=== PATIENT | male | born 1980 | race Hispanic/Latino ===

== ENCOUNTER 2019-05-18 01:40 | Emergency (ER) | payer SELFPAY ==
[~2019-05-18] VITALS: Ht 177.8 cm; Wt 99.8 kg
--- OUTSIDE RECORDS SUMMARY | 2019-05-18 01:44 | XMS REPORT ---
Author Author [facility] Organization [facility] Address Unknown Phone Unavailable Care Team Providers Care Associate Merchant Name Role Phone Unavailable Unavailable Payers Payer Name Policy Type Policy Number Effective Date Expiration Date Problems This patient has no known problems. Allergies, Adverse Reactions, Alerts Allergy Name Allergy Type Status Severity Reaction(s) Onset Date Inactive Date Treating Clinician Comments No Known Allergies DA Active U 2019-02-05 00:00:00 No Known Allergies DA Active U 2018-05-07 00:00:00 No Known Allergies DA Active U 2018-04-12 00:00:00 Medications This patient has no known medications. Results Test Description Test Time Test Comments Text Results Atomic Results Result Comments GLUBED 2019-02-07 17:30:00 GLUBED (test code=GLUBED) 134 mg/dL 74-106 Performed by certified incising machine operator at [facility] [id number] 11:16:00* Test Item Value Reference Range Comments GLUBED (test code=GLUBED) 76 mg/dL 74-106 Performed by certified incising machine operator at [facility] [id number] 07:48:00* Test Item Value Reference Range Comments GLUBED (test code=GLUBED) 79 mg/dL 74-106 Performed by certified incising machine operator at [facility] CBC W/MANUAL [id number] 04:31:00* Test Item Value Reference Range Comments WHITE BLOOD CELL (test code=WBC) 7.5 K/mm3 4.5-12.5 RED BLOOD CELL (test code=RBC) 4.08 mill/mm3 4.0-5.8 HEMOGLOBIN (test code=HGB) 13.5 gram/dL 13.0-17.5 HEMATOCRIT (test code=HCT) 41.6 % 42.0-52.0 MEAN CELL VOLUME (test code=MCV) 102.0 fL 80-98 MEAN CELL HGB (test code=MCH) 33.1 picogram 27.0-33.0 MEAN CELL HGB CONCETRATION (test code=MCHC) 32.5 gram/dL 33.0-36.0 RED CELL DISTRIBUTION WIDTH (test code=RDW) 12.9 % 11.6-16.2 RED CELL DISTRIBUTION WIDTH SD (test code=RDW-SD) 48.4 fL 37.0-51.0 PLATELET COUNT (test code=PLT) 132 K/mm3 150-450 RESULT VERIFIED BY REPEAT ANALYSIS MEAN PLATELET VOLUME (test code=MPV) 9.9 fL 6.7-11.0 IMMATURE GRANULOCYTE % (test code=IG%) 1.1 % 0.0-5.0 NUCLEATED RBC % (test code=NRBC%) 0.0 % 0-0 NEUTROPHIL # (test code=NT#) 4.92 K/mm3 1.8-7.7 IMMATURE GRANULOCYTE # (test code=IG#) 0.08 x10 3/uL 0-0.03 LYMPHOCYTE # (test code=LY#) 1.75 K/mm3 1.0-5.0 MONOCYTE # (test code=MO#) 0.47 K/mm3 0-0.8 EOSINOPHIL # (test code=EO#) 0.20 K/mm3 0.0-0.5 BASOPHIL # (test code=BA#) 0.09 K/mm3 0.0-0.2 NUCLEATED RBC # (test code=NRBC#) 0.00 K/mm3 0.0-0.1 MANUAL DIFF REQUIRED (test code=MDIFF) YES STAIN ACCEPTABILITY (test code=STN ACCEPTABLE) STAIN ACCEPTABLE TOTAL CELLS COUNTED (test code=TCC) 113 #CELLS SEGMENTED NEUTROPHILS (test code=SEG) 69.9 % 39-69 BAND NEUTROPHIL (test code=BAND) 0 % 0-10 LYMPHOCYTE (test code=LYMPH) 22.1 % 25-55 REACTIVE LYMPH (test code=RELYMPH) 3.5 % MONOCYTE (test code=MON) 1.8 % 0-10 EOSINOPHIL (test code=EOS) 1.8 % 0.0-5.0 BASOPHIL (test code=BASO) 0.9 % 0-1.0 METAMYELOCYTE (test code=META) 0 % 0-0 MYELOCYTE (test code=MYELO) 0 % 0.0-0.0 PROMYELOCYTE (test code=PROM) 0 % 0-0 ANISOCYTOSIS (test code=ANISO) 2+ MACROCYTOSIS (test code=MACR) 2+ PLATELET ESTIMATE (test code=PLTEST) ADEQUATE PLATELET MORPHOLOGY (test code=PLTMORPH) NORMAL IMMATURE FORMS (test code=IMMAT) 0 % 0-0 BASIC METABOLIC [id number] 04:02:00* Test Item Value Reference Range Comments SODIUM (test code=NA) 139 mmol/L 136-145 POTASSIUM (test code=K) 4.0 mmol/L 3.5-5.1 CHLORIDE (test code=CL) 103.0 mmol/L 98-107 CARBON DIOXIDE (test code=CO2) 24.0 mmol/L 21-32 ANION GAP (test code=GAP) 16.0 10-20 GLUCOSE (test code=GLU) 83 mg/dL 74-106 BLOOD UREA NITROGEN (test code=BUN) 6 mg/dL 7-18 GLOMERULAR FILTRATION RATE (test code=GFR) > 60 mL/min >=60 Estimated GFR by using Modified MDRD formula.Chronic kidney disease is defined as either kidney damageor GFR <60 mL/min/1.73 m2 for >3 months. CREATININE (test code=CREAT) 0.60 mg/dL 0.7-1.3 BUN/CREATININE RATIO (test code=BUN/CREA) 9.7 10-20 CALCIUM (test code=CA) 9.2 mg/dL 8.5-10.1 HEPATIC FUNCTION [id number] 04:02:00* Test Item Value Reference Range Comments TOTAL PROTEIN (test code=PROT) 7.9 gram/dL 6.4-8.2 ALBUMIN (test code=ALB) 2.8 g/dL 3.4-5.0 GLOBULIN (test code=GLOB) 5.1 gram/dL 2.7-4.2 ALBUMIN/GLOBULIN RATIO (test code=A/G) 0.5 0.75-1.50 BILIRUBIN TOTAL (test code=BILT) 4.00 mg/dL 0.0-1.0 BILIRUBIN DIRECT (test code=BILD) 2.82 mg/dL 0.0-0.20 SGOT/AST (test code=AST) 65 IUnit/L 15-37 SGPT/ALT (test code=ALT) 62 IUnit/L 12-78 ALKALINE PHOSPHATASE TOTAL (test code=ALKP) 200 IUnit/L 45-117 Note change in reference range due to change in reagent. [id number] 04:02:00* Test Item Value Reference Range Comments LIPASE (test code=LIP) 300 U/L 73.0-393.0 BASIC METABOLIC [id number] 03:54:00* Test Item Value Reference Range Comments SODIUM (test code=NA) 139 mmol/L 136-145 POTASSIUM (test code=K) 4.0 mmol/L 3.5-5.1 CHLORIDE (test code=CL) 103.0 mmol/L 98-107 CARBON DIOXIDE (test code=CO2) mmol/L 21-32 ANION GAP (test code=GAP) 10-20 GLUCOSE (test code=GLU) mg/dL 74-106 BLOOD UREA NITROGEN (test code=BUN) mg/dL 7-18 GLOMERULAR FILTRATION RATE (test code=GFR) mL/min >=60 CREATININE (test code=CREAT) mg/dL 0.7-1.3 BUN/CREATININE RATIO (test code=BUN/CREA) 10-20 CALCIUM (test code=CA) mg/dL 8.5-10.1 HEPATIC FUNCTION [id number] 03:54:00* Test Item Value Reference Range Comments TOTAL PROTEIN (test code=PROT) gram/dL 6.4-8.2 ALBUMIN (test code=ALB) g/dL 3.4-5.0 GLOBULIN (test code=GLOB) gram/dL 2.7-4.2 ALBUMIN/GLOBULIN RATIO (test code=A/G) 0.75-1.50 BILIRUBIN TOTAL (test code=BILT) mg/dL 0.0-1.0 BILIRUBIN DIRECT (test code=BILD) mg/dL 0.0-0.20 SGOT/AST (test code=AST) IUnit/L 15-37 SGPT/ALT (test code=ALT) IUnit/L 12-78 ALKALINE PHOSPHATASE TOTAL (test code=ALKP) IUnit/L 45-117 [id number] 03:54:00* Test Item Value Reference Range Comments LIPASE (test code=LIP) U/L 73.0-393.0 CBC W/MANUAL [id number] 03:43:00* Test Item Value Reference Range Comments WHITE BLOOD CELL (test code=WBC) 7.5 K/mm3 4.5-12.5 RED BLOOD CELL (test code=RBC) 4.08 mill/mm3 4.0-5.8 HEMOGLOBIN (test code=HGB) 13.5 gram/dL 13.0-17.5 HEMATOCRIT (test code=HCT) 41.6 % 42.0-52.0 MEAN CELL VOLUME (test code=MCV) 102.0 fL 80-98 MEAN CELL HGB (test code=MCH) 33.1 picogram 27.0-33.0 MEAN CELL HGB CONCETRATION (test code=MCHC) 32.5 gram/dL 33.0-36.0 RED CELL DISTRIBUTION WIDTH (test code=RDW) 12.9 % 11.6-16.2 RED CELL DISTRIBUTION WIDTH SD (test code=RDW-SD) 48.4 fL 37.0-51.0 PLATELET COUNT (test code=PLT) 132 K/mm3 150-450 RESULT VERIFIED BY REPEAT ANALYSIS MEAN PLATELET VOLUME (test code=MPV) 9.9 fL 6.7-11.0 IMMATURE GRANULOCYTE % (test code=IG%) 1.1 % 0.0-5.0 NUCLEATED RBC % (test code=NRBC%) 0.0 % 0-0 NEUTROPHIL # (test code=NT#) 4.92 K/mm3 1.8-7.7 IMMATURE GRANULOCYTE # (test code=IG#) 0.08 x10 3/uL 0-0.03 LYMPHOCYTE # (test code=LY#) 1.75 K/mm3 1.0-5.0 MONOCYTE # (test code=MO#) 0.47 K/mm3 0-0.8 EOSINOPHIL # (test code=EO#) 0.20 K/mm3 0.0-0.5 BASOPHIL # (test code=BA#) 0.09 K/mm3 0.0-0.2 NUCLEATED RBC # (test code=NRBC#) 0.00 K/mm3 0.0-0.1 MANUAL DIFF REQUIRED (test code=MDIFF) YES STAIN ACCEPTABILITY (test code=STN ACCEPTABLE) TOTAL CELLS COUNTED (test code=TCC) #CELLS SEGMENTED NEUTROPHILS (test code=SEG) % 39-69 LYMPHOCYTE (test code=LYMPH) % 25-55 MONOCYTE (test code=MON) % 0-10 EOSINOPHIL (test code=EOS) % 0.0-5.0 CABOT RINGS (test code=CAB) MORPHOLOGY COMMENT (test code=MOC) PLATELET ESTIMATE (test code=PLTEST) PLATELET MORPHOLOGY (test code=PLTMORPH) CBC W/MANUAL [id number] 03:43:00* Test Item Value Reference Range Comments WHITE BLOOD CELL (test code=WBC) 7.5 K/mm3 4.5-12.5 RED BLOOD CELL (test code=RBC) 4.08 mill/mm3 4.0-5.8 HEMOGLOBIN (test code=HGB) 13.5 gram/dL 13.0-17.5 HEMATOCRIT (test code=HCT) 41.6 % 42.0-52.0 MEAN CELL VOLUME (test code=MCV) 102.0 fL 80-98 MEAN CELL HGB (test code=MCH) 33.1 picogram 27.0-33.0 MEAN CELL HGB CONCETRATION (test code=MCHC) 32.5 gram/dL 33.0-36.0 RED CELL DISTRIBUTION WIDTH (test code=RDW) 12.9 % 11.6-16.2 RED CELL DISTRIBUTION WIDTH SD (test code=RDW-SD) 48.4 fL 37.0-51.0 PLATELET COUNT (test code=PLT) 132 K/mm3 150-450 RESULT VERIFIED BY REPEAT ANALYSIS MEAN PLATELET VOLUME (test code=MPV) 9.9 fL 6.7-11.0 IMMATURE GRANULOCYTE % (test code=IG%) 1.1 % 0.0-5.0 NUCLEATED RBC % (test code=NRBC%) 0.0 % 0-0 NEUTROPHIL # (test code=NT#) 4.92 K/mm3 1.8-7.7 IMMATURE GRANULOCYTE # (test code=IG#) 0.08 x10 3/uL 0-0.03 LYMPHOCYTE # (test code=LY#) 1.75 K/mm3 1.0-5.0 MONOCYTE # (test code=MO#) 0.47 K/mm3 0-0.8 EOSINOPHIL # (test code=EO#) 0.20 K/mm3 0.0-0.5 BASOPHIL # (test code=BA#) 0.09 K/mm3 0.0-0.2 NUCLEATED RBC # (test code=NRBC#) 0.00 K/mm3 0.0-0.1 MANUAL DIFF REQUIRED (test code=MDIFF) YES STAIN ACCEPTABILITY (test code=STN ACCEPTABLE) TOTAL CELLS COUNTED (test code=TCC) #CELLS SEGMENTED NEUTROPHILS (test code=SEG) % 39-69 LYMPHOCYTE (test code=LYMPH) % 25-55 MONOCYTE (test code=MON) % 0-10 EOSINOPHIL (test code=EOS) % 0.0-5.0 MORPHOLOGY COMMENT (test code=MOC) PLATELET ESTIMATE (test code=PLTEST) PLATELET MORPHOLOGY (test code=PLTMORPH) CBC W/MANUAL [id number] 03:43:00* Test Item Value Reference Range Comments WHITE BLOOD CELL (test code=WBC) 7.5 K/mm3 4.5-12.5 RED BLOOD CELL (test code=RBC) 4.08 mill/mm3 4.0-5.8 HEMOGLOBIN (test code=HGB) 13.5 gram/dL 13.0-17.5 HEMATOCRIT (test code=HCT) 41.6 % 42.0-52.0 MEAN CELL VOLUME (test code=MCV) 102.0 fL 80-98 MEAN CELL HGB (test code=MCH) 33.1 picogram 27.0-33.0 MEAN CELL HGB CONCETRATION (test code=MCHC) 32.5 gram/dL 33.0-36.0 RED CELL DISTRIBUTION WIDTH (test code=RDW) 12.9 % 11.6-16.2 RED CELL DISTRIBUTION WIDTH SD (test code=RDW-SD) 48.4 fL 37.0-51.0 PLATELET COUNT (test code=PLT) 132 K/mm3 150-450 RESULT VERIFIED BY REPEAT ANALYSIS MEAN PLATELET VOLUME (test code=MPV) 9.9 fL 6.7-11.0 IMMATURE GRANULOCYTE % (test code=IG%) 1.1 % 0.0-5.0 NUCLEATED RBC % (test code=NRBC%) 0.0 % 0-0 NEUTROPHIL # (test code=NT#) 4.92 K/mm3 1.8-7.7 IMMATURE GRANULOCYTE # (test code=IG#) 0.08 x10 3/uL 0-0.03 LYMPHOCYTE # (test code=LY#) 1.75 K/mm3 1.0-5.0 MONOCYTE # (test code=MO#) 0.47 K/mm3 0-0.8 EOSINOPHIL # (test code=EO#) 0.20 K/mm3 0.0-0.5 BASOPHIL # (test code=BA#) 0.09 K/mm3 0.0-0.2 NUCLEATED RBC # (test code=NRBC#) 0.00 K/mm3 0.0-0.1 MANUAL DIFF REQUIRED (test code=MDIFF) YES STAIN ACCEPTABILITY (test code=STN ACCEPTABLE) TOTAL CELLS COUNTED (test code=TCC) #CELLS SEGMENTED NEUTROPHILS (test code=SEG) % 39-69 LYMPHOCYTE (test code=LYMPH) % 25-55 MONOCYTE (test code=MON) % 0-10 MORPHOLOGY COMMENT (test code=MOC) PLATELET ESTIMATE (test code=PLTEST) PLATELET MORPHOLOGY (test code=PLTMORPH) CBC W/MANUAL [id number] 03:42:00* Test Item Value Reference Range Comments WHITE BLOOD CELL (test code=WBC) 7.5 K/mm3 4.5-12.5 RED BLOOD CELL (test code=RBC) 4.08 mill/mm3 4.0-5.8 HEMOGLOBIN (test code=HGB) 13.5 gram/dL 13.0-17.5 HEMATOCRIT (test code=HCT) 41.6 % 42.0-52.0 MEAN CELL VOLUME (test code=MCV) 102.0 fL 80-98 MEAN CELL HGB (test code=MCH) 33.1 picogram 27.0-33.0 MEAN CELL HGB CONCETRATION (test code=MCHC) 32.5 gram/dL 33.0-36.0 RED CELL DISTRIBUTION WIDTH (test code=RDW) 12.9 % 11.6-16.2 RED CELL DISTRIBUTION WIDTH SD (test code=RDW-SD) 48.4 fL 37.0-51.0 PLATELET COUNT (test code=PLT) 132 K/mm3 150-450 RESULT VERIFIED BY REPEAT ANALYSIS MEAN PLATELET VOLUME (test code=MPV) 9.9 fL 6.7-11.0 IMMATURE GRANULOCYTE % (test code=IG%) 1.1 % 0.0-5.0 NUCLEATED RBC % (test code=NRBC%) 0.0 % 0-0 NEUTROPHIL # (test code=NT#) 4.92 K/mm3 1.8-7.7 IMMATURE GRANULOCYTE # (test code=IG#) 0.08 x10 3/uL 0-0.03 LYMPHOCYTE # (test code=LY#) 1.75 K/mm3 1.0-5.0 MONOCYTE # (test code=MO#) 0.47 K/mm3 0-0.8 EOSINOPHIL # (test code=EO#) 0.20 K/mm3 0.0-0.5 BASOPHIL # (test code=BA#) 0.09 K/mm3 0.0-0.2 NUCLEATED RBC # (test code=NRBC#) 0.00 K/mm3 0.0-0.1 MANUAL DIFF REQUIRED (test code=MDIFF) YES STAIN ACCEPTABILITY (test code=STN ACCEPTABLE) TOTAL CELLS COUNTED (test code=TCC) #CELLS SEGMENTED NEUTROPHILS (test code=SEG) % 39-69 LYMPHOCYTE (test code=LYMPH) % 25-55 MONOCYTE (test code=MON) % 0-10 EOSINOPHIL (test code=EOS) % 0.0-5.0 CABOT RINGS (test code=CAB) MORPHOLOGY COMMENT (test code=MOC) PLATELET ESTIMATE (test code=PLTEST) PLATELET MORPHOLOGY (test code=PLTMORPH) CBC W/MANUAL [id number] 03:42:00* Test Item Value Reference Range Comments WHITE BLOOD CELL (test code=WBC) 7.5 K/mm3 4.5-12.5 RED BLOOD CELL (test code=RBC) 4.08 mill/mm3 4.0-5.8 HEMOGLOBIN (test code=HGB) 13.5 gram/dL 13.0-17.5 HEMATOCRIT (test code=HCT) 41.6 % 42.0-52.0 MEAN CELL VOLUME (test code=MCV) 102.0 fL 80-98 MEAN CELL HGB (test code=MCH) 33.1 picogram 27.0-33.0 MEAN CELL HGB CONCETRATION (test code=MCHC) 32.5 gram/dL 33.0-36.0 RED CELL DISTRIBUTION WIDTH (test code=RDW) 12.9 % 11.6-16.2 RED CELL DISTRIBUTION WIDTH SD (test code=RDW-SD) 48.4 fL 37.0-51.0 PLATELET COUNT (test code=PLT) 132 K/mm3 150-450 RESULT VERIFIED BY REPEAT ANALYSIS MEAN PLATELET VOLUME (test code=MPV) 9.9 fL 6.7-11.0 IMMATURE GRANULOCYTE % (test code=IG%) 1.1 % 0.0-5.0 NUCLEATED RBC % (test code=NRBC%) 0.0 % 0-0 NEUTROPHIL # (test code=NT#) 4.92 K/mm3 1.8-7.7 IMMATURE GRANULOCYTE # (test code=IG#) 0.08 x10 3/uL 0-0.03 LYMPHOCYTE # (test code=LY#) 1.75 K/mm3 1.0-5.0 MONOCYTE # (test code=MO#) 0.47 K/mm3 0-0.8 EOSINOPHIL # (test code=EO#) 0.20 K/mm3 0.0-0.5 BASOPHIL # (test code=BA#) 0.09 K/mm3 0.0-0.2 NUCLEATED RBC # (test code=NRBC#) 0.00 K/mm3 0.0-0.1 MANUAL DIFF REQUIRED (test code=MDIFF) YES STAIN ACCEPTABILITY (test code=STN ACCEPTABLE) TOTAL CELLS COUNTED (test code=TCC) #CELLS SEGMENTED NEUTROPHILS (test code=SEG) % 39-69 LYMPHOCYTE (test code=LYMPH) % 25-55 MONOCYTE (test code=MON) % 0-10 EOSINOPHIL (test code=EOS) % 0.0-5.0 CABOT RINGS (test code=CAB) MORPHOLOGY COMMENT (test code=MOC) PLATELET ESTIMATE (test code=PLTEST) PLATELET MORPHOLOGY (test code=PLTMORPH) [id number] 20:28:00* Test Item Value Reference Range Comments GLUBED (test code=GLUBED) 80 mg/dL 74-106 Performed by certified incising machine operator at [facility] [id number] 16:31:00* Test Item Value Reference Range Comments GLUBED (test code=GLUBED) 74 mg/dL 74-106 Performed by certified incising machine operator at [facility] [id number] 11:31:00* Test Item Value Reference Range Comments GLUBED (test code=GLUBED) 97 mg/dL 74-106 Performed by certified incising machine operator at [facility] [id number] 07:54:00* Test Item Value Reference Range Comments GLUBED (test code=GLUBED) 88 mg/dL 74-106 Performed by certified incising machine operator at [facility] CBC W/MANUAL [id number] 06:32:00* Test Item Value Reference Range Comments WHITE BLOOD CELL (test code=WBC) 12.2 K/mm3 4.5-12.5 RED BLOOD CELL (test code=RBC) 4.00 mill/mm3 4.0-5.8 HEMOGLOBIN (test code=HGB) 13.3 gram/dL 13.0-17.5 HEMATOCRIT (test code=HCT) 40.3 % 42.0-52.0 MEAN CELL VOLUME (test code=MCV) 100.8 fL 80-98 MEAN CELL HGB (test code=MCH) 33.3 picogram 27.0-33.0 MEAN CELL HGB CONCETRATION (test code=MCHC) 33.0 gram/dL 33.0-36.0 RED CELL DISTRIBUTION WIDTH (test code=RDW) 13.1 % 11.6-16.2 RED CELL DISTRIBUTION WIDTH SD (test code=RDW-SD) 48.7 fL 37.0-51.0 PLATELET COUNT (test code=PLT) 91 K/mm3 150-450 MEAN PLATELET VOLUME (test code=MPV) 11.3 fL 6.7-11.0 IMMATURE GRANULOCYTE % (test code=IG%) 0.9 % 0.0-5.0 NUCLEATED RBC % (test code=NRBC%) 0.0 % 0-0 NEUTROPHIL # (test code=NT#) 9.15 K/mm3 1.8-7.7 IMMATURE GRANULOCYTE # (test code=IG#) 0.11 x10 3/uL 0-0.03 LYMPHOCYTE # (test code=LY#) 1.95 K/mm3 1.0-5.0 MONOCYTE # (test code=MO#) 0.66 K/mm3 0-0.8 EOSINOPHIL # (test code=EO#) 0.25 K/mm3 0.0-0.5 BASOPHIL # (test code=BA#) 0.12 K/mm3 0.0-0.2 NUCLEATED RBC # (test code=NRBC#) 0.00 K/mm3 0.0-0.1 MANUAL DIFF REQUIRED (test code=MDIFF) YES STAIN ACCEPTABILITY (test code=STN ACCEPTABLE) STAIN ACCEPTABLE TOTAL CELLS COUNTED (test code=TCC) 115 #CELLS SEGMENTED NEUTROPHILS (test code=SEG) 87.0 % 39-69 BAND NEUTROPHIL (test code=BAND) 0 % 0-10 LYMPHOCYTE (test code=LYMPH) 6.9 % 25-55 REACTIVE LYMPH (test code=RELYMPH) 0 % MONOCYTE (test code=MON) 3.5 % 0-10 EOSINOPHIL (test code=EOS) 1.7 % 0.0-5.0 BASOPHIL (test code=BASO) 0.9 % 0-1.0 METAMYELOCYTE (test code=META) 0 % 0-0 MYELOCYTE (test code=MYELO) 0 % 0.0-0.0 PROMYELOCYTE (test code=PROM) 0 % 0-0 ANISOCYTOSIS (test code=ANISO) 2+ MACROCYTOSIS (test code=MACR) 2+ PLATELET ESTIMATE (test code=PLTEST) ADEQUATE PLATELET MORPHOLOGY (test code=PLTMORPH) NORMAL IMMATURE FORMS (test code=IMMAT) 0 % 0-0 BASIC METABOLIC [id number] 05:53:00* Test Item Value Reference Range Comments SODIUM (test code=NA) 137 mmol/L 136-145 RESULT VERIFIED BY REPEAT ANALYSIS POTASSIUM (test code=K) 3.5 mmol/L 3.5-5.1 CHLORIDE (test code=CL) 101.0 mmol/L 98-107 CARBON DIOXIDE (test code=CO2) 25.0 mmol/L 21-32 ANION GAP (test code=GAP) 14.5 10-20 GLUCOSE (test code=GLU) 116 mg/dL 74-106 BLOOD UREA NITROGEN (test code=BUN) 4 mg/dL 7-18 GLOMERULAR FILTRATION RATE (test code=GFR) > 60 mL/min >=60 Estimated GFR by using Modified MDRD formula.Chronic kidney disease is defined as either kidney damageor GFR <60 mL/min/1.73 m2 for >3 months. CREATININE (test code=CREAT) 0.60 mg/dL 0.7-1.3 BUN/CREATININE RATIO (test code=BUN/CREA) 6.7 10-20 CALCIUM (test code=CA) 8.3 mg/dL 8.5-10.1 [id number] 05:53:00* Test Item Value Reference Range Comments LIPASE (test code=LIP) 684 U/L 73.0-393.0 CBC W/MANUAL [id number] 05:22:00* Test Item Value Reference Range Comments WHITE BLOOD CELL (test code=WBC) 12.2 K/mm3 4.5-12.5 RED BLOOD CELL (test code=RBC) 4.00 mill/mm3 4.0-5.8 HEMOGLOBIN (test code=HGB) 13.3 gram/dL 13.0-17.5 HEMATOCRIT (test code=HCT) 40.3 % 42.0-52.0 MEAN CELL VOLUME (test code=MCV) 100.8 fL 80-98 MEAN CELL HGB (test code=MCH) 33.3 picogram 27.0-33.0 MEAN CELL HGB CONCETRATION (test code=MCHC) 33.0 gram/dL 33.0-36.0 RED CELL DISTRIBUTION WIDTH (test code=RDW) 13.1 % 11.6-16.2 RED CELL DISTRIBUTION WIDTH SD (test code=RDW-SD) 48.7 fL 37.0-51.0 PLATELET COUNT (test code=PLT) 91 K/mm3 150-450 MEAN PLATELET VOLUME (test code=MPV) 11.3 fL 6.7-11.0 IMMATURE GRANULOCYTE % (test code=IG%) 0.9 % 0.0-5.0 NUCLEATED RBC % (test code=NRBC%) 0.0 % 0-0 NEUTROPHIL # (test code=NT#) 9.15 K/mm3 1.8-7.7 IMMATURE GRANULOCYTE # (test code=IG#) 0.11 x10 3/uL 0-0.03 LYMPHOCYTE # (test code=LY#) 1.95 K/mm3 1.0-5.0 MONOCYTE # (test code=MO#) 0.66 K/mm3 0-0.8 EOSINOPHIL # (test code=EO#) 0.25 K/mm3 0.0-0.5 BASOPHIL # (test code=BA#) 0.12 K/mm3 0.0-0.2 NUCLEATED RBC # (test code=NRBC#) 0.00 K/mm3 0.0-0.1 MANUAL DIFF REQUIRED (test code=MDIFF) YES STAIN ACCEPTABILITY (test code=STN ACCEPTABLE) TOTAL CELLS COUNTED (test code=TCC) #CELLS SEGMENTED NEUTROPHILS (test code=SEG) % 39-69 LYMPHOCYTE (test code=LYMPH) % 25-55 MONOCYTE (test code=MON) % 0-10 EOSINOPHIL (test code=EOS) % 0.0-5.0 CABOT RINGS (test code=CAB) MORPHOLOGY COMMENT (test code=MOC) PLATELET ESTIMATE (test code=PLTEST) PLATELET MORPHOLOGY (test code=PLTMORPH) CBC W/MANUAL [id number] 05:22:00* Test Item Value Reference Range Comments WHITE BLOOD CELL (test code=WBC) 12.2 K/mm3 4.5-12.5 RED BLOOD CELL (test code=RBC) 4.00 mill/mm3 4.0-5.8 HEMOGLOBIN (test code=HGB) 13.3 gram/dL 13.0-17.5 HEMATOCRIT (test code=HCT) 40.3 % 42.0-52.0 MEAN CELL VOLUME (test code=MCV) 100.8 fL 80-98 MEAN CELL HGB (test code=MCH) 33.3 picogram 27.0-33.0 MEAN CELL HGB CONCETRATION (test code=MCHC) 33.0 gram/dL 33.0-36.0 RED CELL DISTRIBUTION WIDTH (test code=RDW) 13.1 % 11.6-16.2 RED CELL DISTRIBUTION WIDTH SD (test code=RDW-SD) 48.7 fL 37.0-51.0 PLATELET COUNT (test code=PLT) 91 K/mm3 150-450 MEAN PLATELET VOLUME (test code=MPV) 11.3 fL 6.7-11.0 IMMATURE GRANULOCYTE % (test code=IG%) 0.9 % 0.0-5.0 NUCLEATED RBC % (test code=NRBC%) 0.0 % 0-0 NEUTROPHIL # (test code=NT#) 9.15 K/mm3 1.8-7.7 IMMATURE GRANULOCYTE # (test code=IG#) 0.11 x10 3/uL 0-0.03 LYMPHOCYTE # (test code=LY#) 1.95 K/mm3 1.0-5.0 MONOCYTE # (test code=MO#) 0.66 K/mm3 0-0.8 EOSINOPHIL # (test code=EO#) 0.25 K/mm3 0.0-0.5 BASOPHIL # (test code=BA#) 0.12 K/mm3 0.0-0.2 NUCLEATED RBC # (test code=NRBC#) 0.00 K/mm3 0.0-0.1 MANUAL DIFF REQUIRED (test code=MDIFF) YES STAIN ACCEPTABILITY (test code=STN ACCEPTABLE) TOTAL CELLS COUNTED (test code=TCC) #CELLS SEGMENTED NEUTROPHILS (test code=SEG) % 39-69 LYMPHOCYTE (test code=LYMPH) % 25-55 MONOCYTE (test code=MON) % 0-10 EOSINOPHIL (test code=EOS) % 0.0-5.0 CABOT RINGS (test code=CAB) MORPHOLOGY COMMENT (test code=MOC) PLATELET ESTIMATE (test code=PLTEST) PLATELET MORPHOLOGY (test code=PLTMORPH) CBC W/MANUAL [id number] 05:22:00* Test Item Value Reference Range Comments WHITE BLOOD CELL (test code=WBC) 12.2 K/mm3 4.5-12.5 RED BLOOD CELL (test code=RBC) 4.00 mill/mm3 4.0-5.8 HEMOGLOBIN (test code=HGB) 13.3 gram/dL 13.0-17.5 HEMATOCRIT (test code=HCT) 40.3 % 42.0-52.0 MEAN CELL VOLUME (test code=MCV) 100.8 fL 80-98 MEAN CELL HGB (test code=MCH) 33.3 picogram 27.0-33.0 MEAN CELL HGB CONCETRATION (test code=MCHC) 33.0 gram/dL 33.0-36.0 RED CELL DISTRIBUTION WIDTH (test code=RDW) 13.1 % 11.6-16.2 RED CELL DISTRIBUTION WIDTH SD (test code=RDW-SD) 48.7 fL 37.0-51.0 PLATELET COUNT (test code=PLT) 91 K/mm3 150-450 MEAN PLATELET VOLUME (test code=MPV) 11.3 fL 6.7-11.0 IMMATURE GRANULOCYTE % (test code=IG%) 0.9 % 0.0-5.0 NUCLEATED RBC % (test code=NRBC%) 0.0 % 0-0 NEUTROPHIL # (test code=NT#) 9.15 K/mm3 1.8-7.7 IMMATURE GRANULOCYTE # (test code=IG#) 0.11 x10 3/uL 0-0.03 LYMPHOCYTE # (test code=LY#) 1.95 K/mm3 1.0-5.0 MONOCYTE # (test code=MO#) 0.66 K/mm3 0-0.8 EOSINOPHIL # (test code=EO#) 0.25 K/mm3 0.0-0.5 BASOPHIL # (test code=BA#) 0.12 K/mm3 0.0-0.2 NUCLEATED RBC # (test code=NRBC#) 0.00 K/mm3 0.0-0.1 MANUAL DIFF REQUIRED (test code=MDIFF) YES STAIN ACCEPTABILITY (test code=STN ACCEPTABLE) TOTAL CELLS COUNTED (test code=TCC) #CELLS SEGMENTED NEUTROPHILS (test code=SEG) % 39-69 LYMPHOCYTE (test code=LYMPH) % 25-55 MONOCYTE (test code=MON) % 0-10 EOSINOPHIL (test code=EOS) % 0.0-5.0 MORPHOLOGY COMMENT (test code=MOC) PLATELET ESTIMATE (test code=PLTEST) PLATELET MORPHOLOGY (test code=PLTMORPH) CBC W/MANUAL [id number] 05:22:00* Test Item Value Reference Range Comments WHITE BLOOD CELL (test code=WBC) 12.2 K/mm3 4.5-12.5 RED BLOOD CELL (test code=RBC) 4.00 mill/mm3 4.0-5.8 HEMOGLOBIN (test code=HGB) 13.3 gram/dL 13.0-17.5 HEMATOCRIT (test code=HCT) 40.3 % 42.0-52.0 MEAN CELL VOLUME (test code=MCV) 100.8 fL 80-98 MEAN CELL HGB (test code=MCH) 33.3 picogram 27.0-33.0 MEAN CELL HGB CONCETRATION (test code=MCHC) 33.0 gram/dL 33.0-36.0 RED CELL DISTRIBUTION WIDTH (test code=RDW) 13.1 % 11.6-16.2 RED CELL DISTRIBUTION WIDTH SD (test code=RDW-SD) 48.7 fL 37.0-51.0 PLATELET COUNT (test code=PLT) 91 K/mm3 150-450 MEAN PLATELET VOLUME (test code=MPV) 11.3 fL 6.7-11.0 IMMATURE GRANULOCYTE % (test code=IG%) 0.9 % 0.0-5.0 NUCLEATED RBC % (test code=NRBC%) 0.0 % 0-0 NEUTROPHIL # (test code=NT#) 9.15 K/mm3 1.8-7.7 IMMATURE GRANULOCYTE # (test code=IG#) 0.11 x10 3/uL 0-0.03 LYMPHOCYTE # (test code=LY#) 1.95 K/mm3 1.0-5.0 MONOCYTE # (test code=MO#) 0.66 K/mm3 0-0.8 EOSINOPHIL # (test code=EO#) 0.25 K/mm3 0.0-0.5 BASOPHIL # (test code=BA#) 0.12 K/mm3 0.0-0.2 NUCLEATED RBC # (test code=NRBC#) 0.00 K/mm3 0.0-0.1 MANUAL DIFF REQUIRED (test code=MDIFF) YES STAIN ACCEPTABILITY (test code=STN ACCEPTABLE) TOTAL CELLS COUNTED (test code=TCC) #CELLS SEGMENTED NEUTROPHILS (test code=SEG) % 39-69 LYMPHOCYTE (test code=LYMPH) % 25-55 MONOCYTE (test code=MON) % 0-10 MORPHOLOGY COMMENT (test code=MOC) PLATELET ESTIMATE (test code=PLTEST) PLATELET MORPHOLOGY (test code=PLTMORPH) CBC W/MANUAL [id number] 05:22:00* Test Item Value Reference Range Comments WHITE BLOOD CELL (test code=WBC) 12.2 K/mm3 4.5-12.5 RED BLOOD CELL (test code=RBC) 4.00 mill/mm3 4.0-5.8 HEMOGLOBIN (test code=HGB) 13.3 gram/dL 13.0-17.5 HEMATOCRIT (test code=HCT) 40.3 % 42.0-52.0 MEAN CELL VOLUME (test code=MCV) 100.8 fL 80-98 MEAN CELL HGB (test code=MCH) 33.3 picogram 27.0-33.0 MEAN CELL HGB CONCETRATION (test code=MCHC) 33.0 gram/dL 33.0-36.0 RED CELL DISTRIBUTION WIDTH (test code=RDW) 13.1 % 11.6-16.2 RED CELL DISTRIBUTION WIDTH SD (test code=RDW-SD) 48.7 fL 37.0-51.0 PLATELET COUNT (test code=PLT) 91 K/mm3 150-450 MEAN PLATELET VOLUME (test code=MPV) 11.3 fL 6.7-11.0 IMMATURE GRANULOCYTE % (test code=IG%) 0.9 % 0.0-5.0 NUCLEATED RBC % (test code=NRBC%) 0.0 % 0-0 NEUTROPHIL # (test code=NT#) 9.15 K/mm3 1.8-7.7 IMMATURE GRANULOCYTE # (test code=IG#) 0.11 x10 3/uL 0-0.03 LYMPHOCYTE # (test code=LY#) 1.95 K/mm3 1.0-5.0 MONOCYTE # (test code=MO#) 0.66 K/mm3 0-0.8 EOSINOPHIL # (test code=EO#) 0.25 K/mm3 0.0-0.5 BASOPHIL # (test code=BA#) 0.12 K/mm3 0.0-0.2 NUCLEATED RBC # (test code=NRBC#) 0.00 K/mm3 0.0-0.1 MANUAL DIFF REQUIRED (test code=MDIFF) YES STAIN ACCEPTABILITY (test code=STN ACCEPTABLE) TOTAL CELLS COUNTED (test code=TCC) #CELLS SEGMENTED NEUTROPHILS (test code=SEG) % 39-69 LYMPHOCYTE (test code=LYMPH) % 25-55 MONOCYTE (test code=MON) % 0-10 EOSINOPHIL (test code=EOS) % 0.0-5.0 CABOT RINGS (test code=CAB) MORPHOLOGY COMMENT (test code=MOC) PLATELET ESTIMATE (test code=PLTEST) PLATELET MORPHOLOGY (test code=PLTMORPH) [id number] 20:21:00* Test Item Value Reference Range Comments GLYCOSYLATED HEMOGLOBIN (HA1C) (test code=GLYHGB) 5.6 % HbA1 4.8-6.0 ESTIMATED AVERAGE GLUCOSE (test code=EAG) 114 MG/DL [id number] 20:14:00* Test Item Value Reference Range Comments GLUBED (test code=GLUBED) 124 mg/dL 74-106 Performed by certified incising machine operator at [facility] - US ABDOMEN [id number] 10:44:00 Name: LUIS SNYDER [facility] : 1980 Age/S: 38 / M [address] [facility] Unit #: [id number] Loc: [place] [address] Phys: Benjamin Aguilar MD Acct: [id number] Dis Date: Status: ADM IN PHONE #: [phone] Exam Date: 02/05/2019 1034 FAX #: [phone] Reason: RUQ pain, pancreatitis EXAMS: CPT CODE: [id number] US ABDOMEN LTD [id number] REASON FOR EXAM: RUQ pain, pancreatitis EXAM ORDER DATE: 02/05/2019 10:06 AM Attending M.D.: Benjamin Aguilar MD PROCEDURE: - US ABDOMEN LTD Technique: Grayscale and color Doppler images of the right-upper quadrant of the abdomen. Comparison: Abdominal ultrasound December 16, 2018 FINDINGS: Aorta and IVC: Patent and grossly normal in caliber. Liver: Size: 21.8 cm craniocaudally Parenchyma and contour: Diffusely increased echogenicity. Contour is smooth Cysts and/or masses: None. Intrahepatic bile ducts: No intrahepatic biliary ductal dilation Common bile duct: 4.8 mm in diameter. No echogenic filling defects in visualized duct. Gallbladder: Stones/sludge: No intraluminal stones or sludge. Wall: 2.3 mm in thickness. No discontinuity. No polyps. No pericholecystic fluid. No hyperemia. Sonographic Munoz's sign: Negative Portal vein: Portal vein caliber is within normal limits. Portal vein is patent with hepatopetal flow. Pancreas: Incompletely visualized. However the visualized portions are grossly within normal limits. Right kidney: parenchyma echogenicity: Normal echogenicity size: 12.3 x 4.6 x 6.4 cm stones: none PAGE 1 Signed Report (CONTINUED) [facility] 1980 Age[facility]S: 38 / M [address] [facility] Unit #: [id number] Loc: Ch[place]i [place] [address] Phys: Benjamin Aguilar MD Acct: [id number] Dis Date: Status: ADM IN PHONE #: [phone] Exam Date: 02/05/2019 1034 FAX #: [phone] Reason: RUQ pain, pancreatitis EXAMS: CPT CODE: [id number] US ABDOMEN LTD [id number] < Continued> cysts/masses: none hydronephrosis: none Ascites/pleural effusions: None IMPRESSION: Hepatomegaly with hepatic steatosis. Location: [facility] at 1044 Reported and signed by: James Zimmerman MD CC: Benjamin Aguilar MD Technologist: Coco Andrade RDMS Trnscb Date/Time: 02/05/2019 (6734) [email or web address] Orig Print D/T: S: 02/05/2019 (6055) Probe: PAGE 2 Signed Report BASIC METABOLIC [id number] 10:26:00* Test Item Value Reference Range Comments SODIUM (test code=NA) 128 mmol/L 136-145 SPECIMEN 3+ LIPEMIC POTASSIUM (test code=K) 3.8 mmol/L 3.5-5.1 CHLORIDE (test code=CL) 90 mmol/L 101-109 CARBON DIOXIDE (test code=CO2) 23.5 mmol/L 21-32 ANION GAP (test code=GAP) 18 mmol/L 10-20 GLUCOSE (test code=GLU) 228 mg/dL 74-106 BLOOD UREA NITROGEN (test code=BUN) 4 mg/dL 3-21 GLOMERULAR FILTRATION RATE (test code=GFR) > 60 mL/min >=60 Estimated GFR by using Modified MDRD formula.Chronic kidney disease is defined as either kidney damageor GFR <60 mL/min/1.73 m2 for >3 months. CREATININE (test code=CREAT) 0.73 mg/dL 0.55-1.3 BUN/CREATININE RATIO (test code=BUN/CREA) 5.5 10-20 CALCIUM (test code=CA) 7.9 mg/dL 8.4-10.2 HEPATIC FUNCTION [id number] 10:26:00* Test Item Value Reference Range Comments TOTAL PROTEIN (test code=PROT) 6.8 g/dL 6.5-8.4 ALBUMIN (test code=ALB) 2.9 g/dL 3.4-4.8 GLOBULIN (test code=GLOB) 3.9 G/DL 1-10 ALBUMIN/GLOBULIN RATIO (test code=A/G) 0.74 RATIO 0.75-1.50 BILIRUBIN TOTAL (test code=BILT) 3.70 mg/dL 0.0-1.0 BILIRUBIN DIRECT (test code=BILD) 1.70 mg/dL 0.0-0.30 SGOT/AST (test code=AST) 113 U/L 6-32 SGPT/ALT (test code=ALT) 71 U/L 12-78 Note: Change in REFERENCE RANGE due to new reagent method. ALKALINE PHOSPHATASE TOTAL (test code=ALKP) 237 U/L 38-126 [id number] 10:26:00* Test Item Value Reference Range Comments LIPASE (test code=LIP) 1344 U/L 128-270 URINALYSIS [id number] 10:06:00* Test Item Value Reference Range Comments UA COLOR (test code=COLU) MOISÉS YELLOW UA APPEARANCE (test code=APPU) HAZY CLEAR UA GLUCOSE DIPSTICK (test code=DGLUU) norm mg/dL NEGATIVE UA BILIRUBIN DIPSTICK (test code=BILU) 6 mg/dL NEGATIVE UA KETONE DIPSTICK (test code=KETU) 15 (1+) mg/dL NEGATIVE UA SPECIFIC GRAVITY (test code=SGU) 1.015 1.001-1.035 UA BLOOD DIPSTICK (test code=RODOLFO) 10 (Trace) Dylan/uL NEGATIVE UA PH DIPSTICK (test code=LISS) 7.0 5.0-8.0 UA PROTEIN DIPSTICK (test code=PROU) 30 (1+) mg/dL Neg-15 UA UROBILINIOGEN DIPSTICK (test code=URO) 12 mg/dL (3+) mg/dL 0.0-0.2 UA NITRITE DIPSTICK (test code=KIA) NEGATIVE NEGATIVE UA LEUKOCYTE ESTERASE DIPSTICK (test code=LEUU) 100 Marii/uL (1+) uL NEGATIVE UA WBC (test code=WBCU) 0-5 per HPF 0-5 UA RBC (test code=RBCU) 2-4 per HPF 0-5 UA EPITHELIAL CELLS (test code=EPIU) FEW per HPF Few UA BACTERIA (test code=BACU) FEW per HPF NONE UA MUCUS (test code=MUCU) MANY per LPF NONE-FEW Urine Source? Clean CatchBASIC METABOLIC [id number] 10:03:00* Test Item Value Reference Range Comments SODIUM (test code=NA) 128 mmol/L 136-145 SPECIMEN 3+ LIPEMIC POTASSIUM (test code=K) 3.8 mmol/L 3.5-5.1 CHLORIDE (test code=CL) 90 mmol/L 101-109 CARBON DIOXIDE (test code=CO2) 23.5 mmol/L 21-32 ANION GAP (test code=GAP) 18 mmol/L 10-20 GLUCOSE (test code=GLU) 228 mg/dL 74-106 BLOOD UREA NITROGEN (test code=BUN) 4 mg/dL 3-21 GLOMERULAR FILTRATION RATE (test code=GFR) > 60 mL/min >=60 Estimated GFR by using Modified MDRD formula.Chronic kidney disease is defined as either kidney damageor GFR <60 mL/min/1.73 m2 for >3 months. CREATININE (test code=CREAT) 0.73 mg/dL 0.55-1.3 BUN/CREATININE RATIO (test code=BUN/CREA) 5.5 10-20 CALCIUM (test code=CA) 7.9 mg/dL 8.4-10.2 HEPATIC FUNCTION [id number] 10:03:00* Test Item Value Reference Range Comments TOTAL PROTEIN (test code=PROT) g/dL 6.5-8.4 ALBUMIN (test code=ALB) 2.9 g/dL 3.4-4.8 GLOBULIN (test code=GLOB) G/DL 1-10 ALBUMIN/GLOBULIN RATIO (test code=A/G) RATIO 0.75-1.50 BILIRUBIN TOTAL (test code=BILT) 3.70 mg/dL 0.0-1.0 BILIRUBIN DIRECT (test code=BILD) 1.70 mg/dL 0.0-0.30 SGOT/AST (test code=AST) U/L 6-32 SGPT/ALT (test code=ALT) U/L 12-78 ALKALINE PHOSPHATASE TOTAL (test code=ALKP) 237 U/L 38-126 [id number] 10:03:00* Test Item Value Reference Range Comments LIPASE (test code=LIP) 1344 U/L 128-270 BASIC METABOLIC [id number] 09:56:00* Test Item Value Reference Range Comments SODIUM (test code=NA) 128 mmol/L 136-145 SPECIMEN 3+ LIPEMIC POTASSIUM (test code=K) 3.8 mmol/L 3.5-5.1 CHLORIDE (test code=CL) 90 mmol/L 101-109 CARBON DIOXIDE (test code=CO2) 23.5 mmol/L 21-32 ANION GAP (test code=GAP) 18 mmol/L 10-20 GLUCOSE (test code=GLU) 228 mg/dL 74-106 BLOOD UREA NITROGEN (test code=BUN) 4 mg/dL 3-21 GLOMERULAR FILTRATION RATE (test code=GFR) > 60 mL/min >=60 Estimated GFR by using Modified MDRD formula.Chronic kidney disease is defined as either kidney damageor GFR <60 mL/min/1.73 m2 for >3 months. CREATININE (test code=CREAT) 0.73 mg/dL 0.55-1.3 BUN/CREATININE RATIO (test code=BUN/CREA) 5.5 10-20 CALCIUM (test code=CA) 7.9 mg/dL 8.4-10.2 HEPATIC FUNCTION [id number] 09:56:00* Test Item Value Reference Range Comments TOTAL PROTEIN (test code=PROT) gram/dL 6.4-8.2 ALBUMIN (test code=ALB) g/dL 3.4-5.0 GLOBULIN (test code=GLOB) g/dL 2.7-4.2 ALBUMIN/GLOBULIN RATIO (test code=A/G) 0.75-1.50 BILIRUBIN TOTAL (test code=BILT) mg/dL 0.2-1.2 BILIRUBIN DIRECT (test code=BILD) mg/dL 0.0-0.20 SGOT/AST (test code=AST) IUnit/L 15-37 SGPT/ALT (test code=ALT) U/L 10-69 ALKALINE PHOSPHATASE TOTAL (test code=ALKP) IUnit/L 45-117 [id number] 09:56:00* Test Item Value Reference Range Comments LIPASE (test code=LIP) Unit/L 144-286 CBC W/O [id number] 09:45:00* Test Item Value Reference Range Comments WHITE BLOOD CELL (test code=WBC) 13.7 K/mm3 4.5-12.5 RED BLOOD CELL (test code=RBC) 4.27 mill/mm3 4.0-5.8 HEMOGLOBIN (test code=HGB) 14.8 gram/dL 13.0-17.5 HEMATOCRIT (test code=HCT) 41.6 % 42.0-52.0 MEAN CELL VOLUME (test code=MCV) 97.4 fL 80-98 MEAN CELL HGB (test code=MCH) 34.7 picogram 27.0-33.0 MEAN CELL HGB CONCETRATION (test code=MCHC) 35.6 gram/dL 33.0-36.0 RED CELL DISTRIBUTION WIDTH (test code=RDW) 12.7 % 11.6-16.2 RED CELL DISTRIBUTION WIDTH SD (test code=RDW-SD) 45.8 fL 37.0-51.0 PLATELET COUNT (test code=PLT) 95 K/mm3 150-450 MEAN PLATELET VOLUME (test code=MPV) 10.7 fL 6.7-11.0 URINALYSIS [id number] 09:45:00* Test Item Value Reference Range Comments UA COLOR (test code=COLU) MOISÉS YELLOW UA APPEARANCE (test code=APPU) CLEAR UA GLUCOSE DIPSTICK (test code=DGLUU) norm mg/dL NEGATIVE UA BILIRUBIN DIPSTICK (test code=BILU) 6 mg/dL NEGATIVE UA KETONE DIPSTICK (test code=KETU) 15 (1+) mg/dL NEGATIVE UA SPECIFIC GRAVITY (test code=SGU) 1.015 1.001-1.035 UA BLOOD DIPSTICK (test code=RODOLFO) 10 (Trace) Dylan/uL NEGATIVE UA PH DIPSTICK (test code=LISS) 7.0 5.0-8.0 UA PROTEIN DIPSTICK (test code=PROU) 30 (1+) mg/dL Neg-15 UA UROBILINIOGEN DIPSTICK (test code=URO) 12 mg/dL (3+) mg/dL 0.0-0.2 UA NITRITE DIPSTICK (test code=KIA) NEGATIVE NEGATIVE UA LEUKOCYTE ESTERASE DIPSTICK (test code=LEUU) 100 Marii/uL (1+) uL NEGATIVE UA WBC (test code=WBCU) per HPF 0-5 UA RBC (test code=RBCU) per HPF 0-5 UA EPITHELIAL CELLS (test code=EPIU) per HPF Few UA BACTERIA (test code=BACU) per HPF NONE Urine Source? Clean CatchBASIC METABOLIC [id number] 11:18:00* Test Item Value Reference Range Comments SODIUM (test code=NA) 126 mmol/L 135-148 SPECIMEN 4+ LIPEMICSPECIMEN 4+ HEMOLYSIS POTASSIUM (test code=K) 4.6 mmol/L 3.5-5.1 CHLORIDE (test code=CL) 91 mmol/L 101-109 CARBON DIOXIDE (test code=CO2) 23.0 mmol/L 21-32 ANION GAP (test code=GAP) 17 mmol/L 10-20 GLUCOSE (test code=GLU) 264 mg/dL 74-106 BLOOD UREA NITROGEN (test code=BUN) 9 mg/dL 3-21 GLOMERULAR FILTRATION RATE (test code=GFR) > 60 mL/min >=60 Estimated GFR by using Modified MDRD formula.Chronic kidney disease is defined as either kidney damageor GFR <60 mL/min/1.73 m2 for >3 months. CREATININE (test code=CREAT) 0.52 mg/dL 0.55-1.3 BUN/CREATININE RATIO (test code=BUN/CREA) 17.3 10-20 CALCIUM (test code=CA) 8.6 mg/dL 8.4-10.2 HEPATIC FUNCTION [id number] 11:18:00* Test Item Value Reference Range Comments TOTAL PROTEIN (test code=PROT) 7.2 gram/dL 6.4-8.2 ALBUMIN (test code=ALB) 3.6 g/dL 3.4-5.0 GLOBULIN (test code=GLOB) 3.6 g/dL 2.7-4.2 ALBUMIN/GLOBULIN RATIO (test code=A/G) 1.0 0.75-1.50 BILIRUBIN TOTAL (test code=BILT) 3.60 mg/dL 0.2-1.2 BILIRUBIN DIRECT (test code=BILD) 0.70 mg/dL 0.0-0.20 SGOT/AST (test code=AST) 169 IUnit/L 15-37 SGPT/ALT (test code=ALT) 98 U/L 10-69 ALKALINE PHOSPHATASE TOTAL (test code=ALKP) 221 IUnit/L 45-117 Note change in reference range due to change in reagent. [id number] 11:18:00* Test Item Value Reference Range Comments LIPASE (test code=LIP) 998 Unit/L 144-286 [id number] 11:18:00* Test Item Value Reference Range Comments TROPONIN-I (test code=TROPI) <0.015 ng/mL 0-0.045 BASIC METABOLIC [id number] 11:13:00* Test Item Value Reference Range Comments SODIUM (test code=NA) 126 mmol/L 135-148 SPECIMEN 4+ LIPEMICSPECIMEN 4+ HEMOLYSIS POTASSIUM (test code=K) 4.6 mmol/L 3.5-5.1 CHLORIDE (test code=CL) 91 mmol/L 101-109 CARBON DIOXIDE (test code=CO2) 23.0 mmol/L 21-32 ANION GAP (test code=GAP) 17 mmol/L 10-20 GLUCOSE (test code=GLU) 264 mg/dL 74-106 BLOOD UREA NITROGEN (test code=BUN) 9 mg/dL 3-21 GLOMERULAR FILTRATION RATE (test code=GFR) > 60 mL/min >=60 Estimated GFR by using Modified MDRD formula.Chronic kidney disease is defined as either kidney damageor GFR <60 mL/min/1.73 m2 for >3 months. CREATININE (test code=CREAT) 0.52 mg/dL 0.55-1.3 BUN/CREATININE RATIO (test code=BUN/CREA) 17.3 10-20 CALCIUM (test code=CA) 8.6 mg/dL 8.4-10.2 HEPATIC FUNCTION [id number] 11:13:00* Test Item Value Reference Range Comments TOTAL PROTEIN (test code=PROT) gram/dL 6.4-8.2 ALBUMIN (test code=ALB) g/dL 3.4-5.0 GLOBULIN (test code=GLOB) g/dL 2.7-4.2 ALBUMIN/GLOBULIN RATIO (test code=A/G) 0.75-1.50 BILIRUBIN TOTAL (test code=BILT) mg/dL 0.2-1.2 BILIRUBIN DIRECT (test code=BILD) mg/dL 0.0-0.20 SGOT/AST (test code=AST) IUnit/L 15-37 SGPT/ALT (test code=ALT) U/L 10-69 ALKALINE PHOSPHATASE TOTAL (test code=ALKP) IUnit/L 45-117 [id number] 11:13:00* Test Item Value Reference Range Comments LIPASE (test code=LIP) 998 Unit/L 144-286 [id number] 11:13:00* Test Item Value Reference Range Comments TROPONIN-I (test code=TROPI) <0.015 ng/mL 0-0.045 BASIC METABOLIC [id number] 11:11:00* Test Item Value Reference Range Comments SODIUM (test code=NA) 126 mmol/L 135-148 SPECIMEN 4+ LIPEMICSPECIMEN 4+ HEMOLYSIS POTASSIUM (test code=K) 4.6 mmol/L 3.5-5.1 CHLORIDE (test code=CL) 91 mmol/L 101-109 CARBON DIOXIDE (test code=CO2) 23.0 mmol/L 21-32 ANION GAP (test code=GAP) 17 mmol/L 10-20 GLUCOSE (test code=GLU) 264 mg/dL 74-106 BLOOD UREA NITROGEN (test code=BUN) 9 mg/dL 3-21 GLOMERULAR FILTRATION RATE (test code=GFR) > 60 mL/min >=60 Estimated GFR by using Modified MDRD formula.Chronic kidney disease is defined as either kidney damageor GFR <60 mL/min/1.73 m2 for >3 months. CREATININE (test code=CREAT) 0.52 mg/dL 0.55-1.3 BUN/CREATININE RATIO (test code=BUN/CREA) 17.3 10-20 CALCIUM (test code=CA) mg/dL 8.4-10.2 HEPATIC FUNCTION [id number] 11:11:00* Test Item Value Reference Range Comments TOTAL PROTEIN (test code=PROT) gram/dL 6.4-8.2 ALBUMIN (test code=ALB) g/dL 3.4-5.0 GLOBULIN (test code=GLOB) g/dL 2.7-4.2 ALBUMIN/GLOBULIN RATIO (test code=A/G) 0.75-1.50 BILIRUBIN TOTAL (test code=BILT) mg/dL 0.2-1.2 BILIRUBIN DIRECT (test code=BILD) mg/dL 0.0-0.20 SGOT/AST (test code=AST) IUnit/L 15-37 SGPT/ALT (test code=ALT) U/L 10-69 ALKALINE PHOSPHATASE TOTAL (test code=ALKP) IUnit/L 45-117 [id number] 11:11:00* Test Item Value Reference Range Comments LIPASE (test code=LIP) Unit/L 144-286 [id number] 11:11:00* Test Item Value Reference Range Comments TROPONIN-I (test code=TROPI) ng/mL 0-0.045 BASIC METABOLIC [id number] 11:11:00* Test Item Value Reference Range Comments SODIUM (test code=NA) 126 mmol/L 135-148 SPECIMEN 4+ LIPEMICSPECIMEN 4+ HEMOLYSIS POTASSIUM (test code=K) 4.6 mmol/L 3.5-5.1 CHLORIDE (test code=CL) 91 mmol/L 101-109 CARBON DIOXIDE (test code=CO2) 23.0 mmol/L 21-32 ANION GAP (test code=GAP) 17 mmol/L 10-20 GLUCOSE (test code=GLU) 264 mg/dL 74-106 BLOOD UREA NITROGEN (test code=BUN) 9 mg/dL 3-21 GLOMERULAR FILTRATION RATE (test code=GFR) > 60 mL/min >=60 Estimated GFR by using Modified MDRD formula.Chronic kidney disease is defined as either kidney damageor GFR <60 mL/min/1.73 m2 for >3 months. CREATININE (test code=CREAT) 0.52 mg/dL 0.55-1.3 BUN/CREATININE RATIO (test code=BUN/CREA) 17.3 10-20 CALCIUM (test code=CA) mg/dL 8.4-10.2 HEPATIC FUNCTION [id number] 11:11:00* Test Item Value Reference Range Comments TOTAL PROTEIN (test code=PROT) gram/dL 6.4-8.2 ALBUMIN (test code=ALB) g/dL 3.4-5.0 GLOBULIN (test code=GLOB) g/dL 2.7-4.2 ALBUMIN/GLOBULIN RATIO (test code=A/G) 0.75-1.50 BILIRUBIN TOTAL (test code=BILT) mg/dL 0.2-1.2 BILIRUBIN DIRECT (test code=BILD) mg/dL 0.0-0.20 SGOT/AST (test code=AST) IUnit/L 15-37 SGPT/ALT (test code=ALT) U/L 10-69 ALKALINE PHOSPHATASE TOTAL (test code=ALKP) IUnit/L 45-117 [id number] 11:11:00* Test Item Value Reference Range Comments LIPASE (test code=LIP) Unit/L 144-286 [id number] 11:11:00* Test Item Value Reference Range Comments TROPONIN-I (test code=TROPI) <0.015 ng/mL 0-0.045 CBC W/O [id number] 11:05:00* Test Item Value Reference Range Comments WHITE BLOOD CELL (test code=WBC) 11.9 K/mm3 4.5-12.5 RED BLOOD CELL (test code=RBC) 4.47 mill/mm3 4.0-5.8 Previously reported result: 4.55 mill/dg1Wpeond by: DAYSI on 02/04/19:917470 1104: RBC previously reported as: 4.55 mill/mm3 HEMOGLOBIN (test code=HGB) 14.7 gram/dL 13.0-17.5 Previously reported result: 16.2 gram/dLEdited by: DAYSI on 02/04/19:1103 HEMATOCRIT (test code=HCT) 43.8 % 42.0-52.0 MEAN CELL VOLUME (test code=MCV) 98.0 fL 80-98 Previously reported result: 96.3 fLEdited by: DAYSI on 02/04/19:1103 MEAN CELL HGB (test code=MCH) 32.9 picogram 27.0-33.0 Previously reported result: 35.6 picogramEdited by: DAYSI on 02/04/19:1103 MEAN CELL HGB CONCETRATION (test code=MCHC) 33.6 gram/dL 33.0-36.0 Previously reported result: 37.0 gram/dLEdited by: DAYSI on 02/04/19:1104 RED CELL DISTRIBUTION WIDTH (test code=RDW) 13.3 % 11.6-16.2 Previously reported result: 13.2 %Edited by: DAYSI on 02/04/19:1104 RED CELL DISTRIBUTION WIDTH SD (test code=RDW-SD) 48.6 fL 37.0-51.0 Previously reported result: 47.5 fLEdited by: DAYSI on 02/04/19:1104 PLATELET COUNT (test code=PLT) 128 K/mm3 150-450 MEAN PLATELET VOLUME (test code=MPV) 11.5 fL 6.7-11.0 URINALYSIS [id number] 10:56:00* Test Item Value Reference Range Comments UA COLOR (test code=COLU) MOISÉS YELLOW UA APPEARANCE (test code=APPU) CLEAR CLEAR UA GLUCOSE DIPSTICK (test code=DGLUU) norm mg/dL NEGATIVE UA BILIRUBIN DIPSTICK (test code=BILU) 1 mg/dL NEGATIVE UA KETONE DIPSTICK (test code=KETU) 5 (Trace) mg/dL NEGATIVE UA SPECIFIC GRAVITY (test code=SGU) 1.025 1.001-1.035 UA BLOOD DIPSTICK (test code=RODOLFO) 10 (Trace) Dylan/uL NEGATIVE UA PH DIPSTICK (test code=LISS) 5.0 5.0-8.0 UA PROTEIN DIPSTICK (test code=PROU) 30 (1+) mg/dL Neg-15 UA UROBILINIOGEN DIPSTICK (test code=URO) 4 mg/dL (2+) mg/dL 0.0-0.2 UA NITRITE DIPSTICK (test code=KIA) NEGATIVE NEGATIVE UA LEUKOCYTE ESTERASE DIPSTICK (test code=LEUU) 25 Marii/uL (Trace) uL NEGATIVE UA WBC (test code=WBCU) NONE SEEN per HPF 0-5 UA RBC (test code=RBCU) 0-1 per HPF 0-5 UA EPITHELIAL CELLS (test code=EPIU) RARE per HPF Few UA BACTERIA (test code=BACU) FEW per HPF NONE UA MUCUS (test code=MUCU) MANY per LPF NONE-FEW Urine Source? Clean CatchURINALYSIS [id number] 10:44:00* Test Item Value Reference Range Comments UA COLOR (test code=COLU) MOISÉS YELLOW UA APPEARANCE (test code=APPU) CLEAR UA GLUCOSE DIPSTICK (test code=DGLUU) norm mg/dL NEGATIVE UA BILIRUBIN DIPSTICK (test code=BILU) 1 mg/dL NEGATIVE UA KETONE DIPSTICK (test code=KETU) 5 (Trace) mg/dL NEGATIVE UA SPECIFIC GRAVITY (test code=SGU) 1.025 1.001-1.035 UA BLOOD DIPSTICK (test code=RODOLFO) 10 (Trace) Dylan/uL NEGATIVE UA PH DIPSTICK (test code=LISS) 5.0 5.0-8.0 UA PROTEIN DIPSTICK (test code=PROU) 30 (1+) mg/dL Neg-15 UA UROBILINIOGEN DIPSTICK (test code=URO) 4 mg/dL (2+) mg/dL 0.0-0.2 UA NITRITE DIPSTICK (test code=KIA) NEGATIVE NEGATIVE UA LEUKOCYTE ESTERASE DIPSTICK (test code=LEUU) 25 Marii/uL (Trace) uL NEGATIVE UA WBC (test code=WBCU) per HPF 0-5 UA RBC (test code=RBCU) per HPF 0-5 UA EPITHELIAL CELLS (test code=EPIU) per HPF Few UA BACTERIA (test code=BACU) per HPF NONE Urine Source? Clean CatchCBC W/O [id number] 10:42:00* Test Item Value Reference Range Comments WHITE BLOOD CELL (test code=WBC) 11.9 K/mm3 4.5-12.5 RED BLOOD CELL (test code=RBC) 4.55 mill/mm3 4.0-5.8 HEMOGLOBIN (test code=HGB) 16.2 gram/dL 13.0-17.5 HEMATOCRIT (test code=HCT) 43.8 % 42.0-52.0 MEAN CELL VOLUME (test code=MCV) 96.3 fL 80-98 MEAN CELL HGB (test code=MCH) 35.6 picogram 27.0-33.0 MEAN CELL HGB CONCETRATION (test code=MCHC) 37.0 gram/dL 33.0-36.0 RED CELL DISTRIBUTION WIDTH (test code=RDW) 13.2 % 11.6-16.2 RED CELL DISTRIBUTION WIDTH SD (test code=RDW-SD) 47.5 fL 37.0-51.0 PLATELET COUNT (test code=PLT) 128 K/mm3 150-450 MEAN PLATELET VOLUME (test code=MPV) 11.5 fL 6.7-11.0 [id number] 11:53:00* Test Item Value Reference Range Comments GLUBED (test code=GLUBED) 93 mg/dL 74-106 Performed by certified incising machine operator at [facility] CBC W/AUTO [id number] 10:58:00* Test Item Value Reference Range Comments WHITE BLOOD CELL (test code=WBC) 12.4 K/mm3 4.5-12.5 RED BLOOD CELL (test code=RBC) 3.98 mill/mm3 4.0-5.8 HEMOGLOBIN (test code=HGB) 13.1 gram/dL 13.0-17.5 HEMATOCRIT (test code=HCT) 38.0 % 42.0-52.0 MEAN CELL VOLUME (test code=MCV) 95.5 fL 80-98 MEAN CELL HGB (test code=MCH) 32.9 picogram 27.0-33.0 MEAN CELL HGB CONCETRATION (test code=MCHC) 34.5 gram/dL 33.0-36.0 RED CELL DISTRIBUTION WIDTH (test code=RDW) 13.7 % 11.6-16.2 RED CELL DISTRIBUTION WIDTH SD (test code=RDW-SD) 48.5 fL 37.0-51.0 PLATELET COUNT (test code=PLT) 77 K/mm3 150-450 MEAN PLATELET VOLUME (test code=MPV) 10.5 fL 6.7-11.0 NEUTROPHIL % (test code=NT%) 75.5 % 39.0-69.0 IMMATURE GRANULOCYTE % (test code=IG%) 0.7 % 0.0-5.0 LYMPHOCYTE % (test code=LY%) 15.5 % 25.0-55.0 MONOCYTE % (test code=MO%) 4.6 % 0.0-10.0 EOSINOPHIL % (test code=EO%) 2.9 % 0.0-5.0 BASOPHIL % (test code=BA%) 0.8 % 0.0-1.0 NUCLEATED RBC % (test code=NRBC%) 0.0 % 0-0 NEUTROPHIL # (test code=NT#) 9.34 K/mm3 1.8-7.7 IMMATURE GRANULOCYTE # (test code=IG#) 0.09 x10 3/uL 0-0.03 LYMPHOCYTE # (test code=LY#) 1.92 K/mm3 1.0-5.0 MONOCYTE # (test code=MO#) 0.57 K/mm3 0-0.8 EOSINOPHIL # (test code=EO#) 0.36 K/mm3 0.0-0.5 BASOPHIL # (test code=BA#) 0.10 K/mm3 0.0-0.2 NUCLEATED RBC # (test code=NRBC#) 0.00 K/mm3 0.0-0.1 MANUAL DIFF REQUIRED (test code=MDIFF) NO, ONLY SCAN NEEDED DIFFERENTIAL [id number] 10:58:00* Test Item Value Reference Range Comments STAIN ACCEPTABILITY (test code=STN ACCEPTABLE) STAIN ACCEPTABLE ANISOCYTOSIS (test code=ANISO) 1+ PLATELET ESTIMATE (test code=PLTEST) DECREASED PLATELET MORPHOLOGY (test code=PLTMORPH) NORMAL BASIC METABOLIC [id number] 10:16:00* Test Item Value Reference Range Comments SODIUM (test code=NA) 141 mmol/L 136-145 RESULT VERIFIED BY REPEAT ANALYSIS POTASSIUM (test code=K) 3.4 mmol/L 3.5-5.1 CHLORIDE (test code=CL) 109.0 mmol/L 98-107 CARBON DIOXIDE (test code=CO2) 23.0 mmol/L 21-32 ANION GAP (test code=GAP) 12.4 10-20 GLUCOSE (test code=GLU) 119 mg/dL 74-106 BLOOD UREA NITROGEN (test code=BUN) 4 mg/dL 7-18 GLOMERULAR FILTRATION RATE (test code=GFR) > 60 mL/min >=60 Estimated GFR by using Modified MDRD formula.Chronic kidney disease is defined as either kidney damageor GFR <60 mL/min/1.73 m2 for >3 months. CREATININE (test code=CREAT) 0.60 mg/dL 0.7-1.3 BUN/CREATININE RATIO (test code=BUN/CREA) 6.6 10-20 CALCIUM (test code=CA) 8.2 mg/dL 8.5-10.1 [id number] 10:16:00* Test Item Value Reference Range Comments LIPASE (test code=LIP) 307 U/L 73.0-393.0 [id number] 10:16:00* Test Item Value Reference Range Comments MAGNESIUM (test code=MAG) 2.3 mg/dL 1.8-2.4 THYROID STIMULATING [id number] 10:16:00* Test Item Value Reference Range Comments THYROID STIMULATING HORMONE (test code=TSH) 2.200 uIU/mL 0.36-3.74 TSH REFERENCE RANGES: EUTHYROID: 0.35 - 4.3 mIU/mL HYPO : > 5.5 mIU/mL HYPER : < 0.35 mIU/mL [id number] 10:16:00* Test Item Value Reference Range Comments GLYCOSYLATED HEMOGLOBIN (HA1C) (test code=GLYHGB) 6.3 % HbA1 4.8-6.0 ESTIMATED AVERAGE GLUCOSE (test code=EAG) 134 MG/DL B-TYPE NATRIURETIC [id number] 10:07:00* Test Item Value Reference Range Comments B-TYPE NATRIURETIC PEPTIDE (test code=BNP) 72.50 pgram/mL 0-100 BASIC METABOLIC [id number] 10:01:00* Test Item Value Reference Range Comments SODIUM (test code=NA) 141 mmol/L 136-145 RESULT VERIFIED BY REPEAT ANALYSIS POTASSIUM (test code=K) 3.4 mmol/L 3.5-5.1 CHLORIDE (test code=CL) 109.0 mmol/L 98-107 CARBON DIOXIDE (test code=CO2) 23.0 mmol/L 21-32 ANION GAP (test code=GAP) 12.4 10-20 GLUCOSE (test code=GLU) 119 mg/dL 74-106 BLOOD UREA NITROGEN (test code=BUN) 4 mg/dL 7-18 GLOMERULAR FILTRATION RATE (test code=GFR) > 60 mL/min >=60 Estimated GFR by using Modified MDRD formula.Chronic kidney disease is defined as either kidney damageor GFR <60 mL/min/1.73 m2 for >3 months. CREATININE (test code=CREAT) 0.60 mg/dL 0.7-1.3 BUN/CREATININE RATIO (test code=BUN/CREA) 6.6 10-20 CALCIUM (test code=CA) 8.2 mg/dL 8.5-10.1 [id number] 10:01:00* Test Item Value Reference Range Comments LIPASE (test code=LIP) 307 U/L 73.0-393.0 [id number] 10:01:00* Test Item Value Reference Range Comments MAGNESIUM (test code=MAG) 2.3 mg/dL 1.8-2.4 THYROID STIMULATING [id number] 10:01:00* Test Item Value Reference Range Comments THYROID STIMULATING HORMONE (test code=TSH) uIU/mL 0.36-3.74 CBC W/AUTO [id number] 09:50:00* Test Item Value Reference Range Comments WHITE BLOOD CELL (test code=WBC) 12.4 K/mm3 4.5-12.5 RED BLOOD CELL (test code=RBC) 3.98 mill/mm3 4.0-5.8 HEMOGLOBIN (test code=HGB) 13.1 gram/dL 13.0-17.5 HEMATOCRIT (test code=HCT) 38.0 % 42.0-52.0 MEAN CELL VOLUME (test code=MCV) 95.5 fL 80-98 MEAN CELL HGB (test code=MCH) 32.9 picogram 27.0-33.0 MEAN CELL HGB CONCETRATION (test code=MCHC) 34.5 gram/dL 33.0-36.0 RED CELL DISTRIBUTION WIDTH (test code=RDW) 13.7 % 11.6-16.2 RED CELL DISTRIBUTION WIDTH SD (test code=RDW-SD) 48.5 fL 37.0-51.0 PLATELET COUNT (test code=PLT) 77 K/mm3 150-450 MEAN PLATELET VOLUME (test code=MPV) 10.5 fL 6.7-11.0 NEUTROPHIL % (test code=NT%) 75.5 % 39.0-69.0 IMMATURE GRANULOCYTE % (test code=IG%) 0.7 % 0.0-5.0 LYMPHOCYTE % (test code=LY%) 15.5 % 25.0-55.0 MONOCYTE % (test code=MO%) 4.6 % 0.0-10.0 EOSINOPHIL % (test code=EO%) 2.9 % 0.0-5.0 BASOPHIL % (test code=BA%) 0.8 % 0.0-1.0 NUCLEATED RBC % (test code=NRBC%) 0.0 % 0-0 NEUTROPHIL # (test code=NT#) 9.34 K/mm3 1.8-7.7 IMMATURE GRANULOCYTE # (test code=IG#) 0.09 x10 3/uL 0-0.03 LYMPHOCYTE # (test code=LY#) 1.92 K/mm3 1.0-5.0 MONOCYTE # (test code=MO#) 0.57 K/mm3 0-0.8 EOSINOPHIL # (test code=EO#) 0.36 K/mm3 0.0-0.5 BASOPHIL # (test code=BA#) 0.10 K/mm3 0.0-0.2 NUCLEATED RBC # (test code=NRBC#) 0.00 K/mm3 0.0-0.1 MANUAL DIFF REQUIRED (test code=MDIFF) NO, ONLY SCAN NEEDED DIFFERENTIAL [id number] 09:50:00* Test Item Value Reference Range Comments STAIN ACCEPTABILITY (test code=STN ACCEPTABLE) CABOT RINGS (test code=CAB) MORPHOLOGY COMMENT (test code=MOC) PLATELET ESTIMATE (test code=PLTEST) PLATELET MORPHOLOGY (test code=PLTMORPH) CBC W/AUTO [id number] 09:50:00* Test Item Value Reference Range Comments WHITE BLOOD CELL (test code=WBC) 12.4 K/mm3 4.5-12.5 RED BLOOD CELL (test code=RBC) 3.98 mill/mm3 4.0-5.8 HEMOGLOBIN (test code=HGB) 13.1 gram/dL 13.0-17.5 HEMATOCRIT (test code=HCT) 38.0 % 42.0-52.0 MEAN CELL VOLUME (test code=MCV) 95.5 fL 80-98 MEAN CELL HGB (test code=MCH) 32.9 picogram 27.0-33.0 MEAN CELL HGB CONCETRATION (test code=MCHC) 34.5 gram/dL 33.0-36.0 RED CELL DISTRIBUTION WIDTH (test code=RDW) 13.7 % 11.6-16.2 RED CELL DISTRIBUTION WIDTH SD (test code=RDW-SD) 48.5 fL 37.0-51.0 PLATELET COUNT (test code=PLT) 77 K/mm3 150-450 MEAN PLATELET VOLUME (test code=MPV) 10.5 fL 6.7-11.0 NEUTROPHIL % (test code=NT%) 75.5 % 39.0-69.0 IMMATURE GRANULOCYTE % (test code=IG%) 0.7 % 0.0-5.0 LYMPHOCYTE % (test code=LY%) 15.5 % 25.0-55.0 MONOCYTE % (test code=MO%) 4.6 % 0.0-10.0 EOSINOPHIL % (test code=EO%) 2.9 % 0.0-5.0 BASOPHIL % (test code=BA%) 0.8 % 0.0-1.0 NUCLEATED RBC % (test code=NRBC%) 0.0 % 0-0 NEUTROPHIL # (test code=NT#) 9.34 K/mm3 1.8-7.7 IMMATURE GRANULOCYTE # (test code=IG#) 0.09 x10 3/uL 0-0.03 LYMPHOCYTE # (test code=LY#) 1.92 K/mm3 1.0-5.0 MONOCYTE # (test code=MO#) 0.57 K/mm3 0-0.8 EOSINOPHIL # (test code=EO#) 0.36 K/mm3 0.0-0.5 BASOPHIL # (test code=BA#) 0.10 K/mm3 0.0-0.2 NUCLEATED RBC # (test code=NRBC#) 0.00 K/mm3 0.0-0.1 MANUAL DIFF REQUIRED (test code=MDIFF) NO, ONLY SCAN NEEDED DIFFERENTIAL [id number] 09:50:00* Test Item Value Reference Range Comments STAIN ACCEPTABILITY (test code=STN ACCEPTABLE) MORPHOLOGY COMMENT (test code=MOC) PLATELET ESTIMATE (test code=PLTEST) PLATELET MORPHOLOGY (test code=PLTMORPH) CBC W/AUTO [id number] 09:50:00* Test Item Value Reference Range Comments WHITE BLOOD CELL (test code=WBC) 12.4 K/mm3 4.5-12.5 RED BLOOD CELL (test code=RBC) 3.98 mill/mm3 4.0-5.8 HEMOGLOBIN (test code=HGB) 13.1 gram/dL 13.0-17.5 HEMATOCRIT (test code=HCT) 38.0 % 42.0-52.0 MEAN CELL VOLUME (test code=MCV) 95.5 fL 80-98 MEAN CELL HGB (test code=MCH) 32.9 picogram 27.0-33.0 MEAN CELL HGB CONCETRATION (test code=MCHC) 34.5 gram/dL 33.0-36.0 RED CELL DISTRIBUTION WIDTH (test code=RDW) 13.7 % 11.6-16.2 RED CELL DISTRIBUTION WIDTH SD (test code=RDW-SD) 48.5 fL 37.0-51.0 PLATELET COUNT (test code=PLT) 77 K/mm3 150-450 MEAN PLATELET VOLUME (test code=MPV) 10.5 fL 6.7-11.0 NEUTROPHIL % (test code=NT%) 75.5 % 39.0-69.0 IMMATURE GRANULOCYTE % (test code=IG%) 0.7 % 0.0-5.0 LYMPHOCYTE % (test code=LY%) 15.5 % 25.0-55.0 MONOCYTE % (test code=MO%) 4.6 % 0.0-10.0 EOSINOPHIL % (test code=EO%) 2.9 % 0.0-5.0 BASOPHIL % (test code=BA%) 0.8 % 0.0-1.0 NUCLEATED RBC % (test code=NRBC%) 0.0 % 0-0 NEUTROPHIL # (test code=NT#) 9.34 K/mm3 1.8-7.7 IMMATURE GRANULOCYTE # (test code=IG#) 0.09 x10 3/uL 0-0.03 LYMPHOCYTE # (test code=LY#) 1.92 K/mm3 1.0-5.0 MONOCYTE # (test code=MO#) 0.57 K/mm3 0-0.8 EOSINOPHIL # (test code=EO#) 0.36 K/mm3 0.0-0.5 BASOPHIL # (test code=BA#) 0.10 K/mm3 0.0-0.2 NUCLEATED RBC # (test code=NRBC#) 0.00 K/mm3 0.0-0.1 MANUAL DIFF REQUIRED (test code=MDIFF) NO, ONLY SCAN NEEDED DIFFERENTIAL [id number] 09:50:00* Test Item Value Reference Range Comments STAIN ACCEPTABILITY (test code=STN ACCEPTABLE) MORPHOLOGY COMMENT (test code=MOC) PLATELET ESTIMATE (test code=PLTEST) PLATELET MORPHOLOGY (test code=PLTMORPH) CBC W/AUTO [id number] 09:50:00* Test Item Value Reference Range Comments WHITE BLOOD CELL (test code=WBC) 12.4 K/mm3 4.5-12.5 RED BLOOD CELL (test code=RBC) 3.98 mill/mm3 4.0-5.8 HEMOGLOBIN (test code=HGB) 13.1 gram/dL 13.0-17.5 HEMATOCRIT (test code=HCT) 38.0 % 42.0-52.0 MEAN CELL VOLUME (test code=MCV) 95.5 fL 80-98 MEAN CELL HGB (test code=MCH) 32.9 picogram 27.0-33.0 MEAN CELL HGB CONCETRATION (test code=MCHC) 34.5 gram/dL 33.0-36.0 RED CELL DISTRIBUTION WIDTH (test code=RDW) 13.7 % 11.6-16.2 RED CELL DISTRIBUTION WIDTH SD (test code=RDW-SD) 48.5 fL 37.0-51.0 PLATELET COUNT (test code=PLT) 77 K/mm3 150-450 MEAN PLATELET VOLUME (test code=MPV) 10.5 fL 6.7-11.0 NEUTROPHIL % (test code=NT%) 75.5 % 39.0-69.0 IMMATURE GRANULOCYTE % (test code=IG%) 0.7 % 0.0-5.0 LYMPHOCYTE % (test code=LY%) 15.5 % 25.0-55.0 MONOCYTE % (test code=MO%) 4.6 % 0.0-10.0 EOSINOPHIL % (test code=EO%) 2.9 % 0.0-5.0 BASOPHIL % (test code=BA%) 0.8 % 0.0-1.0 NUCLEATED RBC % (test code=NRBC%) 0.0 % 0-0 NEUTROPHIL # (test code=NT#) 9.34 K/mm3 1.8-7.7 IMMATURE GRANULOCYTE # (test code=IG#) 0.09 x10 3/uL 0-0.03 LYMPHOCYTE # (test code=LY#) 1.92 K/mm3 1.0-5.0 MONOCYTE # (test code=MO#) 0.57 K/mm3 0-0.8 EOSINOPHIL # (test code=EO#) 0.36 K/mm3 0.0-0.5 BASOPHIL # (test code=BA#) 0.10 K/mm3 0.0-0.2 NUCLEATED RBC # (test code=NRBC#) 0.00 K/mm3 0.0-0.1 MANUAL DIFF REQUIRED (test code=MDIFF) NO, ONLY SCAN NEEDED DIFFERENTIAL [id number] 09:50:00* Test Item Value Reference Range Comments STAIN ACCEPTABILITY (test code=STN ACCEPTABLE) CABOT RINGS (test code=CAB) MORPHOLOGY COMMENT (test code=MOC) PLATELET ESTIMATE (test code=PLTEST) PLATELET MORPHOLOGY (test code=PLTMORPH) - US ABDOMEN [id number] 15:20:00 Name: LUIS SNYDER [facility] : 1980 Age/S: 38 / M [address] [facility] Unit #: [id number] Loc: Chiqui [place] [address] Phys: Morgan Mo MD Acct: [id number] Dis Date: Status: REG ER PHONE #: [phone] Exam Date: 12/16/2018 1405 FAX #: [phone] Reason: RIGHT SIDED ABDOMINAL PAIN, PANCREATITIS EXAMS: CPT CODE: [id number] US ABDOMEN LTD [id number] HISTORY: Abdominal pain and pancreatitis. COMPARISON: CT scan from same day. The liver is mildly hyperechogenic suggesting mild fibrofatty infiltration which limited evaluation for intrahepatic mass however no discrete lesions. Marked hepatomegaly at 21.3 cm in length. No intra or extrahepatic biliary ductal dilatation. CBD is normal at 3 mm. Main portal vein is patent with hepatopedal flow and normal spectral waveform. Gallstones within the gallbladder with extensive shadowing. No perichol ecystic fluid or wall thickening. No ascites. Right kidney is johana e from hydronephrosis and calyceal stones. Normal echogenicity and textur e. Right kidney measured 12.3 cm in length. Visualized portions of the I VC, aorta and pancreas are normal however imaged incompletely. IMPRESSION: Multiple mobile gallstones. No pericholecyst ic fluid or wall thickening. Hepatomegaly with diffuse fibrofatty infil tration of the liver. Pancreas is poorly visible on this study. at 1520 Reported and signed by: Jose Alberto Kent M.D. CC: Morgan Ortiz MD Technologist: Coco Andrade [facility] Trnmib Date/Time: 12/16/2018 (1520) [email or web address] Orig Print D/T: S: 12/16/2018 (1524) Probe: PAGE 1 Signed Report - CT ABD PELVIS W/O [id number] 14:40:00 [facility] 1980 Age[facility] 38 / M [facility] Unit #: [id number] Loc: Chiqui [place] [address] Phys: Morgan Mo MD Acct: [id number] Dis Date: Status: REG ER PHONE #: [phone] Exam Date: 12/16/2018 1220 FAX #: [phone] Reason: RIGHT FLANK PAIN EXAMS: CPT CODE: [id number] CT ABD PELVIS W/O CONT [id number] EXAM: CT of the abdomen and pelvis without contrast; INFORMATION: Right flank pain and right upper quadrant pain; history of pancreatitis; TECHNIQUE AND FINDINGS: CT dose reduction protocol; 5 mm cuts through the abdomen and pelvis without contrast. The pancreatic head and uncinate process are slightly enlarged and there is mild stranding of adjacent mesenteric and retroperitoneal fat tissues with partial obliteration of the fat plane be tween the SMV and the pancreas. No localized intra or peripancreatic fluid collections. No pancreatic ductal dilatation and no pancreatic calcificat ions. The liver is enlarged and shows diffusely decreased attenuation. No abnormalities of the biliary system. Spleen, adrenal glands and kidn eys unremarkable; no hydronephrosis or stones. No acute bowel abnorm alities. No pelvic mass lesions. Lung bases are clear. IMPRESSION: 1. Mild acute edematous pancreatitis without evidence of abnormal fluid collections. FINDINGS are similar but slightly less prono unced compared with a study from July 02, 2018. 2. Advanced fat ty infiltration of the liver. 3. No evidence of renal or ureteral stones or of obstructive uropathy. at 1440 Reported and signed by: Jovany Bonilla M.D. CC: Morgan Mo MD Technologist:SRINATH PERALES RT(R),CT CTDI: DLP: Trnscb Date/Time: 12/16/2018 (14 40) t.[email or web address] Orig Print D/T: S: 12/16/2018 (6063) P AGE 3 Signed Report BASIC METABOLIC [id number] 14:05:00* Test Item Value Reference Range Comments SODIUM (test code=NA) 131 mmol/L 136-145 SPECIMEN 4+ LIPEMIC POTASSIUM (test code=K) 3.2 mmol/L 3.5-5.1 CHLORIDE (test code=CL) 98 mmol/L 101-109 CARBON DIOXIDE (test code=CO2) 19.1 mmol/L 21-32 ANION GAP (test code=GAP) 17 mmol/L 10-20 GLUCOSE (test code=GLU) 252 mg/dL 74-106 BLOOD UREA NITROGEN (test code=BUN) 3 mg/dL 3-21 GLOMERULAR FILTRATION RATE (test code=GFR) > 60 mL/min >=60 Estimated GFR by using Modified MDRD formula.Chronic kidney disease is defined as either kidney damageor GFR <60 mL/min/1.73 m2 for >3 months. CREATININE (test code=CREAT) 0.93 mg/dL 0.55-1.3 BUN/CREATININE RATIO (test code=BUN/CREA) 3.2 10-20 CALCIUM (test code=CA) 8.0 mg/dL 8.4-10.2 HEPATIC FUNCTION [id number] 14:05:00* Test Item Value Reference Range Comments TOTAL PROTEIN (test code=PROT) 7.2 g/dL 6.5-8.4 ALBUMIN (test code=ALB) 2.9 g/dL 3.4-4.8 GLOBULIN (test code=GLOB) 4.3 G/DL 1-10 ALBUMIN/GLOBULIN RATIO (test code=A/G) 0.67 RATIO 0.75-1.50 BILIRUBIN TOTAL (test code=BILT) 2.10 mg/dL 0.0-1.0 BILIRUBIN DIRECT (test code=BILD) 0.80 mg/dL 0.0-0.30 SGOT/AST (test code=AST) 78 U/L 6-32 Previously reported result: 43 U/LEdited by: DAYSI on 12/16/18:1402 SGPT/ALT (test code=ALT) 85 U/L 12-78 Note: Change in REFERENCE RANGE due to new reagent method. ALKALINE PHOSPHATASE TOTAL (test code=ALKP) 121 U/L 38-126 [id number] 14:05:00* Test Item Value Reference Range Comments LIPASE (test code=LIP) 646 U/L 128-270 BASIC METABOLIC [id number] 13:05:00* Test Item Value Reference Range Comments SODIUM (test code=NA) 131 mmol/L 136-145 SPECIMEN 4+ LIPEMIC POTASSIUM (test code=K) 3.2 mmol/L 3.5-5.1 CHLORIDE (test code=CL) 98 mmol/L 101-109 CARBON DIOXIDE (test code=CO2) 19.1 mmol/L 21-32 ANION GAP (test code=GAP) 17 mmol/L 10-20 GLUCOSE (test code=GLU) 252 mg/dL 74-106 BLOOD UREA NITROGEN (test code=BUN) 3 mg/dL 3-21 GLOMERULAR FILTRATION RATE (test code=GFR) > 60 mL/min >=60 Estimated GFR by using Modified MDRD formula.Chronic kidney disease is defined as either kidney damageor GFR <60 mL/min/1.73 m2 for >3 months. CREATININE (test code=CREAT) 0.93 mg/dL 0.55-1.3 BUN/CREATININE RATIO (test code=BUN/CREA) 3.2 10-20 CALCIUM (test code=CA) 8.0 mg/dL 8.4-10.2 HEPATIC FUNCTION [id number] 13:05:00* Test Item Value Reference Range Comments TOTAL PROTEIN (test code=PROT) 7.2 g/dL 6.5-8.4 ALBUMIN (test code=ALB) 2.9 g/dL 3.4-4.8 GLOBULIN (test code=GLOB) 4.3 G/DL 1-10 ALBUMIN/GLOBULIN RATIO (test code=A/G) 0.67 RATIO 0.75-1.50 BILIRUBIN TOTAL (test code=BILT) 2.10 mg/dL 0.0-1.0 BILIRUBIN DIRECT (test code=BILD) 0.80 mg/dL 0.0-0.30 SGOT/AST (test code=AST) 43 U/L 6-32 SGPT/ALT (test code=ALT) U/L 12-78 ALKALINE PHOSPHATASE TOTAL (test code=ALKP) 121 U/L 38-126 [id number] 13:05:00* Test Item Value Reference Range Comments LIPASE (test code=LIP) 646 U/L 128-270 URINALYSIS [id number] 12:51:00* Test Item Value Reference Range Comments UA COLOR (test code=COLU) MOISÉS YELLOW UA APPEARANCE (test code=APPU) CLEAR CLEAR UA GLUCOSE DIPSTICK (test code=DGLUU) 1000 (3+) mg/dL NEGATIVE UA BILIRUBIN DIPSTICK (test code=BILU) 3 mg/dL NEGATIVE UA KETONE DIPSTICK (test code=KETU) 5 (Trace) mg/dL NEGATIVE UA SPECIFIC GRAVITY (test code=SGU) 1.010 1.001-1.035 UA BLOOD DIPSTICK (test code=RODOLFO) neg Dylan/uL NEGATIVE UA PH DIPSTICK (test code=LISS) 7.0 5.0-8.0 UA PROTEIN DIPSTICK (test code=PROU) 30 (1+) mg/dL Neg-15 UA UROBILINIOGEN DIPSTICK (test code=URO) 8 mg/dL 0.0-0.2 UA NITRITE DIPSTICK (test code=KIA) INTERFERING SUBST. NEGATIVE UA LEUKOCYTE ESTERASE DIPSTICK (test code=LEUU) 25 Marii/uL (Trace) uL NEGATIVE UA WBC (test code=WBCU) 0-2 per HPF 0-5 UA RBC (test code=RBCU) 0-1 per HPF 0-5 UA EPITHELIAL CELLS (test code=EPIU) FEW per HPF Few UA BACTERIA (test code=BACU) FEW per HPF NONE UA MUCUS (test code=MUCU) MODERATE per LPF NONE-FEW Urine Source? Clean CatchURINALYSIS [id number] 12:50:00* Test Item Value Reference Range Comments UA COLOR (test code=COLU) MOISÉS YELLOW UA APPEARANCE (test code=APPU) CLEAR CLEAR UA GLUCOSE DIPSTICK (test code=DGLUU) 1000 (3+) mg/dL NEGATIVE UA BILIRUBIN DIPSTICK (test code=BILU) 3 mg/dL NEGATIVE UA KETONE DIPSTICK (test code=KETU) 5 (Trace) mg/dL NEGATIVE UA SPECIFIC GRAVITY (test code=SGU) 1.010 1.001-1.035 UA BLOOD DIPSTICK (test code=RODOLFO) neg Dylan/uL NEGATIVE UA PH DIPSTICK (test code=LISS) 7.0 5.0-8.0 UA PROTEIN DIPSTICK (test code=PROU) 30 (1+) mg/dL Neg-15 UA UROBILINIOGEN DIPSTICK (test code=URO) 8 mg/dL 0.0-0.2 UA NITRITE DIPSTICK (test code=KIA) INTERFERING SUBST. NEGATIVE UA LEUKOCYTE ESTERASE DIPSTICK (test code=LEUU) 25 Marii/uL (Trace) uL NEGATIVE UA WBC (test code=WBCU) per HPF 0-5 UA RBC (test code=RBCU) per HPF 0-5 UA EPITHELIAL CELLS (test code=EPIU) per HPF Few UA BACTERIA (test code=BACU) per HPF NONE Urine Source? Clean CatchBASIC METABOLIC [id number] 12:43:00* Test Item Value Reference Range Comments SODIUM (test code=NA) 131 mmol/L 136-145 SPECIMEN 4+ LIPEMIC POTASSIUM (test code=K) 3.2 mmol/L 3.5-5.1 CHLORIDE (test code=CL) 98 mmol/L 101-109 CARBON DIOXIDE (test code=CO2) 19.1 mmol/L 21-32 ANION GAP (test code=GAP) 17 mmol/L 10-20 GLUCOSE (test code=GLU) 252 mg/dL 74-106 BLOOD UREA NITROGEN (test code=BUN) 3 mg/dL 3-21 GLOMERULAR FILTRATION RATE (test code=GFR) > 60 mL/min >=60 Estimated GFR by using Modified MDRD formula.Chronic kidney disease is defined as either kidney damageor GFR <60 mL/min/1.73 m2 for >3 months. CREATININE (test code=CREAT) 0.93 mg/dL 0.55-1.3 BUN/CREATININE RATIO (test code=BUN/CREA) 3.2 10-20 CALCIUM (test code=CA) 8.0 mg/dL 8.4-10.2 HEPATIC FUNCTION [id number] 12:43:00* Test Item Value Reference Range Comments TOTAL PROTEIN (test code=PROT) 7.2 g/dL 6.5-8.4 ALBUMIN (test code=ALB) 2.9 g/dL 3.4-4.8 GLOBULIN (test code=GLOB) 4.3 G/DL 1-10 ALBUMIN/GLOBULIN RATIO (test code=A/G) 0.67 RATIO 0.75-1.50 BILIRUBIN TOTAL (test code=BILT) 2.10 mg/dL 0.0-1.0 BILIRUBIN DIRECT (test code=BILD) 0.80 mg/dL 0.0-0.30 SGOT/AST (test code=AST) U/L 6-32 SGPT/ALT (test code=ALT) U/L 12-78 ALKALINE PHOSPHATASE TOTAL (test code=ALKP) 121 U/L 38-126 [id number] 12:43:00* Test Item Value Reference Range Comments LIPASE (test code=LIP) 646 U/L 128-270 BASIC METABOLIC [id number] 12:39:00* Test Item Value Reference Range Comments SODIUM (test code=NA) 131 mmol/L 136-145 SPECIMEN 4+ LIPEMIC POTASSIUM (test code=K) 3.2 mmol/L 3.5-5.1 CHLORIDE (test code=CL) 98 mmol/L 101-109 CARBON DIOXIDE (test code=CO2) 19.1 mmol/L 21-32 ANION GAP (test code=GAP) 17 mmol/L 10-20 GLUCOSE (test code=GLU) 252 mg/dL 74-106 BLOOD UREA NITROGEN (test code=BUN) 3 mg/dL 3-21 GLOMERULAR FILTRATION RATE (test code=GFR) > 60 mL/min >=60 Estimated GFR by using Modified MDRD formula.Chronic kidney disease is defined as either kidney damageor GFR <60 mL/min/1.73 m2 for >3 months. CREATININE (test code=CREAT) 0.93 mg/dL 0.55-1.3 BUN/CREATININE RATIO (test code=BUN/CREA) 3.2 10-20 CALCIUM (test code=CA) 8.0 mg/dL 8.4-10.2 HEPATIC FUNCTION [id number] 12:39:00* Test Item Value Reference Range Comments TOTAL PROTEIN (test code=PROT) gram/dL 6.4-8.2 ALBUMIN (test code=ALB) g/dL 3.4-5.0 GLOBULIN (test code=GLOB) g/dL 2.7-4.2 ALBUMIN/GLOBULIN RATIO (test code=A/G) 0.75-1.50 BILIRUBIN TOTAL (test code=BILT) mg/dL 0.2-1.2 BILIRUBIN DIRECT (test code=BILD) mg/dL 0.0-0.20 SGOT/AST (test code=AST) IUnit/L 15-37 SGPT/ALT (test code=ALT) U/L 10-69 ALKALINE PHOSPHATASE TOTAL (test code=ALKP) IUnit/L 45-117 [id number] 12:39:00* Test Item Value Reference Range Comments LIPASE (test code=LIP) Unit/L 144-286 CBC W/O [id number] 12:28:00* Test Item Value Reference Range Comments WHITE BLOOD CELL (test code=WBC) 17.3 K/mm3 4.5-12.5 RED BLOOD CELL (test code=RBC) 4.22 mill/mm3 4.0-5.8 HEMOGLOBIN (test code=HGB) 14.2 gram/dL 13.0-17.5 HEMATOCRIT (test code=HCT) 39.6 % 42.0-52.0 MEAN CELL VOLUME (test code=MCV) 93.8 fL 80-98 MEAN CELL HGB (test code=MCH) 33.6 picogram 27.0-33.0 MEAN CELL HGB CONCETRATION (test code=MCHC) 35.9 gram/dL 33.0-36.0 RED CELL DISTRIBUTION WIDTH (test code=RDW) 13.0 % 11.6-16.2 RED CELL DISTRIBUTION WIDTH SD (test code=RDW-SD) 45.6 fL 37.0-51.0 PLATELET COUNT (test code=PLT) 94 K/mm3 150-450 RESULT VERIFIED BY REPEAT ANALYSIS MEAN PLATELET VOLUME (test code=MPV) 11.0 fL 6.7-11.0 CBC W/O [id number] 12:24:00* Test Item Value Reference Range Comments WHITE BLOOD CELL (test code=WBC) 17.3 K/mm3 4.5-12.5 RED BLOOD CELL (test code=RBC) 4.22 mill/mm3 4.0-5.8 HEMOGLOBIN (test code=HGB) 14.2 gram/dL 13.0-17.5 HEMATOCRIT (test code=HCT) 39.6 % 42.0-52.0 MEAN CELL VOLUME (test code=MCV) 93.8 fL 80-98 MEAN CELL HGB (test code=MCH) 33.6 picogram 27.0-33.0 MEAN CELL HGB CONCETRATION (test code=MCHC) 35.9 gram/dL 33.0-36.0 RED CELL DISTRIBUTION WIDTH (test code=RDW) 13.0 % 11.6-16.2 RED CELL DISTRIBUTION WIDTH SD (test code=RDW-SD) 45.6 fL 37.0-51.0 PLATELET COUNT (test code=PLT) 94 K/mm3 150-450 MEAN PLATELET VOLUME (test code=MPV) 11.0 fL 6.7-11.0 COMPREHENSIVE METABOLIC [id number] 20:30:00* Test Item Value Reference Range Comments SODIUM (test code=NA) 138 mmol/L 135-148 POTASSIUM (test code=K) 3.6 mmol/L 3.5-5.1 CHLORIDE (test code=CL) 100 mmol/L 101-109 CARBON DIOXIDE (test code=CO2) 24.4 mmol/L 21-32 ANION GAP (test code=GAP) 17 mmol/L 10-20 GLUCOSE (test code=GLU) 150 mg/dL 74-106 BLOOD UREA NITROGEN (test code=BUN) 13 mg/dL 3-21 CREATININE (test code=CREAT) 0.72 mg/dL 0.55-1.3 BUN/CREATININE RATIO (test code=BUN/CREA) 18.1 10-20 TOTAL PROTEIN (test code=PROT) 8.0 g/dL 6.5-8.4 ALBUMIN (test code=ALB) 3.8 g/dL 3.4-4.8 GLOBULIN (test code=GLOB) 4.2 G/DL 1-10 ALBUMIN/GLOBULIN RATIO (test code=A/G) 0.9 RATIO 0.75-1.50 CALCIUM (test code=CA) 8.8 mg/dL 8.4-10.2 BILIRUBIN TOTAL (test code=BILT) 0.40 mg/dL 0.0-1.0 SGOT/AST (test code=AST) 47 U/L 6-32 SGPT/ALT (test code=ALT) 58 U/L 12-78 Note: Change in REFERENCE RANGE due to new reagent method. ALKALINE PHOSPHATASE TOTAL (test code=ALKP) 89 U/L 38-126 [id number] 20:30:00* Test Item Value Reference Range Comments LIPASE (test code=LIP) 188 U/L 128-270 COMPREHENSIVE METABOLIC [id number] 19:42:00* Test Item Value Reference Range Comments SODIUM (test code=NA) 138 mmol/L 135-148 POTASSIUM (test code=K) 3.6 mmol/L 3.5-5.1 CHLORIDE (test code=CL) 100 mmol/L 101-109 CARBON DIOXIDE (test code=CO2) 24.4 mmol/L 21-32 ANION GAP (test code=GAP) 17 mmol/L 10-20 GLUCOSE (test code=GLU) 150 mg/dL 74-106 BLOOD UREA NITROGEN (test code=BUN) 13 mg/dL 3-21 CREATININE (test code=CREAT) 0.72 mg/dL 0.55-1.3 BUN/CREATININE RATIO (test code=BUN/CREA) 18.1 10-20 TOTAL PROTEIN (test code=PROT) gram/dL 6.4-8.2 ALBUMIN (test code=ALB) g/dL 3.4-5.0 GLOBULIN (test code=GLOB) g/dL 2.7-4.2 ALBUMIN/GLOBULIN RATIO (test code=A/G) 0.75-1.50 CALCIUM (test code=CA) 8.8 mg/dL 8.4-10.2 BILIRUBIN TOTAL (test code=BILT) mg/dL 0.2-1.2 SGOT/AST (test code=AST) IUnit/L 15-37 SGPT/ALT (test code=ALT) U/L 10-69 ALKALINE PHOSPHATASE TOTAL (test code=ALKP) IUnit/L 45-117 [id number] 19:42:00* Test Item Value Reference Range Comments LIPASE (test code=LIP) Unit/L 144-286 CBC W/AUTO [id number] 19:32:00* Test Item Value Reference Range Comments WHITE BLOOD CELL (test code=WBC) 7.7 K/mm3 4.5-12.5 RED BLOOD CELL (test code=RBC) 4.80 mill/mm3 4.0-5.8 HEMOGLOBIN (test code=HGB) 16.3 gram/dL 13.0-17.5 HEMATOCRIT (test code=HCT) 45.0 % 42.0-52.0 MEAN CELL VOLUME (test code=MCV) 93.8 fL 80-98 MEAN CELL HGB (test code=MCH) 34.0 picogram 27.0-33.0 MEAN CELL HGB CONCETRATION (test code=MCHC) 36.2 gram/dL 33.0-36.0 RED CELL DISTRIBUTION WIDTH (test code=RDW) 11.9 % 11.6-16.2 RED CELL DISTRIBUTION WIDTH SD (test code=RDW-SD) 40.3 fL 39.2-49.5 PLATELET COUNT (test code=PLT) 255 K/mm3 150-450 MEAN PLATELET VOLUME (test code=MPV) 8.9 fL 6.7-11.0 NEUTROPHIL % (test code=NT%) 36.8 % 39.0-69.0 LYMPHOCYTE % (test code=LY%) 54.6 % 25.0-55.0 MONOCYTE % (test code=MO%) 3.5 % 0.0-10.0 EOSINOPHIL % (test code=EO%) 3.9 % 0.0-5.0 BASOPHIL % (test code=BA%) 1.2 % 0.0-1.0 NEUTROPHIL # (test code=NT#) 2.82 K/mm3 1.8-7.7 LYMPHOCYTE # (test code=LY#) 4.18 K/mm3 1.0-5.0 MONOCYTE # (test code=MO#) 0.27 K/mm3 0-0.8 EOSINOPHIL # (test code=EO#) 0.30 K/mm3 0.0-0.5 BASOPHIL # (test code=BA#) 0.09 K/mm3 0.0-0.2 MANUAL DIFF REQUIRED (test code=MDIFF) NO URINALYSIS [id number] 18:54:00* Test Item Value Reference Range Comments UA COLOR (test code=COLU) LIGHT YELLOW YELLOW UA APPEARANCE (test code=APPU) CLEAR CLEAR UA GLUCOSE DIPSTICK (test code=DGLUU) norm mg/dL NEGATIVE UA BILIRUBIN DIPSTICK (test code=BILU) NEGATIVE mg/dL NEGATIVE UA KETONE DIPSTICK (test code=KETU) neg mg/dL NEGATIVE UA SPECIFIC GRAVITY (test code=SGU) 1.010 1.001-1.035 UA BLOOD DIPSTICK (test code=RODOLFO) neg Dylan/uL NEGATIVE UA PH DIPSTICK (test code=LISS) 6.5 5.0-8.0 UA PROTEIN DIPSTICK (test code=PROU) neg mg/dL Neg-15 UA UROBILINIOGEN DIPSTICK (test code=URO) norm mg/dL 0.0-0.2 UA NITRITE DIPSTICK (test code=KIA) NEGATIVE NEGATIVE UA LEUKOCYTE ESTERASE DIPSTICK (test code=LEUU) neg uL NEGATIVE UA WBC (test code=WBCU) NONE SEEN per HPF 0-5 IN SOME URINARY TRACT INFECTIONS THERE MAY NOT BE ENOUGHWBCs IN THE URINE TO TRIGGER AN AUTOMATIC (REFLEX) URINECULTURE. A SEPERATE ORDER FOR URINE CULTURE IS RECOMMENDEDIF THERE IS STRONG SUPPORT FOR A URINARY TRACT INFECTIONCLINICALLY. UA RBC (test code=RBCU) NONE SEEN per HPF 0-5 UA EPITHELIAL CELLS (test code=EPIU) Rare (0-1/hpf) per HPF Few UA BACTERIA (test code=BACU) NONE SEEN per HPF NONE Urine Source? Clean CatchBASIC METABOLIC [id number] 18:52:00* Test Item Value Reference Range Comments SODIUM (test code=NA) 137 mmol/L 135-148 POTASSIUM (test code=K) 3.7 mmol/L 3.5-5.1 CHLORIDE (test code=CL) 102 mmol/L 101-109 CARBON DIOXIDE (test code=CO2) 25.2 mmol/L 21-32 ANION GAP (test code=GAP) 14 mmol/L 10-20 GLUCOSE (test code=GLU) 276 mg/dL 74-106 BLOOD UREA NITROGEN (test code=BUN) 12 mg/dL 3-21 GLOMERULAR FILTRATION RATE (test code=GFR) > 60 mL/min >=60 Estimated GFR by using Modified MDRD formula.Chronic kidney disease is defined as either kidney damageor GFR <60 mL/min/1.73 m2 for >3 months. CREATININE (test code=CREAT) 0.82 mg/dL 0.55-1.3 BUN/CREATININE RATIO (test code=BUN/CREA) 14.6 10-20 CALCIUM (test code=CA) 9.0 mg/dL 8.4-10.2 URINALYSIS [id number] 18:48:00* Test Item Value Reference Range Comments UA COLOR (test code=COLU) LIGHT YELLOW YELLOW UA APPEARANCE (test code=APPU) CLEAR CLEAR UA GLUCOSE DIPSTICK (test code=DGLUU) norm mg/dL NEGATIVE UA BILIRUBIN DIPSTICK (test code=BILU) NEGATIVE mg/dL NEGATIVE UA KETONE DIPSTICK (test code=KETU) neg mg/dL NEGATIVE UA SPECIFIC GRAVITY (test code=SGU) 1.010 1.001-1.035 UA BLOOD DIPSTICK (test code=RODOLFO) neg Dylan/uL NEGATIVE UA PH DIPSTICK (test code=LISS) 6.5 5.0-8.0 UA PROTEIN DIPSTICK (test code=PROU) neg mg/dL Neg-15 UA UROBILINIOGEN DIPSTICK (test code=URO) norm mg/dL 0.0-0.2 UA NITRITE DIPSTICK (test code=KIA) NEGATIVE NEGATIVE UA LEUKOCYTE ESTERASE DIPSTICK (test code=LEUU) neg uL NEGATIVE UA WBC (test code=WBCU) per HPF 0-5 Urine Source? Clean CatchCBC W/AUTO [id number] 18:42:00* Test Item Value Reference Range Comments WHITE BLOOD CELL (test code=WBC) 9.5 K/mm3 4.5-12.5 RED BLOOD CELL (test code=RBC) 4.08 mill/mm3 4.0-5.8 HEMOGLOBIN (test code=HGB) 13.9 gram/dL 13.0-17.5 HEMATOCRIT (test code=HCT) 40.0 % 42.0-52.0 MEAN CELL VOLUME (test code=MCV) 98.0 fL 80-98 MEAN CELL HGB (test code=MCH) 34.1 picogram 27.0-33.0 MEAN CELL HGB CONCETRATION (test code=MCHC) 34.8 gram/dL 33.0-36.0 RED CELL DISTRIBUTION WIDTH (test code=RDW) 12.3 % 11.6-16.2 RED CELL DISTRIBUTION WIDTH SD (test code=RDW-SD) 42.0 fL 39.2-49.5 PLATELET COUNT (test code=PLT) 511 K/mm3 150-450 MEAN PLATELET VOLUME (test code=MPV) 9.4 fL 6.7-11.0 NEUTROPHIL % (test code=NT%) 59.2 % 39.0-69.0 LYMPHOCYTE % (test code=LY%) 31.6 % 25.0-55.0 MONOCYTE % (test code=MO%) 5.1 % 0.0-10.0 EOSINOPHIL % (test code=EO%) 2.4 % 0.0-5.0 BASOPHIL % (test code=BA%) 1.7 % 0.0-1.0 NEUTROPHIL # (test code=NT#) 5.61 K/mm3 1.8-7.7 LYMPHOCYTE # (test code=LY#) 2.99 K/mm3 1.0-5.0 MONOCYTE # (test code=MO#) 0.48 K/mm3 0-0.8 EOSINOPHIL # (test code=EO#) 0.23 K/mm3 0.0-0.5 BASOPHIL # (test code=BA#) 0.16 K/mm3 0.0-0.2 MANUAL DIFF REQUIRED (test code=MDIFF) NO [id number] 11:15:00* Test Item Value Reference Range Comments GLUBED (test code=GLUBED) 134 mg/dL 74-106 Performed by certified incising machine operator at [facility] [id number] 05:50:00* Test Item Value Reference Range Comments GLUBED (test code=GLUBED) 112 mg/dL 74-106 Performed by certified incising machine operator at [facility] BASIC METABOLIC [id number] 05:34:00* Test Item Value Reference Range Comments SODIUM (test code=NA) 139 mmol/L 136-145 POTASSIUM (test code=K) 3.3 mmol/L 3.5-5.1 CHLORIDE (test code=CL) 107.0 mmol/L 98-107 CARBON DIOXIDE (test code=CO2) 25.0 mmol/L 21-32 ANION GAP (test code=GAP) 10.3 10-20 GLUCOSE (test code=GLU) 113 mg/dL 74-106 BLOOD UREA NITROGEN (test code=BUN) 7 mg/dL 7-18 GLOMERULAR FILTRATION RATE (test code=GFR) > 60 mL/min >=60 Estimated GFR by using Modified MDRD formula.Chronic kidney disease is defined as either kidney damageor GFR <60 mL/min/1.73 m2 for >3 months. CREATININE (test code=CREAT) 0.60 mg/dL 0.7-1.3 BUN/CREATININE RATIO (test code=BUN/CREA) 11.7 10-20 CALCIUM (test code=CA) 8.2 mg/dL 8.5-10.1 LIPID PROFILE (CORONARY RISK)2018-07-05 05:34:00* Test Item Value Reference Range Comments TRIGLYCERIDES (test code=TRIG) 310 mg/dL 20-150 CHOLESTEROL (test code=CHOL) 165 mg/dL 0-200 CHOLESTEROL/HDL RATIO (test code=CHOLHDL) 9.0 RATIO 0-4.9 RISK ASSOCIATED WITH CHOL/HDL RATIOS: Risk Male Female1/2 AVERAGE 3.43 3.27AVERAGE 4.97 4.442X AVERAGE 9.55 7.053X AVERAGE 23.39 11.04 REFERENCE VALUE IS RELATED TO RISK LEVELS ASRECOMMENDED BY THE [facility]. HEART, LUNG, AND BLOOD INST. HDL CHOLESTEROL (test code=HDL) 18 mg/dL 40-60 LIPOPROTEIN LDL (test code=LDL) 107 mg/dL 100-129 RN PERSONNEL, CONTACT PHYSICIAN IMMEDIATELY IF THIS IS A STROKE, AMI OR CAROTID STENOSIS PATIENT WHEN THE LDL >100 (1ST OCCURENCE, THIS ADMISSION) Reference Interval: mg/dL mmol/L Optimal <100 <2.6Near/above optimal 100-129 2.6- 3.3Borderline High 130-159 3.4-4.1High 160-189 4.1-4.9Very High >=190 >=4.9=========This LDL result is a direct measurement.========= HEPATIC FUNCTION [id number] 05:34:00* Test Item Value Reference Range Comments TOTAL PROTEIN (test code=PROT) 6.8 gram/dL 6.4-8.2 ALBUMIN (test code=ALB) 2.7 g/dL 3.4-5.0 GLOBULIN (test code=GLOB) 4.1 gram/dL 2.7-4.2 ALBUMIN/GLOBULIN RATIO (test code=A/G) 0.7 0.75-1.50 BILIRUBIN TOTAL (test code=BILT) 2.60 mg/dL 0.0-1.0 BILIRUBIN DIRECT (test code=BILD) 1.73 mg/dL 0.0-0.20 SGOT/AST (test code=AST) 66 IUnit/L 15-37 SGPT/ALT (test code=ALT) 158 IUnit/L 12-78 ALKALINE PHOSPHATASE TOTAL (test code=ALKP) 125 IUnit/L 45-117 Note change in reference range due to change in reagent. [id number] 05:34:00* Test Item Value Reference Range Comments LIPASE (test code=LIP) 186 U/L 73.0-393.0 BASIC METABOLIC [id number] 05:25:00* Test Item Value Reference Range Comments SODIUM (test code=NA) 139 mmol/L 136-145 POTASSIUM (test code=K) 3.3 mmol/L 3.5-5.1 CHLORIDE (test code=CL) 107.0 mmol/L 98-107 CARBON DIOXIDE (test code=CO2) mmol/L 21-32 ANION GAP (test code=GAP) 10-20 GLUCOSE (test code=GLU) mg/dL 74-106 BLOOD UREA NITROGEN (test code=BUN) mg/dL 7-18 GLOMERULAR FILTRATION RATE (test code=GFR) mL/min >=60 CREATININE (test code=CREAT) mg/dL 0.7-1.3 BUN/CREATININE RATIO (test code=BUN/CREA) 10-20 CALCIUM (test code=CA) mg/dL 8.5-10.1 LIPID PROFILE (CORONARY RISK)2018-07-05 05:25:00* Test Item Value Reference Range Comments TRIGLYCERIDES (test code=TRIG) mg/dL 20-150 CHOLESTEROL (test code=CHOL) mg/dL 0-200 CHOLESTEROL/HDL RATIO (test code=CHOLHDL) RATIO 0-4.9 HDL CHOLESTEROL (test code=HDL) mg/dL 40-60 LIPOPROTEIN LDL (test code=LDL) mg/dL 100-129 HEPATIC FUNCTION [id number] 05:25:00* Test Item Value Reference Range Comments TOTAL PROTEIN (test code=PROT) gram/dL 6.4-8.2 ALBUMIN (test code=ALB) g/dL 3.4-5.0 GLOBULIN (test code=GLOB) gram/dL 2.7-4.2 ALBUMIN/GLOBULIN RATIO (test code=A/G) 0.75-1.50 BILIRUBIN TOTAL (test code=BILT) mg/dL 0.0-1.0 BILIRUBIN DIRECT (test code=BILD) mg/dL 0.0-0.20 SGOT/AST (test code=AST) IUnit/L 15-37 SGPT/ALT (test code=ALT) IUnit/L 12-78 ALKALINE PHOSPHATASE TOTAL (test code=ALKP) IUnit/L 45-117 [id number] 05:25:00* Test Item Value Reference Range Comments LIPASE (test code=LIP) U/L 73.0-393.0 CBC W/AUTO [id number] 04:53:00* Test Item Value Reference Range Comments WHITE BLOOD CELL (test code=WBC) 10.1 K/mm3 4.5-12.5 RED BLOOD CELL (test code=RBC) 4.06 mill/mm3 4.0-5.8 HEMOGLOBIN (test code=HGB) 13.5 gram/dL 13.0-17.5 HEMATOCRIT (test code=HCT) 39.8 % 42.0-52.0 MEAN CELL VOLUME (test code=MCV) 98.0 fL 80-98 MEAN CELL HGB (test code=MCH) 33.3 picogram 27.0-33.0 MEAN CELL HGB CONCETRATION (test code=MCHC) 33.9 gram/dL 33.0-36.0 RED CELL DISTRIBUTION WIDTH (test code=RDW) 12.5 % 11.6-16.2 RED CELL DISTRIBUTION WIDTH SD (test code=RDW-SD) 45.4 fL 37.0-51.0 PLATELET COUNT (test code=PLT) 101 K/mm3 150-450 MEAN PLATELET VOLUME (test code=MPV) 10.7 fL 6.7-11.0 NEUTROPHIL % (test code=NT%) 70.8 % 39.0-69.0 IMMATURE GRANULOCYTE % (test code=IG%) 0.5 % 0.0-5.0 LYMPHOCYTE % (test code=LY%) 19.1 % 25.0-55.0 MONOCYTE % (test code=MO%) 5.7 % 0.0-10.0 EOSINOPHIL % (test code=EO%) 3.3 % 0.0-5.0 BASOPHIL % (test code=BA%) 0.6 % 0.0-1.0 NUCLEATED RBC % (test code=NRBC%) 0.0 % 0-0 NEUTROPHIL # (test code=NT#) 7.14 K/mm3 1.8-7.7 IMMATURE GRANULOCYTE # (test code=IG#) 0.05 x10 3/uL 0-0.03 LYMPHOCYTE # (test code=LY#) 1.92 K/mm3 1.0-5.0 MONOCYTE # (test code=MO#) 0.57 K/mm3 0-0.8 EOSINOPHIL # (test code=EO#) 0.33 K/mm3 0.0-0.5 BASOPHIL # (test code=BA#) 0.06 K/mm3 0.0-0.2 NUCLEATED RBC # (test code=NRBC#) 0.00 K/mm3 0.0-0.1 MANUAL DIFF REQUIRED (test code=MDIFF) NO CBC W/AUTO [id number] 04:50:00* Test Item Value Reference Range Comments WHITE BLOOD CELL (test code=WBC) K/mm3 4.5-12.5 RED BLOOD CELL (test code=RBC) mill/mm3 4.0-5.8 HEMOGLOBIN (test code=HGB) 13.5 gram/dL 13.0-17.5 HEMATOCRIT (test code=HCT) % 42.0-52.0 MEAN CELL VOLUME (test code=MCV) fL 80-98 MEAN CELL HGB (test code=MCH) picogram 27.0-33.0 MEAN CELL HGB CONCETRATION (test code=MCHC) gram/dL 33.0-36.0 RED CELL DISTRIBUTION WIDTH (test code=RDW) % 11.6-16.2 RED CELL DISTRIBUTION WIDTH SD (test code=RDW-SD) fL 37.0-51.0 PLATELET COUNT (test code=PLT) K/mm3 150-450 MEAN PLATELET VOLUME (test code=MPV) fL 6.7-11.0 NEUTROPHIL % (test code=NT%) % 39.0-69.0 IMMATURE GRANULOCYTE % (test code=IG%) % 0.0-5.0 LYMPHOCYTE % (test code=LY%) % 25.0-55.0 MONOCYTE % (test code=MO%) % 0.0-10.0 EOSINOPHIL % (test code=EO%) % 0.0-5.0 BASOPHIL % (test code=BA%) % 0.0-1.0 NEUTROPHIL # (test code=NT#) K/mm3 1.8-7.7 LYMPHOCYTE # (test code=LY#) K/mm3 1.0-5.0 MONOCYTE # (test code=MO#) K/mm3 0-0.8 EOSINOPHIL # (test code=EO#) K/mm3 0.0-0.5 BASOPHIL # (test code=BA#) K/mm3 0.0-0.2 [id number] 00:50:00* Test Item Value Reference Range Comments GLUBED (test code=GLUBED) 130 mg/dL 74-106 Performed by certified incising machine operator at [facility] [id number] 20:39:00* Test Item Value Reference Range Comments GLUBED (test code=GLUBED) 147 mg/dL 74-106 Performed by certified incising machine operator at [facility] [id number] 16:56:00* Test Item Value Reference Range Comments GLUBED (test code=GLUBED) 114 mg/dL 74-106 Performed by certified incising machine operator at [facility] [id number] 14:31:00* Test Item Value Reference Range Comments GLUBED (test code=GLUBED) 111 mg/dL 74-106 Performed by certified incising machine operator at [facility] [id number] 06:24:00* Test Item Value Reference Range Comments GLUBED (test code=GLUBED) 100 mg/dL 74-106 Performed by certified incising machine operator at [facility] CBC W/MANUAL [id number] 04:57:00* Test Item Value Reference Range Comments WHITE BLOOD CELL (test code=WBC) 15.0 K/mm3 4.5-12.5 RED BLOOD CELL (test code=RBC) 4.32 mill/mm3 4.0-5.8 HEMOGLOBIN (test code=HGB) 13.9 gram/dL 13.0-17.5 HEMATOCRIT (test code=HCT) 42.9 % 42.0-52.0 MEAN CELL VOLUME (test code=MCV) 99.3 fL 80-98 MEAN CELL HGB (test code=MCH) 32.2 picogram 27.0-33.0 MEAN CELL HGB CONCETRATION (test code=MCHC) 32.4 gram/dL 33.0-36.0 RED CELL DISTRIBUTION WIDTH (test code=RDW) 12.6 % 11.6-16.2 RED CELL DISTRIBUTION WIDTH SD (test code=RDW-SD) 46.3 fL 37.0-51.0 PLATELET COUNT (test code=PLT) 84 K/mm3 150-450 MEAN PLATELET VOLUME (test code=MPV) 10.9 fL 6.7-11.0 IMMATURE GRANULOCYTE % (test code=IG%) 0.9 % 0.0-5.0 NUCLEATED RBC % (test code=NRBC%) 0.0 % 0-0 NEUTROPHIL # (test code=NT#) 12.60 K/mm3 1.8-7.7 IMMATURE GRANULOCYTE # (test code=IG#) 0.14 x10 3/uL 0-0.03 LYMPHOCYTE # (test code=LY#) 1.33 K/mm3 1.0-5.0 MONOCYTE # (test code=MO#) 0.78 K/mm3 0-0.8 EOSINOPHIL # (test code=EO#) 0.13 K/mm3 0.0-0.5 BASOPHIL # (test code=BA#) 0.05 K/mm3 0.0-0.2 NUCLEATED RBC # (test code=NRBC#) 0.00 K/mm3 0.0-0.1 MANUAL DIFF REQUIRED (test code=MDIFF) YES STAIN ACCEPTABILITY (test code=STN ACCEPTABLE) STAIN ACCEPTABLE TOTAL CELLS COUNTED (test code=TCC) 114 #CELLS SEGMENTED NEUTROPHILS (test code=SEG) 84.4 % 39-69 BAND NEUTROPHIL (test code=BAND) 7.8 % 0-10 LYMPHOCYTE (test code=LYMPH) 4.3 % 25-55 REACTIVE LYMPH (test code=RELYMPH) 0 % MONOCYTE (test code=MON) 0 % 0-10 EOSINOPHIL (test code=EOS) 1.7 % 0.0-5.0 BASOPHIL (test code=BASO) 0.9 % 0-1.0 METAMYELOCYTE (test code=META) 0 % 0-0 MYELOCYTE (test code=MYELO) 0 % 0.0-0.0 PROMYELOCYTE (test code=PROM) 0.9 % 0-0 ANISOCYTOSIS (test code=ANISO) 1+ MACROCYTOSIS (test code=MACR) 1+ PLATELET ESTIMATE (test code=PLTEST) DECREASED PLATELET MORPHOLOGY (test code=PLTMORPH) NORMAL IMMATURE FORMS (test code=IMMAT) 0 % BASIC METABOLIC [id number] 04:49:00* Test Item Value Reference Range Comments SODIUM (test code=NA) 135 mmol/L 136-145 POTASSIUM (test code=K) 3.6 mmol/L 3.5-5.1 CHLORIDE (test code=CL) 102.0 mmol/L 98-107 CARBON DIOXIDE (test code=CO2) mmol/L 21-32 ANION GAP (test code=GAP) 10-20 GLUCOSE (test code=GLU) mg/dL 74-106 BLOOD UREA NITROGEN (test code=BUN) mg/dL 7-18 GLOMERULAR FILTRATION RATE (test code=GFR) mL/min >=60 CREATININE (test code=CREAT) mg/dL 0.7-1.3 BUN/CREATININE RATIO (test code=BUN/CREA) 10-20 CALCIUM (test code=CA) mg/dL 8.5-10.1 [id number] 04:49:00* Test Item Value Reference Range Comments LIPASE (test code=LIP) U/L 73.0-393.0 [id number] 04:49:00* Test Item Value Reference Range Comments MAGNESIUM (test code=MAG) mg/dL 1.8-2.4 BASIC METABOLIC [id number] 04:49:00* Test Item Value Reference Range Comments SODIUM (test code=NA) 135 mmol/L 136-145 POTASSIUM (test code=K) 3.6 mmol/L 3.5-5.1 CHLORIDE (test code=CL) 102.0 mmol/L 98-107 CARBON DIOXIDE (test code=CO2) 26.0 mmol/L 21-32 ANION GAP (test code=GAP) 10.6 10-20 GLUCOSE (test code=GLU) 110 mg/dL 74-106 BLOOD UREA NITROGEN (test code=BUN) 6 mg/dL 7-18 GLOMERULAR FILTRATION RATE (test code=GFR) > 60 mL/min >=60 Estimated GFR by using Modified MDRD formula.Chronic kidney disease is defined as either kidney damageor GFR <60 mL/min/1.73 m2 for >3 months. CREATININE (test code=CREAT) 0.60 mg/dL 0.7-1.3 BUN/CREATININE RATIO (test code=BUN/CREA) 10.0 10-20 CALCIUM (test code=CA) 8.3 mg/dL 8.5-10.1 [id number] 04:49:00* Test Item Value Reference Range Comments LIPASE (test code=LIP) 227 U/L 73.0-393.0 [id number] 04:49:00* Test Item Value Reference Range Comments MAGNESIUM (test code=MAG) 1.9 mg/dL 1.8-2.4 CBC W/MANUAL [id number] 04:30:00* Test Item Value Reference Range Comments WHITE BLOOD CELL (test code=WBC) 15.0 K/mm3 4.5-12.5 RED BLOOD CELL (test code=RBC) 4.32 mill/mm3 4.0-5.8 HEMOGLOBIN (test code=HGB) 13.9 gram/dL 13.0-17.5 HEMATOCRIT (test code=HCT) 42.9 % 42.0-52.0 MEAN CELL VOLUME (test code=MCV) 99.3 fL 80-98 MEAN CELL HGB (test code=MCH) 32.2 picogram 27.0-33.0 MEAN CELL HGB CONCETRATION (test code=MCHC) 32.4 gram/dL 33.0-36.0 RED CELL DISTRIBUTION WIDTH (test code=RDW) 12.6 % 11.6-16.2 RED CELL DISTRIBUTION WIDTH SD (test code=RDW-SD) 46.3 fL 37.0-51.0 PLATELET COUNT (test code=PLT) 84 K/mm3 150-450 MEAN PLATELET VOLUME (test code=MPV) 10.9 fL 6.7-11.0 IMMATURE GRANULOCYTE % (test code=IG%) 0.9 % 0.0-5.0 NUCLEATED RBC % (test code=NRBC%) 0.0 % 0-0 NEUTROPHIL # (test code=NT#) 12.60 K/mm3 1.8-7.7 IMMATURE GRANULOCYTE # (test code=IG#) 0.14 x10 3/uL 0-0.03 LYMPHOCYTE # (test code=LY#) 1.33 K/mm3 1.0-5.0 MONOCYTE # (test code=MO#) 0.78 K/mm3 0-0.8 EOSINOPHIL # (test code=EO#) 0.13 K/mm3 0.0-0.5 BASOPHIL # (test code=BA#) 0.05 K/mm3 0.0-0.2 NUCLEATED RBC # (test code=NRBC#) 0.00 K/mm3 0.0-0.1 MANUAL DIFF REQUIRED (test code=MDIFF) YES STAIN ACCEPTABILITY (test code=STN ACCEPTABLE) TOTAL CELLS COUNTED (test code=TCC) #CELLS SEGMENTED NEUTROPHILS (test code=SEG) % 39-69 LYMPHOCYTE (test code=LYMPH) % 25-55 MONOCYTE (test code=MON) % 0-10 EOSINOPHIL (test code=EOS) % 0.0-5.0 CABOT RINGS (test code=CAB) MORPHOLOGY COMMENT (test code=MOC) PLATELET ESTIMATE (test code=PLTEST) PLATELET MORPHOLOGY (test code=PLTMORPH) CBC W/MANUAL [id number] 04:30:00* Test Item Value Reference Range Comments WHITE BLOOD CELL (test code=WBC) 15.0 K/mm3 4.5-12.5 RED BLOOD CELL (test code=RBC) 4.32 mill/mm3 4.0-5.8 HEMOGLOBIN (test code=HGB) 13.9 gram/dL 13.0-17.5 HEMATOCRIT (test code=HCT) 42.9 % 42.0-52.0 MEAN CELL VOLUME (test code=MCV) 99.3 fL 80-98 MEAN CELL HGB (test code=MCH) 32.2 picogram 27.0-33.0 MEAN CELL HGB CONCETRATION (test code=MCHC) 32.4 gram/dL 33.0-36.0 RED CELL DISTRIBUTION WIDTH (test code=RDW) 12.6 % 11.6-16.2 RED CELL DISTRIBUTION WIDTH SD (test code=RDW-SD) 46.3 fL 37.0-51.0 PLATELET COUNT (test code=PLT) 84 K/mm3 150-450 MEAN PLATELET VOLUME (test code=MPV) 10.9 fL 6.7-11.0 IMMATURE GRANULOCYTE % (test code=IG%) 0.9 % 0.0-5.0 NUCLEATED RBC % (test code=NRBC%) 0.0 % 0-0 NEUTROPHIL # (test code=NT#) 12.60 K/mm3 1.8-7.7 IMMATURE GRANULOCYTE # (test code=IG#) 0.14 x10 3/uL 0-0.03 LYMPHOCYTE # (test code=LY#) 1.33 K/mm3 1.0-5.0 MONOCYTE # (test code=MO#) 0.78 K/mm3 0-0.8 EOSINOPHIL # (test code=EO#) 0.13 K/mm3 0.0-0.5 BASOPHIL # (test code=BA#) 0.05 K/mm3 0.0-0.2 NUCLEATED RBC # (test code=NRBC#) 0.00 K/mm3 0.0-0.1 MANUAL DIFF REQUIRED (test code=MDIFF) YES STAIN ACCEPTABILITY (test code=STN ACCEPTABLE) TOTAL CELLS COUNTED (test code=TCC) #CELLS SEGMENTED NEUTROPHILS (test code=SEG) % 39-69 LYMPHOCYTE (test code=LYMPH) % 25-55 MONOCYTE (test code=MON) % 0-10 EOSINOPHIL (test code=EOS) % 0.0-5.0 CABOT RINGS (test code=CAB) MORPHOLOGY COMMENT (test code=MOC) PLATELET ESTIMATE (test code=PLTEST) PLATELET MORPHOLOGY (test code=PLTMORPH) CBC W/MANUAL [id number] 04:30:00* Test Item Value Reference Range Comments WHITE BLOOD CELL (test code=WBC) 15.0 K/mm3 4.5-12.5 RED BLOOD CELL (test code=RBC) 4.32 mill/mm3 4.0-5.8 HEMOGLOBIN (test code=HGB) 13.9 gram/dL 13.0-17.5 HEMATOCRIT (test code=HCT) 42.9 % 42.0-52.0 MEAN CELL VOLUME (test code=MCV) 99.3 fL 80-98 MEAN CELL HGB (test code=MCH) 32.2 picogram 27.0-33.0 MEAN CELL HGB CONCETRATION (test code=MCHC) 32.4 gram/dL 33.0-36.0 RED CELL DISTRIBUTION WIDTH (test code=RDW) 12.6 % 11.6-16.2 RED CELL DISTRIBUTION WIDTH SD (test code=RDW-SD) 46.3 fL 37.0-51.0 PLATELET COUNT (test code=PLT) 84 K/mm3 150-450 MEAN PLATELET VOLUME (test code=MPV) 10.9 fL 6.7-11.0 IMMATURE GRANULOCYTE % (test code=IG%) 0.9 % 0.0-5.0 NUCLEATED RBC % (test code=NRBC%) 0.0 % 0-0 NEUTROPHIL # (test code=NT#) 12.60 K/mm3 1.8-7.7 IMMATURE GRANULOCYTE # (test code=IG#) 0.14 x10 3/uL 0-0.03 LYMPHOCYTE # (test code=LY#) 1.33 K/mm3 1.0-5.0 MONOCYTE # (test code=MO#) 0.78 K/mm3 0-0.8 EOSINOPHIL # (test code=EO#) 0.13 K/mm3 0.0-0.5 BASOPHIL # (test code=BA#) 0.05 K/mm3 0.0-0.2 NUCLEATED RBC # (test code=NRBC#) 0.00 K/mm3 0.0-0.1 MANUAL DIFF REQUIRED (test code=MDIFF) YES STAIN ACCEPTABILITY (test code=STN ACCEPTABLE) TOTAL CELLS COUNTED (test code=TCC) #CELLS SEGMENTED NEUTROPHILS (test code=SEG) % 39-69 LYMPHOCYTE (test code=LYMPH) % 25-55 MONOCYTE (test code=MON) % 0-10 EOSINOPHIL (test code=EOS) % 0.0-5.0 MORPHOLOGY COMMENT (test code=MOC) PLATELET ESTIMATE (test code=PLTEST) PLATELET MORPHOLOGY (test code=PLTMORPH) CBC W/MANUAL [id number] 04:30:00* Test Item Value Reference Range Comments WHITE BLOOD CELL (test code=WBC) 15.0 K/mm3 4.5-12.5 RED BLOOD CELL (test code=RBC) 4.32 mill/mm3 4.0-5.8 HEMOGLOBIN (test code=HGB) 13.9 gram/dL 13.0-17.5 HEMATOCRIT (test code=HCT) 42.9 % 42.0-52.0 MEAN CELL VOLUME (test code=MCV) 99.3 fL 80-98 MEAN CELL HGB (test code=MCH) 32.2 picogram 27.0-33.0 MEAN CELL HGB CONCETRATION (test code=MCHC) 32.4 gram/dL 33.0-36.0 RED CELL DISTRIBUTION WIDTH (test code=RDW) 12.6 % 11.6-16.2 RED CELL DISTRIBUTION WIDTH SD (test code=RDW-SD) 46.3 fL 37.0-51.0 PLATELET COUNT (test code=PLT) 84 K/mm3 150-450 MEAN PLATELET VOLUME (test code=MPV) 10.9 fL 6.7-11.0 IMMATURE GRANULOCYTE % (test code=IG%) 0.9 % 0.0-5.0 NUCLEATED RBC % (test code=NRBC%) 0.0 % 0-0 NEUTROPHIL # (test code=NT#) 12.60 K/mm3 1.8-7.7 IMMATURE GRANULOCYTE # (test code=IG#) 0.14 x10 3/uL 0-0.03 LYMPHOCYTE # (test code=LY#) 1.33 K/mm3 1.0-5.0 MONOCYTE # (test code=MO#) 0.78 K/mm3 0-0.8 EOSINOPHIL # (test code=EO#) 0.13 K/mm3 0.0-0.5 BASOPHIL # (test code=BA#) 0.05 K/mm3 0.0-0.2 NUCLEATED RBC # (test code=NRBC#) 0.00 K/mm3 0.0-0.1 MANUAL DIFF REQUIRED (test code=MDIFF) YES STAIN ACCEPTABILITY (test code=STN ACCEPTABLE) TOTAL CELLS COUNTED (test code=TCC) #CELLS SEGMENTED NEUTROPHILS (test code=SEG) % 39-69 LYMPHOCYTE (test code=LYMPH) % 25-55 MONOCYTE (test code=MON) % 0-10 MORPHOLOGY COMMENT (test code=MOC) PLATELET ESTIMATE (test code=PLTEST) PLATELET MORPHOLOGY (test code=PLTMORPH) CBC W/MANUAL [id number] 04:30:00* Test Item Value Reference Range Comments WHITE BLOOD CELL (test code=WBC) 15.0 K/mm3 4.5-12.5 RED BLOOD CELL (test code=RBC) 4.32 mill/mm3 4.0-5.8 HEMOGLOBIN (test code=HGB) 13.9 gram/dL 13.0-17.5 HEMATOCRIT (test code=HCT) 42.9 % 42.0-52.0 MEAN CELL VOLUME (test code=MCV) 99.3 fL 80-98 MEAN CELL HGB (test code=MCH) 32.2 picogram 27.0-33.0 MEAN CELL HGB CONCETRATION (test code=MCHC) 32.4 gram/dL 33.0-36.0 RED CELL DISTRIBUTION WIDTH (test code=RDW) 12.6 % 11.6-16.2 RED CELL DISTRIBUTION WIDTH SD (test code=RDW-SD) 46.3 fL 37.0-51.0 PLATELET COUNT (test code=PLT) 84 K/mm3 150-450 MEAN PLATELET VOLUME (test code=MPV) 10.9 fL 6.7-11.0 IMMATURE GRANULOCYTE % (test code=IG%) 0.9 % 0.0-5.0 NUCLEATED RBC % (test code=NRBC%) 0.0 % 0-0 NEUTROPHIL # (test code=NT#) 12.60 K/mm3 1.8-7.7 IMMATURE GRANULOCYTE # (test code=IG#) 0.14 x10 3/uL 0-0.03 LYMPHOCYTE # (test code=LY#) 1.33 K/mm3 1.0-5.0 MONOCYTE # (test code=MO#) 0.78 K/mm3 0-0.8 EOSINOPHIL # (test code=EO#) 0.13 K/mm3 0.0-0.5 BASOPHIL # (test code=BA#) 0.05 K/mm3 0.0-0.2 NUCLEATED RBC # (test code=NRBC#) 0.00 K/mm3 0.0-0.1 MANUAL DIFF REQUIRED (test code=MDIFF) YES STAIN ACCEPTABILITY (test code=STN ACCEPTABLE) TOTAL CELLS COUNTED (test code=TCC) #CELLS SEGMENTED NEUTROPHILS (test code=SEG) % 39-69 LYMPHOCYTE (test code=LYMPH) % 25-55 MONOCYTE (test code=MON) % 0-10 EOSINOPHIL (test code=EOS) % 0.0-5.0 CABOT RINGS (test code=CAB) MORPHOLOGY COMMENT (test code=MOC) PLATELET ESTIMATE (test code=PLTEST) PLATELET MORPHOLOGY (test code=PLTMORPH) [id number] 21:22:00* Test Item Value Reference Range Comments GLUBED (test code=GLUBED) 132 mg/dL 74-106 Performed by certified incising machine operator at [facility] [id number] 12:17:00* Test Item Value Reference Range Comments GLUBED (test code=GLUBED) 127 mg/dL 74-106 Performed by certified incising machine operator at [facility] [id number] 06:30:00* Test Item Value Reference Range Comments GLUBED (test code=GLUBED) 145 mg/dL 74-106 [facility] certified incising machine [facility]~ COMPREHENSIVE METABOLIC [id number] 04:45:00* Test Item Value Reference Range Comments SODIUM (test code=NA) 137 mmol/L 136-145 POTASSIUM (test code=K) 3.6 mmol/L 3.5-5.1 CHLORIDE (test code=CL) 102.0 mmol/L 98-107 CARBON DIOXIDE (test code=CO2) 24.0 mmol/L 21-32 ANION GAP (test code=GAP) 14.6 10-20 GLUCOSE (test code=GLU) 155 mg/dL 74-106 BLOOD UREA NITROGEN (test code=BUN) 4 mg/dL 7-18 GLOMERULAR FILTRATION RATE (test code=GFR) > 60 mL/min >=60 Estimated GFR by using Modified MDRD formula.Chronic kidney disease is defined as either kidney damageor GFR <60 mL/min/1.73 m2 for >3 months. CREATININE (test code=CREAT) 0.60 mg/dL 0.7-1.3 BUN/CREATININE RATIO (test code=BUN/CREA) 6.7 10-20 TOTAL PROTEIN (test code=PROT) 7.1 gram/dL 6.4-8.2 ALBUMIN (test code=ALB) 3.1 g/dL 3.4-5.0 GLOBULIN (test code=GLOB) 4.0 gram/dL 2.7-4.2 ALBUMIN/GLOBULIN RATIO (test code=A/G) 0.8 0.75-1.50 CALCIUM (test code=CA) 8.3 mg/dL 8.5-10.1 BILIRUBIN TOTAL (test code=BILT) 3.70 mg/dL 0.0-1.0 SGOT/AST (test code=AST) 358 IUnit/L 15-37 SGPT/ALT (test code=ALT) 413 IUnit/L 12-78 ALKALINE PHOSPHATASE TOTAL (test code=ALKP) 146 IUnit/L 45-117 Note change in reference range due to change in reagent. [id number] 04:45:00* Test Item Value Reference Range Comments LIPASE (test code=LIP) 978 U/L 73.0-393.0 COMPREHENSIVE METABOLIC [id number] 04:41:00* Test Item Value Reference Range Comments SODIUM (test code=NA) 137 mmol/L 136-145 POTASSIUM (test code=K) 3.6 mmol/L 3.5-5.1 CHLORIDE (test code=CL) 102.0 mmol/L 98-107 CARBON DIOXIDE (test code=CO2) mmol/L 21-32 ANION GAP (test code=GAP) 10-20 GLUCOSE (test code=GLU) mg/dL 74-106 BLOOD UREA NITROGEN (test code=BUN) mg/dL 7-18 GLOMERULAR FILTRATION RATE (test code=GFR) mL/min >=60 CREATININE (test code=CREAT) mg/dL 0.7-1.3 BUN/CREATININE RATIO (test code=BUN/CREA) 10-20 TOTAL PROTEIN (test code=PROT) gram/dL 6.4-8.2 ALBUMIN (test code=ALB) g/dL 3.4-5.0 GLOBULIN (test code=GLOB) gram/dL 2.7-4.2 ALBUMIN/GLOBULIN RATIO (test code=A/G) 0.75-1.50 CALCIUM (test code=CA) mg/dL 8.5-10.1 BILIRUBIN TOTAL (test code=BILT) mg/dL 0.0-1.0 SGOT/AST (test code=AST) IUnit/L 15-37 SGPT/ALT (test code=ALT) IUnit/L 12-78 ALKALINE PHOSPHATASE TOTAL (test code=ALKP) IUnit/L 45-117 [id number] 04:41:00* Test Item Value Reference Range Comments LIPASE (test code=LIP) U/L 73.0-393.0 CBC W/AUTO [id number] 04:20:00* Test Item Value Reference Range Comments WHITE BLOOD CELL (test code=WBC) 13.6 K/mm3 4.5-12.5 RED BLOOD CELL (test code=RBC) 4.53 mill/mm3 4.0-5.8 HEMOGLOBIN (test code=HGB) 15.0 gram/dL 13.0-17.5 HEMATOCRIT (test code=HCT) 43.0 % 42.0-52.0 MEAN CELL VOLUME (test code=MCV) 95.1 fL 80-98 MEAN CELL HGB (test code=MCH) 32.9 picogram 27.0-33.0 MEAN CELL HGB CONCETRATION (test code=MCHC) 34.6 gram/dL 33.0-36.0 RED CELL DISTRIBUTION WIDTH (test code=RDW) 13.0 % 11.6-16.2 RED CELL DISTRIBUTION WIDTH SD (test code=RDW-SD) 45.6 fL 37.0-51.0 PLATELET COUNT (test code=PLT) 107 K/mm3 150-450 MEAN PLATELET VOLUME (test code=MPV) 10.2 fL 6.7-11.0 NEUTROPHIL % (test code=NT%) 87.2 % 39.0-69.0 IMMATURE GRANULOCYTE % (test code=IG%) 0.7 % 0.0-5.0 LYMPHOCYTE % (test code=LY%) 7.4 % 25.0-55.0 MONOCYTE % (test code=MO%) 4.2 % 0.0-10.0 EOSINOPHIL % (test code=EO%) 0.1 % 0.0-5.0 BASOPHIL % (test code=BA%) 0.4 % 0.0-1.0 NUCLEATED RBC % (test code=NRBC%) 0.0 % 0-0 NEUTROPHIL # (test code=NT#) 11.89 K/mm3 1.8-7.7 IMMATURE GRANULOCYTE # (test code=IG#) 0.09 x10 3/uL 0-0.03 LYMPHOCYTE # (test code=LY#) 1.01 K/mm3 1.0-5.0 MONOCYTE # (test code=MO#) 0.57 K/mm3 0-0.8 EOSINOPHIL # (test code=EO#) 0.02 K/mm3 0.0-0.5 BASOPHIL # (test code=BA#) 0.06 K/mm3 0.0-0.2 NUCLEATED RBC # (test code=NRBC#) 0.00 K/mm3 0.0-0.1 CBC W/AUTO [id number] 04:18:00* Test Item Value Reference Range Comments WHITE BLOOD CELL (test code=WBC) K/mm3 4.5-12.5 RED BLOOD CELL (test code=RBC) mill/mm3 4.0-5.8 HEMOGLOBIN (test code=HGB) 15.0 gram/dL 13.0-17.5 HEMATOCRIT (test code=HCT) 43.0 % 42.0-52.0 MEAN CELL VOLUME (test code=MCV) fL 80-98 MEAN CELL HGB (test code=MCH) picogram 27.0-33.0 MEAN CELL HGB CONCETRATION (test code=MCHC) gram/dL 33.0-36.0 RED CELL DISTRIBUTION WIDTH (test code=RDW) % 11.6-16.2 RED CELL DISTRIBUTION WIDTH SD (test code=RDW-SD) fL 37.0-51.0 PLATELET COUNT (test code=PLT) K/mm3 150-450 MEAN PLATELET VOLUME (test code=MPV) fL 6.7-11.0 NEUTROPHIL % (test code=NT%) % 39.0-69.0 IMMATURE GRANULOCYTE % (test code=IG%) % 0.0-5.0 LYMPHOCYTE % (test code=LY%) % 25.0-55.0 MONOCYTE % (test code=MO%) % 0.0-10.0 EOSINOPHIL % (test code=EO%) % 0.0-5.0 BASOPHIL % (test code=BA%) % 0.0-1.0 NEUTROPHIL # (test code=NT#) K/mm3 1.8-7.7 LYMPHOCYTE # (test code=LY#) K/mm3 1.0-5.0 MONOCYTE # (test code=MO#) K/mm3 0-0.8 EOSINOPHIL # (test code=EO#) K/mm3 0.0-0.5 BASOPHIL # (test code=BA#) K/mm3 0.0-0.2 [id number] 01:58:00* Test Item Value Reference Range Comments GLUBED (test code=GLUBED) 120 mg/dL 74-106 Performed by certified incising machine operator at [facility] [id number] 23:01:00* Test Item Value Reference Range Comments AMMONIA (test code=AMM) 56 umol/L 11-32 PROTHROMBIN [id number] 22:32:00* Test Item Value Reference Range Comments PROTHROMBIN TIME PATIENT (test code=PTP) 13.8 seconds 9.0-14.0 INTERNATIONAL NORMAL RATIO (test code=INR) 1.2 0.8-1.2 The therapeutic range for oral anticoagulant therapy formost indications is an international normalized ratio (INR)of between 2.0 and 3.0. The recommended therapeutic INRrange for various clinical situations is listed below: Clinical Situation INR range Pulmonary e mbolism treatment (2.0-3.0)Venous thrombosis treatmentVenous thrombosis prophylaxis (high risk surgery)Prevention of systemic embolism from: Acute myocardial infarction Valvular heart disease Atrial fibrillation Mechanical prosthetic heart valves (2.5-3.5) IS PATIENT ON ANTICOAGULANTS? NTHROMBOPLASTIN TIME [id number] 22:32:00* Test Item Value Reference Range Comments THROMBOPLASTIN TIME PARTIAL (test code=PTT) 35.3 seconds 25.0-36.5 IS PATIENT ON ANTICOAGULANTS? NDRUGS OF ABUSE SCREEN [id number] 21:58:00* Test Item Value Reference Range Comments UA PH DIPSTICK (test code=LISS) 7.0 5.0-8.0 URN COCAINE (test code=COCAURN) NEGATIVE <300 ng/mL URN CANNABINOIDS (test code=CANNABURN) NEGATIVE <50 ng/mL URN AMPHETAMINE (test code=AMPHETURN) NEGATIVE <1000 ng/mL URN BARBITURATE (test code=BARBITURN) NEGATIVE <200 ng/mL URN BENZODIAZEPINE (test code=BENZOURN) NEGATIVE <200 ng/mL URN OPIATES (test code=OPIATURN) NEGATIVE <300 ng/mL URN PHENCYCLIDINE (PCP) (test code=PHENCURN) NEGATIVE <25 ng/mL URN METHADONE (test code=METHAURN) NEGATIVE <300 ng/mL DRUGS OF ABUSE SCREEN [id number] 21:28:00* Test Item Value Reference Range Comments UA PH DIPSTICK (test code=LISS) 7.0 5.0-8.0 URN COCAINE (test code=COCAURN) <300 ng/mL URN CANNABINOIDS (test code=CANNABURN) <50 ng/mL URN AMPHETAMINE (test code=AMPHETURN) <1000 ng/mL URN BARBITURATE (test code=BARBITURN) <200 ng/mL URN BENZODIAZEPINE (test code=BENZOURN) <200 ng/mL URN OPIATES (test code=OPIATURN) <300 ng/mL URN PHENCYCLIDINE (PCP) (test code=PHENCURN) <25 ng/mL URN METHADONE (test code=METHAURN) <300 ng/mL [id number] 21:09:00* Test Item Value Reference Range Comments GLUBED (test code=GLUBED) 152 mg/dL 74-106 Performed by certified incising machine operator at [facility] LACTIC [id number] 17:36:00* Test Item Value Reference Range Comments LACTIC ACID (test code=LACT) 1.7 MMOL/L 0.4-1.9 BASIC METABOLIC [id number] 16:34:00* Test Item Value Reference Range Comments SODIUM (test code=NA) 137 mmol/L 135-148 POTASSIUM (test code=K) 3.3 mmol/L 3.5-5.1 CHLORIDE (test code=CL) 102 mmol/L 101-109 CARBON DIOXIDE (test code=CO2) 19.6 mmol/L 21-32 ANION GAP (test code=GAP) 19 mmol/L 10-20 GLUCOSE (test code=GLU) 198 mg/dL 74-106 BLOOD UREA NITROGEN (test code=BUN) 5 mg/dL 3-21 GLOMERULAR FILTRATION RATE (test code=GFR) > 60 mL/min >=60 Estimated GFR by using Modified MDRD formula.Chronic kidney disease is defined as either kidney damageor GFR <60 mL/min/1.73 m2 for >3 months. CREATININE (test code=CREAT) 0.59 mg/dL 0.55-1.3 BUN/CREATININE RATIO (test code=BUN/CREA) 8.5 10-20 CALCIUM (test code=CA) 7.1 mg/dL 8.4-10.2 - US ABDOMEN [id number] 16:23:00 [facility] 1980 Age[facility]S: 38 / M [address] [facility] Unit #: [id number] Loc: [place] [address] Phys: Nidhi Falcon MD Acct: [id number] Dis Date: Status: REG ER PHONE #: [phone] Exam Date: 07/02/2018 1558 FAX #: [phone] Reason: AP, h/o pancreatitis, elevated LFTs EXAMS: CPT CODE: [id number] US ABDOMEN LTD 42331 REASON FOR EXAM: AP, h/o pancreatitis, elevated LFTs EXAM ORDER DATE: 07/02/2018 2:21 PM Attending Caro: Nidhi Falcon MD PROCEDURE: - US ABDOMEN LTD FINDINGS: The liver is mildly echogenic. There is no evidence of focal mass identified. The pancreas is obscured by bowel gas. The right kidney measures 13.2 x 4.9 cm. There is no evidence of hydronephrosis. There is no evidence of nephrolithiasis. There is no evidence of renal mass. The gallbladder is unremarkable without evidence of gall stone. The common bile duct measures 0.3 cm. There is no evidence of ascites. The aorta and IVC are within normal limits. The portal vein is patent with hepatopetal flow IMPRESSION: Fatty liver. No evidence of gallstone. The acute pancreatitis seen on CT was not visualized on the ultrasound at 1623 Reported and signed by: Boogie Cisneros M.D. CC: Nidhi Falcon MD Technologist: Coco Andrade RDHI Trnscb Date/Time: 07/02/2018 (1623) [email or web address] Orig Print D/T: S: 07/02/2018 (2379) Probe: PAGE 1 Signed Report URINALYSIS [id number] 16:22:00* Test Item Value Reference Range Comments UA COLOR (test code=COLU) YELLOW YELLOW UA APPEARANCE (test code=APPU) CLEAR CLEAR UA GLUCOSE DIPSTICK (test code=DGLUU) NORMAL mg/dL NEGATIVE UA BILIRUBIN DIPSTICK (test code=BILU) NEGATIVE mg/dL NEGATIVE UA KETONE DIPSTICK (test code=KETU) neg mg/dL NEGATIVE UA SPECIFIC GRAVITY (test code=SGU) 1.005 1.001-1.035 UA BLOOD DIPSTICK (test code=RODOLFO) neg Dylan/uL NEGATIVE UA PH DIPSTICK (test code=LISS) 7.0 5.0-8.0 UA PROTEIN DIPSTICK (test code=PROU) 15 (TRACE) mg/dL Neg-15 UA UROBILINIOGEN DIPSTICK (test code=URO) norm mg/dL 0.0-0.2 UA NITRITE DIPSTICK (test code=KIA) NEGATIVE NEGATIVE UA LEUKOCYTE ESTERASE DIPSTICK (test code=LEUU) NEGATIVE uL NEGATIVE UA WBC (test code=WBCU) 0-5 per HPF 0-5 IN SOME URINARY TRACT INFECTIONS THERE MAY NOT BE ENOUGHWBCs IN THE URINE TO TRIGGER AN AUTOMATIC (REFLEX) URINECULTURE. A SEPERATE ORDER FOR URINE CULTURE IS RECOMMENDEDIF THERE IS STRONG SUPPORT FOR A URINARY TRACT INFECTIONCLINICALLY. UA RBC (test code=RBCU) NONE SEEN per HPF 0-5 UA EPITHELIAL CELLS (test code=EPIU) Rare (0-1/hpf) per HPF Few UA BACTERIA (test code=BACU) NONE SEEN per HPF NONE Urine Source? Clean [id number] 15:11:00* Test Item Value Reference Range Comments ALCOHOL (test code=ALC) 213 mg/dL 0.0-3.0 INTERPRETIVE DATA NOTE: POSITIVE SCREENING RESULTS SHOULD BE CONSIDERED PRESUMPTIVE.WHEN COLLECTED FOR MEDICAL PURPOSES ONLY. SPECIMEN WILL NOTBE COLLECTED BY CHAIN OF CUSTODY.IF A CONFIRMATION OF POSITIVE RESULTS IS DESIRED, ACONFIRMATION TEST MUST BE REQUESTED BY THE PHYSICIAN AT ANADDITIONAL CHARGE TO THE PATIENT. ADD ON- CT ABD PELVIS [id number] 15:10:00 Name: LUIS SNYDER [facility] : 1980 Age/S: 38 / M [address] [facility] Unit #: [id number] Loc: [place] [address] Phys: Nidhi Falcon MD Acct: [id number] Dis Date: Status: REG ER PHONE #: [phone] Exam Date: 07/02/2018 1503 FAX #: [phone] Reason: abd pain, vomiting, h/o pancreatitis EXAMS: CPT CODE: [id number] CT ABD PELVIS W/CONT 56295 HISTORY: Abdominal pain and vomiting. COMPARISON: None available. CT abdomen and pelvis with IV contrast: 100 mL of Isovue-370. Automated exposure control. CT ABDOMEN: The lung bases are clear. Dependent changes and platelike atelectasis on the right side. The liver is diffusely fatty infiltrated. Areas of fatty sparing. Homogeneous enhancement the liver measured 25.3 cm in length. Gallbladder is without radiopaque stones. Portal vein is patent. Hepatic artery is patent. The spleen is not enlarged and enhanced homogeneously. Accessory spleen. The stomach is distended incompletely however it is normal in appearance. Pancreas demonstrating inflammatory changes along the head and uncinate process consistent with acute pancreatitis with extensi ve inflammation extending from the duodenum and the retroperitoneum on the right side with small retroperitoneal free fluid on the right side. No pancreatic ductal dilatation. No abscess. Adrenals are normal. Kidneys are free from hydroureteronephrosis. Homogeneous enhancement. Bilateral excretion. No pathologic adenopathy. Well-opacified vasculature. No bowel obstruction or colitis or diverticulitis or enteritis. CT PELVIS: Appendix is normal. Pelvic bowel loops are unobstructed. Well-distended urinary bladder. Prostate is not enlarged. No pelvic pathologic adenopathy. No pelvic free fluid or free air or abscess either. The subcutaneous tiss ues and the musculature are normal in appearance. No lytic or blastic les ions are noted within the bony skeleton. PAGE 1 Pat d Report (CONTINUED) Name: LUIS SNYDER [facility] : 1980 Age/S: 38 / M [address] [facility] Unit #: [id number] Loc: [place] [address] Phys: Nidhi Falcon MD Acct: [id number] Dis Date: Status: REG ER PHONE #: [phone] Exam Date: 07/02/2018 1 503 FAX #: [phone] Reason: abd pain, vomiting, h/o pancreatitis EXAMS: CPT CODE: [id number] CT ABD PELVIS W/CONT 61509 <Continued> IMPRESSION: Acute pancreatitis involving the pancreatic head and uncinate process with extensive inflammatory changes extending into the right retroperitoneum and along the duodenum. No ductal dilatation. No free fluid. No abscess or pseudocyst formation. Hepatomegaly with diffuse fatty infiltration. No gallstones are visible. at 1510 Reported and signed by: Jose Alberto Kent M.D. CC: Nidhi Falcon MD Technologist:Kathy Rao CTDI: DLP: Trnscb Date/Time: 07/02/2018 (151) [email or web address] Orig Print D/T: S: 07/02/2018 (8728) CTDI: DLP: PAGE 2 Signed Report LACTIC [id number] 14:09:00* Test Item Value Reference Range Comments LACTIC ACID (test code=LACT) 2.1 MMOL/L 0.4-1.9 Results called to Manju [email or web address] 07/02/18 1409Critical results verified and read back by Nurse? Y BASIC METABOLIC [id number] 14:09:00* Test Item Value Reference Range Comments SODIUM (test code=NA) 135 mmol/L 135-148 POTASSIUM (test code=K) 3.5 mmol/L 3.5-5.1 CHLORIDE (test code=CL) 98 mmol/L 101-109 CARBON DIOXIDE (test code=CO2) 19.5 mmol/L 21-32 ANION GAP (test code=GAP) 21 mmol/L 10-20 GLUCOSE (test code=GLU) 196 mg/dL 74-106 BLOOD UREA NITROGEN (test code=BUN) 5 mg/dL 3-21 GLOMERULAR FILTRATION RATE (test code=GFR) > 60 mL/min >=60 Estimated GFR by using Modified MDRD formula.Chronic kidney disease is defined as either kidney damageor GFR <60 mL/min/1.73 m2 for >3 months. CREATININE (test code=CREAT) 0.64 mg/dL 0.55-1.3 BUN/CREATININE RATIO (test code=BUN/CREA) 7.8 10-20 CALCIUM (test code=CA) 7.7 mg/dL 8.4-10.2 HEPATIC FUNCTION [id number] 14:09:00* Test Item Value Reference Range Comments TOTAL PROTEIN (test code=PROT) 7.3 g/dL 6.5-8.4 ALBUMIN (test code=ALB) 3.2 g/dL 3.4-4.8 GLOBULIN (test code=GLOB) 4.1 G/DL 1-10 ALBUMIN/GLOBULIN RATIO (test code=A/G) 0.8 RATIO 0.75-1.50 BILIRUBIN TOTAL (test code=BILT) 2.60 mg/dL 0.0-1.0 BILIRUBIN DIRECT (test code=BILD) 1.40 mg/dL 0.0-0.30 SGOT/AST (test code=AST) 511 U/L 6-32 SGPT/ALT (test code=ALT) 568 U/L 12-78 Note: Change in REFERENCE RANGE due to new reagent method. ALKALINE PHOSPHATASE TOTAL (test code=ALKP) 141 U/L 38-126 [id number] 14:09:00* Test Item Value Reference Range Comments LIPASE (test code=LIP) 679 U/L 128-270 [id number] 14:09:00* Test Item Value Reference Range Comments TROPONIN-I (test code=TROPI) <0.015 ng/mL 0.00-0.056 BASIC METABOLIC [id number] 14:00:00* Test Item Value Reference Range Comments SODIUM (test code=NA) 135 mmol/L 135-148 POTASSIUM (test code=K) 3.5 mmol/L 3.5-5.1 CHLORIDE (test code=CL) 98 mmol/L 101-109 CARBON DIOXIDE (test code=CO2) 19.5 mmol/L 21-32 ANION GAP (test code=GAP) 21 mmol/L 10-20 GLUCOSE (test code=GLU) 196 mg/dL 74-106 BLOOD UREA NITROGEN (test code=BUN) 5 mg/dL 3-21 GLOMERULAR FILTRATION RATE (test code=GFR) > 60 mL/min >=60 Estimated GFR by using Modified MDRD formula.Chronic kidney disease is defined as either kidney damageor GFR <60 mL/min/1.73 m2 for >3 months. CREATININE (test code=CREAT) 0.64 mg/dL 0.55-1.3 BUN/CREATININE RATIO (test code=BUN/CREA) 7.8 10-20 CALCIUM (test code=CA) 7.7 mg/dL 8.4-10.2 HEPATIC FUNCTION [id number] 14:00:00* Test Item Value Reference Range Comments TOTAL PROTEIN (test code=PROT) gram/dL 6.4-8.2 ALBUMIN (test code=ALB) g/dL 3.4-5.0 GLOBULIN (test code=GLOB) g/dL 2.7-4.2 ALBUMIN/GLOBULIN RATIO (test code=A/G) 0.75-1.50 BILIRUBIN TOTAL (test code=BILT) mg/dL 0.2-1.2 BILIRUBIN DIRECT (test code=BILD) mg/dL 0.0-0.20 SGOT/AST (test code=AST) IUnit/L 15-37 SGPT/ALT (test code=ALT) U/L 10-69 ALKALINE PHOSPHATASE TOTAL (test code=ALKP) IUnit/L 45-117 [id number] 14:00:00* Test Item Value Reference Range Comments LIPASE (test code=LIP) Unit/L 144-286 [id number] 14:00:00* Test Item Value Reference Range Comments TROPONIN-I (test code=TROPI) ng/mL 0-0.045 - XR CHEST 1 [id number] 13:58:00 Name: LILLIANLUIS [facility] : 1980 Age/S:38 /M [address] [facility] Unit#:[id number] Loc: [place] [address] Phys: Nidhi Falcon MD Dis Date: PHONE #: [phone] Status: PRE ER FAX #: [phone] Exam Date: 07/02/2018 Reason: CODE SEPSIS EXAMS: CPT CODE: [id number] XR CHEST 1 V 59791 HISTORY: Sepsis. COMPARISON: None available. No acute infiltrates, effusion or congestion is noted. Cardiomegaly. IMPRESSION: No acute infiltrates, effusion or congestion. at 8893 Reported and signed by: Jose Alberto Kent M.D. CC: Nidhi Falcon MD Technologist: Kathy Rao Trnscrpt Data: 07/02/2018 (1547) Norris.TH4 Orig Print D/T: S: 07/02/2018 (8060) PAGE 1 Signed Report CBC W/AUTO DIFF 2018-07-02 13:52:00* Test Item Value Reference Range Comments WHITE BLOOD CELL (test code=WBC) 13.0 K/mm3 4.5-12.5 RED BLOOD CELL (test code=RBC) 4.54 mill/mm3 4.0-5.8 HEMOGLOBIN (test code=HGB) 15.3 gram/dL 13.0-17.5 HEMATOCRIT (test code=HCT) 42.5 % 42.0-52.0 MEAN CELL VOLUME (test code=MCV) 93.6 fL 80-98 MEAN CELL HGB (test code=MCH) 33.7 picogram 27.0-33.0 MEAN CELL HGB CONCETRATION (test code=MCHC) 36.0 gram/dL 33.0-36.0 RED CELL DISTRIBUTION WIDTH (test code=RDW) 13.0 % 11.6-16.2 RED CELL DISTRIBUTION WIDTH SD (test code=RDW-SD) 43.0 fL 39.2-49.5 PLATELET COUNT (test code=PLT) 137 K/mm3 150-450 MEAN PLATELET VOLUME (test code=MPV) 9.6 fL 6.7-11.0 NEUTROPHIL % (test code=NT%) 83.4 % 39.0-69.0 LYMPHOCYTE % (test code=LY%) 11.6 % 25.0-55.0 MONOCYTE % (test code=MO%) 4.5 % 0.0-10.0 EOSINOPHIL % (test code=EO%) 0.1 % 0.0-5.0 BASOPHIL % (test code=BA%) 0.4 % 0.0-1.0 NEUTROPHIL # (test code=NT#) 10.83 K/mm3 1.8-7.7 LYMPHOCYTE # (test code=LY#) 1.51 K/mm3 1.0-5.0 MONOCYTE # (test code=MO#) 0.58 K/mm3 0-0.8 EOSINOPHIL # (test code=EO#) 0.01 K/mm3 0.0-0.5 BASOPHIL # (test code=BA#) 0.05 K/mm3 0.0-0.2 MANUAL DIFF REQUIRED (test code=MDIFF) NO [id number] 15:09:00* Test Item Value Reference Range Comments GLUBED (test code=GLUBED) 211 mg/dL 74-106 Performed by certified incising machine operator at [facility] [id number] 15:09:00* Test Item Value Reference Range Comments GLUBED (test code=GLUBED) 316 mg/dL 74-106 Performed by certified incising machine operator at [facility] COMPREHENSIVE METABOLIC [id number] 15:02:00* Test Item Value Reference Range Comments SODIUM (test code=NA) 139 mmol/L 135-148 POTASSIUM (test code=K) 3.3 mmol/L 3.5-5.1 CHLORIDE (test code=CL) 101 mmol/L 101-109 CARBON DIOXIDE (test code=CO2) 26.4 mmol/L 21-32 ANION GAP (test code=GAP) 15 mmol/L 10-20 GLUCOSE (test code=GLU) 308 mg/dL 74-106 BLOOD UREA NITROGEN (test code=BUN) 10 mg/dL 3-21 CREATININE (test code=CREAT) 0.94 mg/dL 0.55-1.3 BUN/CREATININE RATIO (test code=BUN/CREA) 10.6 10-20 TOTAL PROTEIN (test code=PROT) 7.6 g/dL 6.5-8.4 ALBUMIN (test code=ALB) 3.7 g/dL 3.4-4.8 GLOBULIN (test code=GLOB) 3.9 G/DL 1-10 ALBUMIN/GLOBULIN RATIO (test code=A/G) 0.9 RATIO 0.75-1.50 CALCIUM (test code=CA) 8.6 mg/dL 8.4-10.2 BILIRUBIN TOTAL (test code=BILT) 0.30 mg/dL 0.0-1.0 SGOT/AST (test code=AST) 70 U/L 6-32 SGPT/ALT (test code=ALT) 125 U/L 12-78 Note: Change in REFERENCE RANGE due to new reagent method. ALKALINE PHOSPHATASE TOTAL (test code=ALKP) 95 U/L 38-126 CBC W/AUTO [id number] 14:53:00* Test Item Value Reference Range Comments WHITE BLOOD CELL (test code=WBC) 9.2 K/mm3 4.5-12.5 RED BLOOD CELL (test code=RBC) 5.42 mill/mm3 4.0-5.8 HEMOGLOBIN (test code=HGB) 17.7 gram/dL 13.0-17.5 HEMATOCRIT (test code=HCT) 49.5 % 42.0-52.0 MEAN CELL VOLUME (test code=MCV) 91.3 fL 80-98 MEAN CELL HGB (test code=MCH) 32.7 picogram 27.0-33.0 MEAN CELL HGB CONCETRATION (test code=MCHC) 35.8 gram/dL 33.0-36.0 RED CELL DISTRIBUTION WIDTH (test code=RDW) 12.4 % 11.6-16.2 RED CELL DISTRIBUTION WIDTH SD (test code=RDW-SD) 40.9 fL 39.2-49.5 PLATELET COUNT (test code=PLT) 249 K/mm3 150-450 MEAN PLATELET VOLUME (test code=MPV) 10.1 fL 6.7-11.0 NEUTROPHIL % (test code=NT%) 53.2 % 39.0-69.0 LYMPHOCYTE % (test code=LY%) 39.8 % 25.0-55.0 MONOCYTE % (test code=MO%) 5.0 % 0.0-10.0 EOSINOPHIL % (test code=EO%) 0.8 % 0.0-5.0 BASOPHIL % (test code=BA%) 1.2 % 0.0-1.0 NEUTROPHIL # (test code=NT#) 4.88 K/mm3 1.8-7.7 LYMPHOCYTE # (test code=LY#) 3.65 K/mm3 1.0-5.0 MONOCYTE # (test code=MO#) 0.46 K/mm3 0-0.8 EOSINOPHIL # (test code=EO#) 0.07 K/mm3 0.0-0.5 BASOPHIL # (test code=BA#) 0.11 K/mm3 0.0-0.2 MANUAL DIFF REQUIRED (test code=MDIFF) NO
[2019-05-18] MEDS ORDERED: ONDANSETRON HCL INJ 2MG/ML 2ML 2 MG/ML VIAL ONE (02:02)
[2019-05-18] MEDS ORDERED: SODIUM CHLORIDE 0.9% 1000ML 1,000 ML ONE (02:02)
[2019-05-18] MEDS ORDERED: ONDANSETRON HCL INJ 2MG/ML 2ML 2 MG/ML VIAL IV STA (02:17)
[2019-05-18] MEDS ORDERED: FAMOTIDINE 20 MG/2 ML VIAL IV STA (02:19)
[2019-05-18] MEDS ORDERED: SODIUM CHLORIDE 0.9% 1000ML 1,000 ML IV SCH (02:30)
--- NOTE | 2019-05-18 03:00 | Diagnostic Imaging Report ---
Examination: CT head without contrast Clinical Indication: Headache. Weakness. Technique: Transaxial noncontrast images from the skull base through the vertex were obtained. Sagittal and coronal reformatted images were done. Dose modulation, iterative reconstruction, and/or weight based adjustment of the mA/kV was utilized to reduce the radiation dose to as low as reasonably achievable. Comparison: None. Findings: Scalp: No abnormalities. Bones: Intact. No fractures. No blastic or lytic lesions. Brain sulci: Appropriate for patient's age. Ventricles: Normal in size and configuration. No hydrocephalus. Extra-axial space: No abnormalities. Parenchyma: No abnormal densities. No masses, hemorrhage, or acute or chronic cortical based vascular insults. Suprasellar region: No abnormalities. Craniocervical junction: The foramen magnum is patent. No Chiari one malformation. Impression: No intracranial abnormality. Signed by: Dr. Verito Laguna M.D. on 05/18/2019 2:57 AM
--- NOTE | 2019-05-18 03:02 | NUR ---
pt states he feels better, he states his VENTURA is gone, no vomiting noted since fluids and zofran completed.
[2019-05-18] MEDS ORDERED: FAMOTIDINE 20 MG/2 ML VIAL IV ONE (03:05)
[2019-05-18] MEDS ORDERED: ONDANSETRON ODT8 MG PO (03:12)
[2019-05-18 03:13] VITALS: BP 150/83
[2019-05-18] MEDS ORDERED: OMEPRAZOLE40 MG PO (03:14)
== END 2019-05-18 03:51 | disposition home or self-care (01) ==
LOC: FSED 01:40
DX: R51 Headache (principal); E11.65 Type 2 diabetes mellitus with hyperglycemia; K29.20 Alcoholic gastritis without bleeding; F10.20 Alcohol dependence, uncomplicated; R03.0 Elevated blood-pressure reading, without diagnosis of hypertension; Z79.84 Long term (current) use of oral hypoglycemic drugs; T38.3X6A Underdosing of insulin and oral hypoglycemic [antidiabetic] drugs, initial encounter; Z82.49 Family history of ischemic heart disease and other diseases of the circulatory system
CPT/HCPCS: 70450; 80048; 80076; 81003; 85025; 93005; 99283; J2405; J7030

== ENCOUNTER 2019-09-10 14:19 | Inpatient (IN) | payer OTHER ==
[2019-09-09] MEDS: THIAMINE HCL INJ 100 MG/ML 2ML VIAL IV SCH (23:00)
[~2019-09-10] VITALS: Ht 180.3 cm; Wt 92.5 kg
[~2019-09-10 14:19] MED LIST: OMEPRAZOLE40 MG PO; ONDANSETRON ODT8 MG PO
--- OUTSIDE RECORDS SUMMARY | 2019-09-10 14:23 | XMS REPORT ---
Author Author [facility] t Organization [facility] Address [address] [place] [address] Phone Unavailable Care Team Providers Care Construction Job Cost Estimator Name Role Phone Maxim RDZ MD PCP Paige RINALDI Unavailable Payers Payer Name Policy Type Policy Number Effective Date Expiration Date S ource Problems This patient has no known problems. Allergies, Adverse Reactions, Alerts Allergy Name Allergy Type Status Severity Reaction(s) Onset Date Inacti ve Date Treating Clinician Comments Source No Known Allergies DA Active U 2019-02-05 00:00:00 [facility] No Known Allergies DA Active U 2018-05-07 00:00:00 [facility] No Known Allergies DA Active U 2018-04-12 00:00:00 [facility] Medications Ordered Medication Name Filled Medication Name Start Date Stop Da te Current Medication? Ordering Clinician Indication Dosage Frequency Signature (SIG) Comments Components Source Omeprazole 40 Mg Capsule. Omeprazole 40 Mg Capsule. 2019-05-18 00:00:00 Yes Caro Rinaldi Md 20 Daily [facility] Ondansetron (Ondansetron Odt) 8 Mg Tab.ramón Ondanset rachna (Ondansetron Odt) 8 Mg Tab.rapdis 2019-05-18 00:00:00 Yes Caro Rinaldi Md 4 Every 8 Hours as needed for Nausea [facility] Procedures This patient has no known procedures. Encounters Start Date/Time End Date/Time [facility] ID Source 2019-05-18 01:40:00 2019-05-18 03:51:00 Departed Emergency Room 1 CARO RINALDI [facility] [id number] [facility] Results Test Description Test Time Test Comments Results Result Comments Source UA RFLX MICROSOPIC 2019-06-15 14:08:00 Test Item UA COLOR (test code = COLU) STRAW YELLOW UA APPEARANCE (test code = APPU) CLEAR CLEAR UA GLUCOSE DIPSTICK (test code = DGLUU) NEGATIVE mg/dL NEGATIVE UA BILIRUBIN DIPSTICK (test code = BILU) NEGATIVE NEGATIVE UA KETONE DIPSTICK (test code = KETU) NEGATIVE mg/dL NEGATIVE UA SPECIFIC GRAVITY (test code = SGU) 1.000 1.001-1.035 L UA BLOOD DIPSTICK (test code = RODOLFO) NEGATIVE NEGATIVE UA PH DIPSTICK (test code = LISS) 6.0 5.5-7.0 N UA PROTEIN DIPSTICK (test code = PROU) NEGATIVE mg/dL NEGATIVE UA UROBILINOGEN DIPSTICK (test code = URO) NORMAL mg/dL NORMAL UA NITRITE DIPSTICK (test code = KIA) NEGATIVE NEGATIVE UA LEUKOCYTE ESTERASE DIPSTICK (test code = LEUU) NEGATIVE NEGA TIVE UA COMMENT (test code = COMU) VOLUME 10-12 ML URINE SPECIMEN DESCRIPTION (test code = UASPEC) Clean Catch COMPREHENSIVE METABOLIC [id number] 13:55:00* Test Item Value Reference Range Interpretation Comments SODIUM (test code = NA) 137 MMOL/L 133-145 N POTASSIUM (test code = K) 3.4 MMOL/L 3.6-5.2 L CHLORIDE (test code = CL) 100 MMOL/L 100-108 N CARBON DIOXIDE (test code = CO2) 23 MMOL/L 22-32 N GLUCOSE (test code = GLU) 178 MG/DL 65-99 H Re sults of this assay method may be falsely depressed orelevated if patient is taking sulfasalazine. BLOOD UREA NITROGEN (test code = BUN) 9 MG/DL 6-20 N GLOMERULAR FILTRATION RATE (test code = GFR) 104 70-162 N Reporting units: mL/min/1.73m\S\2 (Modified MDRD Formula) CREATININE (test code = CREAT) 0.83 MG/DL 0.60-1.00 N TOTAL PROTEIN (test code = PROT) 8.0 G/DL 6.4-8.2 N ALBUMIN (test code = ALB) 4.2 G/DL 3.4-5.0 N GLOBULIN (test code = GLOB) 3.8 G/DL 1.5-3.8 N ALBUMIN/GLOBULIN RATIO (test code = A/G) 1.1 1.1-2.2 N CALCIUM (test code = CA) 9.0 MG/DL 8.7-10.5 N BILIRUBIN TOTAL (test code = BILT) 0.6 MG/DL 0.0-1.0 N SGOT/AST (test code = AST) 376 Units/L 15-37 H R esults of this assay method may be falsely depressed orelevated if patient is taking sulfasalazine. SGPT/ALT (test code = ALT) 361 Units/L 30-65 H R esults of this assay method may be falsely depressed orelevated if patient is taking sulfasalazine. ALKALINE PHOSPHATASE TOTAL (test code = ALKP) 126 Units/L 50-136 N [id number] 13:55:00* Test Item Value Reference Range Interpretation Comments ALCOHOL (test code = ALC) 4 MG/DL 0-10 N 0 - 10: Should be interpreted as NEGATIVE. 11 - 50: None to mild euphoria. 51 - 100: Mild influence on vision and dark adaptation. > 80: Legal intoxication; Depression of APPLIANCE FIXER; Increasing degree of poisoning. > 400: Fatalities reported. Results are for medical purposes only and not forlegal or employment evaluative purposes. COMPREHENSIVE METABOLIC [id number] 13:49:00* Test Item Value Reference Range Interpretation Comments SODIUM (test code = NA) 137 MMOL/L 133-145 N POTASSIUM (test code = K) 3.4 MMOL/L 3.6-5.2 L CHLORIDE (test code = CL) 100 MMOL/L 100-108 N CARBON DIOXIDE (test code = CO2) 23 MMOL/L 22-32 N GLUCOSE (test code = GLU) 178 MG/DL 65-99 H Re sults of this assay method may be falsely depressed orelevated if patient is taking sulfasalazine. BLOOD UREA NITROGEN (test code = BUN) 9 MG/DL 6-20 N GLOMERULAR FILTRATION RATE (test code = GFR) 104 70-162 N Reporting units: mL/min/1.73m\S\2 (Modified MDRD Formula) CREATININE (test code = CREAT) 0.83 MG/DL 0.60-1.00 N TOTAL PROTEIN (test code = PROT) G/DL 6.4-8.2 ALBUMIN (test code = ALB) G/DL 3.4-5.0 GLOBULIN (test code = GLOB) G/DL 1.5-3.8 ALBUMIN/GLOBULIN RATIO (test code = A/G) 1.1-2.2 CALCIUM (test code = CA) 9.0 MG/DL 8.7-10.5 N BILIRUBIN TOTAL (test code = BILT) MG/DL 0.0-1.0 SGOT/AST (test code = AST) Units/L 15-37 SGPT/ALT (test code = ALT) Units/L 30-65 ALKALINE PHOSPHATASE TOTAL (test code = ALKP) Units/L 50-136 [id number] 13:49:00* Test Item Value Reference Range Interpretation Comments ALCOHOL (test code = ALC) MG/DL 0-10 CBC W/AUTO [id number] 13:38:00* Test Item Value Reference Range Interpretation Comments WHITE BLOOD CELL (test code = WBC) 6.93 x10 3/uL 4.80-10.80 N RED BLOOD CELL (test code = RBC) 4.60 x10 6/uL 4.7-6.1 L HEMOGLOBIN (test code = HGB) 14.5 G/DL 14.0-17.0 N HEMATOCRIT (test code = HCT) 41.6 % 42-52 L MEAN CELL VOLUME (test code = MCV) 90.4 FL 80-94 N MEAN CELL HGB (test code = MCH) 31.5 PG 27-31 H MEAN CELL HGB CONCENTRATION (test code = MCHC) 34.9 G/DL 33-37 N RED CELL DISTRIBUTION WIDTH (test code = RDW) 12.7 % 11.5-14. 5 N PLATELET COUNT (test code = PLT) 115 x10 3/uL 150-450 L MEAN PLATELET VOLUME (test code = MPV) 10.4 FL 7.4-10.4 N NEUTROPHIL % (test code = NT%) 69.8 % 42-86 N LYMPHOCYTE % (test code = LY%) 20.1 % 24-44 L MONOCYTE % (test code = MO%) 6.5 % 0.0-4.0 H EOSINOPHIL % (test code = EO%) 2.7 % 0.0-2.7 N BASOPHIL % (test code = BA%) 0.9 % 0.0-0.5 H NEUTROPHIL # (test code = NT#) 4.84 x10 3/uL 1.8-7.7 N LYMPHOCYTE # (test code = LY#) 1.39 x10 3/uL 1.0-4.8 N MONOCYTE # (test code = MO#) 0.45 x10 3/uL 0.0-0.8 N EOSINOPHIL # (test code = EO#) 0.19 x10 3/uL 0.0-0.5 N BASOPHIL # (test code = BA#) 0.06 x10 3/uL 0.0-0.[address] BRAIN [id number] 02:56:00 [place] [address] Patient Name: LUIS NICE MR #: [id number] : 1980 Age/Sex: 38/M Req #: [id number] Adm Physician: Ordered by: CARO RINALDI MD Report #: [id number] Location: PENDING SALE TO [facility] Room/Bed: Procedure: [id number] HOPD/CT BRAIN WO-HOP Exam Date: 05/18/19 Exam Time: 0235 REPORT STATUS: Sig sofía Examination: CT head without contrast Clinical Indication: Headache. We akness. Technique: Transaxial noncontrast images from the skull base through t he vertex were obtained. Sagittal and coronal reformatted images were done. Dose modulation, iterative reconstruction, and/or weight based adjustment of t he mA/kV was utilized to reduce the radiation dose to as low as reasonably ach ievable. Comparison: None. Findings: Scalp: No abnormalities. Bon es: Intact. No fractures. No blastic or lytic lesions. Brain sulci: Appro priate for patient's age. Ventricles: Normal in size and configuration. No h ydrocephalus. Extra-axial space: No abnormalities. Parenchyma: No abnormal densities. No masses, hemorrhage, or acute or chronic cortical bas ed vascular insults. Suprasellar region: No abnormalities. Craniocervical junction: The foramen magnum is patent. No Chiari one malformation. Imp ression: No intracranial abnormality. Signed by: Dr. Brenda Laguna M.D. on 05/18/2019 2:57 AM Dictated By: BRENDA ORNELAS MD Elect ronically Signed By: BRENDA ORNELAS MD on 05/18/19256 Transcribed B y: SHIRA on 05/18/19256 COPY TO: CARO RINALDI MD GLUBED 2019-02-07 17:30:00* Test Item Value Reference Range Interpretation Comments GLUBED (test code = GLUBED) 134 mg/dL 74-106 H Performed by certified service unit operator at [facility] [id number] 11:16:00* Test Item Value Reference Range Interpretation Comments GLUBED (test code = GLUBED) 76 mg/dL 74-106 N Performed by certified service unit operator at [facility] [id number] 07:48:00* Test Item Value Reference Range Interpretation Comments GLUBED (test code = GLUBED) 79 mg/dL 74-106 N Performed by certified service unit operator at [facility] CBC W/MANUAL [id number] 04:31:00* Test Item Value Reference Range Interpretation Comments WHITE BLOOD CELL (test code = WBC) 7.5 K/mm3 4.5-12.5 N RED BLOOD CELL (test code = RBC) 4.08 mill/mm3 4.0-5.8 N HEMOGLOBIN (test code = HGB) 13.5 gram/dL 13.0-17.5 N HEMATOCRIT (test code = HCT) 41.6 % 42.0-52.0 L MEAN CELL VOLUME (test code = MCV) 102.0 fL 80-98 H MEAN CELL HGB (test code = MCH) 33.1 picogram 27.0-33.0 H MEAN CELL HGB CONCETRATION (test code = MCHC) 32.5 gram/dL 33.0-36. 0 L RED CELL DISTRIBUTION WIDTH (test code = RDW) 12.9 % 11.6-16. 2 N RED CELL DISTRIBUTION WIDTH SD (test code = RDW-SD) 48.4 fL 37 .0-51.0 N PLATELET COUNT (test code = PLT) 132 K/mm3 150-450 L RESULT VERIFIED BY REPEAT ANALYSIS MEAN PLATELET VOLUME (test code = MPV) 9.9 fL 6.7-11.0 N IMMATURE GRANULOCYTE % (test code = IG%) 1.1 % 0.0-5.0 N NUCLEATED RBC % (test code = NRBC%) 0.0 % 0-0 N NEUTROPHIL # (test code = NT#) 4.92 K/mm3 1.8-7.7 N IMMATURE GRANULOCYTE # (test code = IG#) 0.08 x10 3/uL 0-0.03 H LYMPHOCYTE # (test code = LY#) 1.75 K/mm3 1.0-5.0 N MONOCYTE # (test code = MO#) 0.47 K/mm3 0-0.8 N EOSINOPHIL # (test code = EO#) 0.20 K/mm3 0.0-0.5 N BASOPHIL # (test code = BA#) 0.09 K/mm3 0.0-0.2 N NUCLEATED RBC # (test code = NRBC#) 0.00 K/mm3 0.0-0.1 N MANUAL DIFF REQUIRED (test code = MDIFF) YES STAIN ACCEPTABILITY (test code = STN ACCEPTABLE) STAIN ACCEPTABLE TOTAL CELLS COUNTED (test code = TCC) 113 #CELLS SEGMENTED NEUTROPHILS (test code = SEG) 69.9 % 39-69 H BAND NEUTROPHIL (test code = BAND) 0 % 0-10 N LYMPHOCYTE (test code = LYMPH) 22.1 % 25-55 L REACTIVE LYMPH (test code = RELYMPH) 3.5 % MONOCYTE (test code = MON) 1.8 % 0-10 N EOSINOPHIL (test code = EOS) 1.8 % 0.0-5.0 N BASOPHIL (test code = BASO) 0.9 % 0-1.0 N METAMYELOCYTE (test code = META) 0 % 0-0 N MYELOCYTE (test code = MYELO) 0 % 0.0-0.0 N PROMYELOCYTE (test code = PROM) 0 % 0-0 N ANISOCYTOSIS (test code = ANISO) 2+ MACROCYTOSIS (test code = MACR) 2+ PLATELET ESTIMATE (test code = PLTEST) ADEQUATE PLATELET MORPHOLOGY (test code = PLTMORPH) NORMAL IMMATURE FORMS (test code = IMMAT) 0 % 0-0 N BASIC METABOLIC [id number] 04:02:00* Test Item Value Reference Range Interpretation Comments SODIUM (test code = NA) 139 mmol/L 136-145 N POTASSIUM (test code = K) 4.0 mmol/L 3.5-5.1 N CHLORIDE (test code = CL) 103.0 mmol/L 98-107 N CARBON DIOXIDE (test code = CO2) 24.0 mmol/L 21-32 N ANION GAP (test code = GAP) 16.0 10-20 N GLUCOSE (test code = GLU) 83 mg/dL 74-106 N BLOOD UREA NITROGEN (test code = BUN) 6 mg/dL 7-18 L GLOMERULAR FILTRATION RATE (test code = GFR) > 60 mL/min >=60 Estimated GFR by using Modified MDRD formula.Chronic kidney disease is defined as either kidney damageor GFR <60 mL/min/1.73 m2 for >3 months. CREATININE (test code = CREAT) 0.60 mg/dL 0.7-1.3 L BUN/CREATININE RATIO (test code = BUN/CREA) 9.7 10-20 L CALCIUM (test code = CA) 9.2 mg/dL 8.5-10.1 N HEPATIC FUNCTION [id number] 04:02:00* Test Item Value Reference Range Interpretation Comments TOTAL PROTEIN (test code = PROT) 7.9 gram/dL 6.4-8.2 N ALBUMIN (test code = ALB) 2.8 g/dL 3.4-5.0 L GLOBULIN (test code = GLOB) 5.1 gram/dL 2.7-4.2 H ALBUMIN/GLOBULIN RATIO (test code = A/G) 0.5 0.75-1.50 L BILIRUBIN TOTAL (test code = BILT) 4.00 mg/dL 0.0-1.0 H BILIRUBIN DIRECT (test code = BILD) 2.82 mg/dL 0.0-0.20 H SGOT/AST (test code = AST) 65 IUnit/L 15-37 H SGPT/ALT (test code = ALT) 62 IUnit/L 12-78 N ALKALINE PHOSPHATASE TOTAL (test code = ALKP) 200 IUnit/L 45-117 H Note change in reference range due to change in reagent. [id number] 04:02:00* Test Item Value Reference Range Interpretation Comments LIPASE (test code = LIP) 300 U/L 73.0-393.0 N BASIC METABOLIC [id number] 03:54:00* Test Item Value Reference Range Interpretation Comments SODIUM (test code = NA) 139 mmol/L 136-145 N POTASSIUM (test code = K) 4.0 mmol/L 3.5-5.1 N CHLORIDE (test code = CL) 103.0 mmol/L 98-107 N CARBON DIOXIDE (test code = CO2) mmol/L 21-32 ANION GAP (test code = GAP) 10-20 GLUCOSE (test code = GLU) mg/dL 74-106 BLOOD UREA NITROGEN (test code = BUN) mg/dL 7-18 GLOMERULAR FILTRATION RATE (test code = GFR) mL/min >=60 CREATININE (test code = CREAT) mg/dL 0.7-1.3 BUN/CREATININE RATIO (test code = BUN/CREA) 10-20 CALCIUM (test code = CA) mg/dL 8.5-10.1 HEPATIC FUNCTION [id number] 03:54:00* Test Item Value Reference Range Interpretation Comments TOTAL PROTEIN (test code = PROT) gram/dL 6.4-8.2 ALBUMIN (test code = ALB) g/dL 3.4-5.0 GLOBULIN (test code = GLOB) gram/dL 2.7-4.2 ALBUMIN/GLOBULIN RATIO (test code = A/G) 0.75-1.50 BILIRUBIN TOTAL (test code = BILT) mg/dL 0.0-1.0 BILIRUBIN DIRECT (test code = BILD) mg/dL 0.0-0.20 SGOT/AST (test code = AST) IUnit/L 15-37 SGPT/ALT (test code = ALT) IUnit/L 12-78 ALKALINE PHOSPHATASE TOTAL (test code = ALKP) IUnit/L 45-117 [id number] 03:54:00* Test Item Value Reference Range Interpretation Comments LIPASE (test code = LIP) U/L 73.0-393.0 CBC W/MANUAL [id number] 03:43:00* Test Item Value Reference Range Interpretation Comments WHITE BLOOD CELL (test code = WBC) 7.5 K/mm3 4.5-12.5 N RED BLOOD CELL (test code = RBC) 4.08 mill/mm3 4.0-5.8 N HEMOGLOBIN (test code = HGB) 13.5 gram/dL 13.0-17.5 N HEMATOCRIT (test code = HCT) 41.6 % 42.0-52.0 L MEAN CELL VOLUME (test code = MCV) 102.0 fL 80-98 H MEAN CELL HGB (test code = MCH) 33.1 picogram 27.0-33.0 H MEAN CELL HGB CONCETRATION (test code = MCHC) 32.5 gram/dL 33.0-36. 0 L RED CELL DISTRIBUTION WIDTH (test code = RDW) 12.9 % 11.6-16. 2 N RED CELL DISTRIBUTION WIDTH SD (test code = RDW-SD) 48.4 fL 37 .0-51.0 N PLATELET COUNT (test code = PLT) 132 K/mm3 150-450 L RESULT VERIFIED BY REPEAT ANALYSIS MEAN PLATELET VOLUME (test code = MPV) 9.9 fL 6.7-11.0 N IMMATURE GRANULOCYTE % (test code = IG%) 1.1 % 0.0-5.0 N NUCLEATED RBC % (test code = NRBC%) 0.0 % 0-0 N NEUTROPHIL # (test code = NT#) 4.92 K/mm3 1.8-7.7 N IMMATURE GRANULOCYTE # (test code = IG#) 0.08 x10 3/uL 0-0.03 H LYMPHOCYTE # (test code = LY#) 1.75 K/mm3 1.0-5.0 N MONOCYTE # (test code = MO#) 0.47 K/mm3 0-0.8 N EOSINOPHIL # (test code = EO#) 0.20 K/mm3 0.0-0.5 N BASOPHIL # (test code = BA#) 0.09 K/mm3 0.0-0.2 N NUCLEATED RBC # (test code = NRBC#) 0.00 K/mm3 0.0-0.1 N MANUAL DIFF REQUIRED (test code = MDIFF) YES STAIN ACCEPTABILITY (test code = STN ACCEPTABLE) TOTAL CELLS COUNTED (test code = TCC) #CELLS SEGMENTED NEUTROPHILS (test code = SEG) % 39-69 LYMPHOCYTE (test code = LYMPH) % 25-55 MONOCYTE (test code = MON) % 0-10 EOSINOPHIL (test code = EOS) % 0.0-5.0 CABOT RINGS (test code = CAB) MORPHOLOGY COMMENT (test code = MOC) PLATELET ESTIMATE (test code = PLTEST) PLATELET MORPHOLOGY (test code = PLTMORPH) CBC W/MANUAL [id number] 03:43:00* Test Item Value Reference Range Interpretation Comments WHITE BLOOD CELL (test code = WBC) 7.5 K/mm3 4.5-12.5 N RED BLOOD CELL (test code = RBC) 4.08 mill/mm3 4.0-5.8 N HEMOGLOBIN (test code = HGB) 13.5 gram/dL 13.0-17.5 N HEMATOCRIT (test code = HCT) 41.6 % 42.0-52.0 L MEAN CELL VOLUME (test code = MCV) 102.0 fL 80-98 H MEAN CELL HGB (test code = MCH) 33.1 picogram 27.0-33.0 H MEAN CELL HGB CONCETRATION (test code = MCHC) 32.5 gram/dL 33.0-36. 0 L RED CELL DISTRIBUTION WIDTH (test code = RDW) 12.9 % 11.6-16. 2 N RED CELL DISTRIBUTION WIDTH SD (test code = RDW-SD) 48.4 fL 37 .0-51.0 N PLATELET COUNT (test code = PLT) 132 K/mm3 150-450 L RESULT VERIFIED BY REPEAT ANALYSIS MEAN PLATELET VOLUME (test code = MPV) 9.9 fL 6.7-11.0 N IMMATURE GRANULOCYTE % (test code = IG%) 1.1 % 0.0-5.0 N NUCLEATED RBC % (test code = NRBC%) 0.0 % 0-0 N NEUTROPHIL # (test code = NT#) 4.92 K/mm3 1.8-7.7 N IMMATURE GRANULOCYTE # (test code = IG#) 0.08 x10 3/uL 0-0.03 H LYMPHOCYTE # (test code = LY#) 1.75 K/mm3 1.0-5.0 N MONOCYTE # (test code = MO#) 0.47 K/mm3 0-0.8 N EOSINOPHIL # (test code = EO#) 0.20 K/mm3 0.0-0.5 N BASOPHIL # (test code = BA#) 0.09 K/mm3 0.0-0.2 N NUCLEATED RBC # (test code = NRBC#) 0.00 K/mm3 0.0-0.1 N MANUAL DIFF REQUIRED (test code = MDIFF) YES STAIN ACCEPTABILITY (test code = STN ACCEPTABLE) TOTAL CELLS COUNTED (test code = TCC) #CELLS SEGMENTED NEUTROPHILS (test code = SEG) % 39-69 LYMPHOCYTE (test code = LYMPH) % 25-55 MONOCYTE (test code = MON) % 0-10 EOSINOPHIL (test code = EOS) % 0.0-5.0 MORPHOLOGY COMMENT (test code = MOC) PLATELET ESTIMATE (test code = PLTEST) PLATELET MORPHOLOGY (test code = PLTMORPH) CBC W/MANUAL [id number] 03:43:00* Test Item Value Reference Range Interpretation Comments WHITE BLOOD CELL (test code = WBC) 7.5 K/mm3 4.5-12.5 N RED BLOOD CELL (test code = RBC) 4.08 mill/mm3 4.0-5.8 N HEMOGLOBIN (test code = HGB) 13.5 gram/dL 13.0-17.5 N HEMATOCRIT (test code = HCT) 41.6 % 42.0-52.0 L MEAN CELL VOLUME (test code = MCV) 102.0 fL 80-98 H MEAN CELL HGB (test code = MCH) 33.1 picogram 27.0-33.0 H MEAN CELL HGB CONCETRATION (test code = MCHC) 32.5 gram/dL 33.0-36. 0 L RED CELL DISTRIBUTION WIDTH (test code = RDW) 12.9 % 11.6-16. 2 N RED CELL DISTRIBUTION WIDTH SD (test code = RDW-SD) 48.4 fL 37 .0-51.0 N PLATELET COUNT (test code = PLT) 132 K/mm3 150-450 L RESULT VERIFIED BY REPEAT ANALYSIS MEAN PLATELET VOLUME (test code = MPV) 9.9 fL 6.7-11.0 N IMMATURE GRANULOCYTE % (test code = IG%) 1.1 % 0.0-5.0 N NUCLEATED RBC % (test code = NRBC%) 0.0 % 0-0 N NEUTROPHIL # (test code = NT#) 4.92 K/mm3 1.8-7.7 N IMMATURE GRANULOCYTE # (test code = IG#) 0.08 x10 3/uL 0-0.03 H LYMPHOCYTE # (test code = LY#) 1.75 K/mm3 1.0-5.0 N MONOCYTE # (test code = MO#) 0.47 K/mm3 0-0.8 N EOSINOPHIL # (test code = EO#) 0.20 K/mm3 0.0-0.5 N BASOPHIL # (test code = BA#) 0.09 K/mm3 0.0-0.2 N NUCLEATED RBC # (test code = NRBC#) 0.00 K/mm3 0.0-0.1 N MANUAL DIFF REQUIRED (test code = MDIFF) YES STAIN ACCEPTABILITY (test code = STN ACCEPTABLE) TOTAL CELLS COUNTED (test code = TCC) #CELLS SEGMENTED NEUTROPHILS (test code = SEG) % 39-69 LYMPHOCYTE (test code = LYMPH) % 25-55 MONOCYTE (test code = MON) % 0-10 MORPHOLOGY COMMENT (test code = MOC) PLATELET ESTIMATE (test code = PLTEST) PLATELET MORPHOLOGY (test code = PLTMORPH) CBC W/MANUAL [id number] 03:42:00* Test Item Value Reference Range Interpretation Comments WHITE BLOOD CELL (test code = WBC) 7.5 K/mm3 4.5-12.5 N RED BLOOD CELL (test code = RBC) 4.08 mill/mm3 4.0-5.8 N HEMOGLOBIN (test code = HGB) 13.5 gram/dL 13.0-17.5 N HEMATOCRIT (test code = HCT) 41.6 % 42.0-52.0 L MEAN CELL VOLUME (test code = MCV) 102.0 fL 80-98 H MEAN CELL HGB (test code = MCH) 33.1 picogram 27.0-33.0 H MEAN CELL HGB CONCETRATION (test code = MCHC) 32.5 gram/dL 33.0-36. 0 L RED CELL DISTRIBUTION WIDTH (test code = RDW) 12.9 % 11.6-16. 2 N RED CELL DISTRIBUTION WIDTH SD (test code = RDW-SD) 48.4 fL 37 .0-51.0 N PLATELET COUNT (test code = PLT) 132 K/mm3 150-450 L RESULT VERIFIED BY REPEAT ANALYSIS MEAN PLATELET VOLUME (test code = MPV) 9.9 fL 6.7-11.0 N IMMATURE GRANULOCYTE % (test code = IG%) 1.1 % 0.0-5.0 N NUCLEATED RBC % (test code = NRBC%) 0.0 % 0-0 N NEUTROPHIL # (test code = NT#) 4.92 K/mm3 1.8-7.7 N IMMATURE GRANULOCYTE # (test code = IG#) 0.08 x10 3/uL 0-0.03 H LYMPHOCYTE # (test code = LY#) 1.75 K/mm3 1.0-5.0 N MONOCYTE # (test code = MO#) 0.47 K/mm3 0-0.8 N EOSINOPHIL # (test code = EO#) 0.20 K/mm3 0.0-0.5 N BASOPHIL # (test code = BA#) 0.09 K/mm3 0.0-0.2 N NUCLEATED RBC # (test code = NRBC#) 0.00 K/mm3 0.0-0.1 N MANUAL DIFF REQUIRED (test code = MDIFF) YES STAIN ACCEPTABILITY (test code = STN ACCEPTABLE) TOTAL CELLS COUNTED (test code = TCC) #CELLS SEGMENTED NEUTROPHILS (test code = SEG) % 39-69 LYMPHOCYTE (test code = LYMPH) % 25-55 MONOCYTE (test code = MON) % 0-10 EOSINOPHIL (test code = EOS) % 0.0-5.0 CABOT RINGS (test code = CAB) MORPHOLOGY COMMENT (test code = MOC) PLATELET ESTIMATE (test code = PLTEST) PLATELET MORPHOLOGY (test code = PLTMORPH) CBC W/MANUAL [id number] 03:42:00* Test Item Value Reference Range Interpretation Comments WHITE BLOOD CELL (test code = WBC) 7.5 K/mm3 4.5-12.5 N RED BLOOD CELL (test code = RBC) 4.08 mill/mm3 4.0-5.8 N HEMOGLOBIN (test code = HGB) 13.5 gram/dL 13.0-17.5 N HEMATOCRIT (test code = HCT) 41.6 % 42.0-52.0 L MEAN CELL VOLUME (test code = MCV) 102.0 fL 80-98 H MEAN CELL HGB (test code = MCH) 33.1 picogram 27.0-33.0 H MEAN CELL HGB CONCETRATION (test code = MCHC) 32.5 gram/dL 33.0-36. 0 L RED CELL DISTRIBUTION WIDTH (test code = RDW) 12.9 % 11.6-16. 2 N RED CELL DISTRIBUTION WIDTH SD (test code = RDW-SD) 48.4 fL 37 .0-51.0 N PLATELET COUNT (test code = PLT) 132 K/mm3 150-450 L RESULT VERIFIED BY REPEAT ANALYSIS MEAN PLATELET VOLUME (test code = MPV) 9.9 fL 6.7-11.0 N IMMATURE GRANULOCYTE % (test code = IG%) 1.1 % 0.0-5.0 N NUCLEATED RBC % (test code = NRBC%) 0.0 % 0-0 N NEUTROPHIL # (test code = NT#) 4.92 K/mm3 1.8-7.7 N IMMATURE GRANULOCYTE # (test code = IG#) 0.08 x10 3/uL 0-0.03 H LYMPHOCYTE # (test code = LY#) 1.75 K/mm3 1.0-5.0 N MONOCYTE # (test code = MO#) 0.47 K/mm3 0-0.8 N EOSINOPHIL # (test code = EO#) 0.20 K/mm3 0.0-0.5 N BASOPHIL # (test code = BA#) 0.09 K/mm3 0.0-0.2 N NUCLEATED RBC # (test code = NRBC#) 0.00 K/mm3 0.0-0.1 N MANUAL DIFF REQUIRED (test code = MDIFF) YES STAIN ACCEPTABILITY (test code = STN ACCEPTABLE) TOTAL CELLS COUNTED (test code = TCC) #CELLS SEGMENTED NEUTROPHILS (test code = SEG) % 39-69 LYMPHOCYTE (test code = LYMPH) % 25-55 MONOCYTE (test code = MON) % 0-10 EOSINOPHIL (test code = EOS) % 0.0-5.0 CABOT RINGS (test code = CAB) MORPHOLOGY COMMENT (test code = MOC) PLATELET ESTIMATE (test code = PLTEST) PLATELET MORPHOLOGY (test code = PLTMORPH) [id number] 20:28:00* Test Item Value Reference Range Interpretation Comments GLUBED (test code = GLUBED) 80 mg/dL 74-106 N Performed by certified service unit operator at [facility] [id number] 16:31:00* Test Item Value Reference Range Interpretation Comments GLUBED (test code = GLUBED) 74 mg/dL 74-106 N Performed by certified service unit operator at [facility] [id number] 11:31:00* Test Item Value Reference Range Interpretation Comments GLUBED (test code = GLUBED) 97 mg/dL 74-106 N Performed by certified service unit operator at [facility] [id number] 07:54:00* Test Item Value Reference Range Interpretation Comments GLUBED (test code = GLUBED) 88 mg/dL 74-106 N Performed by certified service unit operator at [facility] CBC W/MANUAL [id number] 06:32:00* Test Item Value Reference Range Interpretation Comments WHITE BLOOD CELL (test code = WBC) 12.2 K/mm3 4.5-12.5 N RED BLOOD CELL (test code = RBC) 4.00 mill/mm3 4.0-5.8 N HEMOGLOBIN (test code = HGB) 13.3 gram/dL 13.0-17.5 N HEMATOCRIT (test code = HCT) 40.3 % 42.0-52.0 L MEAN CELL VOLUME (test code = MCV) 100.8 fL 80-98 H MEAN CELL HGB (test code = MCH) 33.3 picogram 27.0-33.0 H MEAN CELL HGB CONCETRATION (test code = MCHC) 33.0 gram/dL 33.0-36. 0 N RED CELL DISTRIBUTION WIDTH (test code = RDW) 13.1 % 11.6-16. 2 N RED CELL DISTRIBUTION WIDTH SD (test code = RDW-SD) 48.7 fL 37 .0-51.0 N PLATELET COUNT (test code = PLT) 91 K/mm3 150-450 L MEAN PLATELET VOLUME (test code = MPV) 11.3 fL 6.7-11.0 H IMMATURE GRANULOCYTE % (test code = IG%) 0.9 % 0.0-5.0 N NUCLEATED RBC % (test code = NRBC%) 0.0 % 0-0 N NEUTROPHIL # (test code = NT#) 9.15 K/mm3 1.8-7.7 H IMMATURE GRANULOCYTE # (test code = IG#) 0.11 x10 3/uL 0-0.03 H LYMPHOCYTE # (test code = LY#) 1.95 K/mm3 1.0-5.0 N MONOCYTE # (test code = MO#) 0.66 K/mm3 0-0.8 N EOSINOPHIL # (test code = EO#) 0.25 K/mm3 0.0-0.5 N BASOPHIL # (test code = BA#) 0.12 K/mm3 0.0-0.2 N NUCLEATED RBC # (test code = NRBC#) 0.00 K/mm3 0.0-0.1 N MANUAL DIFF REQUIRED (test code = MDIFF) YES STAIN ACCEPTABILITY (test code = STN ACCEPTABLE) STAIN ACCEPTABLE TOTAL CELLS COUNTED (test code = TCC) 115 #CELLS SEGMENTED NEUTROPHILS (test code = SEG) 87.0 % 39-69 H BAND NEUTROPHIL (test code = BAND) 0 % 0-10 N LYMPHOCYTE (test code = LYMPH) 6.9 % 25-55 L REACTIVE LYMPH (test code = RELYMPH) 0 % MONOCYTE (test code = MON) 3.5 % 0-10 N EOSINOPHIL (test code = EOS) 1.7 % 0.0-5.0 N BASOPHIL (test code = BASO) 0.9 % 0-1.0 N METAMYELOCYTE (test code = META) 0 % 0-0 N MYELOCYTE (test code = MYELO) 0 % 0.0-0.0 N PROMYELOCYTE (test code = PROM) 0 % 0-0 N ANISOCYTOSIS (test code = ANISO) 2+ MACROCYTOSIS (test code = MACR) 2+ PLATELET ESTIMATE (test code = PLTEST) ADEQUATE PLATELET MORPHOLOGY (test code = PLTMORPH) NORMAL IMMATURE FORMS (test code = IMMAT) 0 % 0-0 N BASIC METABOLIC [id number] 05:53:00* Test Item Value Reference Range Interpretation Comments SODIUM (test code = NA) 137 mmol/L 136-145 RESU LT VERIFIED BY REPEAT ANALYSIS POTASSIUM (test code = K) 3.5 mmol/L 3.5-5.1 N CHLORIDE (test code = CL) 101.0 mmol/L 98-107 N CARBON DIOXIDE (test code = CO2) 25.0 mmol/L 21-32 N ANION GAP (test code = GAP) 14.5 10-20 N GLUCOSE (test code = GLU) 116 mg/dL 74-106 H BLOOD UREA NITROGEN (test code = BUN) 4 mg/dL 7-18 L GLOMERULAR FILTRATION RATE (test code = GFR) > 60 mL/min >=60 Estimated GFR by using Modified MDRD formula.Chronic kidney disease is defined as either kidney damageor GFR <60 mL/min/1.73 m2 for >3 months. CREATININE (test code = CREAT) 0.60 mg/dL 0.7-1.3 L BUN/CREATININE RATIO (test code = BUN/CREA) 6.7 10-20 L CALCIUM (test code = CA) 8.3 mg/dL 8.5-10.1 L [id number] 05:53:00* Test Item Value Reference Range Interpretation Comments LIPASE (test code = LIP) 684 U/L 73.0-393.0 H CBC W/MANUAL [id number] 05:22:00* Test Item Value Reference Range Interpretation Comments WHITE BLOOD CELL (test code = WBC) 12.2 K/mm3 4.5-12.5 N RED BLOOD CELL (test code = RBC) 4.00 mill/mm3 4.0-5.8 N HEMOGLOBIN (test code = HGB) 13.3 gram/dL 13.0-17.5 N HEMATOCRIT (test code = HCT) 40.3 % 42.0-52.0 L MEAN CELL VOLUME (test code = MCV) 100.8 fL 80-98 H MEAN CELL HGB (test code = MCH) 33.3 picogram 27.0-33.0 H MEAN CELL HGB CONCETRATION (test code = MCHC) 33.0 gram/dL 33.0-36. 0 N RED CELL DISTRIBUTION WIDTH (test code = RDW) 13.1 % 11.6-16. 2 N RED CELL DISTRIBUTION WIDTH SD (test code = RDW-SD) 48.7 fL 37 .0-51.0 N PLATELET COUNT (test code = PLT) 91 K/mm3 150-450 L MEAN PLATELET VOLUME (test code = MPV) 11.3 fL 6.7-11.0 H IMMATURE GRANULOCYTE % (test code = IG%) 0.9 % 0.0-5.0 N NUCLEATED RBC % (test code = NRBC%) 0.0 % 0-0 N NEUTROPHIL # (test code = NT#) 9.15 K/mm3 1.8-7.7 H IMMATURE GRANULOCYTE # (test code = IG#) 0.11 x10 3/uL 0-0.03 H LYMPHOCYTE # (test code = LY#) 1.95 K/mm3 1.0-5.0 N MONOCYTE # (test code = MO#) 0.66 K/mm3 0-0.8 N EOSINOPHIL # (test code = EO#) 0.25 K/mm3 0.0-0.5 N BASOPHIL # (test code = BA#) 0.12 K/mm3 0.0-0.2 N NUCLEATED RBC # (test code = NRBC#) 0.00 K/mm3 0.0-0.1 N MANUAL DIFF REQUIRED (test code = MDIFF) YES STAIN ACCEPTABILITY (test code = STN ACCEPTABLE) TOTAL CELLS COUNTED (test code = TCC) #CELLS SEGMENTED NEUTROPHILS (test code = SEG) % 39-69 LYMPHOCYTE (test code = LYMPH) % 25-55 MONOCYTE (test code = MON) % 0-10 EOSINOPHIL (test code = EOS) % 0.0-5.0 CABOT RINGS (test code = CAB) MORPHOLOGY COMMENT (test code = MOC) PLATELET ESTIMATE (test code = PLTEST) PLATELET MORPHOLOGY (test code = PLTMORPH) CBC W/MANUAL [id number] 05:22:00* Test Item Value Reference Range Interpretation Comments WHITE BLOOD CELL (test code = WBC) 12.2 K/mm3 4.5-12.5 N RED BLOOD CELL (test code = RBC) 4.00 mill/mm3 4.0-5.8 N HEMOGLOBIN (test code = HGB) 13.3 gram/dL 13.0-17.5 N HEMATOCRIT (test code = HCT) 40.3 % 42.0-52.0 L MEAN CELL VOLUME (test code = MCV) 100.8 fL 80-98 H MEAN CELL HGB (test code = MCH) 33.3 picogram 27.0-33.0 H MEAN CELL HGB CONCETRATION (test code = MCHC) 33.0 gram/dL 33.0-36. 0 N RED CELL DISTRIBUTION WIDTH (test code = RDW) 13.1 % 11.6-16. 2 N RED CELL DISTRIBUTION WIDTH SD (test code = RDW-SD) 48.7 fL 37 .0-51.0 N PLATELET COUNT (test code = PLT) 91 K/mm3 150-450 L MEAN PLATELET VOLUME (test code = MPV) 11.3 fL 6.7-11.0 H IMMATURE GRANULOCYTE % (test code = IG%) 0.9 % 0.0-5.0 N NUCLEATED RBC % (test code = NRBC%) 0.0 % 0-0 N NEUTROPHIL # (test code = NT#) 9.15 K/mm3 1.8-7.7 H IMMATURE GRANULOCYTE # (test code = IG#) 0.11 x10 3/uL 0-0.03 H LYMPHOCYTE # (test code = LY#) 1.95 K/mm3 1.0-5.0 N MONOCYTE # (test code = MO#) 0.66 K/mm3 0-0.8 N EOSINOPHIL # (test code = EO#) 0.25 K/mm3 0.0-0.5 N BASOPHIL # (test code = BA#) 0.12 K/mm3 0.0-0.2 N NUCLEATED RBC # (test code = NRBC#) 0.00 K/mm3 0.0-0.1 N MANUAL DIFF REQUIRED (test code = MDIFF) YES STAIN ACCEPTABILITY (test code = STN ACCEPTABLE) TOTAL CELLS COUNTED (test code = TCC) #CELLS SEGMENTED NEUTROPHILS (test code = SEG) % 39-69 LYMPHOCYTE (test code = LYMPH) % 25-55 MONOCYTE (test code = MON) % 0-10 EOSINOPHIL (test code = EOS) % 0.0-5.0 CABOT RINGS (test code = CAB) MORPHOLOGY COMMENT (test code = MOC) PLATELET ESTIMATE (test code = PLTEST) PLATELET MORPHOLOGY (test code = PLTMORPH) CBC W/MANUAL [id number] 05:22:00* Test Item Value Reference Range Interpretation Comments WHITE BLOOD CELL (test code = WBC) 12.2 K/mm3 4.5-12.5 N RED BLOOD CELL (test code = RBC) 4.00 mill/mm3 4.0-5.8 N HEMOGLOBIN (test code = HGB) 13.3 gram/dL 13.0-17.5 N HEMATOCRIT (test code = HCT) 40.3 % 42.0-52.0 L MEAN CELL VOLUME (test code = MCV) 100.8 fL 80-98 H MEAN CELL HGB (test code = MCH) 33.3 picogram 27.0-33.0 H MEAN CELL HGB CONCETRATION (test code = MCHC) 33.0 gram/dL 33.0-36. 0 N RED CELL DISTRIBUTION WIDTH (test code = RDW) 13.1 % 11.6-16. 2 N RED CELL DISTRIBUTION WIDTH SD (test code = RDW-SD) 48.7 fL 37 .0-51.0 N PLATELET COUNT (test code = PLT) 91 K/mm3 150-450 L MEAN PLATELET VOLUME (test code = MPV) 11.3 fL 6.7-11.0 H IMMATURE GRANULOCYTE % (test code = IG%) 0.9 % 0.0-5.0 N NUCLEATED RBC % (test code = NRBC%) 0.0 % 0-0 N NEUTROPHIL # (test code = NT#) 9.15 K/mm3 1.8-7.7 H IMMATURE GRANULOCYTE # (test code = IG#) 0.11 x10 3/uL 0-0.03 H LYMPHOCYTE # (test code = LY#) 1.95 K/mm3 1.0-5.0 N MONOCYTE # (test code = MO#) 0.66 K/mm3 0-0.8 N EOSINOPHIL # (test code = EO#) 0.25 K/mm3 0.0-0.5 N BASOPHIL # (test code = BA#) 0.12 K/mm3 0.0-0.2 N NUCLEATED RBC # (test code = NRBC#) 0.00 K/mm3 0.0-0.1 N MANUAL DIFF REQUIRED (test code = MDIFF) YES STAIN ACCEPTABILITY (test code = STN ACCEPTABLE) TOTAL CELLS COUNTED (test code = TCC) #CELLS SEGMENTED NEUTROPHILS (test code = SEG) % 39-69 LYMPHOCYTE (test code = LYMPH) % 25-55 MONOCYTE (test code = MON) % 0-10 EOSINOPHIL (test code = EOS) % 0.0-5.0 MORPHOLOGY COMMENT (test code = MOC) PLATELET ESTIMATE (test code = PLTEST) PLATELET MORPHOLOGY (test code = PLTMORPH) CBC W/MANUAL [id number] 05:22:00* Test Item Value Reference Range Interpretation Comments WHITE BLOOD CELL (test code = WBC) 12.2 K/mm3 4.5-12.5 N RED BLOOD CELL (test code = RBC) 4.00 mill/mm3 4.0-5.8 N HEMOGLOBIN (test code = HGB) 13.3 gram/dL 13.0-17.5 N HEMATOCRIT (test code = HCT) 40.3 % 42.0-52.0 L MEAN CELL VOLUME (test code = MCV) 100.8 fL 80-98 H MEAN CELL HGB (test code = MCH) 33.3 picogram 27.0-33.0 H MEAN CELL HGB CONCETRATION (test code = MCHC) 33.0 gram/dL 33.0-36. 0 N RED CELL DISTRIBUTION WIDTH (test code = RDW) 13.1 % 11.6-16. 2 N RED CELL DISTRIBUTION WIDTH SD (test code = RDW-SD) 48.7 fL 37 .0-51.0 N PLATELET COUNT (test code = PLT) 91 K/mm3 150-450 L MEAN PLATELET VOLUME (test code = MPV) 11.3 fL 6.7-11.0 H IMMATURE GRANULOCYTE % (test code = IG%) 0.9 % 0.0-5.0 N NUCLEATED RBC % (test code = NRBC%) 0.0 % 0-0 N NEUTROPHIL # (test code = NT#) 9.15 K/mm3 1.8-7.7 H IMMATURE GRANULOCYTE # (test code = IG#) 0.11 x10 3/uL 0-0.03 H LYMPHOCYTE # (test code = LY#) 1.95 K/mm3 1.0-5.0 N MONOCYTE # (test code = MO#) 0.66 K/mm3 0-0.8 N EOSINOPHIL # (test code = EO#) 0.25 K/mm3 0.0-0.5 N BASOPHIL # (test code = BA#) 0.12 K/mm3 0.0-0.2 N NUCLEATED RBC # (test code = NRBC#) 0.00 K/mm3 0.0-0.1 N MANUAL DIFF REQUIRED (test code = MDIFF) YES STAIN ACCEPTABILITY (test code = STN ACCEPTABLE) TOTAL CELLS COUNTED (test code = TCC) #CELLS SEGMENTED NEUTROPHILS (test code = SEG) % 39-69 LYMPHOCYTE (test code = LYMPH) % 25-55 MONOCYTE (test code = MON) % 0-10 MORPHOLOGY COMMENT (test code = MOC) PLATELET ESTIMATE (test code = PLTEST) PLATELET MORPHOLOGY (test code = PLTMORPH) CBC W/MANUAL [id number] 05:22:00* Test Item Value Reference Range Interpretation Comments WHITE BLOOD CELL (test code = WBC) 12.2 K/mm3 4.5-12.5 N RED BLOOD CELL (test code = RBC) 4.00 mill/mm3 4.0-5.8 N HEMOGLOBIN (test code = HGB) 13.3 gram/dL 13.0-17.5 N HEMATOCRIT (test code = HCT) 40.3 % 42.0-52.0 L MEAN CELL VOLUME (test code = MCV) 100.8 fL 80-98 H MEAN CELL HGB (test code = MCH) 33.3 picogram 27.0-33.0 H MEAN CELL HGB CONCETRATION (test code = MCHC) 33.0 gram/dL 33.0-36. 0 N RED CELL DISTRIBUTION WIDTH (test code = RDW) 13.1 % 11.6-16. 2 N RED CELL DISTRIBUTION WIDTH SD (test code = RDW-SD) 48.7 fL 37 .0-51.0 N PLATELET COUNT (test code = PLT) 91 K/mm3 150-450 L MEAN PLATELET VOLUME (test code = MPV) 11.3 fL 6.7-11.0 H IMMATURE GRANULOCYTE % (test code = IG%) 0.9 % 0.0-5.0 N NUCLEATED RBC % (test code = NRBC%) 0.0 % 0-0 N NEUTROPHIL # (test code = NT#) 9.15 K/mm3 1.8-7.7 H IMMATURE GRANULOCYTE # (test code = IG#) 0.11 x10 3/uL 0-0.03 H LYMPHOCYTE # (test code = LY#) 1.95 K/mm3 1.0-5.0 N MONOCYTE # (test code = MO#) 0.66 K/mm3 0-0.8 N EOSINOPHIL # (test code = EO#) 0.25 K/mm3 0.0-0.5 N BASOPHIL # (test code = BA#) 0.12 K/mm3 0.0-0.2 N NUCLEATED RBC # (test code = NRBC#) 0.00 K/mm3 0.0-0.1 N MANUAL DIFF REQUIRED (test code = MDIFF) YES STAIN ACCEPTABILITY (test code = STN ACCEPTABLE) TOTAL CELLS COUNTED (test code = TCC) #CELLS SEGMENTED NEUTROPHILS (test code = SEG) % 39-69 LYMPHOCYTE (test code = LYMPH) % 25-55 MONOCYTE (test code = MON) % 0-10 EOSINOPHIL (test code = EOS) % 0.0-5.0 CABOT RINGS (test code = CAB) MORPHOLOGY COMMENT (test code = MOC) PLATELET ESTIMATE (test code = PLTEST) PLATELET MORPHOLOGY (test code = PLTMORPH) [id number] 20:21:00* Test Item Value Reference Range Interpretation Comments GLYCOSYLATED HEMOGLOBIN (HA1C) (test code = GLYHGB) 5.6 % HbA1 4. 8-6.0 N ESTIMATED AVERAGE GLUCOSE (test code = EAG) 114 MG/DL [id number] 20:14:00* Test Item Value Reference Range Interpretation Comments GLUBED (test code = GLUBED) 124 mg/dL 74-106 H Performed by certified service unit operator at [facility] - US ABDOMEN [id number] 10:44:00 Name: LUIS SNYDER [facility] : 1980 Age/S: 38 / M [address] Unit #: [id number] Loc: [place] [address] Phys: Benjamin Aguilar MD Acct: [id number] Dis Date: Status: ADM IN PHONE #: [phone] Exam Date: 02/05/2019 1034 FAX #: [phone] Reason: RUQ pain, pancreatitis EXAMS: CPT CODE: [id number] US ABDOMEN LTD [id number] REASON FOR EXAM: RUQ pain, pancreatitis EXAM ORDER DATE: 02/05/2019 10:06 AM Attending Caro: Benjamin Aguilar MD PROCEDURE: - US ABDOMEN [...] PAGE 1 Signed Report (CONTINUED) Name: LUIS SNYDER [facility] : 1980 Age/S: 38 / M [address] Unit #: [id number] Loc: [place] [address] Phys: Benjamin Aguilar MD Acct: [id number] Dis Date: Status: ADM IN PHONE #: [phone] Exam Date: 02/05/2019 1034 FAX #: [phone] Reason: RUQ pain, pancreatitis EXAMS: CPT CODE: [id number] ABDOMEN LTD [id number] < Continued> cysts/masses: none hydronephrosis: none Ascites/pleural effusions: None IMPRESSION: Hepatomegaly with hepatic steatosis. Location: [facility] at 1044 Reported and signed by: James Zimmerman MD CC: Benjamin Aguilar MD Technologist: Coco Andrade RDMS Trnscb Date/Time: 02/05/2019 (1044) [email or web address] Orig Print D/T: S: 02/05/2019 (1049) Probe: PAGE 2 Signed Report BASIC METABOLIC [id number] 10:26:00* Test Item Value Reference Range Interpretation Comments SODIUM (test code = NA) 128 mmol/L 136-145 L SPEC IMEN 3+ LIPEMIC POTASSIUM (test code = K) 3.8 mmol/L 3.5-5.1 N CHLORIDE (test code = CL) 90 mmol/L 101-109 L CARBON DIOXIDE (test code = CO2) 23.5 mmol/L 21-32 N ANION GAP (test code = GAP) 18 mmol/L 10-20 N GLUCOSE (test code = GLU) 228 mg/dL 74-106 H BLOOD UREA NITROGEN (test code = BUN) 4 mg/dL 3-21 N GLOMERULAR FILTRATION RATE (test code = GFR) > 60 mL/min >=60 Estimated GFR by using Modified MDRD formula.Chronic kidney disease is defined as either kidney damageor GFR <60 mL/min/1.73 m2 for >3 months. CREATININE (test code = CREAT) 0.73 mg/dL 0.55-1.3 N BUN/CREATININE RATIO (test code = BUN/CREA) 5.5 10-20 L CALCIUM (test code = CA) 7.9 mg/dL 8.4-10.2 L HEPATIC FUNCTION [id number] 10:26:00* Test Item Value Reference Range Interpretation Comments TOTAL PROTEIN (test code = PROT) 6.8 g/dL 6.5-8.4 N ALBUMIN (test code = ALB) 2.9 g/dL 3.4-4.8 L GLOBULIN (test code = GLOB) 3.9 G/DL 1-10 N ALBUMIN/GLOBULIN RATIO (test code = A/G) 0.74 RATIO 0.75-1.50 L BILIRUBIN TOTAL (test code = BILT) 3.70 mg/dL 0.0-1.0 H BILIRUBIN DIRECT (test code = BILD) 1.70 mg/dL 0.0-0.30 H SGOT/AST (test code = AST) 113 U/L 6-32 H SGPT/ALT (test code = ALT) 71 U/L 12-78 N N ote: Change in REFERENCE RANGE due to new reagent method. ALKALINE PHOSPHATASE TOTAL (test code = ALKP) 237 U/L 38-126 H [id number] 10:26:00* Test Item Value Reference Range Interpretation Comments LIPASE (test code = LIP) 1344 U/L 128-270 H URINALYSIS [id number] 10:06:00* Test Item Value Reference Range Interpretation Comments UA COLOR (test code = COLU) MOISÉS YELLOW A UA APPEARANCE (test code = APPU) HAZY CLEAR A UA GLUCOSE DIPSTICK (test code = DGLUU) norm mg/dL NEGATIVE UA BILIRUBIN DIPSTICK (test code = BILU) 6 mg/dL NEGATIVE A UA KETONE DIPSTICK (test code = KETU) 15 (1+) mg/dL NEGATIVE A UA SPECIFIC GRAVITY (test code = SGU) 1.015 1.001-1.035 UA BLOOD DIPSTICK (test code = RODOLFO) 10 (Trace) Dylan/uL NEGATIVE A UA PH DIPSTICK (test code = LISS) 7.0 5.0-8.0 UA PROTEIN DIPSTICK (test code = PROU) 30 (1+) mg/dL Neg-15 A UA UROBILINIOGEN DIPSTICK (test code = URO) 12 mg/dL (3+) mg/dL 0.0 -0.2 A UA NITRITE DIPSTICK (test code = KIA) NEGATIVE NEGATIVE UA LEUKOCYTE ESTERASE DIPSTICK (test code = LEUU) 100 Marii/uL (1+) u L NEGATIVE A UA WBC (test code = WBCU) 0-5 per HPF 0-5 UA RBC (test code = RBCU) 2-4 per HPF 0-5 UA EPITHELIAL CELLS (test code = EPIU) FEW per HPF Few UA BACTERIA (test code = BACU) FEW per HPF NONE UA MUCUS (test code = MUCU) MANY per LPF NONE-FEW Urine Source? Clean CatchBASIC METABOLIC [id number] 10:03:00* Test Item Value Reference Range Interpretation Comments SODIUM (test code = NA) 128 mmol/L 136-145 L SPEC IMEN 3+ LIPEMIC POTASSIUM (test code = K) 3.8 mmol/L 3.5-5.1 N CHLORIDE (test code = CL) 90 mmol/L 101-109 L CARBON DIOXIDE (test code = CO2) 23.5 mmol/L 21-32 N ANION GAP (test code = GAP) 18 mmol/L 10-20 N GLUCOSE (test code = GLU) 228 mg/dL 74-106 H BLOOD UREA NITROGEN (test code = BUN) 4 mg/dL 3-21 N GLOMERULAR FILTRATION RATE (test code = GFR) > 60 mL/min >=60 Estimated GFR by using Modified MDRD formula.Chronic kidney disease is defined as either kidney damageor GFR <60 mL/min/1.73 m2 for >3 months. CREATININE (test code = CREAT) 0.73 mg/dL 0.55-1.3 N BUN/CREATININE RATIO (test code = BUN/CREA) 5.5 10-20 L CALCIUM (test code = CA) 7.9 mg/dL 8.4-10.2 L HEPATIC FUNCTION [id number] 10:03:00* Test Item Value Reference Range Interpretation Comments TOTAL PROTEIN (test code = PROT) g/dL 6.5-8.4 N ALBUMIN (test code = ALB) 2.9 g/dL 3.4-4.8 L GLOBULIN (test code = GLOB) G/DL 1-10 N ALBUMIN/GLOBULIN RATIO (test code = A/G) RATIO 0.75-1.50 BILIRUBIN TOTAL (test code = BILT) 3.70 mg/dL 0.0-1.0 H BILIRUBIN DIRECT (test code = BILD) 1.70 mg/dL 0.0-0.30 H SGOT/AST (test code = AST) U/L 6-32 N SGPT/ALT (test code = ALT) U/L 12-78 N ALKALINE PHOSPHATASE TOTAL (test code = ALKP) 237 U/L 38-126 H [id number] 10:03:00* Test Item Value Reference Range Interpretation Comments LIPASE (test code = LIP) 1344 U/L 128-270 H BASIC METABOLIC [id number] 09:56:00* Test Item Value Reference Range Interpretation Comments SODIUM (test code = NA) 128 mmol/L 136-145 L SPEC IMEN 3+ LIPEMIC POTASSIUM (test code = K) 3.8 mmol/L 3.5-5.1 N CHLORIDE (test code = CL) 90 mmol/L 101-109 L CARBON DIOXIDE (test code = CO2) 23.5 mmol/L 21-32 N ANION GAP (test code = GAP) 18 mmol/L 10-20 N GLUCOSE (test code = GLU) 228 mg/dL 74-106 H BLOOD UREA NITROGEN (test code = BUN) 4 mg/dL 3-21 N GLOMERULAR FILTRATION RATE (test code = GFR) > 60 mL/min >=60 Estimated GFR by using Modified MDRD formula.Chronic kidney disease is defined as either kidney damageor GFR <60 mL/min/1.73 m2 for >3 months. CREATININE (test code = CREAT) 0.73 mg/dL 0.55-1.3 N BUN/CREATININE RATIO (test code = BUN/CREA) 5.5 10-20 L CALCIUM (test code = CA) 7.9 mg/dL 8.4-10.2 L HEPATIC FUNCTION [id number] 09:56:00* Test Item Value Reference Range Interpretation Comments TOTAL PROTEIN (test code = PROT) gram/dL 6.4-8.2 ALBUMIN (test code = ALB) g/dL 3.4-5.0 GLOBULIN (test code = GLOB) g/dL 2.7-4.2 ALBUMIN/GLOBULIN RATIO (test code = A/G) 0.75-1.50 BILIRUBIN TOTAL (test code = BILT) mg/dL 0.2-1.2 BILIRUBIN DIRECT (test code = BILD) mg/dL 0.0-0.20 SGOT/AST (test code = AST) IUnit/L 15-37 SGPT/ALT (test code = ALT) U/L 10-69 ALKALINE PHOSPHATASE TOTAL (test code = ALKP) IUnit/L 45-117 [id number] 09:56:00* Test Item Value Reference Range Interpretation Comments LIPASE (test code = LIP) Unit/L 144-286 CBC W/O [id number] 09:45:00* Test Item Value Reference Range Interpretation Comments WHITE BLOOD CELL (test code = WBC) 13.7 K/mm3 4.5-12.5 H RED BLOOD CELL (test code = RBC) 4.27 mill/mm3 4.0-5.8 N HEMOGLOBIN (test code = HGB) 14.8 gram/dL 13.0-17.5 N HEMATOCRIT (test code = HCT) 41.6 % 42.0-52.0 L MEAN CELL VOLUME (test code = MCV) 97.4 fL 80-98 N MEAN CELL HGB (test code = MCH) 34.7 picogram 27.0-33.0 H MEAN CELL HGB CONCETRATION (test code = MCHC) 35.6 gram/dL 33.0-36. 0 N RED CELL DISTRIBUTION WIDTH (test code = RDW) 12.7 % 11.6-16. 2 N RED CELL DISTRIBUTION WIDTH SD (test code = RDW-SD) 45.8 fL 37 .0-51.0 N PLATELET COUNT (test code = PLT) 95 K/mm3 150-450 L MEAN PLATELET VOLUME (test code = MPV) 10.7 fL 6.7-11.0 N URINALYSIS [id number] 09:45:00* Test Item Value Reference Range Interpretation Comments UA COLOR (test code = COLU) MOISÉS YELLOW A UA APPEARANCE (test code = APPU) CLEAR UA GLUCOSE DIPSTICK (test code = DGLUU) norm mg/dL NEGATIVE UA BILIRUBIN DIPSTICK (test code = BILU) 6 mg/dL NEGATIVE A UA KETONE DIPSTICK (test code = KETU) 15 (1+) mg/dL NEGATIVE A UA SPECIFIC GRAVITY (test code = SGU) 1.015 1.001-1.035 UA BLOOD DIPSTICK (test code = RODOLFO) 10 (Trace) Dylan/uL NEGATIVE A UA PH DIPSTICK (test code = LISS) 7.0 5.0-8.0 UA PROTEIN DIPSTICK (test code = PROU) 30 (1+) mg/dL Neg-15 A UA UROBILINIOGEN DIPSTICK (test code = URO) 12 mg/dL (3+) mg/dL 0.0 -0.2 A UA NITRITE DIPSTICK (test code = KIA) NEGATIVE NEGATIVE UA LEUKOCYTE ESTERASE DIPSTICK (test code = LEUU) 100 Marii/uL (1+) u L NEGATIVE A UA WBC (test code = WBCU) per HPF 0-5 UA RBC (test code = RBCU) per HPF 0-5 UA EPITHELIAL CELLS (test code = EPIU) per HPF Few UA BACTERIA (test code = BACU) per HPF NONE Urine Source? Clean CatchBASIC METABOLIC [id number] 11:18:00* Test Item Value Reference Range Interpretation Comments SODIUM (test code = NA) 126 mmol/L 135-148 L SPEC IMEN 4+ LIPEMICSPECIMEN 4+ HEMOLYSIS POTASSIUM (test code = K) 4.6 mmol/L 3.5-5.1 N CHLORIDE (test code = CL) 91 mmol/L 101-109 L CARBON DIOXIDE (test code = CO2) 23.0 mmol/L 21-32 N ANION GAP (test code = GAP) 17 mmol/L 10-20 N GLUCOSE (test code = GLU) 264 mg/dL 74-106 H BLOOD UREA NITROGEN (test code = BUN) 9 mg/dL 3-21 N GLOMERULAR FILTRATION RATE (test code = GFR) > 60 mL/min >=60 Estimated GFR by using Modified MDRD formula.Chronic kidney disease is defined as either kidney damageor GFR <60 mL/min/1.73 m2 for >3 months. CREATININE (test code = CREAT) 0.52 mg/dL 0.55-1.3 L BUN/CREATININE RATIO (test code = BUN/CREA) 17.3 10-20 N CALCIUM (test code = CA) 8.6 mg/dL 8.4-10.2 N HEPATIC FUNCTION [id number] 11:18:00* Test Item Value Reference Range Interpretation Comments TOTAL PROTEIN (test code = PROT) 7.2 gram/dL 6.4-8.2 N ALBUMIN (test code = ALB) 3.6 g/dL 3.4-5.0 N GLOBULIN (test code = GLOB) 3.6 g/dL 2.7-4.2 N ALBUMIN/GLOBULIN RATIO (test code = A/G) 1.0 0.75-1.50 N BILIRUBIN TOTAL (test code = BILT) 3.60 mg/dL 0.2-1.2 H BILIRUBIN DIRECT (test code = BILD) 0.70 mg/dL 0.0-0.20 H SGOT/AST (test code = AST) 169 IUnit/L 15-37 H SGPT/ALT (test code = ALT) 98 U/L 10-69 H ALKALINE PHOSPHATASE TOTAL (test code = ALKP) 221 IUnit/L 45-117 H Note change in reference range due to change in reagent. [id number] 11:18:00* Test Item Value Reference Range Interpretation Comments LIPASE (test code = LIP) 998 Unit/L 144-286 H [id number] 11:18:00* Test Item Value Reference Range Interpretation Comments TROPONIN-I (test code = TROPI) <0.015 ng/mL 0-0.045 N BASIC METABOLIC [id number] 11:13:00* Test Item Value Reference Range Interpretation Comments SODIUM (test code = NA) 126 mmol/L 135-148 L SPEC IMEN 4+ LIPEMICSPECIMEN 4+ HEMOLYSIS POTASSIUM (test code = K) 4.6 mmol/L 3.5-5.1 N CHLORIDE (test code = CL) 91 mmol/L 101-109 L CARBON DIOXIDE (test code = CO2) 23.0 mmol/L 21-32 N ANION GAP (test code = GAP) 17 mmol/L 10-20 N GLUCOSE (test code = GLU) 264 mg/dL 74-106 H BLOOD UREA NITROGEN (test code = BUN) 9 mg/dL 3-21 N GLOMERULAR FILTRATION RATE (test code = GFR) > 60 mL/min >=60 Estimated GFR by using Modified MDRD formula.Chronic kidney disease is defined as either kidney damageor GFR <60 mL/min/1.73 m2 for >3 months. CREATININE (test code = CREAT) 0.52 mg/dL 0.55-1.3 L BUN/CREATININE RATIO (test code = BUN/CREA) 17.3 10-20 N CALCIUM (test code = CA) 8.6 mg/dL 8.4-10.2 N HEPATIC FUNCTION [id number] 11:13:00* Test Item Value Reference Range Interpretation Comments TOTAL PROTEIN (test code = PROT) gram/dL 6.4-8.2 ALBUMIN (test code = ALB) g/dL 3.4-5.0 GLOBULIN (test code = GLOB) g/dL 2.7-4.2 ALBUMIN/GLOBULIN RATIO (test code = A/G) 0.75-1.50 BILIRUBIN TOTAL (test code = BILT) mg/dL 0.2-1.2 BILIRUBIN DIRECT (test code = BILD) mg/dL 0.0-0.20 SGOT/AST (test code = AST) IUnit/L 15-37 SGPT/ALT (test code = ALT) U/L 10-69 ALKALINE PHOSPHATASE TOTAL (test code = ALKP) IUnit/L 45-117 [id number] 11:13:00* Test Item Value Reference Range Interpretation Comments LIPASE (test code = LIP) 998 Unit/L 144-286 H [id number] 11:13:00* Test Item Value Reference Range Interpretation Comments TROPONIN-I (test code = TROPI) <0.015 ng/mL 0-0.045 N BASIC METABOLIC [id number] 11:11:00* Test Item Value Reference Range Interpretation Comments SODIUM (test code = NA) 126 mmol/L 135-148 L SPEC IMEN 4+ LIPEMICSPECIMEN 4+ HEMOLYSIS POTASSIUM (test code = K) 4.6 mmol/L 3.5-5.1 N CHLORIDE (test code = CL) 91 mmol/L 101-109 L CARBON DIOXIDE (test code = CO2) 23.0 mmol/L 21-32 N ANION GAP (test code = GAP) 17 mmol/L 10-20 N GLUCOSE (test code = GLU) 264 mg/dL 74-106 H BLOOD UREA NITROGEN (test code = BUN) 9 mg/dL 3-21 N GLOMERULAR FILTRATION RATE (test code = GFR) > 60 mL/min >=60 Estimated GFR by using Modified MDRD formula.Chronic kidney disease is defined as either kidney damageor GFR <60 mL/min/1.73 m2 for >3 months. CREATININE (test code = CREAT) 0.52 mg/dL 0.55-1.3 L BUN/CREATININE RATIO (test code = BUN/CREA) 17.3 10-20 N CALCIUM (test code = CA) mg/dL 8.4-10.2 HEPATIC FUNCTION [id number] 11:11:00* Test Item Value Reference Range Interpretation Comments TOTAL PROTEIN (test code = PROT) gram/dL 6.4-8.2 ALBUMIN (test code = ALB) g/dL 3.4-5.0 GLOBULIN (test code = GLOB) g/dL 2.7-4.2 ALBUMIN/GLOBULIN RATIO (test code = A/G) 0.75-1.50 BILIRUBIN TOTAL (test code = BILT) mg/dL 0.2-1.2 BILIRUBIN DIRECT (test code = BILD) mg/dL 0.0-0.20 SGOT/AST (test code = AST) IUnit/L 15-37 SGPT/ALT (test code = ALT) U/L 10-69 ALKALINE PHOSPHATASE TOTAL (test code = ALKP) IUnit/L 45-117 [id number] 11:11:00* Test Item Value Reference Range Interpretation Comments LIPASE (test code = LIP) Unit/L 144-286 [id number] 11:11:00* Test Item Value Reference Range Interpretation Comments TROPONIN-I (test code = TROPI) ng/mL 0-0.045 BASIC METABOLIC [id number] 11:11:00* Test Item Value Reference Range Interpretation Comments SODIUM (test code = NA) 126 mmol/L 135-148 L SPEC IMEN 4+ LIPEMICSPECIMEN 4+ HEMOLYSIS POTASSIUM (test code = K) 4.6 mmol/L 3.5-5.1 N CHLORIDE (test code = CL) 91 mmol/L 101-109 L CARBON DIOXIDE (test code = CO2) 23.0 mmol/L 21-32 N ANION GAP (test code = GAP) 17 mmol/L 10-20 N GLUCOSE (test code = GLU) 264 mg/dL 74-106 H BLOOD UREA NITROGEN (test code = BUN) 9 mg/dL 3-21 N GLOMERULAR FILTRATION RATE (test code = GFR) > 60 mL/min >=60 Estimated GFR by using Modified MDRD formula.Chronic kidney disease is defined as either kidney damageor GFR <60 mL/min/1.73 m2 for >3 months. CREATININE (test code = CREAT) 0.52 mg/dL 0.55-1.3 L BUN/CREATININE RATIO (test code = BUN/CREA) 17.3 10-20 N CALCIUM (test code = CA) mg/dL 8.4-10.2 HEPATIC FUNCTION [id number] 11:11:00* Test Item Value Reference Range Interpretation Comments TOTAL PROTEIN (test code = PROT) gram/dL 6.4-8.2 ALBUMIN (test code = ALB) g/dL 3.4-5.0 GLOBULIN (test code = GLOB) g/dL 2.7-4.2 ALBUMIN/GLOBULIN RATIO (test code = A/G) 0.75-1.50 BILIRUBIN TOTAL (test code = BILT) mg/dL 0.2-1.2 BILIRUBIN DIRECT (test code = BILD) mg/dL 0.0-0.20 SGOT/AST (test code = AST) IUnit/L 15-37 SGPT/ALT (test code = ALT) U/L 10-69 ALKALINE PHOSPHATASE TOTAL (test code = ALKP) IUnit/L 45-117 [id number] 11:11:00* Test Item Value Reference Range Interpretation Comments LIPASE (test code = LIP) Unit/L 144-286 [id number] 11:11:00* Test Item Value Reference Range Interpretation Comments TROPONIN-I (test code = TROPI) <0.015 ng/mL 0-0.045 N CBC W/O [id number] 11:05:00* Test Item Value Reference Range Interpretation Comments WHITE BLOOD CELL (test code = WBC) 11.9 K/mm3 4.5-12.5 N RED BLOOD CELL (test code = RBC) 4.47 mill/mm3 4.0-5.8 N Previously reported result: 4.55 mill/zq1Xtzyaj by: DAYSI on 02/04/19:902251 1104: RBC previously reported as: 4.55 mill/mm3 HEMOGLOBIN (test code = HGB) 14.7 gram/dL 13.0-17.5 N Previously reported result: 16.2 gram/dLEdited by: DAYSI on 02/04/19:1104 HEMATOCRIT (test code = HCT) 43.8 % 42.0-52.0 N MEAN CELL VOLUME (test code = MCV) 98.0 fL 80-98 N Previously reported result: 96.3 fLEdited by: DAYSI on 02/04/19:110 MEAN CELL HGB (test code = MCH) 32.9 picogram 27.0-33.0 N Previously reported result: 35.6 picogramEdited by: DAYSI on 02/04/19:110 MEAN CELL HGB CONCETRATION (test code = MCHC) 33.6 gram/dL 33.0-36. 0 N Previously reported result: 37.0 gram/dLEdited by: DAYSI on 02/04/19:1104 RED CELL DISTRIBUTION WIDTH (test code = RDW) 13.3 % 11.6-16. 2 N Previously reported result: 13.2 %Edited by: DAYSI on 02/04/19:1104 RED CELL DISTRIBUTION WIDTH SD (test code = RDW-SD) 48.6 fL 37 .0-51.0 N Previously reported result: 47.5 fLEdited by: DAYSI on 02/04/19:110 PLATELET COUNT (test code = PLT) 128 K/mm3 150-450 L MEAN PLATELET VOLUME (test code = MPV) 11.5 fL 6.7-11.0 H URINALYSIS [id number] 10:56:00* Test Item Value Reference Range Interpretation Comments UA COLOR (test code = COLU) MOISÉS YELLOW A UA APPEARANCE (test code = APPU) CLEAR CLEAR UA GLUCOSE DIPSTICK (test code = DGLUU) norm mg/dL NEGATIVE UA BILIRUBIN DIPSTICK (test code = BILU) 1 mg/dL NEGATIVE A UA KETONE DIPSTICK (test code = KETU) 5 (Trace) mg/dL NEGATIVE A UA SPECIFIC GRAVITY (test code = SGU) 1.025 1.001-1.035 UA BLOOD DIPSTICK (test code = RODOLFO) 10 (Trace) Dylan/uL NEGATIVE A UA PH DIPSTICK (test code = LISS) 5.0 5.0-8.0 UA PROTEIN DIPSTICK (test code = PROU) 30 (1+) mg/dL Neg-15 A UA UROBILINIOGEN DIPSTICK (test code = URO) 4 mg/dL (2+) mg/dL 0.0 -0.2 A UA NITRITE DIPSTICK (test code = KIA) NEGATIVE NEGATIVE UA LEUKOCYTE ESTERASE DIPSTICK (test code = LEUU) 25 Marii/uL (Tra ce) uL NEGATIVE A UA WBC (test code = WBCU) NONE SEEN per HPF 0-5 UA RBC (test code = RBCU) 0-1 per HPF 0-5 UA EPITHELIAL CELLS (test code = EPIU) RARE per HPF Few UA BACTERIA (test code = BACU) FEW per HPF NONE UA MUCUS (test code = MUCU) MANY per LPF NONE-FEW Urine Source? Clean CatchURINALYSIS [id number] 10:44:00* Test Item Value Reference Range Interpretation Comments UA COLOR (test code = COLU) MOISÉS YELLOW A UA APPEARANCE (test code = APPU) CLEAR UA GLUCOSE DIPSTICK (test code = DGLUU) norm mg/dL NEGATIVE UA BILIRUBIN DIPSTICK (test code = BILU) 1 mg/dL NEGATIVE A UA KETONE DIPSTICK (test code = KETU) 5 (Trace) mg/dL NEGATIVE A UA SPECIFIC GRAVITY (test code = SGU) 1.025 1.001-1.035 UA BLOOD DIPSTICK (test code = RODOLFO) 10 (Trace) Dylan/uL NEGATIVE A UA PH DIPSTICK (test code = LISS) 5.0 5.0-8.0 UA PROTEIN DIPSTICK (test code = PROU) 30 (1+) mg/dL Neg-15 A UA UROBILINIOGEN DIPSTICK (test code = URO) 4 mg/dL (2+) mg/dL 0.0 -0.2 A UA NITRITE DIPSTICK (test code = KIA) NEGATIVE NEGATIVE UA LEUKOCYTE ESTERASE DIPSTICK (test code = LEUU) 25 Marii/uL (Tra ce) uL NEGATIVE A UA WBC (test code = WBCU) per HPF 0-5 UA RBC (test code = RBCU) per HPF 0-5 UA EPITHELIAL CELLS (test code = EPIU) per HPF Few UA BACTERIA (test code = BACU) per HPF NONE Urine Source? Clean CatchCBC W/O [id number] 10:42:00* Test Item Value Reference Range Interpretation Comments WHITE BLOOD CELL (test code = WBC) 11.9 K/mm3 4.5-12.5 N RED BLOOD CELL (test code = RBC) 4.55 mill/mm3 4.0-5.8 N HEMOGLOBIN (test code = HGB) 16.2 gram/dL 13.0-17.5 N HEMATOCRIT (test code = HCT) 43.8 % 42.0-52.0 N MEAN CELL VOLUME (test code = MCV) 96.3 fL 80-98 N MEAN CELL HGB (test code = MCH) 35.6 picogram 27.0-33.0 H MEAN CELL HGB CONCETRATION (test code = MCHC) 37.0 gram/dL 33.0-36. 0 H RED CELL DISTRIBUTION WIDTH (test code = RDW) 13.2 % 11.6-16. 2 N RED CELL DISTRIBUTION WIDTH SD (test code = RDW-SD) 47.5 fL 37 .0-51.0 N PLATELET COUNT (test code = PLT) 128 K/mm3 150-450 L MEAN PLATELET VOLUME (test code = MPV) 11.5 fL 6.7-11.0 H [id number] 11:53:00* Test Item Value Reference Range Interpretation Comments GLUBED (test code = GLUBED) 93 mg/dL 74-106 N Performed by certified service unit operator at [facility] CBC W/AUTO [id number] 10:58:00* Test Item Value Reference Range Interpretation Comments WHITE BLOOD CELL (test code = WBC) 12.4 K/mm3 4.5-12.5 N RED BLOOD CELL (test code = RBC) 3.98 mill/mm3 4.0-5.8 L HEMOGLOBIN (test code = HGB) 13.1 gram/dL 13.0-17.5 N HEMATOCRIT (test code = HCT) 38.0 % 42.0-52.0 L MEAN CELL VOLUME (test code = MCV) 95.5 fL 80-98 N MEAN CELL HGB (test code = MCH) 32.9 picogram 27.0-33.0 N MEAN CELL HGB CONCETRATION (test code = MCHC) 34.5 gram/dL 33.0-36. 0 N RED CELL DISTRIBUTION WIDTH (test code = RDW) 13.7 % 11.6-16. 2 N RED CELL DISTRIBUTION WIDTH SD (test code = RDW-SD) 48.5 fL 37 .0-51.0 N PLATELET COUNT (test code = PLT) 77 K/mm3 150-450 L MEAN PLATELET VOLUME (test code = MPV) 10.5 fL 6.7-11.0 N NEUTROPHIL % (test code = NT%) 75.5 % 39.0-69.0 H IMMATURE GRANULOCYTE % (test code = IG%) 0.7 % 0.0-5.0 N LYMPHOCYTE % (test code = LY%) 15.5 % 25.0-55.0 L MONOCYTE % (test code = MO%) 4.6 % 0.0-10.0 N EOSINOPHIL % (test code = EO%) 2.9 % 0.0-5.0 N BASOPHIL % (test code = BA%) 0.8 % 0.0-1.0 N NUCLEATED RBC % (test code = NRBC%) 0.0 % 0-0 N NEUTROPHIL # (test code = NT#) 9.34 K/mm3 1.8-7.7 H IMMATURE GRANULOCYTE # (test code = IG#) 0.09 x10 3/uL 0-0.03 H LYMPHOCYTE # (test code = LY#) 1.92 K/mm3 1.0-5.0 N MONOCYTE # (test code = MO#) 0.57 K/mm3 0-0.8 N EOSINOPHIL # (test code = EO#) 0.36 K/mm3 0.0-0.5 N BASOPHIL # (test code = BA#) 0.10 K/mm3 0.0-0.2 N NUCLEATED RBC # (test code = NRBC#) 0.00 K/mm3 0.0-0.1 N MANUAL DIFF REQUIRED (test code = MDIFF) NO, ONLY SCAN NEEDED DIFFERENTIAL [id number] 10:58:00* Test Item Value Reference Range Interpretation Comments STAIN ACCEPTABILITY (test code = STN ACCEPTABLE) STAIN ACCEPTABLE ANISOCYTOSIS (test code = ANISO) 1+ PLATELET ESTIMATE (test code = PLTEST) DECREASED PLATELET MORPHOLOGY (test code = PLTMORPH) NORMAL BASIC METABOLIC [id number] 10:16:00* Test Item Value Reference Range Interpretation Comments SODIUM (test code = NA) 141 mmol/L 136-145 RESU LT VERIFIED BY REPEAT ANALYSIS POTASSIUM (test code = K) 3.4 mmol/L 3.5-5.1 L CHLORIDE (test code = CL) 109.0 mmol/L 98-107 H CARBON DIOXIDE (test code = CO2) 23.0 mmol/L 21-32 N ANION GAP (test code = GAP) 12.4 10-20 N GLUCOSE (test code = GLU) 119 mg/dL 74-106 H BLOOD UREA NITROGEN (test code = BUN) 4 mg/dL 7-18 L GLOMERULAR FILTRATION RATE (test code = GFR) > 60 mL/min >=60 Estimated GFR by using Modified MDRD formula.Chronic kidney disease is defined as either kidney damageor GFR <60 mL/min/1.73 m2 for >3 months. CREATININE (test code = CREAT) 0.60 mg/dL 0.7-1.3 L BUN/CREATININE RATIO (test code = BUN/CREA) 6.6 10-20 L CALCIUM (test code = CA) 8.2 mg/dL 8.5-10.1 L [id number] 10:16:00* Test Item Value Reference Range Interpretation Comments LIPASE (test code = LIP) 307 U/L 73.0-393.0 N [id number] 10:16:00* Test Item Value Reference Range Interpretation Comments MAGNESIUM (test code = MAG) 2.3 mg/dL 1.8-2.4 N THYROID STIMULATING [id number] 10:16:00* Test Item Value Reference Range Interpretation Comments THYROID STIMULATING HORMONE (test code = TSH) 2.200 uIU/mL 0.36-3.7 4 N TSH REFERENCE RANGES: EUTHYROID: 0.35 - 4.3 mIU/mL HYPO : > 5.5 mIU/mL HYPER : < 0.35 mIU/mL [id number] 10:16:00* Test Item Value Reference Range Interpretation Comments GLYCOSYLATED HEMOGLOBIN (HA1C) (test code = GLYHGB) 6.3 % HbA1 4. 8-6.0 H ESTIMATED AVERAGE GLUCOSE (test code = EAG) 134 MG/DL B-TYPE NATRIURETIC [id number] 10:07:00* Test Item Value Reference Range Interpretation Comments B-TYPE NATRIURETIC PEPTIDE (test code = BNP) 72.50 pgram/mL 0-100 N BASIC METABOLIC [id number] 10:01:00* Test Item Value Reference Range Interpretation Comments SODIUM (test code = NA) 141 mmol/L 136-145 RESU LT VERIFIED BY REPEAT ANALYSIS POTASSIUM (test code = K) 3.4 mmol/L 3.5-5.1 L CHLORIDE (test code = CL) 109.0 mmol/L 98-107 H CARBON DIOXIDE (test code = CO2) 23.0 mmol/L 21-32 N ANION GAP (test code = GAP) 12.4 10-20 N GLUCOSE (test code = GLU) 119 mg/dL 74-106 H BLOOD UREA NITROGEN (test code = BUN) 4 mg/dL 7-18 L GLOMERULAR FILTRATION RATE (test code = GFR) > 60 mL/min >=60 Estimated GFR by using Modified MDRD formula.Chronic kidney disease is defined as either kidney damageor GFR <60 mL/min/1.73 m2 for >3 months. CREATININE (test code = CREAT) 0.60 mg/dL 0.7-1.3 L BUN/CREATININE RATIO (test code = BUN/CREA) 6.6 10-20 L CALCIUM (test code = CA) 8.2 mg/dL 8.5-10.1 L [id number] 10:01:00* Test Item Value Reference Range Interpretation Comments LIPASE (test code = LIP) 307 U/L 73.0-393.0 N [id number] 10:01:00* Test Item Value Reference Range Interpretation Comments MAGNESIUM (test code = MAG) 2.3 mg/dL 1.8-2.4 N THYROID STIMULATING [id number] 10:01:00* Test Item Value Reference Range Interpretation Comments THYROID STIMULATING HORMONE (test code = TSH) uIU/mL 0.36-3.7 4 CBC W/AUTO [id number] 09:50:00* Test Item Value Reference Range Interpretation Comments WHITE BLOOD CELL (test code = WBC) 12.4 K/mm3 4.5-12.5 N RED BLOOD CELL (test code = RBC) 3.98 mill/mm3 4.0-5.8 L HEMOGLOBIN (test code = HGB) 13.1 gram/dL 13.0-17.5 N HEMATOCRIT (test code = HCT) 38.0 % 42.0-52.0 L MEAN CELL VOLUME (test code = MCV) 95.5 fL 80-98 N MEAN CELL HGB (test code = MCH) 32.9 picogram 27.0-33.0 N MEAN CELL HGB CONCETRATION (test code = MCHC) 34.5 gram/dL 33.0-36. 0 N RED CELL DISTRIBUTION WIDTH (test code = RDW) 13.7 % 11.6-16. 2 N RED CELL DISTRIBUTION WIDTH SD (test code = RDW-SD) 48.5 fL 37 .0-51.0 N PLATELET COUNT (test code = PLT) 77 K/mm3 150-450 L MEAN PLATELET VOLUME (test code = MPV) 10.5 fL 6.7-11.0 N NEUTROPHIL % (test code = NT%) 75.5 % 39.0-69.0 H IMMATURE GRANULOCYTE % (test code = IG%) 0.7 % 0.0-5.0 N LYMPHOCYTE % (test code = LY%) 15.5 % 25.0-55.0 L MONOCYTE % (test code = MO%) 4.6 % 0.0-10.0 N EOSINOPHIL % (test code = EO%) 2.9 % 0.0-5.0 N BASOPHIL % (test code = BA%) 0.8 % 0.0-1.0 N NUCLEATED RBC % (test code = NRBC%) 0.0 % 0-0 N NEUTROPHIL # (test code = NT#) 9.34 K/mm3 1.8-7.7 H IMMATURE GRANULOCYTE # (test code = IG#) 0.09 x10 3/uL 0-0.03 H LYMPHOCYTE # (test code = LY#) 1.92 K/mm3 1.0-5.0 N MONOCYTE # (test code = MO#) 0.57 K/mm3 0-0.8 N EOSINOPHIL # (test code = EO#) 0.36 K/mm3 0.0-0.5 N BASOPHIL # (test code = BA#) 0.10 K/mm3 0.0-0.2 N NUCLEATED RBC # (test code = NRBC#) 0.00 K/mm3 0.0-0.1 N MANUAL DIFF REQUIRED (test code = MDIFF) NO, ONLY SCAN NEEDED DIFFERENTIAL [id number] 09:50:00* Test Item Value Reference Range Interpretation Comments STAIN ACCEPTABILITY (test code = STN ACCEPTABLE) CABOT RINGS (test code = CAB) MORPHOLOGY COMMENT (test code = MOC) PLATELET ESTIMATE (test code = PLTEST) PLATELET MORPHOLOGY (test code = PLTMORPH) CBC W/AUTO [id number] 09:50:00* Test Item Value Reference Range Interpretation Comments WHITE BLOOD CELL (test code = WBC) 12.4 K/mm3 4.5-12.5 N RED BLOOD CELL (test code = RBC) 3.98 mill/mm3 4.0-5.8 L HEMOGLOBIN (test code = HGB) 13.1 gram/dL 13.0-17.5 N HEMATOCRIT (test code = HCT) 38.0 % 42.0-52.0 L MEAN CELL VOLUME (test code = MCV) 95.5 fL 80-98 N MEAN CELL HGB (test code = MCH) 32.9 picogram 27.0-33.0 N MEAN CELL HGB CONCETRATION (test code = MCHC) 34.5 gram/dL 33.0-36. 0 N RED CELL DISTRIBUTION WIDTH (test code = RDW) 13.7 % 11.6-16. 2 N RED CELL DISTRIBUTION WIDTH SD (test code = RDW-SD) 48.5 fL 37 .0-51.0 N PLATELET COUNT (test code = PLT) 77 K/mm3 150-450 L MEAN PLATELET VOLUME (test code = MPV) 10.5 fL 6.7-11.0 N NEUTROPHIL % (test code = NT%) 75.5 % 39.0-69.0 H IMMATURE GRANULOCYTE % (test code = IG%) 0.7 % 0.0-5.0 N LYMPHOCYTE % (test code = LY%) 15.5 % 25.0-55.0 L MONOCYTE % (test code = MO%) 4.6 % 0.0-10.0 N EOSINOPHIL % (test code = EO%) 2.9 % 0.0-5.0 N BASOPHIL % (test code = BA%) 0.8 % 0.0-1.0 N NUCLEATED RBC % (test code = NRBC%) 0.0 % 0-0 N NEUTROPHIL # (test code = NT#) 9.34 K/mm3 1.8-7.7 H IMMATURE GRANULOCYTE # (test code = IG#) 0.09 x10 3/uL 0-0.03 H LYMPHOCYTE # (test code = LY#) 1.92 K/mm3 1.0-5.0 N MONOCYTE # (test code = MO#) 0.57 K/mm3 0-0.8 N EOSINOPHIL # (test code = EO#) 0.36 K/mm3 0.0-0.5 N BASOPHIL # (test code = BA#) 0.10 K/mm3 0.0-0.2 N NUCLEATED RBC # (test code = NRBC#) 0.00 K/mm3 0.0-0.1 N MANUAL DIFF REQUIRED (test code = MDIFF) NO, ONLY SCAN NEEDED DIFFERENTIAL [id number] 09:50:00* Test Item Value Reference Range Interpretation Comments STAIN ACCEPTABILITY (test code = STN ACCEPTABLE) MORPHOLOGY COMMENT (test code = MOC) PLATELET ESTIMATE (test code = PLTEST) PLATELET MORPHOLOGY (test code = PLTMORPH) CBC W/AUTO [id number] 09:50:00* Test Item Value Reference Range Interpretation Comments WHITE BLOOD CELL (test code = WBC) 12.4 K/mm3 4.5-12.5 N RED BLOOD CELL (test code = RBC) 3.98 mill/mm3 4.0-5.8 L HEMOGLOBIN (test code = HGB) 13.1 gram/dL 13.0-17.5 N HEMATOCRIT (test code = HCT) 38.0 % 42.0-52.0 L MEAN CELL VOLUME (test code = MCV) 95.5 fL 80-98 N MEAN CELL HGB (test code = MCH) 32.9 picogram 27.0-33.0 N MEAN CELL HGB CONCETRATION (test code = MCHC) 34.5 gram/dL 33.0-36. 0 N RED CELL DISTRIBUTION WIDTH (test code = RDW) 13.7 % 11.6-16. 2 N RED CELL DISTRIBUTION WIDTH SD (test code = RDW-SD) 48.5 fL 37 .0-51.0 N PLATELET COUNT (test code = PLT) 77 K/mm3 150-450 L MEAN PLATELET VOLUME (test code = MPV) 10.5 fL 6.7-11.0 N NEUTROPHIL % (test code = NT%) 75.5 % 39.0-69.0 H IMMATURE GRANULOCYTE % (test code = IG%) 0.7 % 0.0-5.0 N LYMPHOCYTE % (test code = LY%) 15.5 % 25.0-55.0 L MONOCYTE % (test code = MO%) 4.6 % 0.0-10.0 N EOSINOPHIL % (test code = EO%) 2.9 % 0.0-5.0 N BASOPHIL % (test code = BA%) 0.8 % 0.0-1.0 N NUCLEATED RBC % (test code = NRBC%) 0.0 % 0-0 N NEUTROPHIL # (test code = NT#) 9.34 K/mm3 1.8-7.7 H IMMATURE GRANULOCYTE # (test code = IG#) 0.09 x10 3/uL 0-0.03 H LYMPHOCYTE # (test code = LY#) 1.92 K/mm3 1.0-5.0 N MONOCYTE # (test code = MO#) 0.57 K/mm3 0-0.8 N EOSINOPHIL # (test code = EO#) 0.36 K/mm3 0.0-0.5 N BASOPHIL # (test code = BA#) 0.10 K/mm3 0.0-0.2 N NUCLEATED RBC # (test code = NRBC#) 0.00 K/mm3 0.0-0.1 N MANUAL DIFF REQUIRED (test code = MDIFF) NO, ONLY SCAN NEEDED DIFFERENTIAL [id number] 09:50:00* Test Item Value Reference Range Interpretation Comments STAIN ACCEPTABILITY (test code = STN ACCEPTABLE) MORPHOLOGY COMMENT (test code = MOC) PLATELET ESTIMATE (test code = PLTEST) PLATELET MORPHOLOGY (test code = PLTMORPH) CBC W/AUTO [id number] 09:50:00* Test Item Value Reference Range Interpretation Comments WHITE BLOOD CELL (test code = WBC) 12.4 K/mm3 4.5-12.5 N RED BLOOD CELL (test code = RBC) 3.98 mill/mm3 4.0-5.8 L HEMOGLOBIN (test code = HGB) 13.1 gram/dL 13.0-17.5 N HEMATOCRIT (test code = HCT) 38.0 % 42.0-52.0 L MEAN CELL VOLUME (test code = MCV) 95.5 fL 80-98 N MEAN CELL HGB (test code = MCH) 32.9 picogram 27.0-33.0 N MEAN CELL HGB CONCETRATION (test code = MCHC) 34.5 gram/dL 33.0-36. 0 N RED CELL DISTRIBUTION WIDTH (test code = RDW) 13.7 % 11.6-16. 2 N RED CELL DISTRIBUTION WIDTH SD (test code = RDW-SD) 48.5 fL 37 .0-51.0 N PLATELET COUNT (test code = PLT) 77 K/mm3 150-450 L MEAN PLATELET VOLUME (test code = MPV) 10.5 fL 6.7-11.0 N NEUTROPHIL % (test code = NT%) 75.5 % 39.0-69.0 H IMMATURE GRANULOCYTE % (test code = IG%) 0.7 % 0.0-5.0 N LYMPHOCYTE % (test code = LY%) 15.5 % 25.0-55.0 L MONOCYTE % (test code = MO%) 4.6 % 0.0-10.0 N EOSINOPHIL % (test code = EO%) 2.9 % 0.0-5.0 N BASOPHIL % (test code = BA%) 0.8 % 0.0-1.0 N NUCLEATED RBC % (test code = NRBC%) 0.0 % 0-0 N NEUTROPHIL # (test code = NT#) 9.34 K/mm3 1.8-7.7 H IMMATURE GRANULOCYTE # (test code = IG#) 0.09 x10 3/uL 0-0.03 H LYMPHOCYTE # (test code = LY#) 1.92 K/mm3 1.0-5.0 N MONOCYTE # (test code = MO#) 0.57 K/mm3 0-0.8 N EOSINOPHIL # (test code = EO#) 0.36 K/mm3 0.0-0.5 N BASOPHIL # (test code = BA#) 0.10 K/mm3 0.0-0.2 N NUCLEATED RBC # (test code = NRBC#) 0.00 K/mm3 0.0-0.1 N MANUAL DIFF REQUIRED (test code = MDIFF) NO, ONLY SCAN NEEDED DIFFERENTIAL [id number] 09:50:00* Test Item Value Reference Range Interpretation Comments STAIN ACCEPTABILITY (test code = STN ACCEPTABLE) CABOT RINGS (test code = CAB) MORPHOLOGY COMMENT (test code = MOC) PLATELET ESTIMATE (test code = PLTEST) PLATELET MORPHOLOGY (test code = PLTMORPH) - US ABDOMEN [id number] 15:20:00 Name: LUIS SNYDER [facility] : 1980 Age/S: 38 / M [address] Unit #: [id number] Loc: [place] [address] Phys: Morgan Mo MD Acct: [id number] Dis Date: Status: REG ER PHONE #: [phone] Exam Date: 12/16/2018 1403 FAX #: [phone] Reason: RIGHT SIDED ABDOMINAL PAIN, PANCREATITIS EXAMS: CPT CODE: [id number] US ABDOMEN LTD [id number] HISTORY: Abdominal pain and pancreatitis. COMPARISON: CT [...] CC: Morgan Ortiz MD Technologist: Coco Andrade RDMS Trnscb Date/Time: 12/16/2018 (1520) t.ROSE R.[email or web address] Orig Print D/T: S: 12/16/2018 (0792) Probe: PAGE 1 Signed Report - CT ABD PELVIS W/O [id number] 14:40:00 Name: LUIS SNYDER [facility] : 1980 Age/S: 38 / M [address] Unit #: [id number] Loc: [place] [address] Phys: Morgan Mo MD Acct: [id number] Dis Date: Status: REG ER PHONE #: [phone] Exam Date: 12/16/2018 1220 FAX #: [phone] Reason: RIGHT FLANK PAIN EXAMS: CPT CODE: [id number] CT ABD PELVIS W/O CONT [id number] EXAM: CT of the abdomen and pelvis [...] Bonilla M.D. CC: Morgan Mo MD Technologist:SRINATH PERALES, RT(R),CT CTDI: DLP: Trnscb Date/Time: 12/16/2018 (14 40) t.SDR.GRW Orig Print D/T: S: 12/16/2018 (1763) P AGE 3 Signed Report BASIC METABOLIC [id number] 14:05:00* Test Item Value Reference Range Interpretation Comments SODIUM (test code = NA) 131 mmol/L 136-145 L SPEC IMEN 4+ LIPEMIC POTASSIUM (test code = K) 3.2 mmol/L 3.5-5.1 L CHLORIDE (test code = CL) 98 mmol/L 101-109 L CARBON DIOXIDE (test code = CO2) 19.1 mmol/L 21-32 L ANION GAP (test code = GAP) 17 mmol/L 10-20 N GLUCOSE (test code = GLU) 252 mg/dL 74-106 H BLOOD UREA NITROGEN (test code = BUN) 3 mg/dL 3-21 N GLOMERULAR FILTRATION RATE (test code = GFR) > 60 mL/min >=60 Estimated GFR by using Modified MDRD formula.Chronic kidney disease is defined as either kidney damageor GFR <60 mL/min/1.73 m2 for >3 months. CREATININE (test code = CREAT) 0.93 mg/dL 0.55-1.3 N BUN/CREATININE RATIO (test code = BUN/CREA) 3.2 10-20 L CALCIUM (test code = CA) 8.0 mg/dL 8.4-10.2 L HEPATIC FUNCTION [id number] 14:05:00* Test Item Value Reference Range Interpretation Comments TOTAL PROTEIN (test code = PROT) 7.2 g/dL 6.5-8.4 N ALBUMIN (test code = ALB) 2.9 g/dL 3.4-4.8 L GLOBULIN (test code = GLOB) 4.3 G/DL 1-10 N ALBUMIN/GLOBULIN RATIO (test code = A/G) 0.67 RATIO 0.75-1.50 L BILIRUBIN TOTAL (test code = BILT) 2.10 mg/dL 0.0-1.0 H BILIRUBIN DIRECT (test code = BILD) 0.80 mg/dL 0.0-0.30 H SGOT/AST (test code = AST) 78 U/L 6-32 H P reviously reported result: 43 U/LEdited by: DAYSI on 12/16/18:1402 SGPT/ALT (test code = ALT) 85 U/L 12-78 H N ote: Change in REFERENCE RANGE due to new reagent method. ALKALINE PHOSPHATASE TOTAL (test code = ALKP) 121 U/L 38-126 N [id number] 14:05:00* Test Item Value Reference Range Interpretation Comments LIPASE (test code = LIP) 646 U/L 128-270 H BASIC METABOLIC [id number] 13:05:00* Test Item Value Reference Range Interpretation Comments SODIUM (test code = NA) 131 mmol/L 136-145 L SPEC IMEN 4+ LIPEMIC POTASSIUM (test code = K) 3.2 mmol/L 3.5-5.1 L CHLORIDE (test code = CL) 98 mmol/L 101-109 L CARBON DIOXIDE (test code = CO2) 19.1 mmol/L 21-32 L ANION GAP (test code = GAP) 17 mmol/L 10-20 N GLUCOSE (test code = GLU) 252 mg/dL 74-106 H BLOOD UREA NITROGEN (test code = BUN) 3 mg/dL 3-21 N GLOMERULAR FILTRATION RATE (test code = GFR) > 60 mL/min >=60 Estimated GFR by using Modified MDRD formula.Chronic kidney disease is defined as either kidney damageor GFR <60 mL/min/1.73 m2 for >3 months. CREATININE (test code = CREAT) 0.93 mg/dL 0.55-1.3 N BUN/CREATININE RATIO (test code = BUN/CREA) 3.2 10-20 L CALCIUM (test code = CA) 8.0 mg/dL 8.4-10.2 L HEPATIC FUNCTION [id number] 13:05:00* Test Item Value Reference Range Interpretation Comments TOTAL PROTEIN (test code = PROT) 7.2 g/dL 6.5-8.4 N ALBUMIN (test code = ALB) 2.9 g/dL 3.4-4.8 L GLOBULIN (test code = GLOB) 4.3 G/DL 1-10 N ALBUMIN/GLOBULIN RATIO (test code = A/G) 0.67 RATIO 0.75-1.50 L BILIRUBIN TOTAL (test code = BILT) 2.10 mg/dL 0.0-1.0 H BILIRUBIN DIRECT (test code = BILD) 0.80 mg/dL 0.0-0.30 H SGOT/AST (test code = AST) 43 U/L 6-32 H SGPT/ALT (test code = ALT) U/L 12-78 N ALKALINE PHOSPHATASE TOTAL (test code = ALKP) 121 U/L 38-126 N [id number] 13:05:00* Test Item Value Reference Range Interpretation Comments LIPASE (test code = LIP) 646 U/L 128-270 H URINALYSIS [id number] 12:51:00* Test Item Value Reference Range Interpretation Comments UA COLOR (test code = COLU) MOISÉS YELLOW A UA APPEARANCE (test code = APPU) CLEAR CLEAR UA GLUCOSE DIPSTICK (test code = DGLUU) 1000 (3+) mg/dL NEGATIVE A UA BILIRUBIN DIPSTICK (test code = BILU) 3 mg/dL NEGATIVE A UA KETONE DIPSTICK (test code = KETU) 5 (Trace) mg/dL NEGATIVE A UA SPECIFIC GRAVITY (test code = SGU) 1.010 1.001-1.035 UA BLOOD DIPSTICK (test code = RODOLFO) neg Dylan/uL NEGATIVE UA PH DIPSTICK (test code = LISS) 7.0 5.0-8.0 UA PROTEIN DIPSTICK (test code = PROU) 30 (1+) mg/dL Neg-15 A UA UROBILINIOGEN DIPSTICK (test code = URO) 8 mg/dL 0.0-0.2 A UA NITRITE DIPSTICK (test code = KIA) INTERFERING SUBST. NEGATIVE UA LEUKOCYTE ESTERASE DIPSTICK (test code = LEUU) 25 Marii/uL (Tra ce) uL NEGATIVE A UA WBC (test code = WBCU) 0-2 per HPF 0-5 UA RBC (test code = RBCU) 0-1 per HPF 0-5 UA EPITHELIAL CELLS (test code = EPIU) FEW per HPF Few UA BACTERIA (test code = BACU) FEW per HPF NONE UA MUCUS (test code = MUCU) MODERATE per LPF NONE-FEW A Urine Source? Clean CatchURINALYSIS [id number] 12:50:00* Test Item Value Reference Range Interpretation Comments UA COLOR (test code = COLU) MOISÉS YELLOW A UA APPEARANCE (test code = APPU) CLEAR CLEAR UA GLUCOSE DIPSTICK (test code = DGLUU) 1000 (3+) mg/dL NEGATIVE A UA BILIRUBIN DIPSTICK (test code = BILU) 3 mg/dL NEGATIVE A UA KETONE DIPSTICK (test code = KETU) 5 (Trace) mg/dL NEGATIVE A UA SPECIFIC GRAVITY (test code = SGU) 1.010 1.001-1.035 UA BLOOD DIPSTICK (test code = RODOLFO) neg Dylan/uL NEGATIVE UA PH DIPSTICK (test code = LISS) 7.0 5.0-8.0 UA PROTEIN DIPSTICK (test code = PROU) 30 (1+) mg/dL Neg-15 A UA UROBILINIOGEN DIPSTICK (test code = URO) 8 mg/dL 0.0-0.2 A UA NITRITE DIPSTICK (test code = KIA) INTERFERING SUBST. NEGATIVE UA LEUKOCYTE ESTERASE DIPSTICK (test code = LEUU) 25 Marii/uL (Tra ce) uL NEGATIVE A UA WBC (test code = WBCU) per HPF 0-5 UA RBC (test code = RBCU) per HPF 0-5 UA EPITHELIAL CELLS (test code = EPIU) per HPF Few UA BACTERIA (test code = BACU) per HPF NONE Urine Source? Clean CatchBASIC METABOLIC [id number] 12:43:00* Test Item Value Reference Range Interpretation Comments SODIUM (test code = NA) 131 mmol/L 136-145 L SPEC IMEN 4+ LIPEMIC POTASSIUM (test code = K) 3.2 mmol/L 3.5-5.1 L CHLORIDE (test code = CL) 98 mmol/L 101-109 L CARBON DIOXIDE (test code = CO2) 19.1 mmol/L 21-32 L ANION GAP (test code = GAP) 17 mmol/L 10-20 N GLUCOSE (test code = GLU) 252 mg/dL 74-106 H BLOOD UREA NITROGEN (test code = BUN) 3 mg/dL 3-21 N GLOMERULAR FILTRATION RATE (test code = GFR) > 60 mL/min >=60 Estimated GFR by using Modified MDRD formula.Chronic kidney disease is defined as either kidney damageor GFR <60 mL/min/1.73 m2 for >3 months. CREATININE (test code = CREAT) 0.93 mg/dL 0.55-1.3 N BUN/CREATININE RATIO (test code = BUN/CREA) 3.2 10-20 L CALCIUM (test code = CA) 8.0 mg/dL 8.4-10.2 L HEPATIC FUNCTION [id number] 12:43:00* Test Item Value Reference Range Interpretation Comments TOTAL PROTEIN (test code = PROT) 7.2 g/dL 6.5-8.4 N ALBUMIN (test code = ALB) 2.9 g/dL 3.4-4.8 L GLOBULIN (test code = GLOB) 4.3 G/DL 1-10 N ALBUMIN/GLOBULIN RATIO (test code = A/G) 0.67 RATIO 0.75-1.50 L BILIRUBIN TOTAL (test code = BILT) 2.10 mg/dL 0.0-1.0 H BILIRUBIN DIRECT (test code = BILD) 0.80 mg/dL 0.0-0.30 H SGOT/AST (test code = AST) U/L 6-32 N SGPT/ALT (test code = ALT) U/L 12-78 N ALKALINE PHOSPHATASE TOTAL (test code = ALKP) 121 U/L 38-126 N [id number] 12:43:00* Test Item Value Reference Range Interpretation Comments LIPASE (test code = LIP) 646 U/L 128-270 H BASIC METABOLIC [id number] 12:39:00* Test Item Value Reference Range Interpretation Comments SODIUM (test code = NA) 131 mmol/L 136-145 L SPEC IMEN 4+ LIPEMIC POTASSIUM (test code = K) 3.2 mmol/L 3.5-5.1 L CHLORIDE (test code = CL) 98 mmol/L 101-109 L CARBON DIOXIDE (test code = CO2) 19.1 mmol/L 21-32 L ANION GAP (test code = GAP) 17 mmol/L 10-20 N GLUCOSE (test code = GLU) 252 mg/dL 74-106 H BLOOD UREA NITROGEN (test code = BUN) 3 mg/dL 3-21 N GLOMERULAR FILTRATION RATE (test code = GFR) > 60 mL/min >=60 Estimated GFR by using Modified MDRD formula.Chronic kidney disease is defined as either kidney damageor GFR <60 mL/min/1.73 m2 for >3 months. CREATININE (test code = CREAT) 0.93 mg/dL 0.55-1.3 N BUN/CREATININE RATIO (test code = BUN/CREA) 3.2 10-20 L CALCIUM (test code = CA) 8.0 mg/dL 8.4-10.2 L HEPATIC FUNCTION [id number] 12:39:00* Test Item Value Reference Range Interpretation Comments TOTAL PROTEIN (test code = PROT) gram/dL 6.4-8.2 ALBUMIN (test code = ALB) g/dL 3.4-5.0 GLOBULIN (test code = GLOB) g/dL 2.7-4.2 ALBUMIN/GLOBULIN RATIO (test code = A/G) 0.75-1.50 BILIRUBIN TOTAL (test code = BILT) mg/dL 0.2-1.2 BILIRUBIN DIRECT (test code = BILD) mg/dL 0.0-0.20 SGOT/AST (test code = AST) IUnit/L 15-37 SGPT/ALT (test code = ALT) U/L 10-69 ALKALINE PHOSPHATASE TOTAL (test code = ALKP) IUnit/L 45-117 [id number] 12:39:00* Test Item Value Reference Range Interpretation Comments LIPASE (test code = LIP) Unit/L 144-286 CBC W/O [id number] 12:28:00* Test Item Value Reference Range Interpretation Comments WHITE BLOOD CELL (test code = WBC) 17.3 K/mm3 4.5-12.5 H RED BLOOD CELL (test code = RBC) 4.22 mill/mm3 4.0-5.8 N HEMOGLOBIN (test code = HGB) 14.2 gram/dL 13.0-17.5 N HEMATOCRIT (test code = HCT) 39.6 % 42.0-52.0 L MEAN CELL VOLUME (test code = MCV) 93.8 fL 80-98 N MEAN CELL HGB (test code = MCH) 33.6 picogram 27.0-33.0 H MEAN CELL HGB CONCETRATION (test code = MCHC) 35.9 gram/dL 33.0-36. 0 N RED CELL DISTRIBUTION WIDTH (test code = RDW) 13.0 % 11.6-16. 2 N RED CELL DISTRIBUTION WIDTH SD (test code = RDW-SD) 45.6 fL 37 .0-51.0 N PLATELET COUNT (test code = PLT) 94 K/mm3 150-450 L RESULT VERIFIED BY REPEAT ANALYSIS MEAN PLATELET VOLUME (test code = MPV) 11.0 fL 6.7-11.0 N CBC W/O [id number] 12:24:00* Test Item Value Reference Range Interpretation Comments WHITE BLOOD CELL (test code = WBC) 17.3 K/mm3 4.5-12.5 H RED BLOOD CELL (test code = RBC) 4.22 mill/mm3 4.0-5.8 N HEMOGLOBIN (test code = HGB) 14.2 gram/dL 13.0-17.5 N HEMATOCRIT (test code = HCT) 39.6 % 42.0-52.0 L MEAN CELL VOLUME (test code = MCV) 93.8 fL 80-98 N MEAN CELL HGB (test code = MCH) 33.6 picogram 27.0-33.0 H MEAN CELL HGB CONCETRATION (test code = MCHC) 35.9 gram/dL 33.0-36. 0 N RED CELL DISTRIBUTION WIDTH (test code = RDW) 13.0 % 11.6-16. 2 N RED CELL DISTRIBUTION WIDTH SD (test code = RDW-SD) 45.6 fL 37 .0-51.0 N PLATELET COUNT (test code = PLT) 94 K/mm3 150-450 L MEAN PLATELET VOLUME (test code = MPV) 11.0 fL 6.7-11.0 N COMPREHENSIVE METABOLIC [id number] 20:30:00* Test Item Value Reference Range Interpretation Comments SODIUM (test code = NA) 138 mmol/L 135-148 N POTASSIUM (test code = K) 3.6 mmol/L 3.5-5.1 N CHLORIDE (test code = CL) 100 mmol/L 101-109 L CARBON DIOXIDE (test code = CO2) 24.4 mmol/L 21-32 N ANION GAP (test code = GAP) 17 mmol/L 10-20 N GLUCOSE (test code = GLU) 150 mg/dL 74-106 H BLOOD UREA NITROGEN (test code = BUN) 13 mg/dL 3-21 N CREATININE (test code = CREAT) 0.72 mg/dL 0.55-1.3 N BUN/CREATININE RATIO (test code = BUN/CREA) 18.1 10-20 N TOTAL PROTEIN (test code = PROT) 8.0 g/dL 6.5-8.4 N ALBUMIN (test code = ALB) 3.8 g/dL 3.4-4.8 N GLOBULIN (test code = GLOB) 4.2 G/DL 1-10 N ALBUMIN/GLOBULIN RATIO (test code = A/G) 0.9 RATIO 0.75-1.50 N CALCIUM (test code = CA) 8.8 mg/dL 8.4-10.2 N BILIRUBIN TOTAL (test code = BILT) 0.40 mg/dL 0.0-1.0 N SGOT/AST (test code = AST) 47 U/L 6-32 H SGPT/ALT (test code = ALT) 58 U/L 12-78 N N ote: Change in REFERENCE RANGE due to new reagent method. ALKALINE PHOSPHATASE TOTAL (test code = ALKP) 89 U/L 38-126 N [id number] 20:30:00* Test Item Value Reference Range Interpretation Comments LIPASE (test code = LIP) 188 U/L 128-270 N COMPREHENSIVE METABOLIC [id number] 19:42:00* Test Item Value Reference Range Interpretation Comments SODIUM (test code = NA) 138 mmol/L 135-148 N POTASSIUM (test code = K) 3.6 mmol/L 3.5-5.1 N CHLORIDE (test code = CL) 100 mmol/L 101-109 L CARBON DIOXIDE (test code = CO2) 24.4 mmol/L 21-32 N ANION GAP (test code = GAP) 17 mmol/L 10-20 N GLUCOSE (test code = GLU) 150 mg/dL 74-106 H BLOOD UREA NITROGEN (test code = BUN) 13 mg/dL 3-21 N CREATININE (test code = CREAT) 0.72 mg/dL 0.55-1.3 N BUN/CREATININE RATIO (test code = BUN/CREA) 18.1 10-20 N TOTAL PROTEIN (test code = PROT) gram/dL 6.4-8.2 ALBUMIN (test code = ALB) g/dL 3.4-5.0 GLOBULIN (test code = GLOB) g/dL 2.7-4.2 ALBUMIN/GLOBULIN RATIO (test code = A/G) 0.75-1.50 CALCIUM (test code = CA) 8.8 mg/dL 8.4-10.2 N BILIRUBIN TOTAL (test code = BILT) mg/dL 0.2-1.2 SGOT/AST (test code = AST) IUnit/L 15-37 SGPT/ALT (test code = ALT) U/L 10-69 ALKALINE PHOSPHATASE TOTAL (test code = ALKP) IUnit/L 45-117 [id number] 19:42:00* Test Item Value Reference Range Interpretation Comments LIPASE (test code = LIP) Unit/L 144-286 CBC W/AUTO [id number] 19:32:00* Test Item Value Reference Range Interpretation Comments WHITE BLOOD CELL (test code = WBC) 7.7 K/mm3 4.5-12.5 N RED BLOOD CELL (test code = RBC) 4.80 mill/mm3 4.0-5.8 N HEMOGLOBIN (test code = HGB) 16.3 gram/dL 13.0-17.5 N HEMATOCRIT (test code = HCT) 45.0 % 42.0-52.0 N MEAN CELL VOLUME (test code = MCV) 93.8 fL 80-98 N MEAN CELL HGB (test code = MCH) 34.0 picogram 27.0-33.0 H MEAN CELL HGB CONCETRATION (test code = MCHC) 36.2 gram/dL 33.0-36. 0 H RED CELL DISTRIBUTION WIDTH (test code = RDW) 11.9 % 11.6-16. 2 N RED CELL DISTRIBUTION WIDTH SD (test code = RDW-SD) 40.3 fL 39 .2-49.5 N PLATELET COUNT (test code = PLT) 255 K/mm3 150-450 N MEAN PLATELET VOLUME (test code = MPV) 8.9 fL 6.7-11.0 N NEUTROPHIL % (test code = NT%) 36.8 % 39.0-69.0 L LYMPHOCYTE % (test code = LY%) 54.6 % 25.0-55.0 N MONOCYTE % (test code = MO%) 3.5 % 0.0-10.0 N EOSINOPHIL % (test code = EO%) 3.9 % 0.0-5.0 N BASOPHIL % (test code = BA%) 1.2 % 0.0-1.0 H NEUTROPHIL # (test code = NT#) 2.82 K/mm3 1.8-7.7 N LYMPHOCYTE # (test code = LY#) 4.18 K/mm3 1.0-5.0 N MONOCYTE # (test code = MO#) 0.27 K/mm3 0-0.8 N EOSINOPHIL # (test code = EO#) 0.30 K/mm3 0.0-0.5 N BASOPHIL # (test code = BA#) 0.09 K/mm3 0.0-0.2 N MANUAL DIFF REQUIRED (test code = MDIFF) NO URINALYSIS [id number] 18:54:00* Test Item Value Reference Range Interpretation Comments UA COLOR (test code = COLU) LIGHT YELLOW YELLOW UA APPEARANCE (test code = APPU) CLEAR CLEAR UA GLUCOSE DIPSTICK (test code = DGLUU) norm mg/dL NEGATIVE UA BILIRUBIN DIPSTICK (test code = BILU) NEGATIVE mg/dL NEGATIVE UA KETONE DIPSTICK (test code = KETU) neg mg/dL NEGATIVE UA SPECIFIC GRAVITY (test code = SGU) 1.010 1.001-1.035 UA BLOOD DIPSTICK (test code = RODOLFO) neg Dylan/uL NEGATIVE UA PH DIPSTICK (test code = LISS) 6.5 5.0-8.0 UA PROTEIN DIPSTICK (test code = PROU) neg mg/dL Neg-15 UA UROBILINIOGEN DIPSTICK (test code = URO) norm mg/dL 0.0-0.2 UA NITRITE DIPSTICK (test code = KIA) NEGATIVE NEGATIVE UA LEUKOCYTE ESTERASE DIPSTICK (test code = LEUU) neg uL NEGA TIVE UA WBC (test code = WBCU) NONE SEEN per HPF 0-5 IN SOME URINARY TRACT INFECTIONS THERE MAY NOT BE ENOUGHWBCs IN THE URINE TO TRIGGER AN AUTOMATIC (REFLEX) URINECULTURE. A SEPERATE ORDER FOR URINE CULTURE IS RECOMMENDEDIF THERE IS STRONG SUPPORT FOR A URINARY TRACT INFECTIONCLINICALLY. UA RBC (test code = RBCU) NONE SEEN per HPF 0-5 UA EPITHELIAL CELLS (test code = EPIU) Rare (0-1/hpf) per HPF Few UA BACTERIA (test code = BACU) NONE SEEN per HPF NONE Urine Source? Clean CatchBASIC METABOLIC [id number] 18:52:00* Test Item Value Reference Range Interpretation Comments SODIUM (test code = NA) 137 mmol/L 135-148 N POTASSIUM (test code = K) 3.7 mmol/L 3.5-5.1 N CHLORIDE (test code = CL) 102 mmol/L 101-109 N CARBON DIOXIDE (test code = CO2) 25.2 mmol/L 21-32 N ANION GAP (test code = GAP) 14 mmol/L 10-20 N GLUCOSE (test code = GLU) 276 mg/dL 74-106 H BLOOD UREA NITROGEN (test code = BUN) 12 mg/dL 3-21 N GLOMERULAR FILTRATION RATE (test code = GFR) > 60 mL/min >=60 Estimated GFR by using Modified MDRD formula.Chronic kidney disease is defined as either kidney damageor GFR <60 mL/min/1.73 m2 for >3 months. CREATININE (test code = CREAT) 0.82 mg/dL 0.55-1.3 N BUN/CREATININE RATIO (test code = BUN/CREA) 14.6 10-20 N CALCIUM (test code = CA) 9.0 mg/dL 8.4-10.2 N URINALYSIS [id number] 18:48:00* Test Item Value Reference Range Interpretation Comments UA COLOR (test code = COLU) LIGHT YELLOW YELLOW UA APPEARANCE (test code = APPU) CLEAR CLEAR UA GLUCOSE DIPSTICK (test code = DGLUU) norm mg/dL NEGATIVE UA BILIRUBIN DIPSTICK (test code = BILU) NEGATIVE mg/dL NEGATIVE UA KETONE DIPSTICK (test code = KETU) neg mg/dL NEGATIVE UA SPECIFIC GRAVITY (test code = SGU) 1.010 1.001-1.035 UA BLOOD DIPSTICK (test code = RODOLFO) neg Dylan/uL NEGATIVE UA PH DIPSTICK (test code = LISS) 6.5 5.0-8.0 UA PROTEIN DIPSTICK (test code = PROU) neg mg/dL Neg-15 UA UROBILINIOGEN DIPSTICK (test code = URO) norm mg/dL 0.0-0.2 UA NITRITE DIPSTICK (test code = KIA) NEGATIVE NEGATIVE UA LEUKOCYTE ESTERASE DIPSTICK (test code = LEUU) neg uL NEGA TIVE UA WBC (test code = WBCU) per HPF 0-5 Urine Source? Clean CatchCBC W/AUTO [id number] 18:42:00* Test Item Value Reference Range Interpretation Comments WHITE BLOOD CELL (test code = WBC) 9.5 K/mm3 4.5-12.5 N RED BLOOD CELL (test code = RBC) 4.08 mill/mm3 4.0-5.8 N HEMOGLOBIN (test code = HGB) 13.9 gram/dL 13.0-17.5 N HEMATOCRIT (test code = HCT) 40.0 % 42.0-52.0 L MEAN CELL VOLUME (test code = MCV) 98.0 fL 80-98 N MEAN CELL HGB (test code = MCH) 34.1 picogram 27.0-33.0 H MEAN CELL HGB CONCETRATION (test code = MCHC) 34.8 gram/dL 33.0-36. 0 N RED CELL DISTRIBUTION WIDTH (test code = RDW) 12.3 % 11.6-16. 2 N RED CELL DISTRIBUTION WIDTH SD (test code = RDW-SD) 42.0 fL 39 .2-49.5 N PLATELET COUNT (test code = PLT) 511 K/mm3 150-450 H MEAN PLATELET VOLUME (test code = MPV) 9.4 fL 6.7-11.0 N NEUTROPHIL % (test code = NT%) 59.2 % 39.0-69.0 N LYMPHOCYTE % (test code = LY%) 31.6 % 25.0-55.0 N MONOCYTE % (test code = MO%) 5.1 % 0.0-10.0 N EOSINOPHIL % (test code = EO%) 2.4 % 0.0-5.0 N BASOPHIL % (test code = BA%) 1.7 % 0.0-1.0 H NEUTROPHIL # (test code = NT#) 5.61 K/mm3 1.8-7.7 N LYMPHOCYTE # (test code = LY#) 2.99 K/mm3 1.0-5.0 N MONOCYTE # (test code = MO#) 0.48 K/mm3 0-0.8 N EOSINOPHIL # (test code = EO#) 0.23 K/mm3 0.0-0.5 N BASOPHIL # (test code = BA#) 0.16 K/mm3 0.0-0.2 N MANUAL DIFF REQUIRED (test code = MDIFF) NO [id number] 11:15:00* Test Item Value Reference Range Interpretation Comments GLUBED (test code = GLUBED) 134 mg/dL 74-106 H Performed by certified service unit operator at [facility] [id number] 05:50:00* Test Item Value Reference Range Interpretation Comments GLUBED (test code = GLUBED) 112 mg/dL 74-106 H Performed by certified service unit operator at [facility] BASIC METABOLIC [id number] 05:34:00* Test Item Value Reference Range Interpretation Comments SODIUM (test code = NA) 139 mmol/L 136-145 N POTASSIUM (test code = K) 3.3 mmol/L 3.5-5.1 L CHLORIDE (test code = CL) 107.0 mmol/L 98-107 N CARBON DIOXIDE (test code = CO2) 25.0 mmol/L 21-32 N ANION GAP (test code = GAP) 10.3 10-20 N GLUCOSE (test code = GLU) 113 mg/dL 74-106 H BLOOD UREA NITROGEN (test code = BUN) 7 mg/dL 7-18 N GLOMERULAR FILTRATION RATE (test code = GFR) > 60 mL/min >=60 Estimated GFR by using Modified MDRD formula.Chronic kidney disease is defined as either kidney damageor GFR <60 mL/min/1.73 m2 for >3 months. CREATININE (test code = CREAT) 0.60 mg/dL 0.7-1.3 L BUN/CREATININE RATIO (test code = BUN/CREA) 11.7 10-20 N CALCIUM (test code = CA) 8.2 mg/dL 8.5-10.1 L LIPID PROFILE (CORONARY RISK)2018-07-05 05:34:00* Test Item Value Reference Range Interpretation Comments TRIGLYCERIDES (test code = TRIG) 310 mg/dL 20-150 H CHOLESTEROL (test code = CHOL) 165 mg/dL 0-200 N CHOLESTEROL/HDL RATIO (test code = CHOLHDL) 9.0 RATIO 0-4.9 H RISK ASSOCIATED WITH CHOL/HDL RATIOS: Risk Male Female1/2 AVERAGE 3.43 3.27AVERAGE 4.97 4.442X AVERAGE 9.55 7.053X AVERAGE 23.39 11.04 REFERENCE VALUE IS RELATED TO RISK LEVELS ASRECOMMENDED BY THE [facility]. HEART, LUNG, AND BLOOD INST. HDL CHOLESTEROL (test code = HDL) 18 mg/dL 40-60 L LIPOPROTEIN LDL (test code = LDL) 107 mg/dL 100-129 N RN PERSONNEL, CONTACT PHYSICIAN IMMEDIATELY IF THIS IS A STROKE, AMI OR CAROTID STENOSIS PATIENT WHEN THE LDL >100 (1ST OCCURENCE, THIS ADMISSION) Reference Interval: mg/dL mmol/L Optimal <100 <2.6Near/above optimal 100-129 2.6- 3.3Borderline High 130-159 3.4-4.1High 160-189 4.1-4.9Very High >=190 >=4.9========= This LDL result is a direct measurement.========= HEPATIC FUNCTION [id number] 05:34:00* Test Item Value Reference Range Interpretation Comments TOTAL PROTEIN (test code = PROT) 6.8 gram/dL 6.4-8.2 N ALBUMIN (test code = ALB) 2.7 g/dL 3.4-5.0 L GLOBULIN (test code = GLOB) 4.1 gram/dL 2.7-4.2 N ALBUMIN/GLOBULIN RATIO (test code = A/G) 0.7 0.75-1.50 L BILIRUBIN TOTAL (test code = BILT) 2.60 mg/dL 0.0-1.0 H BILIRUBIN DIRECT (test code = BILD) 1.73 mg/dL 0.0-0.20 H SGOT/AST (test code = AST) 66 IUnit/L 15-37 H SGPT/ALT (test code = ALT) 158 IUnit/L 12-78 H ALKALINE PHOSPHATASE TOTAL (test code = ALKP) 125 IUnit/L 45-117 H Note change in reference range due to change in reagent. [id number] 05:34:00* Test Item Value Reference Range Interpretation Comments LIPASE (test code = LIP) 186 U/L 73.0-393.0 N BASIC METABOLIC [id number] 05:25:00* Test Item Value Reference Range Interpretation Comments SODIUM (test code = NA) 139 mmol/L 136-145 N POTASSIUM (test code = K) 3.3 mmol/L 3.5-5.1 L CHLORIDE (test code = CL) 107.0 mmol/L 98-107 N CARBON DIOXIDE (test code = CO2) mmol/L 21-32 ANION GAP (test code = GAP) 10-20 GLUCOSE (test code = GLU) mg/dL 74-106 BLOOD UREA NITROGEN (test code = BUN) mg/dL 7-18 GLOMERULAR FILTRATION RATE (test code = GFR) mL/min >=60 CREATININE (test code = CREAT) mg/dL 0.7-1.3 BUN/CREATININE RATIO (test code = BUN/CREA) 10-20 CALCIUM (test code = CA) mg/dL 8.5-10.1 LIPID PROFILE (CORONARY RISK)2018-07-05 05:25:00* Test Item Value Reference Range Interpretation Comments TRIGLYCERIDES (test code = TRIG) mg/dL 20-150 CHOLESTEROL (test code = CHOL) mg/dL 0-200 CHOLESTEROL/HDL RATIO (test code = CHOLHDL) RATIO 0-4.9 HDL CHOLESTEROL (test code = HDL) mg/dL 40-60 LIPOPROTEIN LDL (test code = LDL) mg/dL 100-129 HEPATIC FUNCTION [id number] 05:25:00* Test Item Value Reference Range Interpretation Comments TOTAL PROTEIN (test code = PROT) gram/dL 6.4-8.2 ALBUMIN (test code = ALB) g/dL 3.4-5.0 GLOBULIN (test code = GLOB) gram/dL 2.7-4.2 ALBUMIN/GLOBULIN RATIO (test code = A/G) 0.75-1.50 BILIRUBIN TOTAL (test code = BILT) mg/dL 0.0-1.0 BILIRUBIN DIRECT (test code = BILD) mg/dL 0.0-0.20 SGOT/AST (test code = AST) IUnit/L 15-37 SGPT/ALT (test code = ALT) IUnit/L 12-78 ALKALINE PHOSPHATASE TOTAL (test code = ALKP) IUnit/L 45-117 [id number] 05:25:00* Test Item Value Reference Range Interpretation Comments LIPASE (test code = LIP) U/L 73.0-393.0 CBC W/AUTO [id number] 04:53:00* Test Item Value Reference Range Interpretation Comments WHITE BLOOD CELL (test code = WBC) 10.1 K/mm3 4.5-12.5 N RED BLOOD CELL (test code = RBC) 4.06 mill/mm3 4.0-5.8 N HEMOGLOBIN (test code = HGB) 13.5 gram/dL 13.0-17.5 N HEMATOCRIT (test code = HCT) 39.8 % 42.0-52.0 L MEAN CELL VOLUME (test code = MCV) 98.0 fL 80-98 N MEAN CELL HGB (test code = MCH) 33.3 picogram 27.0-33.0 H MEAN CELL HGB CONCETRATION (test code = MCHC) 33.9 gram/dL 33.0-36. 0 N RED CELL DISTRIBUTION WIDTH (test code = RDW) 12.5 % 11.6-16. 2 N RED CELL DISTRIBUTION WIDTH SD (test code = RDW-SD) 45.4 fL 37 .0-51.0 N PLATELET COUNT (test code = PLT) 101 K/mm3 150-450 L MEAN PLATELET VOLUME (test code = MPV) 10.7 fL 6.7-11.0 N NEUTROPHIL % (test code = NT%) 70.8 % 39.0-69.0 H IMMATURE GRANULOCYTE % (test code = IG%) 0.5 % 0.0-5.0 N LYMPHOCYTE % (test code = LY%) 19.1 % 25.0-55.0 L MONOCYTE % (test code = MO%) 5.7 % 0.0-10.0 N EOSINOPHIL % (test code = EO%) 3.3 % 0.0-5.0 N BASOPHIL % (test code = BA%) 0.6 % 0.0-1.0 N NUCLEATED RBC % (test code = NRBC%) 0.0 % 0-0 N NEUTROPHIL # (test code = NT#) 7.14 K/mm3 1.8-7.7 N IMMATURE GRANULOCYTE # (test code = IG#) 0.05 x10 3/uL 0-0.03 H LYMPHOCYTE # (test code = LY#) 1.92 K/mm3 1.0-5.0 N MONOCYTE # (test code = MO#) 0.57 K/mm3 0-0.8 N EOSINOPHIL # (test code = EO#) 0.33 K/mm3 0.0-0.5 N BASOPHIL # (test code = BA#) 0.06 K/mm3 0.0-0.2 N NUCLEATED RBC # (test code = NRBC#) 0.00 K/mm3 0.0-0.1 N MANUAL DIFF REQUIRED (test code = MDIFF) NO CBC W/AUTO [id number] 04:50:00* Test Item Value Reference Range Interpretation Comments WHITE BLOOD CELL (test code = WBC) K/mm3 4.5-12.5 RED BLOOD CELL (test code = RBC) mill/mm3 4.0-5.8 HEMOGLOBIN (test code = HGB) 13.5 gram/dL 13.0-17.5 N HEMATOCRIT (test code = HCT) % 42.0-52.0 MEAN CELL VOLUME (test code = MCV) fL 80-98 MEAN CELL HGB (test code = MCH) picogram 27.0-33.0 MEAN CELL HGB CONCETRATION (test code = MCHC) gram/dL 33.0-36. 0 RED CELL DISTRIBUTION WIDTH (test code = RDW) % 11.6-16. 2 RED CELL DISTRIBUTION WIDTH SD (test code = RDW-SD) fL 37 .0-51.0 PLATELET COUNT (test code = PLT) K/mm3 150-450 MEAN PLATELET VOLUME (test code = MPV) fL 6.7-11.0 NEUTROPHIL % (test code = NT%) % 39.0-69.0 IMMATURE GRANULOCYTE % (test code = IG%) % 0.0-5.0 LYMPHOCYTE % (test code = LY%) % 25.0-55.0 MONOCYTE % (test code = MO%) % 0.0-10.0 EOSINOPHIL % (test code = EO%) % 0.0-5.0 BASOPHIL % (test code = BA%) % 0.0-1.0 NEUTROPHIL # (test code = NT#) K/mm3 1.8-7.7 LYMPHOCYTE # (test code = LY#) K/mm3 1.0-5.0 MONOCYTE # (test code = MO#) K/mm3 0-0.8 EOSINOPHIL # (test code = EO#) K/mm3 0.0-0.5 BASOPHIL # (test code = BA#) K/mm3 0.0-0.2 [id number] 00:50:00* Test Item Value Reference Range Interpretation Comments GLUBED (test code = GLUBED) 130 mg/dL 74-106 H Performed by certified service unit operator at [facility] [id number] 20:39:00* Test Item Value Reference Range Interpretation Comments GLUBED (test code = GLUBED) 147 mg/dL 74-106 H Performed by certified service unit operator at [facility] [id number] 16:56:00* Test Item Value Reference Range Interpretation Comments GLUBED (test code = GLUBED) 114 mg/dL 74-106 H Performed by certified service unit operator at [facility] [id number] 14:31:00* Test Item Value Reference Range Interpretation Comments GLUBED (test code = GLUBED) 111 mg/dL 74-106 H Performed by certified service unit operator at [facility] [id number] 06:24:00* Test Item Value Reference Range Interpretation Comments GLUBED (test code = GLUBED) 100 mg/dL 74-106 N Performed by certified service unit operator at [facility] CBC W/MANUAL [id number] 04:57:00* Test Item Value Reference Range Interpretation Comments WHITE BLOOD CELL (test code = WBC) 15.0 K/mm3 4.5-12.5 H RED BLOOD CELL (test code = RBC) 4.32 mill/mm3 4.0-5.8 N HEMOGLOBIN (test code = HGB) 13.9 gram/dL 13.0-17.5 N HEMATOCRIT (test code = HCT) 42.9 % 42.0-52.0 N MEAN CELL VOLUME (test code = MCV) 99.3 fL 80-98 H MEAN CELL HGB (test code = MCH) 32.2 picogram 27.0-33.0 N MEAN CELL HGB CONCETRATION (test code = MCHC) 32.4 gram/dL 33.0-36. 0 L RED CELL DISTRIBUTION WIDTH (test code = RDW) 12.6 % 11.6-16. 2 N RED CELL DISTRIBUTION WIDTH SD (test code = RDW-SD) 46.3 fL 37 .0-51.0 N PLATELET COUNT (test code = PLT) 84 K/mm3 150-450 L MEAN PLATELET VOLUME (test code = MPV) 10.9 fL 6.7-11.0 N IMMATURE GRANULOCYTE % (test code = IG%) 0.9 % 0.0-5.0 N NUCLEATED RBC % (test code = NRBC%) 0.0 % 0-0 N NEUTROPHIL # (test code = NT#) 12.60 K/mm3 1.8-7.7 H IMMATURE GRANULOCYTE # (test code = IG#) 0.14 x10 3/uL 0-0.03 H LYMPHOCYTE # (test code = LY#) 1.33 K/mm3 1.0-5.0 N MONOCYTE # (test code = MO#) 0.78 K/mm3 0-0.8 N EOSINOPHIL # (test code = EO#) 0.13 K/mm3 0.0-0.5 N BASOPHIL # (test code = BA#) 0.05 K/mm3 0.0-0.2 N NUCLEATED RBC # (test code = NRBC#) 0.00 K/mm3 0.0-0.1 N MANUAL DIFF REQUIRED (test code = MDIFF) YES STAIN ACCEPTABILITY (test code = STN ACCEPTABLE) STAIN ACCEPTABLE TOTAL CELLS COUNTED (test code = TCC) 114 #CELLS SEGMENTED NEUTROPHILS (test code = SEG) 84.4 % 39-69 H BAND NEUTROPHIL (test code = BAND) 7.8 % 0-10 N LYMPHOCYTE (test code = LYMPH) 4.3 % 25-55 L REACTIVE LYMPH (test code = RELYMPH) 0 % MONOCYTE (test code = MON) 0 % 0-10 N EOSINOPHIL (test code = EOS) 1.7 % 0.0-5.0 N BASOPHIL (test code = BASO) 0.9 % 0-1.0 N METAMYELOCYTE (test code = META) 0 % 0-0 N MYELOCYTE (test code = MYELO) 0 % 0.0-0.0 N PROMYELOCYTE (test code = PROM) 0.9 % 0-0 H ANISOCYTOSIS (test code = ANISO) 1+ MACROCYTOSIS (test code = MACR) 1+ PLATELET ESTIMATE (test code = PLTEST) DECREASED PLATELET MORPHOLOGY (test code = PLTMORPH) NORMAL IMMATURE FORMS (test code = IMMAT) 0 % BASIC METABOLIC [id number] 04:49:00* Test Item Value Reference Range Interpretation Comments SODIUM (test code = NA) 135 mmol/L 136-145 L POTASSIUM (test code = K) 3.6 mmol/L 3.5-5.1 N CHLORIDE (test code = CL) 102.0 mmol/L 98-107 N CARBON DIOXIDE (test code = CO2) mmol/L 21-32 ANION GAP (test code = GAP) 10-20 GLUCOSE (test code = GLU) mg/dL 74-106 BLOOD UREA NITROGEN (test code = BUN) mg/dL 7-18 GLOMERULAR FILTRATION RATE (test code = GFR) mL/min >=60 CREATININE (test code = CREAT) mg/dL 0.7-1.3 BUN/CREATININE RATIO (test code = BUN/CREA) 10-20 CALCIUM (test code = CA) mg/dL 8.5-10.1 [id number] 04:49:00* Test Item Value Reference Range Interpretation Comments LIPASE (test code = LIP) U/L 73.0-393.0 [id number] 04:49:00* Test Item Value Reference Range Interpretation Comments MAGNESIUM (test code = MAG) mg/dL 1.8-2.4 BASIC METABOLIC [id number] 04:49:00* Test Item Value Reference Range Interpretation Comments SODIUM (test code = NA) 135 mmol/L 136-145 L POTASSIUM (test code = K) 3.6 mmol/L 3.5-5.1 N CHLORIDE (test code = CL) 102.0 mmol/L 98-107 N CARBON DIOXIDE (test code = CO2) 26.0 mmol/L 21-32 N ANION GAP (test code = GAP) 10.6 10-20 N GLUCOSE (test code = GLU) 110 mg/dL 74-106 H BLOOD UREA NITROGEN (test code = BUN) 6 mg/dL 7-18 L GLOMERULAR FILTRATION RATE (test code = GFR) > 60 mL/min >=60 Estimated GFR by using Modified MDRD formula.Chronic kidney disease is defined as either kidney damageor GFR <60 mL/min/1.73 m2 for >3 months. CREATININE (test code = CREAT) 0.60 mg/dL 0.7-1.3 L BUN/CREATININE RATIO (test code = BUN/CREA) 10.0 10-20 N CALCIUM (test code = CA) 8.3 mg/dL 8.5-10.1 L [id number] 04:49:00* Test Item Value Reference Range Interpretation Comments LIPASE (test code = LIP) 227 U/L 73.0-393.0 N [id number] 04:49:00* Test Item Value Reference Range Interpretation Comments MAGNESIUM (test code = MAG) 1.9 mg/dL 1.8-2.4 N CBC W/MANUAL [id number] 04:30:00* Test Item Value Reference Range Interpretation Comments WHITE BLOOD CELL (test code = WBC) 15.0 K/mm3 4.5-12.5 H RED BLOOD CELL (test code = RBC) 4.32 mill/mm3 4.0-5.8 N HEMOGLOBIN (test code = HGB) 13.9 gram/dL 13.0-17.5 N HEMATOCRIT (test code = HCT) 42.9 % 42.0-52.0 N MEAN CELL VOLUME (test code = MCV) 99.3 fL 80-98 H MEAN CELL HGB (test code = MCH) 32.2 picogram 27.0-33.0 N MEAN CELL HGB CONCETRATION (test code = MCHC) 32.4 gram/dL 33.0-36. 0 L RED CELL DISTRIBUTION WIDTH (test code = RDW) 12.6 % 11.6-16. 2 N RED CELL DISTRIBUTION WIDTH SD (test code = RDW-SD) 46.3 fL 37 .0-51.0 N PLATELET COUNT (test code = PLT) 84 K/mm3 150-450 L MEAN PLATELET VOLUME (test code = MPV) 10.9 fL 6.7-11.0 N IMMATURE GRANULOCYTE % (test code = IG%) 0.9 % 0.0-5.0 N NUCLEATED RBC % (test code = NRBC%) 0.0 % 0-0 N NEUTROPHIL # (test code = NT#) 12.60 K/mm3 1.8-7.7 H IMMATURE GRANULOCYTE # (test code = IG#) 0.14 x10 3/uL 0-0.03 H LYMPHOCYTE # (test code = LY#) 1.33 K/mm3 1.0-5.0 N MONOCYTE # (test code = MO#) 0.78 K/mm3 0-0.8 N EOSINOPHIL # (test code = EO#) 0.13 K/mm3 0.0-0.5 N BASOPHIL # (test code = BA#) 0.05 K/mm3 0.0-0.2 N NUCLEATED RBC # (test code = NRBC#) 0.00 K/mm3 0.0-0.1 N MANUAL DIFF REQUIRED (test code = MDIFF) YES STAIN ACCEPTABILITY (test code = STN ACCEPTABLE) TOTAL CELLS COUNTED (test code = TCC) #CELLS SEGMENTED NEUTROPHILS (test code = SEG) % 39-69 LYMPHOCYTE (test code = LYMPH) % 25-55 MONOCYTE (test code = MON) % 0-10 EOSINOPHIL (test code = EOS) % 0.0-5.0 CABOT RINGS (test code = CAB) MORPHOLOGY COMMENT (test code = MOC) PLATELET ESTIMATE (test code = PLTEST) PLATELET MORPHOLOGY (test code = PLTMORPH) CBC W/MANUAL [id number] 04:30:00* Test Item Value Reference Range Interpretation Comments WHITE BLOOD CELL (test code = WBC) 15.0 K/mm3 4.5-12.5 H RED BLOOD CELL (test code = RBC) 4.32 mill/mm3 4.0-5.8 N HEMOGLOBIN (test code = HGB) 13.9 gram/dL 13.0-17.5 N HEMATOCRIT (test code = HCT) 42.9 % 42.0-52.0 N MEAN CELL VOLUME (test code = MCV) 99.3 fL 80-98 H MEAN CELL HGB (test code = MCH) 32.2 picogram 27.0-33.0 N MEAN CELL HGB CONCETRATION (test code = MCHC) 32.4 gram/dL 33.0-36. 0 L RED CELL DISTRIBUTION WIDTH (test code = RDW) 12.6 % 11.6-16. 2 N RED CELL DISTRIBUTION WIDTH SD (test code = RDW-SD) 46.3 fL 37 .0-51.0 N PLATELET COUNT (test code = PLT) 84 K/mm3 150-450 L MEAN PLATELET VOLUME (test code = MPV) 10.9 fL 6.7-11.0 N IMMATURE GRANULOCYTE % (test code = IG%) 0.9 % 0.0-5.0 N NUCLEATED RBC % (test code = NRBC%) 0.0 % 0-0 N NEUTROPHIL # (test code = NT#) 12.60 K/mm3 1.8-7.7 H IMMATURE GRANULOCYTE # (test code = IG#) 0.14 x10 3/uL 0-0.03 H LYMPHOCYTE # (test code = LY#) 1.33 K/mm3 1.0-5.0 N MONOCYTE # (test code = MO#) 0.78 K/mm3 0-0.8 N EOSINOPHIL # (test code = EO#) 0.13 K/mm3 0.0-0.5 N BASOPHIL # (test code = BA#) 0.05 K/mm3 0.0-0.2 N NUCLEATED RBC # (test code = NRBC#) 0.00 K/mm3 0.0-0.1 N MANUAL DIFF REQUIRED (test code = MDIFF) YES STAIN ACCEPTABILITY (test code = STN ACCEPTABLE) TOTAL CELLS COUNTED (test code = TCC) #CELLS SEGMENTED NEUTROPHILS (test code = SEG) % 39-69 LYMPHOCYTE (test code = LYMPH) % 25-55 MONOCYTE (test code = MON) % 0-10 EOSINOPHIL (test code = EOS) % 0.0-5.0 CABOT RINGS (test code = CAB) MORPHOLOGY COMMENT (test code = MOC) PLATELET ESTIMATE (test code = PLTEST) PLATELET MORPHOLOGY (test code = PLTMORPH) CBC W/MANUAL [id number] 04:30:00* Test Item Value Reference Range Interpretation Comments WHITE BLOOD CELL (test code = WBC) 15.0 K/mm3 4.5-12.5 H RED BLOOD CELL (test code = RBC) 4.32 mill/mm3 4.0-5.8 N HEMOGLOBIN (test code = HGB) 13.9 gram/dL 13.0-17.5 N HEMATOCRIT (test code = HCT) 42.9 % 42.0-52.0 N MEAN CELL VOLUME (test code = MCV) 99.3 fL 80-98 H MEAN CELL HGB (test code = MCH) 32.2 picogram 27.0-33.0 N MEAN CELL HGB CONCETRATION (test code = MCHC) 32.4 gram/dL 33.0-36. 0 L RED CELL DISTRIBUTION WIDTH (test code = RDW) 12.6 % 11.6-16. 2 N RED CELL DISTRIBUTION WIDTH SD (test code = RDW-SD) 46.3 fL 37 .0-51.0 N PLATELET COUNT (test code = PLT) 84 K/mm3 150-450 L MEAN PLATELET VOLUME (test code = MPV) 10.9 fL 6.7-11.0 N IMMATURE GRANULOCYTE % (test code = IG%) 0.9 % 0.0-5.0 N NUCLEATED RBC % (test code = NRBC%) 0.0 % 0-0 N NEUTROPHIL # (test code = NT#) 12.60 K/mm3 1.8-7.7 H IMMATURE GRANULOCYTE # (test code = IG#) 0.14 x10 3/uL 0-0.03 H LYMPHOCYTE # (test code = LY#) 1.33 K/mm3 1.0-5.0 N MONOCYTE # (test code = MO#) 0.78 K/mm3 0-0.8 N EOSINOPHIL # (test code = EO#) 0.13 K/mm3 0.0-0.5 N BASOPHIL # (test code = BA#) 0.05 K/mm3 0.0-0.2 N NUCLEATED RBC # (test code = NRBC#) 0.00 K/mm3 0.0-0.1 N MANUAL DIFF REQUIRED (test code = MDIFF) YES STAIN ACCEPTABILITY (test code = STN ACCEPTABLE) TOTAL CELLS COUNTED (test code = TCC) #CELLS SEGMENTED NEUTROPHILS (test code = SEG) % 39-69 LYMPHOCYTE (test code = LYMPH) % 25-55 MONOCYTE (test code = MON) % 0-10 EOSINOPHIL (test code = EOS) % 0.0-5.0 MORPHOLOGY COMMENT (test code = MOC) PLATELET ESTIMATE (test code = PLTEST) PLATELET MORPHOLOGY (test code = PLTMORPH) CBC W/MANUAL [id number] 04:30:00* Test Item Value Reference Range Interpretation Comments WHITE BLOOD CELL (test code = WBC) 15.0 K/mm3 4.5-12.5 H RED BLOOD CELL (test code = RBC) 4.32 mill/mm3 4.0-5.8 N HEMOGLOBIN (test code = HGB) 13.9 gram/dL 13.0-17.5 N HEMATOCRIT (test code = HCT) 42.9 % 42.0-52.0 N MEAN CELL VOLUME (test code = MCV) 99.3 fL 80-98 H MEAN CELL HGB (test code = MCH) 32.2 picogram 27.0-33.0 N MEAN CELL HGB CONCETRATION (test code = MCHC) 32.4 gram/dL 33.0-36. 0 L RED CELL DISTRIBUTION WIDTH (test code = RDW) 12.6 % 11.6-16. 2 N RED CELL DISTRIBUTION WIDTH SD (test code = RDW-SD) 46.3 fL 37 .0-51.0 N PLATELET COUNT (test code = PLT) 84 K/mm3 150-450 L MEAN PLATELET VOLUME (test code = MPV) 10.9 fL 6.7-11.0 N IMMATURE GRANULOCYTE % (test code = IG%) 0.9 % 0.0-5.0 N NUCLEATED RBC % (test code = NRBC%) 0.0 % 0-0 N NEUTROPHIL # (test code = NT#) 12.60 K/mm3 1.8-7.7 H IMMATURE GRANULOCYTE # (test code = IG#) 0.14 x10 3/uL 0-0.03 H LYMPHOCYTE # (test code = LY#) 1.33 K/mm3 1.0-5.0 N MONOCYTE # (test code = MO#) 0.78 K/mm3 0-0.8 N EOSINOPHIL # (test code = EO#) 0.13 K/mm3 0.0-0.5 N BASOPHIL # (test code = BA#) 0.05 K/mm3 0.0-0.2 N NUCLEATED RBC # (test code = NRBC#) 0.00 K/mm3 0.0-0.1 N MANUAL DIFF REQUIRED (test code = MDIFF) YES STAIN ACCEPTABILITY (test code = STN ACCEPTABLE) TOTAL CELLS COUNTED (test code = TCC) #CELLS SEGMENTED NEUTROPHILS (test code = SEG) % 39-69 LYMPHOCYTE (test code = LYMPH) % 25-55 MONOCYTE (test code = MON) % 0-10 MORPHOLOGY COMMENT (test code = MOC) PLATELET ESTIMATE (test code = PLTEST) PLATELET MORPHOLOGY (test code = PLTMORPH) CBC W/MANUAL [id number] 04:30:00* Test Item Value Reference Range Interpretation Comments WHITE BLOOD CELL (test code = WBC) 15.0 K/mm3 4.5-12.5 H RED BLOOD CELL (test code = RBC) 4.32 mill/mm3 4.0-5.8 N HEMOGLOBIN (test code = HGB) 13.9 gram/dL 13.0-17.5 N HEMATOCRIT (test code = HCT) 42.9 % 42.0-52.0 N MEAN CELL VOLUME (test code = MCV) 99.3 fL 80-98 H MEAN CELL HGB (test code = MCH) 32.2 picogram 27.0-33.0 N MEAN CELL HGB CONCETRATION (test code = MCHC) 32.4 gram/dL 33.0-36. 0 L RED CELL DISTRIBUTION WIDTH (test code = RDW) 12.6 % 11.6-16. 2 N RED CELL DISTRIBUTION WIDTH SD (test code = RDW-SD) 46.3 fL 37 .0-51.0 N PLATELET COUNT (test code = PLT) 84 K/mm3 150-450 L MEAN PLATELET VOLUME (test code = MPV) 10.9 fL 6.7-11.0 N IMMATURE GRANULOCYTE % (test code = IG%) 0.9 % 0.0-5.0 N NUCLEATED RBC % (test code = NRBC%) 0.0 % 0-0 N NEUTROPHIL # (test code = NT#) 12.60 K/mm3 1.8-7.7 H IMMATURE GRANULOCYTE # (test code = IG#) 0.14 x10 3/uL 0-0.03 H LYMPHOCYTE # (test code = LY#) 1.33 K/mm3 1.0-5.0 N MONOCYTE # (test code = MO#) 0.78 K/mm3 0-0.8 N EOSINOPHIL # (test code = EO#) 0.13 K/mm3 0.0-0.5 N BASOPHIL # (test code = BA#) 0.05 K/mm3 0.0-0.2 N NUCLEATED RBC # (test code = NRBC#) 0.00 K/mm3 0.0-0.1 N MANUAL DIFF REQUIRED (test code = MDIFF) YES STAIN ACCEPTABILITY (test code = STN ACCEPTABLE) TOTAL CELLS COUNTED (test code = TCC) #CELLS SEGMENTED NEUTROPHILS (test code = SEG) % 39-69 LYMPHOCYTE (test code = LYMPH) % 25-55 MONOCYTE (test code = MON) % 0-10 EOSINOPHIL (test code = EOS) % 0.0-5.0 CABOT RINGS (test code = CAB) MORPHOLOGY COMMENT (test code = MOC) PLATELET ESTIMATE (test code = PLTEST) PLATELET MORPHOLOGY (test code = PLTMORPH) [id number] 21:22:00* Test Item Value Reference Range Interpretation Comments GLUBED (test code = GLUBED) 132 mg/dL 74-106 H Performed by certified service unit operator at [facility] [id number] 12:17:00* Test Item Value Reference Range Interpretation Comments GLUBED (test code = GLUBED) 127 mg/dL 74-106 H Performed by certified service unit operator at [facility] [id number] 06:30:00* Test Item Value Reference Range Interpretation Comments GLUBED (test code = GLUBED) 145 mg/dL 74-106 H [facility] certified service [facility]ified [facility]~ COMPREHENSIVE METABOLIC [id number] 04:45:00* Test Item Value Reference Range Interpretation Comments SODIUM (test code = NA) 137 mmol/L 136-145 N POTASSIUM (test code = K) 3.6 mmol/L 3.5-5.1 N CHLORIDE (test code = CL) 102.0 mmol/L 98-107 N CARBON DIOXIDE (test code = CO2) 24.0 mmol/L 21-32 N ANION GAP (test code = GAP) 14.6 10-20 N GLUCOSE (test code = GLU) 155 mg/dL 74-106 H BLOOD UREA NITROGEN (test code = BUN) 4 mg/dL 7-18 L GLOMERULAR FILTRATION RATE (test code = GFR) > 60 mL/min >=60 Estimated GFR by using Modified MDRD formula.Chronic kidney disease is defined as either kidney damageor GFR <60 mL/min/1.73 m2 for >3 months. CREATININE (test code = CREAT) 0.60 mg/dL 0.7-1.3 L BUN/CREATININE RATIO (test code = BUN/CREA) 6.7 10-20 L TOTAL PROTEIN (test code = PROT) 7.1 gram/dL 6.4-8.2 N ALBUMIN (test code = ALB) 3.1 g/dL 3.4-5.0 L GLOBULIN (test code = GLOB) 4.0 gram/dL 2.7-4.2 N ALBUMIN/GLOBULIN RATIO (test code = A/G) 0.8 0.75-1.50 N CALCIUM (test code = CA) 8.3 mg/dL 8.5-10.1 L BILIRUBIN TOTAL (test code = BILT) 3.70 mg/dL 0.0-1.0 H SGOT/AST (test code = AST) 358 IUnit/L 15-37 H SGPT/ALT (test code = ALT) 413 IUnit/L 12-78 H ALKALINE PHOSPHATASE TOTAL (test code = ALKP) 146 IUnit/L 45-117 H Note change in reference range due to change in reagent. [id number] 04:45:00* Test Item Value Reference Range Interpretation Comments LIPASE (test code = LIP) 978 U/L 73.0-393.0 H COMPREHENSIVE METABOLIC [id number] 04:41:00* Test Item Value Reference Range Interpretation Comments SODIUM (test code = NA) 137 mmol/L 136-145 N POTASSIUM (test code = K) 3.6 mmol/L 3.5-5.1 N CHLORIDE (test code = CL) 102.0 mmol/L 98-107 N CARBON DIOXIDE (test code = CO2) mmol/L 21-32 ANION GAP (test code = GAP) 10-20 GLUCOSE (test code = GLU) mg/dL 74-106 BLOOD UREA NITROGEN (test code = BUN) mg/dL 7-18 GLOMERULAR FILTRATION RATE (test code = GFR) mL/min >=60 CREATININE (test code = CREAT) mg/dL 0.7-1.3 BUN/CREATININE RATIO (test code = BUN/CREA) 10-20 TOTAL PROTEIN (test code = PROT) gram/dL 6.4-8.2 ALBUMIN (test code = ALB) g/dL 3.4-5.0 GLOBULIN (test code = GLOB) gram/dL 2.7-4.2 ALBUMIN/GLOBULIN RATIO (test code = A/G) 0.75-1.50 CALCIUM (test code = CA) mg/dL 8.5-10.1 BILIRUBIN TOTAL (test code = BILT) mg/dL 0.0-1.0 SGOT/AST (test code = AST) IUnit/L 15-37 SGPT/ALT (test code = ALT) IUnit/L 12-78 ALKALINE PHOSPHATASE TOTAL (test code = ALKP) IUnit/L 45-117 [id number] 04:41:00* Test Item Value Reference Range Interpretation Comments LIPASE (test code = LIP) U/L 73.0-393.0 CBC W/AUTO [id number] 04:20:00* Test Item Value Reference Range Interpretation Comments WHITE BLOOD CELL (test code = WBC) 13.6 K/mm3 4.5-12.5 H RED BLOOD CELL (test code = RBC) 4.53 mill/mm3 4.0-5.8 N HEMOGLOBIN (test code = HGB) 15.0 gram/dL 13.0-17.5 N HEMATOCRIT (test code = HCT) 43.0 % 42.0-52.0 N MEAN CELL VOLUME (test code = MCV) 95.1 fL 80-98 N MEAN CELL HGB (test code = MCH) 32.9 picogram 27.0-33.0 N MEAN CELL HGB CONCETRATION (test code = MCHC) 34.6 gram/dL 33.0-36. 0 N RED CELL DISTRIBUTION WIDTH (test code = RDW) 13.0 % 11.6-16. 2 N RED CELL DISTRIBUTION WIDTH SD (test code = RDW-SD) 45.6 fL 37 .0-51.0 N PLATELET COUNT (test code = PLT) 107 K/mm3 150-450 L MEAN PLATELET VOLUME (test code = MPV) 10.2 fL 6.7-11.0 N NEUTROPHIL % (test code = NT%) 87.2 % 39.0-69.0 H IMMATURE GRANULOCYTE % (test code = IG%) 0.7 % 0.0-5.0 N LYMPHOCYTE % (test code = LY%) 7.4 % 25.0-55.0 L MONOCYTE % (test code = MO%) 4.2 % 0.0-10.0 N EOSINOPHIL % (test code = EO%) 0.1 % 0.0-5.0 N BASOPHIL % (test code = BA%) 0.4 % 0.0-1.0 N NUCLEATED RBC % (test code = NRBC%) 0.0 % 0-0 N NEUTROPHIL # (test code = NT#) 11.89 K/mm3 1.8-7.7 H IMMATURE GRANULOCYTE # (test code = IG#) 0.09 x10 3/uL 0-0.03 H LYMPHOCYTE # (test code = LY#) 1.01 K/mm3 1.0-5.0 N MONOCYTE # (test code = MO#) 0.57 K/mm3 0-0.8 N EOSINOPHIL # (test code = EO#) 0.02 K/mm3 0.0-0.5 N BASOPHIL # (test code = BA#) 0.06 K/mm3 0.0-0.2 N NUCLEATED RBC # (test code = NRBC#) 0.00 K/mm3 0.0-0.1 N CBC W/AUTO [id number] 04:18:00* Test Item Value Reference Range Interpretation Comments WHITE BLOOD CELL (test code = WBC) K/mm3 4.5-12.5 RED BLOOD CELL (test code = RBC) mill/mm3 4.0-5.8 HEMOGLOBIN (test code = HGB) 15.0 gram/dL 13.0-17.5 N HEMATOCRIT (test code = HCT) 43.0 % 42.0-52.0 N MEAN CELL VOLUME (test code = MCV) fL 80-98 MEAN CELL HGB (test code = MCH) picogram 27.0-33.0 MEAN CELL HGB CONCETRATION (test code = MCHC) gram/dL 33.0-36. 0 RED CELL DISTRIBUTION WIDTH (test code = RDW) % 11.6-16. 2 RED CELL DISTRIBUTION WIDTH SD (test code = RDW-SD) fL 37 .0-51.0 PLATELET COUNT (test code = PLT) K/mm3 150-450 MEAN PLATELET VOLUME (test code = MPV) fL 6.7-11.0 NEUTROPHIL % (test code = NT%) % 39.0-69.0 IMMATURE GRANULOCYTE % (test code = IG%) % 0.0-5.0 LYMPHOCYTE % (test code = LY%) % 25.0-55.0 MONOCYTE % (test code = MO%) % 0.0-10.0 EOSINOPHIL % (test code = EO%) % 0.0-5.0 BASOPHIL % (test code = BA%) % 0.0-1.0 NEUTROPHIL # (test code = NT#) K/mm3 1.8-7.7 LYMPHOCYTE # (test code = LY#) K/mm3 1.0-5.0 MONOCYTE # (test code = MO#) K/mm3 0-0.8 EOSINOPHIL # (test code = EO#) K/mm3 0.0-0.5 BASOPHIL # (test code = BA#) K/mm3 0.0-0.2 [id number] 01:58:00* Test Item Value Reference Range Interpretation Comments GLUBED (test code = GLUBED) 120 mg/dL 74-106 H Performed by certified service unit operator at [facility] [id number] 23:01:00* Test Item Value Reference Range Interpretation Comments AMMONIA (test code = AMM) 56 umol/L 11-32 H PROTHROMBIN [id number] 22:32:00* Test Item Value Reference Range Interpretation Comments PROTHROMBIN TIME PATIENT (test code = PTP) 13.8 seconds 9.0-14.0 N INTERNATIONAL NORMAL RATIO (test code = INR) 1.2 0.8-1.2 N The therapeutic range for oral anticoagulant therapy [...] (2.5-3.5) IS PATIENT ON ANTICOAGULANTS? NTHROMBOPLASTIN TIME [id number] 22:32:00* Test Item Value Reference Range Interpretation Comments THROMBOPLASTIN TIME PARTIAL (test code = PTT) 35.3 seconds 25.0-36. 5 N IS PATIENT ON ANTICOAGULANTS? NDRUGS OF ABUSE SCREEN [id number] 21:58:00* Test Item Value Reference Range Interpretation Comments UA PH DIPSTICK (test code = LISS) 7.0 5.0-8.0 URN COCAINE (test code = COCAURN) NEGATIVE <300 ng/mL URN CANNABINOIDS (test code = CANNABURN) NEGATIVE <50 ng/mL URN AMPHETAMINE (test code = AMPHETURN) NEGATIVE <1000 ng/mL URN BARBITURATE (test code = BARBITURN) NEGATIVE <200 ng/mL URN BENZODIAZEPINE (test code = BENZOURN) NEGATIVE <200 ng/mL URN OPIATES (test code = OPIATURN) NEGATIVE <300 ng/mL URN PHENCYCLIDINE (PCP) (test code = PHENCURN) NEGATIVE <25 ng/ mL URN METHADONE (test code = METHAURN) NEGATIVE <300 ng/mL DRUGS OF ABUSE SCREEN [id number] 21:28:00* Test Item Value Reference Range Interpretation Comments UA PH DIPSTICK (test code = LISS) 7.0 5.0-8.0 URN COCAINE (test code = COCAURN) <300 ng/mL URN CANNABINOIDS (test code = CANNABURN) <50 ng/mL URN AMPHETAMINE (test code = AMPHETURN) <1000 ng/mL URN BARBITURATE (test code = BARBITURN) <200 ng/mL URN BENZODIAZEPINE (test code = BENZOURN) <200 ng/mL URN OPIATES (test code = OPIATURN) <300 ng/mL URN PHENCYCLIDINE (PCP) (test code = PHENCURN) <25 ng/ mL URN METHADONE (test code = METHAURN) <300 ng/mL [id number] 21:09:00* Test Item Value Reference Range Interpretation Comments GLUBED (test code = GLUBED) 152 mg/dL 74-106 H Performed by certified service unit operator at [facility] LACTIC [id number] 17:36:00* Test Item Value Reference Range Interpretation Comments LACTIC ACID (test code = LACT) 1.7 MMOL/L 0.4-1.9 N BASIC METABOLIC [id number] 16:34:00* Test Item Value Reference Range Interpretation Comments SODIUM (test code = NA) 137 mmol/L 135-148 N POTASSIUM (test code = K) 3.3 mmol/L 3.5-5.1 L CHLORIDE (test code = CL) 102 mmol/L 101-109 N CARBON DIOXIDE (test code = CO2) 19.6 mmol/L 21-32 L ANION GAP (test code = GAP) 19 mmol/L 10-20 N GLUCOSE (test code = GLU) 198 mg/dL 74-106 H BLOOD UREA NITROGEN (test code = BUN) 5 mg/dL 3-21 N GLOMERULAR FILTRATION RATE (test code = GFR) > 60 mL/min >=60 Estimated GFR by using Modified MDRD formula.Chronic kidney disease is defined as either kidney damageor GFR <60 mL/min/1.73 m2 for >3 months. CREATININE (test code = CREAT) 0.59 mg/dL 0.55-1.3 N BUN/CREATININE RATIO (test code = BUN/CREA) 8.5 10-20 L CALCIUM (test code = CA) 7.1 mg/dL 8.4-10.2 L - US ABDOMEN [id number] 16:23:00 Name: LUIS SNYDER [facility] : 1980 Age/S: 38 / M [address] Unit #: [id number] Loc: [place] [address] Phys: Nidhi Falcon MD Acct: [id number] Dis Date: Status: REG ER PHONE #: [phone] Exam Date: 07/02/2018 1558 FAX #: [phone] Reason: AP, h/o pancreatitis, elevated LFTs EXAMS: CPT CODE: [id number] US ABDOMEN LTD [id number] REASON FOR EXAM: AP, h/o pancreatitis, elevated [...] CC: Nidhi Falcon MD Technologist: Coco Andrade RDMS Trnscb Date/Time: 07/02/2018 (1622) Franca Orig Print D/T: S: 07/02/2018 (1277) Probe: PAGE 1 Signed Report URINALYSIS [id number] 16:22:00* Test Item Value Reference Range Interpretation Comments UA COLOR (test code = COLU) YELLOW YELLOW UA APPEARANCE (test code = APPU) CLEAR CLEAR UA GLUCOSE DIPSTICK (test code = DGLUU) NORMAL mg/dL NEGATIVE UA BILIRUBIN DIPSTICK (test code = BILU) NEGATIVE mg/dL NEGATIVE UA KETONE DIPSTICK (test code = KETU) neg mg/dL NEGATIVE UA SPECIFIC GRAVITY (test code = SGU) 1.005 1.001-1.035 UA BLOOD DIPSTICK (test code = RODOLFO) neg Dylan/uL NEGATIVE UA PH DIPSTICK (test code = LISS) 7.0 5.0-8.0 UA PROTEIN DIPSTICK (test code = PROU) 15 (TRACE) mg/dL Neg-15 A UA UROBILINIOGEN DIPSTICK (test code = URO) norm mg/dL 0.0-0.2 UA NITRITE DIPSTICK (test code = KIA) NEGATIVE NEGATIVE UA LEUKOCYTE ESTERASE DIPSTICK (test code = LEUU) NEGATIVE uL NEGA TIVE UA WBC (test code = WBCU) 0-5 per HPF 0-5 IN SOME URINARY TRACT INFECTIONS THERE MAY NOT BE ENOUGHWBCs IN THE URINE TO TRIGGER AN AUTOMATIC (REFLEX) URINECULTURE. A SEPERATE ORDER FOR URINE CULTURE IS RECOMMENDEDIF THERE IS STRONG SUPPORT FOR A URINARY TRACT INFECTIONCLINICALLY. UA RBC (test code = RBCU) NONE SEEN per HPF 0-5 UA EPITHELIAL CELLS (test code = EPIU) Rare (0-1/hpf) per HPF Few UA BACTERIA (test code = BACU) NONE SEEN per HPF NONE Urine Source? Clean [id number] 15:11:00* Test Item Value Reference Range Interpretation Comments ALCOHOL (test code = ALC) 213 mg/dL 0.0-3.0 H -- INTERPRETIVE DATA NOTE: POSITIVE SCREENING RESULTS SHOULD BE CONSIDERED PRESUMPTIVE.WHEN COLLECTED FOR MEDICAL PURPOSES ONLY. SPECIMEN WILL NOTBE COLLECTED BY CHAIN OF CUSTODY.IF A CONFIRMATION OF POSITIVE RESULTS IS DESIRED, ACONFIRMATION TEST MUST BE REQUESTED BY THE PHYSICIAN AT ANADDITIONAL CHARGE TO THE PATIENT. ADD ON- CT ABD PELVIS [id number] 15:10:00 Name: LUIS SNYDER [facility] : 1980 Age/S: 38 / M [address] Unit #: [id number] Loc: [place] [address] Phys: Nidhi Falcon MD Acct: [id number] Dis Date: Status: REG ER PHONE #: [phone] Exam Date: 07/02/2018 1503 FAX #: [phone] Reason: abd pain, vomiting, h/o pancreatitis EXAMS: CPT CODE: [id number] CT ABD PELVIS W/CONT 43955 HISTORY: Abdominal pain and vomiting. COMPARISON: None [...] 1 Pat d Report (CONTINUED) [facility] 1980 Age/S: 38 / M [address] Unit #: [id number] Loc: [place] [address] Phys: Nidhi Falcon MD Acct: [id number] Dis Date: Status: REG ER PHONE #: [phone] Exam Date: 07/02/2018 1 503 FAX #: [phone] Reason: abd pain, vomiting, h/o pancreatitis EXAMS: CPT CODE: [id number] CT ABD PELVIS W/CONT 39782 <Continued> IMPRESSION: Acute pancreatitis involving the pancreatic [...] Rao CTDI: DLP: Trnscb Date/Time: 07/02/2018 (151) [email or web address] Orig Print D/T: S: 07/02/2018 (1513) CTDI: DLP: PAGE 2 Signed Report LACTIC [id number] 14:09:00* Test Item Value Reference Range Interpretation Comments LACTIC ACID (test code = LACT) 2.1 MMOL/L 0.4-1.9 HH Results called to Manju CEDILLO [email or web address] 07/02/18 1409Critical results verified and read back by Nurse? Y BASIC METABOLIC [id number] 14:09:00* Test Item Value Reference Range Interpretation Comments SODIUM (test code = NA) 135 mmol/L 135-148 N POTASSIUM (test code = K) 3.5 mmol/L 3.5-5.1 N CHLORIDE (test code = CL) 98 mmol/L 101-109 L CARBON DIOXIDE (test code = CO2) 19.5 mmol/L 21-32 L ANION GAP (test code = GAP) 21 mmol/L 10-20 H GLUCOSE (test code = GLU) 196 mg/dL 74-106 H BLOOD UREA NITROGEN (test code = BUN) 5 mg/dL 3-21 N GLOMERULAR FILTRATION RATE (test code = GFR) > 60 mL/min >=60 Estimated GFR by using Modified MDRD formula.Chronic kidney disease is defined as either kidney damageor GFR <60 mL/min/1.73 m2 for >3 months. CREATININE (test code = CREAT) 0.64 mg/dL 0.55-1.3 N BUN/CREATININE RATIO (test code = BUN/CREA) 7.8 10-20 L CALCIUM (test code = CA) 7.7 mg/dL 8.4-10.2 L HEPATIC FUNCTION [id number] 14:09:00* Test Item Value Reference Range Interpretation Comments TOTAL PROTEIN (test code = PROT) 7.3 g/dL 6.5-8.4 N ALBUMIN (test code = ALB) 3.2 g/dL 3.4-4.8 L GLOBULIN (test code = GLOB) 4.1 G/DL 1-10 N ALBUMIN/GLOBULIN RATIO (test code = A/G) 0.8 RATIO 0.75-1.50 N BILIRUBIN TOTAL (test code = BILT) 2.60 mg/dL 0.0-1.0 H BILIRUBIN DIRECT (test code = BILD) 1.40 mg/dL 0.0-0.30 H SGOT/AST (test code = AST) 511 U/L 6-32 H SGPT/ALT (test code = ALT) 568 U/L 12-78 H N ote: Change in REFERENCE RANGE due to new reagent method. ALKALINE PHOSPHATASE TOTAL (test code = ALKP) 141 U/L 38-126 H [id number] 14:09:00* Test Item Value Reference Range Interpretation Comments LIPASE (test code = LIP) 679 U/L 128-270 H [id number] 14:09:00* Test Item Value Reference Range Interpretation Comments TROPONIN-I (test code = TROPI) <0.015 ng/mL 0.00-0.056 N BASIC METABOLIC [id number] 14:00:00* Test Item Value Reference Range Interpretation Comments SODIUM (test code = NA) 135 mmol/L 135-148 N POTASSIUM (test code = K) 3.5 mmol/L 3.5-5.1 N CHLORIDE (test code = CL) 98 mmol/L 101-109 L CARBON DIOXIDE (test code = CO2) 19.5 mmol/L 21-32 L ANION GAP (test code = GAP) 21 mmol/L 10-20 H GLUCOSE (test code = GLU) 196 mg/dL 74-106 H BLOOD UREA NITROGEN (test code = BUN) 5 mg/dL 3-21 N GLOMERULAR FILTRATION RATE (test code = GFR) > 60 mL/min >=60 Estimated GFR by using Modified MDRD formula.Chronic kidney disease is defined as either kidney damageor GFR <60 mL/min/1.73 m2 for >3 months. CREATININE (test code = CREAT) 0.64 mg/dL 0.55-1.3 N BUN/CREATININE RATIO (test code = BUN/CREA) 7.8 10-20 L CALCIUM (test code = CA) 7.7 mg/dL 8.4-10.2 L HEPATIC FUNCTION [id number] 14:00:00* Test Item Value Reference Range Interpretation Comments TOTAL PROTEIN (test code = PROT) gram/dL 6.4-8.2 ALBUMIN (test code = ALB) g/dL 3.4-5.0 GLOBULIN (test code = GLOB) g/dL 2.7-4.2 ALBUMIN/GLOBULIN RATIO (test code = A/G) 0.75-1.50 BILIRUBIN TOTAL (test code = BILT) mg/dL 0.2-1.2 BILIRUBIN DIRECT (test code = BILD) mg/dL 0.0-0.20 SGOT/AST (test code = AST) IUnit/L 15-37 SGPT/ALT (test code = ALT) U/L 10-69 ALKALINE PHOSPHATASE TOTAL (test code = ALKP) IUnit/L 45-117 [id number] 14:00:00* Test Item Value Reference Range Interpretation Comments LIPASE (test code = LIP) Unit/L 144-286 [id number] 14:00:00* Test Item Value Reference Range Interpretation Comments TROPONIN-I (test code = TROPI) ng/mL 0-0.045 - XR CHEST 1 [id number] 13:58:00 Name: LUIS SNYDER [facility] : 1980 Age/S:38 /M [address] Unit#:[id number] Loc: [place] [address] Phys: Nidhi Falcon MD Dis Date: PHONE #: [phone] Status: PRE ER FAX #: [phone] Exam Date: 07/02/2018 Reason: CODE SEPSIS EXAMS: CPT CODE: [id number] XR CHEST 1 V 31228 HISTORY: Sepsis. COMPARISON: None available. No acute infiltrates, effusion or congestion is noted. Cardiomegaly. IMPRESSION: No acute infiltrates, effusion or congestion. at 1352 Reported and signed by: Jose Alberto Kent M.D. CC: Nidhi Falcon MD Technologist: Kathy Rao Trnscrpt Data: 07/02/2018 ([id number]) [id number] Orig Print D/T: S: 07/02/2018 (0989) PAGE 1 Signed Report CBC W/AUTO DIFF 2018-07-02 13:52:00* Test Item Value Reference Range Interpretation Comments WHITE BLOOD CELL (test code = WBC) 13.0 K/mm3 4.5-12.5 H RED BLOOD CELL (test code = RBC) 4.54 mill/mm3 4.0-5.8 N HEMOGLOBIN (test code = HGB) 15.3 gram/dL 13.0-17.5 N HEMATOCRIT (test code = HCT) 42.5 % 42.0-52.0 N MEAN CELL VOLUME (test code = MCV) 93.6 fL 80-98 N MEAN CELL HGB (test code = MCH) 33.7 picogram 27.0-33.0 H MEAN CELL HGB CONCETRATION (test code = MCHC) 36.0 gram/dL 33.0-36. 0 N RED CELL DISTRIBUTION WIDTH (test code = RDW) 13.0 % 11.6-16. 2 N RED CELL DISTRIBUTION WIDTH SD (test code = RDW-SD) 43.0 fL 39 .2-49.5 N PLATELET COUNT (test code = PLT) 137 K/mm3 150-450 L MEAN PLATELET VOLUME (test code = MPV) 9.6 fL 6.7-11.0 N NEUTROPHIL % (test code = NT%) 83.4 % 39.0-69.0 H LYMPHOCYTE % (test code = LY%) 11.6 % 25.0-55.0 L MONOCYTE % (test code = MO%) 4.5 % 0.0-10.0 N EOSINOPHIL % (test code = EO%) 0.1 % 0.0-5.0 N BASOPHIL % (test code = BA%) 0.4 % 0.0-1.0 N NEUTROPHIL # (test code = NT#) 10.83 K/mm3 1.8-7.7 H LYMPHOCYTE # (test code = LY#) 1.51 K/mm3 1.0-5.0 N MONOCYTE # (test code = MO#) 0.58 K/mm3 0-0.8 N EOSINOPHIL # (test code = EO#) 0.01 K/mm3 0.0-0.5 N BASOPHIL # (test code = BA#) 0.05 K/mm3 0.0-0.2 N MANUAL DIFF REQUIRED (test code = MDIFF) NO [id number] 15:09:00* Test Item Value Reference Range Interpretation Comments GLUBED (test code = GLUBED) 211 mg/dL 74-106 H Performed by certified service unit operator at [facility] [id number] 15:09:00* Test Item Value Reference Range Interpretation Comments GLUBED (test code = GLUBED) 316 mg/dL 74-106 H Performed by certified service unit operator at [facility] COMPREHENSIVE METABOLIC [id number] 15:02:00* Test Item Value Reference Range Interpretation Comments SODIUM (test code = NA) 139 mmol/L 135-148 N POTASSIUM (test code = K) 3.3 mmol/L 3.5-5.1 L CHLORIDE (test code = CL) 101 mmol/L 101-109 N CARBON DIOXIDE (test code = CO2) 26.4 mmol/L 21-32 N ANION GAP (test code = GAP) 15 mmol/L 10-20 N GLUCOSE (test code = GLU) 308 mg/dL 74-106 H BLOOD UREA NITROGEN (test code = BUN) 10 mg/dL 3-21 N CREATININE (test code = CREAT) 0.94 mg/dL 0.55-1.3 N BUN/CREATININE RATIO (test code = BUN/CREA) 10.6 10-20 N TOTAL PROTEIN (test code = PROT) 7.6 g/dL 6.5-8.4 N ALBUMIN (test code = ALB) 3.7 g/dL 3.4-4.8 N GLOBULIN (test code = GLOB) 3.9 G/DL 1-10 N ALBUMIN/GLOBULIN RATIO (test code = A/G) 0.9 RATIO 0.75-1.50 N CALCIUM (test code = CA) 8.6 mg/dL 8.4-10.2 N BILIRUBIN TOTAL (test code = BILT) 0.30 mg/dL 0.0-1.0 N SGOT/AST (test code = AST) 70 U/L 6-32 H SGPT/ALT (test code = ALT) 125 U/L 12-78 H N ote: Change in REFERENCE RANGE due to new reagent method. ALKALINE PHOSPHATASE TOTAL (test code = ALKP) 95 U/L 38-126 N CBC W/AUTO [id number] 14:53:00* Test Item Value Reference Range Interpretation Comments WHITE BLOOD CELL (test code = WBC) 9.2 K/mm3 4.5-12.5 N RED BLOOD CELL (test code = RBC) 5.42 mill/mm3 4.0-5.8 N HEMOGLOBIN (test code = HGB) 17.7 gram/dL 13.0-17.5 H HEMATOCRIT (test code = HCT) 49.5 % 42.0-52.0 N MEAN CELL VOLUME (test code = MCV) 91.3 fL 80-98 N MEAN CELL HGB (test code = MCH) 32.7 picogram 27.0-33.0 N MEAN CELL HGB CONCETRATION (test code = MCHC) 35.8 gram/dL 33.0-36. 0 N RED CELL DISTRIBUTION WIDTH (test code = RDW) 12.4 % 11.6-16. 2 N RED CELL DISTRIBUTION WIDTH SD (test code = RDW-SD) 40.9 fL 39 .2-49.5 N PLATELET COUNT (test code = PLT) 249 K/mm3 150-450 N MEAN PLATELET VOLUME (test code = MPV) 10.1 fL 6.7-11.0 N NEUTROPHIL % (test code = NT%) 53.2 % 39.0-69.0 N LYMPHOCYTE % (test code = LY%) 39.8 % 25.0-55.0 N MONOCYTE % (test code = MO%) 5.0 % 0.0-10.0 N EOSINOPHIL % (test code = EO%) 0.8 % 0.0-5.0 N BASOPHIL % (test code = BA%) 1.2 % 0.0-1.0 H NEUTROPHIL # (test code = NT#) 4.88 K/mm3 1.8-7.7 N LYMPHOCYTE # (test code = LY#) 3.65 K/mm3 1.0-5.0 N MONOCYTE # (test code = MO#) 0.46 K/mm3 0-0.8 N EOSINOPHIL # (test code = EO#) 0.07 K/mm3 0.0-0.5 N BASOPHIL # (test code = BA#) 0.11 K/mm3 0.0-0.2 N MANUAL DIFF REQUIRED (test code = MDIFF) NO
--- NOTE | 2019-09-10 14:34 | NUR ---
Pt states that he takes a medication for his triglycerides but does not know the name of the medication.
[2019-09-10] MEDS ORDERED: SODIUM CHLORIDE 0.9% 1000ML 1,000 ML IV STA ×4 (14:48→20:25)
[2019-09-10] MEDS ORDERED: SODIUM CHLORIDE 0.9% 50ML 50 ML ONE (15:13)
[2019-09-10] MEDS ORDERED: IOPAMIDOL 370 MG/ML 200 ML INFUS..BTL INJ ONE (15:14)
--- NOTE | 2019-09-10 15:20 | NUR ---
CMP and liver panel gave error msg again so redrew blood from pt and sent sample across the street for the lab to run.
[2019-09-10] MEDS ORDERED: SODIUM CHLORIDE 0.9% 1000ML 2,000 ML ONE (15:21)
--- NOTE | 2019-09-10 15:35 | NUR ---
Called [facility] express head nurse to [facility] [employer] machine operator labs for main lab at [facility]. Blood cx's, lactic acid and CMP, CBC.
[2019-09-10] MEDS ORDERED: METFORMIN HCL500 MG PO (15:43)
[2019-09-10] MEDS ORDERED: KETOROLAC TROMETHAMINE 30 MG/ML VIAL IV STA (16:21)
--- NOTE | 2019-09-10 16:23 | Diagnostic Imaging Report ---
EXAM: CXR 2 VIEW - HOPD DATE: 09/10/2019 3:56 PM INDICATION: Abdominal pain COMPARISON: None FINDINGS: The trachea is midline. The lungs are symmetrically expanded without evidence for large focal consolidation, pneumothorax, or significant pleural effusion. The cardiomediastinal silhouette and pulmonary vasculature are within normal limits. No acute osseous abnormality is identified. The surrounding soft tissues are unremarkable. IMPRESSION: No acute cardiopulmonary process identified. Signed by: Dr. Chaitanya López MD on 09/10/2019 4:20 PM
[2019-09-10] MEDS ORDERED: KETOROLAC TROMETHAMINE 30 MG/ML VIAL ONE (16:25)
--- NOTE | 2019-09-10 16:30 | Emergency Department Note ---
History of Present Illnes History of Present Illness Chief Complaint: epigastric pain s/p drinking alcohol History of Present Illness This is a 39 year old male. was doing well prior to this. then pt drank alot of beer. then gradual onset of epigastric pain Historian: Patient Arrival Mode: Car History limited by: condition of the patient (normal) Acid Changer Required: Yes Onset (how long ago): day(s) Location: epigastric Quality: sharp Radiation: back Severity: severe Onset quality: gradual Duration (how long): day(s) (1) Timing of current episode: constant Progression: worsening Chronicity: recurrent (same as pancreatitis pain) Context: recent illness, recent surgery, recent immobilization, recent travel, trauma/injury, new medications, hx of DVT/PE, non-compliance w/ medications Relieving factors: other (nothing) Exacerbating factors: movement Associated symptoms: denies other symptoms Treatments prior to arrival: none Past Medical/Family History Physician Review I have reviewed the patient's past medical and family history. Any updates have been documented here. Past Medical History Recent Fever: Yes Clinical Suspicion of Infectio: No New/Unexplained Change in Ment: No Past Medical History: Diabetes Other Medical History: alcoholic pancreatitis Past Surgical History: None Social History Smoking Cessation: Never Smoker Counseling Performed: No Alcohol Use: Daily Any Illegal Drug Use: No TB Exposure/Symptoms: No Physically hurt or threatened: No Family History Family history of heart diseas: Yes Other Last Tetanus: unknown Any Pre-Existing Lines (PICC,: No Is patient up to date on immun: Yes Last Flu: none Last Pneumovax: none Review of Systems Review of Systems Constitutional: no symptoms EENTM: no symptoms Cardiovascular: no symptoms Respiratory: no symptoms Gastrointestinal: as per HPI Genitourinary: no symptoms Musculoskeletal: no symptoms Neurological: no symptoms Psychological: no symptoms Endocrine: no symptoms Hematological/Lymphatic: no symptoms Review of other systems All other systems reviewed and negative. Physical Exam Related Data Allergies: Coded Allergies: No Known Allergies (Unverified , 05/18/19) Triage Vital Signs Vital Signs Date Time Temp Pulse Resp B/P (MAP) Pulse Ox O2 Delivery O2 Flow Rate FiO2 09/10/19 14:24 101.1 89 20 155/91 96 Vital signs reviewed: Yes Physical Exam CONSTITUTIONAL Constitutional: well-developed, well-nourished HENT HENT: normocephalic, atraumatic, nose normal, other (DRY MM) HENT L/R: left ext ear normal, right ext ear normal EYES Eyes: PERRL, conjunctivae normal NECK Neck: ROM normal PULMONARY Pulmonary: effort normal, breath sounds normal CARDIOVASCULAR Cardiovascular: regular rhythm, heart sounds normal, capillary refill normal, normal rate GASTROINTESTINAL Abdominal: soft, bowel sounds normal, tender (+epigastric), guarding; mass, rebound, hernia GENITOURINARY Genitourinary: exam deferred SKIN Skin: warm, dry MUSCULOSKELETAL Musculoskeletal: ROM normal NEUROLOGICAL Neurological: alert, oriented x 3, no gross motor or sensory deficits PSYCHOLOGICAL Psychological: mood/affect normal, judgement normal Results Laboratory Laboratory Laboratory Tests Test 09/10/19 15:25 09/10/19 15:20 Lab results reviewed: Yes (CBC NL , BMP NL EXCEPT CO2 =14, LIPASE ELEVATED) Imaging Imaging results reviewed: Yes (CT ABD/PELVIS= PANCREATITIS) Critical Care Time Subsequent provider I assumed direction of critical care for this patient from another provider of my specialty. Assessment & Plan Reassessment Reassessment SPOKE TO DR HAMPTON AT APPROXIMATELY AT 830PM AND ACCEPTED PT FOR ADMISSION. PT FEELS BETTER S/P MEDS/IVFS Assessment & Plan Final Impression: (1) ACUTE PANCREATITIS WITHOUT NECROSIS OR INFECTION, UNSP (2) DEHYDRATION (3) ACIDOSIS Assessment & Plan ADMIT Depart Disposition: ADMITTED Last Vital Signs Date Time Temp Pulse Resp B/P (MAP) Pulse Ox O2 Delivery O2 Flow Rate FiO2 09/10/19 14:24 101.1 89 20 155/91 96 Home Meds Reported Medications Metformin Hcl (METFORMIN HCL) 500 Mg Tablet, 500 MG PO BID, #60 TAB 09/10/19 Discontinued Scripts Omeprazole (OMEPRAZOLE) 40 Mg Capsule., 20 MG PO DAILY, #30 TAB 0 Refills Prov:ORI RINALDI MD 05/18/19 Ondansetron (ONDANSETRON ODT) 8 Mg Tab.rapdis, 4 MG PO Q8H PRN for nausea, #20 TAB 0 Refills Prov:ORI RINALDI MD 05/18/19 Medications in the ED Sodium Chloride 1,000 ml @ 100 mls/hr Q10H STAT IV ; Start 09/10/19 at 14:48; Stop 09/11/19 at 00:47 Sodium Chloride 1,000 ml @ 1,000 mls/hr Q1H STAT IV Last administered on 09/10/19at 15:20; Admin Dose 1,000 MLS/HR; Start 09/10/19 at 14:57; Stop 09/10/19 at 15:56 Sodium Chloride 50 ml @ ud STK-MED ONCE .ROUTE ; Start 09/10/19 at 15:13; Stop 09/10/19 at 15:08; Status DC Iopamidol 74,000 mg STK-MED ONCE INJ ; Start 09/10/19 at 15:14; Stop 09/10/19 at 15:08; Status DC Sodium Chloride 2,000 ml @ ud STK-MED ONCE .ROUTE ; Start 09/10/19 at 15:21; Stop 09/10/19 at 15:19; Status DC Ketorolac Tromethamine 30 mg STK-MED ONCE .ROUTE ; Start 09/10/19 at 16:25; Stop 09/10/19 at 16:21; Status DC [facility] Sep 10, 2019 16:30
--- NOTE | 2019-09-10 16:35 | NUR ---
lab called with critical lactic of 2.5
[2019-09-10] MEDS ORDERED: PIPER-TAZ 3.375 GM 50 ML IV STA (16:37)
[2019-09-10 17:02] LABS: ALBUMIN 3.2 g/dL (3.5-5.0); BILIRUBIN,DIRECT 0.1 mg/dL (0.0-0.5)
--- NOTE | 2019-09-10 17:31 | NUR ---
Pt up to the restroom with steady balanced gait.
[2019-09-10 17:57] LABS: ALANINE AMINOTRANSFERASE 113 IU/L (0-55); ALBUMIN 3.2 g/dL (3.5-5.0); ALBUMIN/GLOBULIN RATIO 0.6 (0.8-2.0); ALKALINE PHOSPHATASE 128 IU/L (40-150); ANION GAP 21.1 mmol/L (8-16); BLOOD UREA NITROGEN 6 mg/dL (7-26); BUN/CREATININE RATIO 9 (6-25); CALCIUM 7.7 mg/dL (8.4-10.2); CARBON DIOXIDE 14 mmol/L (22-29); CHLORIDE 98 mmol/L (98-107); CREATININE, SERUM 0.68 mg/dL (0.72-1.25); EST GLOMERULAR FILTRATION RATE > 60 ML/MIN (60-); GLUCOSE 126 mg/dL (74-118); POTASSIUM 4.1 mmol/L (3.5-5.1); SODIUM 129 mmol/L (136-145)
--- NOTE | 2019-09-10 18:43 | NUR ---
Pt up to the restroom with steady balanced gait, hooked back up to the fluids and c/o haedache 09/18. Pt has no other needs at this time.
--- NOTE | 2019-09-10 19:06 | NUR ---
report to KEMI Falcon
--- NOTE | 2019-09-10 20:23 | Diagnostic Imaging Report ---
EXAM: CT Abdomen and Pelvis WITH contrast INDICATION: Abdominal pain. Pancreatitis. COMPARISON: None. TECHNIQUE: Abdomen and pelvis were scanned utilizing a multidetector helical scanner from the lung base to the pubic symphysis after administration of IV contrast. Coronal and sagittal reformations were obtained. Routine protocol was performed. Scan was performed when during portal venous phase. IV CONTRAST: 100 cc Isovue-300. ORAL CONTRAST: Water RADIATION DOSE: Total DLP: 856.92 mGy*cm Estimated effective dose: (DLP x 0.015 x size factor) mSv COMPLICATIONS: None FINDINGS: LINES and TUBES: None. LOWER THORAX: Calcified granuloma in the right lower lobe. HEPATOBILIARY: The liver is diffuse hypodense compared to the spleen, consistent with diffuse hepatic diffuse hepatic steatosis. No focal hepatic lesions. No biliary ductal dilation. GALLBLADDER: No radio-opaque stones or sludge. No wall thickening. SPLEEN: No splenomegaly. PANCREAS: Diffuse pancreatic edema, particularly of the pancreatic head, associated with surrounding fat stranding and a small volume of fluid without significant fluid collections. No ductal dilatation. ADRENALS: No adrenal nodules KIDNEYS/URETERS: Kidneys enhance symmetrically. No hydronephrosis. No cystic or solid mass lesions. No stones. GI TRACT: Diffuse wall thickening of the second portion of the duodenum with inflammatory changes in the pancreatic groove. No evidence of bowel obstruction. Appendix is normal. PELVIC ORGANS/BLADDER: Unremarkable. LYMPH NODES: Mildly prominent peripancreatic lymph nodes. VESSELS: Unremarkable. PERITONEUM / RETROPERITONEUM: No free air or fluid. BONES: Unremarkable. SOFT TISSUES: Unremarkable. IMPRESSION: 1. Acute interstitial pancreatitis. 2. Hepatic steatosis. Signed by: Dr. Kimmie Aranda M.D. on 09/10/2019 8:20 PM
[2019-09-10] MEDS ORDERED: SODIUM CHLORIDE 0.9% 1000ML 1,000 ML IV SCH (20:45)
[2019-09-10] MEDS ORDERED: ONDANSETRON HCL INJ 2MG/ML 2ML 2 MG/ML VIAL IV PRN ×2 (20:45→22:45)
[2019-09-10] MEDS ORDERED: MORPHINE SULFATE INJ 4 MG/ML INJ 1ML IV PRN (21:15)
--- OUTSIDE RECORDS SUMMARY | 2019-09-10 21:26 | XMS REPORT | Continuity of Care Document ---
Author Author [facility] t Organization [facility] Address [address] [place] [address] Phone Unavailable Care Team Providers Care Cloth Stock Sorter Name Role Phone Maxim RDZ MD PCP Skye STOVER Attphys Unavailable Paige RINALDI Unavailable Payers Payer Name Policy Type Policy Number Effective Date Expiration Date S ource Problems This patient has no known problems. Allergies, Adverse Reactions, Alerts Allergy Name Allergy Type Status Severity Reaction(s) Onset Date Inacti ve Date Treating Clinician Comments Source No Known Allergies DA Active U 2019-02-05 00:00:00 [facility] No Known Allergies DA Active U 2018-05-07 00:00:00 [facility] No Known Allergies DA Active U 2018-04-12 00:00:00 [facility] Medications Ordered Medication Name Filled Medication Name Start Date Stop Da te Current Medication? Ordering Clinician Indication Dosage Frequency Signature (SIG) Comments Components Source Omeprazole 40 Mg Capsule. Omeprazole 40 Mg Capsule. 2019-05-18 00:00:00 Yes Caro Rinaldi Md 20 Daily [facility] Ondansetron (Ondansetron Odt) 8 Mg Tab.rapdis Ondanset rachna (Ondansetron Odt) 8 Mg Tab.rapdis 2019-05-18 00:00:00 Yes Caro Rinaldi Md 4 Every 8 Hours as needed for Nausea [facility] Procedures This patient has no known procedures. Encounters Start Date/Time End Date/Time Encounter Type [facility] Encounter ID Source 2019-05-18 01:40:00 2019-05-18 03:51:00 Departed Emergency Room 1 CARO RINALDI [facility] [id number] [facility] Results Test Description Test Time Test Comments Results Result Comments Source CT ABD/PEL WITH CONTRAST-HOPD 2019-09-10 19:19:00 [place] [address] Patient Name: LUIS NICE MR #: [id number] : 1980 Age/Sex: 39/M Req #: [id number] Adm Physician: Ordered by: UMU STOVER Report #: [id number] Location: [facility] Room/Bed: Procedure: [id number] HOPD/CT ABD/PEL WITH CONTRAST-HOPD Exam Date: 09/10/19 Exam Time: 1845 REPORT STATUS: Signed EXAM: CT Abdomen and Pelvis WITH contrast INDICATION: Abdominal pain. Pancreatitis. COMPARISON: None. TECHNIQUE: Abdomen and pelvis were scanned utilizing a multidetector helical scanner from the lung base to the pubic symphysis after administration of IV contrast. Coronal and sagittal reformations were obtained. Routine protocol was performed. Scan was performed when during portal venous phase. IV CONTRAST: 100 cc Isovue-300. ORAL CONTRAST: Water RADIATION DOSE: Total DLP: 856.92 mGy*cm Estimated effective dose: (DLP x 0.015 x size factor) mSv COMPLICATIONS: None FINDINGS: LINES and TUBES: None. LOWER THORAX: Calcified granuloma in the right lower lobe. HEPATOBILIARY: The liver is diffuse hypodense compared to the spleen, consistent with diffuse hepatic diffuse hepatic steatosis. No focal hepatic lesions. No biliary ductal dilation. GALLBLADDER: No radio-opaque stones or sludge. No wall thickening. SPLEEN: No splenomegaly. PANCREAS: Diffuse pancreatic edema, particularly of the pancreatic head, associated with surrounding fat stranding and a small volume of fluid without significant fluid collections. No ductal dilatation. ADRENALS: No adrenal nodules KIDNEYS/URETERS: Kidneys enhance symmetrically. No hydronephrosis. No cystic or solid mass lesions. No stones. GI TRACT: Diffuse wall thickening of the second portion of the duodenum with inflammatory changes in the pancreatic groove. No evidence of bowel obstruction. Appendix is normal. PELVIC ORGANS/BLADDER: Unremarkable. LYMPH NODES: Mildly prominent peripancreatic lymph nodes. VESSELS: Unremarkable. PERITONEUM / RETROPERITONEUM: No free air or fluid. BONES: Unremarkable. SOFT TISSUES: Unremarkable. IMPRESSION: 1. Acute interstitial pancreatitis. 2. Hepatic steatosis. Signed by: Dr. Kimmie Virk M.D. on 09/10/2019 8:20 PM Dictated By: WAGNER VIRK MD, MD 19 Transcribed By: SHIRA on 09/10/192019 COPY TO: UMU STOVER CXR 2 [facility] 2019-09-10 16:19:00 [place] [address] Patient Name: LUIS NICE MR #: [id number] : 1980 Age/Sex: 39/M Req #: [id number] Adm Physician: Ordered by: UMU STOVER Report #: [id number] Location: [facility] Room/Bed: Procedure: [id number] HOPD/CXR 2 VIEW - HOPD Exam Date: Exam Time: REPORT STATUS: Signed EXAM: CXR 2 VIEW - HOPD DATE: 09/10/2019 3:56 PM INDICATION: Abdominal pain COMPARISON: None FINDINGS: The trachea is midline. The lungs are symmetrically expanded without evidence for large focal consolidation, pneumothorax, or significant pleural effusion. The cardiomediastinal silhouette and pulmonary vasculature are within normal limits. No acute osseous abnormality is identified. The surrounding soft tissues are unremarkable. IMPRESSION: No acute cardiopulmonary process identified. Signed by: Dr. Chaitanya López MD on 09/10/2019 4:20 PM Dictated By: CHAITANYA LÓPEZ MD 19 Transcribed By: SHIRA on 09/10/19 1620 COPY TO: UMU STOVER UA RFLX MICROSOPIC 2019-06-15 14:08:00 Test Item [...] code = UASPEC) Clean Catch COMPREHENSIVE METABOLIC [id number] 13:55:00* Test Item Value Reference Range Interpretation [...] code = ALKP) 126 Units/L 50-136 N [id number] 13:55:00* Test Item Value Reference Range Interpretation Comments ALCOHOL (test code = ALC) 4 MG/DL 0-10 N 0 - 10: Should be interpreted as NEGATIVE. 11 - 50: None to mild euphoria. 51 - 100: Mild influence on vision and dark adaptation. > 80: Legal intoxication; Depression of SPINAL SURGEON; Increasing degree of poisoning. > 400: Fatalities reported. Results are for medical purposes only and not forlegal or employment evaluative purposes. COMPREHENSIVE METABOLIC [id number] 13:49:00* Test Item Value Reference Range Interpretation [...] TOTAL (test code = ALKP) Units/L 50-136 [id number] 13:49:00* Test Item Value Reference Range Interpretation Comments ALCOHOL (test code = ALC) MG/DL 0-10 CBC W/AUTO [id number] 13:38:00* Test Item Value Reference Range Interpretation [...] 0.06 x10 3/uL 0.0-0.[address] BRAIN [id number] 02:56:00 [place] [address] Patient Name: LUIS NICE MR #: [id number] : 1980 Age/Sex: 38/M Req #: [id number] Adm Physician: Ordered by: CARO RINALDI MD Report #: [id number] Location: [facility] Room/Bed: Procedure: [id number] HOPD/CT BRAIN WO-HOPD Exam Date: 05/18/19 Exam Time: 234 REPORT STATUS: Sig sofía Examination: CT head [...] 134 mg/dL 74-106 H Performed by certified hoop riveting machine operator at [facility] [id number] 11:16:00* Test Item Value Reference Range Interpretation Comments GLUBED (test code = GLUBED) 76 mg/dL 74-106 N Performed by certified hoop riveting machine operator at [facility] [id number] 07:48:00* Test Item Value Reference Range Interpretation Comments GLUBED (test code = GLUBED) 79 mg/dL 74-106 N Performed by certified hoop riveting machine operator at [facility]) CBC W/MANUAL [id number] 04:31:00* Test Item Value Reference Range Interpretation [...] IMMAT) 0 % 0-0 N BASIC METABOLIC [id number] 04:02:00* Test Item Value Reference Range Interpretation [...] CA) 9.2 mg/dL 8.5-10.1 N HEPATIC FUNCTION [id number] 04:02:00* Test Item Value Reference Range Interpretation [...] reference range due to change in reagent. [id number] 04:02:00* Test Item Value Reference Range Interpretation Comments LIPASE (test code = LIP) 300 U/L 73.0-393.0 N BASIC METABOLIC [id number] 03:54:00* Test Item Value Reference Range Interpretation [...] code = CA) mg/dL 8.5-10.1 HEPATIC FUNCTION [id number] 03:54:00* Test Item Value Reference Range Interpretation [...] TOTAL (test code = ALKP) IUnit/L 45-117 [id number] 03:54:00* Test Item Value Reference Range Interpretation Comments LIPASE (test code = LIP) U/L 73.0-393.0 CBC W/MANUAL [id number] 03:43:00* Test Item Value Reference Range Interpretation [...] MORPHOLOGY (test code = PLTMORPH) CBC W/MANUAL [id number] 03:43:00* Test Item Value Reference Range Interpretation [...] MORPHOLOGY (test code = PLTMORPH) CBC W/MANUAL [id number] 03:43:00* Test Item Value Reference Range Interpretation [...] MORPHOLOGY (test code = PLTMORPH) CBC W/MANUAL [id number] 03:42:00* Test Item Value Reference Range Interpretation [...] MORPHOLOGY (test code = PLTMORPH) CBC W/MANUAL [id number] 03:42:00* Test Item Value Reference Range Interpretation [...] PLTEST) PLATELET MORPHOLOGY (test code = PLTMORPH) [id number] 20:28:00* Test Item Value Reference Range Interpretation Comments GLUBED (test code = GLUBED) 80 mg/dL 74-106 N Performed by certified hoop riveting machine operator at [facility] [id number] 16:31:00* Test Item Value Reference Range Interpretation Comments GLUBED (test code = GLUBED) 74 mg/dL 74-106 N Performed by certified hoop riveting machine operator at [facility] [id number] 11:31:00* Test Item Value Reference Range Interpretation Comments GLUBED (test code = GLUBED) 97 mg/dL 74-106 N Performed by certified hoop riveting machine operator at [facility] [id number] 07:54:00* Test Item Value Reference Range Interpretation Comments GLUBED (test code = GLUBED) 88 mg/dL 74-106 N Performed by certified hoop riveting machine operator at [facility] CBC W/MANUAL [id number] 06:32:00* Test Item Value Reference Range Interpretation [...] IMMAT) 0 % 0-0 N BASIC METABOLIC [id number] 05:53:00* Test Item Value Reference Range Interpretation [...] code = CA) 8.3 mg/dL 8.5-10.1 L [id number] 05:53:00* Test Item Value Reference Range Interpretation Comments LIPASE (test code = LIP) 684 U/L 73.0-393.0 H CBC W/MANUAL [id number] 05:22:00* Test Item Value Reference Range Interpretation [...] MORPHOLOGY (test code = PLTMORPH) CBC W/MANUAL [id number] 05:22:00* Test Item Value Reference Range Interpretation [...] MORPHOLOGY (test code = PLTMORPH) CBC W/MANUAL [id number] 05:22:00* Test Item Value Reference Range Interpretation [...] MORPHOLOGY (test code = PLTMORPH) CBC W/MANUAL [id number] 05:22:00* Test Item Value Reference Range Interpretation [...] MORPHOLOGY (test code = PLTMORPH) CBC W/MANUAL [id number] 05:22:00* Test Item Value Reference Range Interpretation [...] PLTEST) PLATELET MORPHOLOGY (test code = PLTMORPH) [id number] 20:21:00* Test Item Value Reference Range Interpretation Comments GLYCOSYLATED HEMOGLOBIN (HA1C) (test code = GLYHGB) 5.6 % HbA1 4. 8-6.0 N ESTIMATED AVERAGE GLUCOSE (test code = EAG) 114 MG/DL [id number] 20:14:00* Test Item Value Reference Range Interpretation Comments GLUBED (test code = GLUBED) 124 mg/dL 74-106 H Performed by certified hoop riveting machine operator at [facility] - US ABDOMEN [id number] 10:44:00 Name: LUIS SNYDER [facility] : 1980 Age/S: 38 / M [address] [facility] Unit #: [id number] Loc: [place] [address] Phys: Benjamin Aguilar MD Acct: [id number] Dis Date: Status: ADM IN PHONE #: [phone] Exam Date: 02/05/2019 1034 FAX #: [phone] Reason: RUQ pain, pancreatitis EXAMS: CPT CODE: [id number] US ABDOMEN LTD 56421 REASON FOR EXAM: RUQ pain, pancreatitis EXAM [...] 1 Signed Report (CONTINUED) Name: LUIS SNYDER [facility] : 1980 Age/S: 38 / M [address] [facility] Unit #: [id number] Loc: [place] [address] Phys: Benjamin Aguilar MD Acct: [id number] Dis Date: Status: ADM IN PHONE #: [phone] Exam Date: 02/05/2019 1034 FAX #: [phone] Reason: RUQ pain, pancreatitis EXAMS: CPT CODE: [id number] US ABDOMEN LTD [address] < Continued> cysts/masses: none hydronephrosis: none Ascites/pleural effusions: None IMPRESSION: Hepatomegaly with hepatic steatosis. Location: [facility] at 1044 Reported and signed by: James Zimmerman MD CC: Benjamin Aguilar MD Technologist: Coco Andrade RDMS Trnscb Date/Time: 02/05/2019 (2251) [email or web address] Orig Print D/T: S: 02/05/2019 (8876) Probe: PAGE 2 Signed Report BASIC METABOLIC [id number] 10:26:00* Test Item Value Reference Range Interpretation [...] CA) 7.9 mg/dL 8.4-10.2 L HEPATIC FUNCTION [id number] 10:26:00* Test Item Value Reference Range Interpretation [...] code = ALKP) 237 U/L 38-126 H [id number] 10:26:00* Test Item Value Reference Range Interpretation Comments LIPASE (test code = LIP) 1344 U/L 128-270 H URINALYSIS [id number] 10:06:00* Test Item Value Reference Range Interpretation [...] LPF NONE-FEW Urine Source? Clean CatchBASIC METABOLIC [id number] 10:03:00* Test Item Value Reference Range Interpretation [...] CA) 7.9 mg/dL 8.4-10.2 L HEPATIC FUNCTION [id number] 10:03:00* Test Item Value Reference Range Interpretation [...] code = ALKP) 237 U/L 38-126 H [id number] 10:03:00* Test Item Value Reference Range Interpretation Comments LIPASE (test code = LIP) 1344 U/L 128-270 H BASIC METABOLIC [id number] 09:56:00* Test Item Value Reference Range Interpretation [...] CA) 7.9 mg/dL 8.4-10.2 L HEPATIC FUNCTION [id number] 09:56:00* Test Item Value Reference Range Interpretation [...] TOTAL (test code = ALKP) IUnit/L 45-117 [id number] 09:56:00* Test Item Value Reference Range Interpretation Comments LIPASE (test code = LIP) Unit/L 144-286 CBC W/O [id number] 09:45:00* Test Item Value Reference Range Interpretation [...] = MPV) 10.7 fL 6.7-11.0 N URINALYSIS [id number] 09:45:00* Test Item Value Reference Range Interpretation [...] HPF NONE Urine Source? Clean CatchBASIC METABOLIC [id number] 11:18:00* Test Item Value Reference Range Interpretation [...] CA) 8.6 mg/dL 8.4-10.2 N HEPATIC FUNCTION [id number] 11:18:00* Test Item Value Reference Range Interpretation [...] reference range due to change in reagent. [id number] 11:18:00* Test Item Value Reference Range Interpretation Comments LIPASE (test code = LIP) 998 Unit/L 144-286 H [id number] 11:18:00* Test Item Value Reference Range Interpretation Comments TROPONIN-I (test code = TROPI) <0.015 ng/mL 0-0.045 N BASIC METABOLIC [id number] 11:13:00* Test Item Value Reference Range Interpretation [...] CA) 8.6 mg/dL 8.4-10.2 N HEPATIC FUNCTION [id number] 11:13:00* Test Item Value Reference Range Interpretation [...] TOTAL (test code = ALKP) IUnit/L 45-117 [id number] 11:13:00* Test Item Value Reference Range Interpretation Comments LIPASE (test code = LIP) 998 Unit/L 144-286 H [id number] 11:13:00* Test Item Value Reference Range Interpretation Comments TROPONIN-I (test code = TROPI) <0.015 ng/mL 0-0.045 N BASIC METABOLIC [id number] 11:11:00* Test Item Value Reference Range Interpretation [...] code = CA) mg/dL 8.4-10.2 HEPATIC FUNCTION [id number] 11:11:00* Test Item Value Reference Range Interpretation [...] TOTAL (test code = ALKP) IUnit/L 45-117 [id number] 11:11:00* Test Item Value Reference Range Interpretation Comments LIPASE (test code = LIP) Unit/L 144-286 [id number] 11:11:00* Test Item Value Reference Range Interpretation Comments TROPONIN-I (test code = TROPI) ng/mL 0-0.045 BASIC METABOLIC [id number] 11:11:00* Test Item Value Reference Range Interpretation [...] code = CA) mg/dL 8.4-10.2 HEPATIC FUNCTION [id number] 11:11:00* Test Item Value Reference Range Interpretation [...] TOTAL (test code = ALKP) IUnit/L 45-117 [id number] 11:11:00* Test Item Value Reference Range Interpretation Comments LIPASE (test code = LIP) Unit/L 144-286 [id number] 11:11:00* Test Item Value Reference Range Interpretation Comments TROPONIN-I (test code = TROPI) <0.015 ng/mL 0-0.045 N CBC W/O [id number] 11:05:00* Test Item Value Reference Range Interpretation Comments WHITE BLOOD CELL (test code = WBC) 11.9 K/mm3 4.5-12.5 N RED BLOOD CELL (test code = RBC) 4.47 mill/mm3 4.0-5.8 N Previously reported result: 4.55 mill/ft5Bhuzgk by: DAYSI on 02/04/19:464601 1104: RBC previously reported as: 4.55 mill/mm3 HEMOGLOBIN (test code = HGB) 14.7 gram/dL 13.0-17.5 N Previously reported result: 16.2 gram/dLEdited by: DAYSI on 02/04/19:1104 HEMATOCRIT (test code = HCT) 43.8 % 42.0-52.0 N MEAN CELL VOLUME (test code = MCV) 98.0 fL 80-98 N Previously reported result: 96.3 fLEdited by: DAYSI on 02/04/19:1104 MEAN CELL HGB (test code = MCH) 32.9 picogram 27.0-33.0 N Previously reported result: 35.6 picogramEdited by: DAYSI on 02/04/19:110 MEAN CELL HGB CONCETRATION (test code = MCHC) 33.6 gram/dL 33.0-36. 0 N Previously reported result: 37.0 gram/dLEdited by: DAYSI on 02/04/19:110 RED CELL DISTRIBUTION WIDTH (test code = RDW) 13.3 % 11.6-16. 2 N Previously reported result: 13.2 %Edited by: DAYSI on 02/04/19:110 RED CELL DISTRIBUTION WIDTH SD (test code = RDW-SD) 48.6 fL 37 .0-51.0 N Previously reported result: 47.5 fLEdited by: DAYSI on 02/04/19:1105 PLATELET COUNT (test code = PLT) 128 K/mm3 150-450 L MEAN PLATELET VOLUME (test code = MPV) 11.5 fL 6.7-11.0 H URINALYSIS [id number] 10:56:00* Test Item Value Reference Range Interpretation [...] per LPF NONE-FEW Urine Source? Clean CatchURINALYSIS [id number] 10:44:00* Test Item Value Reference Range Interpretation [...] HPF NONE Urine Source? Clean CatchCBC W/O [id number] 10:42:00* Test Item Value Reference Range Interpretation [...] code = MPV) 11.5 fL 6.7-11.0 H [id number] 11:53:00* Test Item Value Reference Range Interpretation Comments GLUBED (test code = GLUBED) 93 mg/dL 74-106 N Performed by certified hoop riveting machine operator at [facility] CBC W/AUTO [id number] 10:58:00* Test Item Value Reference Range Interpretation [...] = MDIFF) NO, ONLY SCAN NEEDED DIFFERENTIAL [id number] 10:58:00* Test Item Value Reference Range Interpretation Comments STAIN ACCEPTABILITY (test code = STN ACCEPTABLE) STAIN ACCEPTABLE ANISOCYTOSIS (test code = ANISO) 1+ PLATELET ESTIMATE (test code = PLTEST) DECREASED PLATELET MORPHOLOGY (test code = PLTMORPH) NORMAL BASIC METABOLIC [id number] 10:16:00* Test Item Value Reference Range Interpretation [...] code = CA) 8.2 mg/dL 8.5-10.1 L [id number] 10:16:00* Test Item Value Reference Range Interpretation Comments LIPASE (test code = LIP) 307 U/L 73.0-393.0 N [id number] 10:16:00* Test Item Value Reference Range Interpretation Comments MAGNESIUM (test code = MAG) 2.3 mg/dL 1.8-2.4 N THYROID STIMULATING [id number] 10:16:00* Test Item Value Reference Range Interpretation Comments THYROID STIMULATING HORMONE (test code = TSH) 2.200 uIU/mL 0.36-3.7 4 N TSH REFERENCE RANGES: EUTHYROID: 0.35 - 4.3 mIU/mL HYPO : > 5.5 mIU/mL HYPER : < 0.35 mIU/mL [id number] 10:16:00* Test Item Value Reference Range Interpretation Comments GLYCOSYLATED HEMOGLOBIN (HA1C) (test code = GLYHGB) 6.3 % HbA1 4. 8-6.0 H ESTIMATED AVERAGE GLUCOSE (test code = EAG) 134 MG/DL B-TYPE NATRIURETIC [id number] 10:07:00* Test Item Value Reference Range Interpretation Comments B-TYPE NATRIURETIC PEPTIDE (test code = BNP) 72.50 pgram/mL 0-100 N BASIC METABOLIC [id number] 10:01:00* Test Item Value Reference Range Interpretation [...] code = CA) 8.2 mg/dL 8.5-10.1 L [id number] 10:01:00* Test Item Value Reference Range Interpretation Comments LIPASE (test code = LIP) 307 U/L 73.0-393.0 N [id number] 10:01:00* Test Item Value Reference Range Interpretation Comments MAGNESIUM (test code = MAG) 2.3 mg/dL 1.8-2.4 N THYROID STIMULATING [id number] 10:01:00* Test Item Value Reference Range Interpretation Comments THYROID STIMULATING HORMONE (test code = TSH) uIU/mL 0.36-3.7 4 CBC W/AUTO [id number] 09:50:00* Test Item Value Reference Range Interpretation [...] = MDIFF) NO, ONLY SCAN NEEDED DIFFERENTIAL [id number] 09:50:00* Test Item Value Reference Range Interpretation Comments STAIN ACCEPTABILITY (test code = STN ACCEPTABLE) CABOT RINGS (test code = CAB) MORPHOLOGY COMMENT (test code = MOC) PLATELET ESTIMATE (test code = PLTEST) PLATELET MORPHOLOGY (test code = PLTMORPH) CBC W/AUTO [id number] 09:50:00* Test Item Value Reference Range Interpretation [...] = MDIFF) NO, ONLY SCAN NEEDED DIFFERENTIAL [id number] 09:50:00* Test Item Value Reference Range Interpretation Comments STAIN ACCEPTABILITY (test code = STN ACCEPTABLE) MORPHOLOGY COMMENT (test code = MOC) PLATELET ESTIMATE (test code = PLTEST) PLATELET MORPHOLOGY (test code = PLTMORPH) CBC W/AUTO [id number] 09:50:00* Test Item Value Reference Range Interpretation [...] = MDIFF) NO, ONLY SCAN NEEDED DIFFERENTIAL [id number] 09:50:00* Test Item Value Reference Range Interpretation Comments STAIN ACCEPTABILITY (test code = STN ACCEPTABLE) MORPHOLOGY COMMENT (test code = MOC) PLATELET ESTIMATE (test code = PLTEST) PLATELET MORPHOLOGY (test code = PLTMORPH) CBC W/AUTO [id number] 09:50:00* Test Item Value Reference Range Interpretation [...] = MDIFF) NO, ONLY SCAN NEEDED DIFFERENTIAL [id number] 09:50:00* Test Item Value Reference Range Interpretation Comments STAIN ACCEPTABILITY (test code = STN ACCEPTABLE) CABOT RINGS (test code = CAB) MORPHOLOGY COMMENT (test code = MOC) PLATELET ESTIMATE (test code = PLTEST) PLATELET MORPHOLOGY (test code = PLTMORPH) - US ABDOMEN [id number] 15:20:00 Name: LUIS SNYDER [facility] : 1980 Age/S: 38 / M [address] [facility] Unit #: [id number] Loc: [place] [address] Phys: Morgan Mo MD Acct: [id number] Dis Date: Status: REG ER PHONE #: [phone] Exam Date: 12/16/2018 3303 FAX #: [phone] Reason: RIGHT SIDED ABDOMINAL PAIN, PANCREATITIS EXAMS: CPT CODE: [id number] US ABDOMEN LTD [address]286 HISTORY: Abdominal pain and pancreatitis. COMPARISON: CT [...] Morgan Ortiz MD Technologist: Coco Andrade RDMS [facility] Date/Time: 12/16/2018 (1520) [email or web address] Orig Print D/T: S: 12/16/2018 (0204) Probe: PAGE 1 Signed Report - CT ABD PELVIS W/O [id number] 14:40:00 Name: LUIS SNYDER [facility] : 1980 Age/S: 38 / M [address] [facility] Unit #: [id number] Loc: [place] [address] Phys: Morgan Mo MD Acct: [id number] Dis Date: Status: REG ER PHONE #: [phone] Exam Date: 12/16/2018 1220 FAX #: [phone] Reason: RIGHT FLANK PAIN EXAMS: CPT CODE: [id number] CT ABD PELVIS W/O CONT 96917 EXAM: CT of the abdomen and pelvis [...] CTDI: DLP: Trnscb Date/Time: 12/16/2018 (14 40) [email or web address] Orig Print D/T: S: 12/16/2018 (4071) P AGE 3 Signed Report BASIC METABOLIC [id number] 14:05:00* Test Item Value Reference Range Interpretation [...] CA) 8.0 mg/dL 8.4-10.2 L HEPATIC FUNCTION [id number] 14:05:00* Test Item Value Reference Range Interpretation [...] code = ALKP) 121 U/L 38-126 N [id number] 14:05:00* Test Item Value Reference Range Interpretation Comments LIPASE (test code = LIP) 646 U/L 128-270 H BASIC METABOLIC [id number] 13:05:00* Test Item Value Reference Range Interpretation [...] CA) 8.0 mg/dL 8.4-10.2 L HEPATIC FUNCTION [id number] 13:05:00* Test Item Value Reference Range Interpretation [...] code = ALKP) 121 U/L 38-126 N [id number] 13:05:00* Test Item Value Reference Range Interpretation Comments LIPASE (test code = LIP) 646 U/L 128-270 H URINALYSIS [id number] 12:51:00* Test Item Value Reference Range Interpretation [...] LPF NONE-FEW A Urine Source? Clean CatchURINALYSIS [id number] 12:50:00* Test Item Value Reference Range Interpretation [...] HPF NONE Urine Source? Clean CatchBASIC METABOLIC [id number] 12:43:00* Test Item Value Reference Range Interpretation [...] CA) 8.0 mg/dL 8.4-10.2 L HEPATIC FUNCTION [id number] 12:43:00* Test Item Value Reference Range Interpretation [...] code = ALKP) 121 U/L 38-126 N [id number] 12:43:00* Test Item Value Reference Range Interpretation Comments LIPASE (test code = LIP) 646 U/L 128-270 H BASIC METABOLIC [id number] 12:39:00* Test Item Value Reference Range Interpretation [...] CA) 8.0 mg/dL 8.4-10.2 L HEPATIC FUNCTION [id number] 12:39:00* Test Item Value Reference Range Interpretation [...] TOTAL (test code = ALKP) IUnit/L 45-117 [id number] 12:39:00* Test Item Value Reference Range Interpretation Comments LIPASE (test code = LIP) Unit/L 144-286 CBC W/O [id number] 12:28:00* Test Item Value Reference Range Interpretation [...] MPV) 11.0 fL 6.7-11.0 N CBC W/O [id number] 12:24:00* Test Item Value Reference Range Interpretation [...] MPV) 11.0 fL 6.7-11.0 N COMPREHENSIVE METABOLIC [id number] 20:30:00* Test Item Value Reference Range Interpretation [...] code = ALKP) 89 U/L 38-126 N [id number] 20:30:00* Test Item Value Reference Range Interpretation Comments LIPASE (test code = LIP) 188 U/L 128-270 N COMPREHENSIVE METABOLIC [id number] 19:42:00* Test Item Value Reference Range Interpretation [...] TOTAL (test code = ALKP) IUnit/L 45-117 [id number] 19:42:00* Test Item Value Reference Range Interpretation Comments LIPASE (test code = LIP) Unit/L 144-286 CBC W/AUTO [id number] 19:32:00* Test Item Value Reference Range Interpretation [...] REQUIRED (test code = MDIFF) NO URINALYSIS [id number] 18:54:00* Test Item Value Reference Range Interpretation [...] HPF NONE Urine Source? Clean CatchBASIC METABOLIC [id number] 18:52:00* Test Item Value Reference Range Interpretation [...] = CA) 9.0 mg/dL 8.4-10.2 N URINALYSIS [id number] 18:48:00* Test Item Value Reference Range Interpretation [...] 0.0-0.2 UA NITRITE DIPSTICK (test code = KAI) NEGATIVE NEGATIVE UA LEUKOCYTE ESTERASE DIPSTICK (test code = LEUU) neg uL NEGA TIVE UA WBC (test code = WBCU) per HPF 0-5 Urine Source? Clean CatchCBC W/AUTO [id number] 18:42:00* Test Item Value Reference Range Interpretation [...] DIFF REQUIRED (test code = MDIFF) NO [id number] 11:15:00* Test Item Value Reference Range Interpretation Comments GLUBED (test code = GLUBED) 134 mg/dL 74-106 H Performed by certified hoop riveting machine operator at [facility] [id number] 05:50:00* Test Item Value Reference Range Interpretation Comments GLUBED (test code = GLUBED) 112 mg/dL 74-106 H Performed by certified hoop riveting machine operator at [facility]) BASIC METABOLIC [id number] 05:34:00* Test Item Value Reference Range Interpretation [...] result is a direct measurement.========= HEPATIC FUNCTION [id number] 05:34:00* Test Item Value Reference Range Interpretation [...] reference range due to change in reagent. [id number] 05:34:00* Test Item Value Reference Range Interpretation Comments LIPASE (test code = LIP) 186 U/L 73.0-393.0 N BASIC METABOLIC [id number] 05:25:00* Test Item Value Reference Range Interpretation [...] code = LDL) mg/dL 100-129 HEPATIC FUNCTION [id number] 05:25:00* Test Item Value Reference Range Interpretation [...] TOTAL (test code = ALKP) IUnit/L 45-117 [id number] 05:25:00* Test Item Value Reference Range Interpretation Comments LIPASE (test code = LIP) U/L 73.0-393.0 CBC W/AUTO [id number] 04:53:00* Test Item Value Reference Range Interpretation [...] (test code = MDIFF) NO CBC W/AUTO [id number] 04:50:00* Test Item Value Reference Range Interpretation [...] # (test code = BA#) K/mm3 0.0-0.2 [id number] 00:50:00* Test Item Value Reference Range Interpretation Comments GLUBED (test code = GLUBED) 130 mg/dL 74-106 H Performed by certified hoop riveting machine operator at [facility]) [id number] 20:39:00* Test Item Value Reference Range Interpretation Comments GLUBED (test code = GLUBED) 147 mg/dL 74-106 H Performed by certified hoop riveting machine operator at [facility]) [id number] 16:56:00* Test Item Value Reference Range Interpretation Comments GLUBED (test code = GLUBED) 114 mg/dL 74-106 H Performed by certified hoop riveting machine operator at [facility]) [id number] 14:31:00* Test Item Value Reference Range Interpretation Comments GLUBED (test code = GLUBED) 111 mg/dL 74-106 H Performed by certified hoop riveting machine operator at [facility]) [id number] 06:24:00* Test Item Value Reference Range Interpretation Comments GLUBED (test code = GLUBED) 100 mg/dL 74-106 N Performed by certified hoop riveting machine operator at [facility]) CBC W/MANUAL [id number] 04:57:00* Test Item Value Reference Range Interpretation [...] code = IMMAT) 0 % BASIC METABOLIC [id number] 04:49:00* Test Item Value Reference Range Interpretation [...] CALCIUM (test code = CA) mg/dL 8.5-10.1 [id number] 04:49:00* Test Item Value Reference Range Interpretation Comments LIPASE (test code = LIP) U/L 73.0-393.0 [id number] 04:49:00* Test Item Value Reference Range Interpretation Comments MAGNESIUM (test code = MAG) mg/dL 1.8-2.4 BASIC METABOLIC [id number] 04:49:00* Test Item Value Reference Range Interpretation [...] code = CA) 8.3 mg/dL 8.5-10.1 L [id number] 04:49:00* Test Item Value Reference Range Interpretation Comments LIPASE (test code = LIP) 227 U/L 73.0-393.0 N [id number] 04:49:00* Test Item Value Reference Range Interpretation Comments MAGNESIUM (test code = MAG) 1.9 mg/dL 1.8-2.4 N CBC W/MANUAL [id number] 04:30:00* Test Item Value Reference Range Interpretation [...] MORPHOLOGY (test code = PLTMORPH) CBC W/MANUAL [id number] 04:30:00* Test Item Value Reference Range Interpretation [...] MORPHOLOGY (test code = PLTMORPH) CBC W/MANUAL [id number] 04:30:00* Test Item Value Reference Range Interpretation [...] MORPHOLOGY (test code = PLTMORPH) CBC W/MANUAL [id number] 04:30:00* Test Item Value Reference Range Interpretation [...] MORPHOLOGY (test code = PLTMORPH) CBC W/MANUAL [id number] 04:30:00* Test Item Value Reference Range Interpretation [...] PLTEST) PLATELET MORPHOLOGY (test code = PLTMORPH) [id number] 21:22:00* Test Item Value Reference Range Interpretation Comments GLUBED (test code = GLUBED) 132 mg/dL 74-106 H Performed by certified hoop riveting machine operator at [facility] [id number] 12:17:00* Test Item Value Reference Range Interpretation Comments GLUBED (test code = GLUBED) 127 mg/dL 74-106 H Performed by certified hoop riveting machine operator at [facility]) [id number] 06:30:00* Test Item Value Reference Range Interpretation Comments GLUBED (test code = GLUBED) 145 mg/dL 74-106 H Performed by certified hoop riveting machine operator at [facility])Notified Nurse~ COMPREHENSIVE METABOLIC [id number] 04:45:00* Test Item Value Reference Range Interpretation [...] reference range due to change in reagent. [id number] 04:45:00* Test Item Value Reference Range Interpretation Comments LIPASE (test code = LIP) 978 U/L 73.0-393.0 H COMPREHENSIVE METABOLIC [id number] 04:41:00* Test Item Value Reference Range Interpretation [...] TOTAL (test code = ALKP) IUnit/L 45-117 [id number] 04:41:00* Test Item Value Reference Range Interpretation Comments LIPASE (test code = LIP) U/L 73.0-393.0 CBC W/AUTO [id number] 04:20:00* Test Item Value Reference Range Interpretation [...] NRBC#) 0.00 K/mm3 0.0-0.1 N CBC W/AUTO [id number] 04:18:00* Test Item Value Reference Range Interpretation [...] # (test code = BA#) K/mm3 0.0-0.2 [id number] 01:58:00* Test Item Value Reference Range Interpretation Comments GLUBED (test code = GLUBED) 120 mg/dL 74-106 H Performed by certified hoop riveting machine operator at [facility]) [id number] 23:01:00* Test Item Value Reference Range Interpretation Comments AMMONIA (test code = AMM) 56 umol/L 11-32 H PROTHROMBIN [id number] 22:32:00* Test Item Value Reference Range Interpretation [...] (2.5-3.5) IS PATIENT ON ANTICOAGULANTS? NTHROMBOPLASTIN TIME [id number] 22:32:00* Test Item Value Reference Range Interpretation Comments THROMBOPLASTIN TIME PARTIAL (test code = PTT) 35.3 seconds 25.0-36. 5 N IS PATIENT ON ANTICOAGULANTS? NDRUGS OF ABUSE SCREEN [id number] 21:58:00* Test Item Value Reference Range Interpretation [...] NEGATIVE <300 ng/mL DRUGS OF ABUSE SCREEN [id number] 21:28:00* Test Item Value Reference Range Interpretation [...] METHADONE (test code = METHAURN) <300 ng/mL [id number] 21:09:00* Test Item Value Reference Range Interpretation Comments GLUBED (test code = GLUBED) 152 mg/dL 74-106 H Performed by certified hoop riveting machine operator at [facility]) LACTIC [id number] 17:36:00* Test Item Value Reference Range Interpretation Comments LACTIC ACID (test code = LACT) 1.7 MMOL/L 0.4-1.9 N BASIC METABOLIC [id number] 16:34:00* Test Item Value Reference Range Interpretation [...] 7.1 mg/dL 8.4-10.2 L - US ABDOMEN [id number] 16:23:00 Name: LUIS SNYDER [facility] : 1980 Age/S: 38 / M [address] [facility] Unit #: [id number] Loc: [place] [address] Phys: Nidhi Falcon MD Acct: [id number] Dis Date: Status: REG ER PHONE #: [phone] Exam Date: 07/02/2018 1558 FAX #: [phone] Reason: AP, h/o pancreatitis, elevated LFTs EXAMS: CPT CODE: [id number] US ABDOMEN LTD 53774 REASON FOR EXAM: AP, h/o pancreatitis, elevated LFTs EXAM ORDER DATE: 07/02/2018 2:21 PM Attending M.Alfredo.: Nidhi Falcon MD PROCEDURE: - US ABDOMEN [...] Nidhi Falcon MD Technologist: Coco Andrade RDMS Trnndb Date/Time: 07/02/2018 (162) [email or web address] Orig Print D/T: S: 07/02/2018 (7091) Probe: PAGE 1 Signed Report URINALYSIS [id number] 16:22:00* Test Item Value Reference Range Interpretation [...] SEEN per HPF NONE Urine Source? Clean [id number] 15:11:00* Test Item Value Reference Range Interpretation [...] THE PATIENT. ADD ON- CT ABD PELVIS [id number] 15:10:00 Name: LUIS SNYDER [facility] : 1980 Age/S: 38 / M [address] [facility] Unit #: [id number] Loc: [place] [address] Phys: Nidhi Falcon MD Acct: [id number] Dis Date: Status: REG ER PHONE #: [phone] Exam Date: 07/02/2018 1503 FAX #: [phone] Reason: abd pain, vomiting, h/o pancreatitis EXAMS: CPT CODE: [id number] CT ABD PELVIS W/CONT 54712 HISTORY: Abdominal pain and vomiting. COMPARISON: None [...] d Report (CONTINUED) Name: LUIS SNYDER [facility] : 1980 Age/S: 38 / M [address] [facility] Unit #: [id number] Loc: [place] [address] Phys: Nidhi Falcon MD Acct: [id number] Dis Date: Status: REG ER PHONE #: [phone] Exam Date: 07/02/2018 1 503 FAX #: [phone] Reason: abd pain, vomiting, h/o pancreatitis EXAMS: CPT CODE: [id number] CT ABD PELVIS W/CONT 02396 <Continued> IMPRESSION: Acute pancreatitis involving the pancreatic [...] Technologist:Kathy Rao CTDI: DLP: Trnscb Date/Time: 07/02/2018 (1509) [email or web address] Orig Print D/T: S: 07/02/2018 (1513) CTDI: DLP: PAGE 2 Signed Report LACTIC [id number] 14:09:00* Test Item Value Reference Range Interpretation Comments LACTIC ACID (test code = LACT) 2.1 MMOL/L 0.4-1.9 HH Results called to Manju CEDILLO V.LAB.CB1 07/02/18 1409Critical results verified and read back by Nurse? Y BASIC METABOLIC [id number] 14:09:00* Test Item Value Reference Range Interpretation [...] CA) 7.7 mg/dL 8.4-10.2 L HEPATIC FUNCTION [id number] 14:09:00* Test Item Value Reference Range Interpretation [...] code = ALKP) 141 U/L 38-126 H [id number] 14:09:00* Test Item Value Reference Range Interpretation Comments LIPASE (test code = LIP) 679 U/L 128-270 H [id number] 14:09:00* Test Item Value Reference Range Interpretation Comments TROPONIN-I (test code = TROPI) <0.015 ng/mL 0.00-0.056 N BASIC METABOLIC [id number] 14:00:00* Test Item Value Reference Range Interpretation [...] CA) 7.7 mg/dL 8.4-10.2 L HEPATIC FUNCTION [id number] 14:00:00* Test Item Value Reference Range Interpretation [...] TOTAL (test code = ALKP) IUnit/L 45-117 [id number] 14:00:00* Test Item Value Reference Range Interpretation Comments LIPASE (test code = LIP) Unit/L 144-286 [id number] 14:00:00* Test Item Value Reference Range Interpretation Comments TROPONIN-I (test code = TROPI) ng/mL 0-0.045 - XR CHEST 1 [id number] 13:58:00 Name: LUIS SNYDER [facility] : 1980 Age/S:38 /M [address] [facility] Unit#:[id number] [place]: [place] [address] Phys: Nidhi Falcon MD Dis Date: PHONE #: [phone] Status: PRE ER FAX #: [phone] Exam Date: 07/02/2018 Reason: CODE SEPSIS EXAMS: CPT CODE: [id number] XR CHEST 1 V 87031 HISTORY: Sepsis. COMPARISON: None available. No acute infiltrates, effusion or congestion is noted. Cardiomegaly. IMPRESSION: No acute infiltrates, effusion or congestion. at 2658 Reported and signed by: Jose Alberto Kent M.D. CC: Nidhi Falcon MD Technologist: Kathy Rao Trnscrpt Data: 07/02/2018 (1518) t.SDR.TH4 Orig Print D/T: S: 07/02/2018 (3613) PAGE 1 Signed Report CBC W/AUTO DIFF [...] DIFF REQUIRED (test code = MDIFF) NO [id number] 15:09:00* Test Item Value Reference Range Interpretation Comments GLUBED (test code = GLUBED) 211 mg/dL 74-106 H Performed by certified hoop riveting machine operator at [facility] [id number] 15:09:00* Test Item Value Reference Range Interpretation Comments GLUBED (test code = GLUBED) 316 mg/dL 74-106 H Performed by certified hoop riveting machine operator at [facility]) COMPREHENSIVE METABOLIC [id number] 15:02:00* Test Item Value Reference Range Interpretation [...] ALKP) 95 U/L 38-126 N CBC W/AUTO [id number] 14:53:00* Test Item Value Reference Range Interpretation [...]
[2019-09-10] MEDS ORDERED: MORPHINE SULFATE 2 MG/ML SYR 1ML IV PRN (21:30)
[2019-09-10] MEDS ORDERED: ACETAMINOPHEN 325 MG TAB ONE (21:39)
[2019-09-10] MEDS ORDERED: MORPHINE SULFATE INJ 4 MG/ML INJ 1ML ONE (21:39)
[2019-09-10 22:32] VITALS: BP 151/88
[2019-09-10] MEDS ORDERED: MELATONIN 5 MG TABLET PO PRN (22:45)
[2019-09-10] MEDS ORDERED: HYDRALAZINE HCL 20 MG/ML VIAL IV PRN (22:45)
[2019-09-10] MEDS ORDERED: DOCUSATE SODIUM 100 MG CAP PO PRN (22:45)
[2019-09-10 22:47] VITALS: BP 151/88
--- NOTE | 2019-09-10 22:47 | NUR ---
CULTURAL LINK USED TO DISCUSS MED RECONCILIATION. SPORTS MARKETING COORDINATOR CAROL [id number].
--- NOTE | 2019-09-10 22:48 | NUR ---
CULTURAL LINK USED TO COMPLETE ADMISSION. SENIOR CASE MANAGER TUTU [id number].
[2019-09-10] MEDS: LACTATED RINGER'S 1,000 ML INJ SCH (23:00)
[2019-09-10] MEDS: PIPER-TAZ 3.375 GM 50 ML IV SCH (23:00)
[2019-09-11] VITALS (7 sets, daily range): BP systolic 140–153; BP diastolic 88–95
[2019-09-11] MEDS ORDERED: CEFOXITIN 1GM/ D5W 50ML 50 ML IV SCH
[2019-09-11] MEDS: LACTATED RINGER'S 1,000 ML INJ SCH ×4 (05:25→18:22)
[2019-09-11 05:58] LABS: BASOPHILS # (AUTO) 0.1 (0.0-0.1); BASOPHILS % 1.1 % (0.0-1.0); EOSINOPHILS # (AUTO) 0.4 (0.0-0.4); EOSINOPHILS % 4.1 % (0.0-6.0); HEMATOCRIT 41.7 % (38.2-49.6); HEMOGLOBIN 14.6 g/dL (14.0-18.0); LYMPHOCYTES # (AUTO) 1.3 (1.0-3.2); LYMPHOCYTES % 15.5 % (18.0-39.1); MEAN CORPUSCULAR HEMOGLOBIN 31.8 pg (28-32); MEAN CORPUSCULAR VOLUME 90.8 fL (81-99); MONOCYTES # (AUTO) 0.4 (0.2-0.8); MONOCYTES % 4.5 % (4.4-11.3); NEUTROPHILS # (AUTO) 6.3 (2.1-6.9); NEUTROPHILS % 74.4 % (38.7-80.0); PLATELET COUNT 70 x10e3/uL (140-360); RED BLOOD COUNT 4.59 x10e6/uL (4.3-5.7); RED CELL DISTRIBUTION WIDTH 12.7 % (11.7-14.4)
[2019-09-11] MEDS: PIPER-TAZ 3.375 GM 50 ML IV SCH ×3 (06:45→18:22)
[2019-09-11 06:51] LABS: ALANINE AMINOTRANSFERASE 101 IU/L (0-55); ALBUMIN 3.1 g/dL (3.5-5.0); ALBUMIN/GLOBULIN RATIO 0.7 (0.8-2.0); ALKALINE PHOSPHATASE 148 IU/L (40-150); ANION GAP 16.5 mmol/L (8-16); BLOOD UREA NITROGEN 5 mg/dL (7-26); BUN/CREATININE RATIO 8 (6-25); CALCIUM 8.7 mg/dL (8.4-10.2); CARBON DIOXIDE 18 mmol/L (22-29); CHLORIDE 99 mmol/L (98-107); CREATININE, SERUM 0.63 mg/dL (0.72-1.25); EST GLOMERULAR FILTRATION RATE > 60 ML/MIN (60-); GLUCOSE 117 mg/dL (74-118); LIPASE 246 U/L (8-78); POTASSIUM 3.5 mmol/L (3.5-5.1); SODIUM 130 mmol/L (136-145)
--- NOTE | 2019-09-11 07:05 | NUR ---
BEDSIDE SHIFT REPORT RECEIVED FROM CENTRAL SUPPLY ASSISTANT NURSE. PT AWAKE, ALERT, NO SIGNS OF DISTRESS.
[2019-09-11 07:13] LABS: CHOL/HDL RATIO 19.8 (3.9-4.7); CHOLESTEROL 357 MD/DL (0-199); HDL CHOLESTEROL 18 MG/DL (40-60)
[2019-09-11 07:24] LABS: TRIGLYCERIDES 1575 MG/DL (0-149)
[2019-09-11] MEDS ORDERED: [UNRECOGNIZED DRUG - OTHER] PO (08:00)
[2019-09-11] MEDS: THIAMINE HCL INJ 100 MG/ML 2ML VIAL IV SCH (09:40)
--- NOTE | 2019-09-11 09:45 | NUR ---
PT GIVEN CLEAR LIQUID DIET FOR BREAKFAST. PT TOLERATED WELL, NO PAIN OR NAUSEA NOTED. WILL CONTINUE TO MONITOR.
--- NOTE | 2019-09-11 13:05 | History and Physical ---
CHIEF COMPLAINT: Abdominal pain, alcoholic pancreatitis. HISTORY OF PRESENT ILLNESS: This is a 39-year-old male, known alcoholic, has had history of alcoholic pancreatitis in the past, who presented to the [facility] last night with complaints of acute abdominal pain, found to have acute pancreatitis on imaging studies. The patient reports he has been dealing with this pain for the last 5 days. Reports drinking 12-pack of beer daily for significant number of years. Of note, he said he has been drinking heavily over the last 2 weeks. He denies any cough, congestion, fever, or any recent travel. Imaging studies consistent with acute pancreatitis. Lipase levels were noted. GI has been consulted. REVIEW OF SYSTEMS: Pertinent positives: Abdominal pain, decreased oral intake. The rest of 14-point review of systems have been reviewed with the patient and are negative. ALLERGIES: NO KNOWN DRUG ALLERGIES. HOME MEDICATIONS: Metformin. PAST MEDICAL HISTORY: He has type 2 diabetes, hypertriglyceridemia, chronic alcohol abuse. PAST SURGICAL HISTORY: Reports none. FAMILY HISTORY: Hypertension and diabetes. SOCIAL HISTORY: No drugs. He is a chronic alcoholic, 12-pack of beer a day. Denies any smoking. PHYSICAL EXAMINATION: VITAL SIGNS: Temperature is 98.3, pulse 67, respiratory rate is 16, blood pressure 147/88, and pulse ox 99% on room air. GENERAL: Not in acute distress. Alert and oriented x3. Cooperative on examination. PULMONARY: Clear to auscultation bilaterally. No wheezing, no rales, no rhonchi, no crackles appreciated. CARDIOVASCULAR: Positive S1 and S2. No murmurs, rubs, or gallops appreciated. ABDOMEN: Soft. He was mildly tender to palpation in the epigastric area. No rebound. No guarding. Positive bowel sounds. MUSCULOSKELETAL: Strength is 5/5 throughout. No evidence of any muscle deficits on examination. No weakness appreciated. SKIN: Intact. Warm to touch. Good cap refill. PSYCHIATRIC: Normal affect and mood. EXTREMITIES: No edema. Good range of motion throughout. LABORATORY FINDINGS: Show white count 9.4, hemoglobin 14, hematocrit is 42, and platelets of 70. Chemistry; sodium 130, potassium 3.7, chloride 99, bicarb 18, anion gap of 16, BUN is 5, creatinine is 0.63, and glucose is 117. Lactic acid is 0.9. Point of care glucose 110. Total bilirubin is 2.4, AST 96, ALT 101, and alkaline phosphatase 148. Total protein 7.6 and albumin 3.1. Triglycerides 1575, LDL was unmeasurable, and lipase was 246. Coronavirus PCR is pending. MICROBIOLOGY: Blood cultures are pending. IMAGING STUDIES: CT abdomen and pelvis shows acute interstitial pancreatitis, hepatic steatosis. Chest x-ray shows no acute cardiopulmonary process. IMPRESSION: 1. Acute pancreatitis, from chronic alcohol abuse. 2. Alcoholic pancreatitis, chronic alcohol abuse. 3. Hyponatremia. 4. Thrombocytopenia, likely secondary to alcoholic cirrhosis. 5. Hypertriglyceridemia. 6. Mild elevation of transaminases. PLAN: At this time, the patient was n.p.o. He is doing much better. We are going to go ahead and initiate clear liquid diet. He will be on IV fluids and pain control. Monitor for any DTs. I discussed this with the nurse already. He denies any hallucinations visual or auditory. Continue with pain control. Constant ambulation. His platelets are low, so we are going to hold anticoagulation and put on SCDs for now. I will monitor the patient very closely. I discussed plan of care with nursing staff and the patient. He is on IV Zosyn for now. If he does well, he is on a clear liquid diet. He may be advance maybe tomorrow to regular and maybe able to be discharged if he does well. MD RAVINDER Ortiz/COCOL /[id number]
[2019-09-11] MEDS ORDERED: FENOFIBRATE 145 MG TAB PO STA (21:01)
[2019-09-12] VITALS: BP 155/89
[2019-09-12] MEDS: PIPER-TAZ 3.375 GM 50 ML IV SCH ×3 (00:28→12:00)
[2019-09-12] MEDS: LACTATED RINGER'S 1,000 ML INJ SCH ×2 (00:58→08:52)
[2019-09-12 04:00] VITALS: BP 140/76
[2019-09-12 05:56] LABS: BASOPHILS # (AUTO) 0.1 (0.0-0.1); BASOPHILS % 1.4 % (0.0-1.0); EOSINOPHILS # (AUTO) 0.4 (0.0-0.4); EOSINOPHILS % 7.3 % (0.0-6.0); HEMATOCRIT 43.1 % (38.2-49.6); HEMOGLOBIN 14.8 g/dL (14.0-18.0); LYMPHOCYTES # (AUTO) 1.2 (1.0-3.2); LYMPHOCYTES % 21.5 % (18.0-39.1); MEAN CORPUSCULAR HEMOGLOBIN 31.5 pg (28-32); MEAN CORPUSCULAR HGB CONC 34.3 g/dL (31-35); MEAN CORPUSCULAR VOLUME 91.7 fL (81-99); MONOCYTES # (AUTO) 0.3 (0.2-0.8); MONOCYTES % 5.5 % (4.4-11.3); NEUTROPHILS # (AUTO) 3.6 (2.1-6.9); NEUTROPHILS % 63.8 % (38.7-80.0); PLATELET COUNT 85 x10e3/uL (140-360); RED CELL DISTRIBUTION WIDTH 12.5 % (11.7-14.4)
[2019-09-12 06:33] LABS: ALANINE AMINOTRANSFERASE 86 IU/L (0-55); ALBUMIN 3.2 g/dL (3.5-5.0); ALBUMIN/GLOBULIN RATIO 0.7 (0.8-2.0); ALKALINE PHOSPHATASE 164 IU/L (40-150); ANION GAP 13.5 mmol/L (8-16); BLOOD UREA NITROGEN 5 mg/dL (7-26); BUN/CREATININE RATIO 6 (6-25); CALCIUM 9.4 mg/dL (8.4-10.2); CARBON DIOXIDE 27 mmol/L (22-29); CHLORIDE 102 mmol/L (98-107); CREATININE, SERUM 0.79 mg/dL (0.72-1.25); EST GLOMERULAR FILTRATION RATE > 60 ML/MIN (60-); GLUCOSE 121 mg/dL (74-118); LIPASE 173 U/L (8-78); POTASSIUM 4.5 mmol/L (3.5-5.1); SODIUM 138 mmol/L (136-145)
--- NOTE | 2019-09-12 07:08 | NUR ---
REPORT GIVEN TO DAYSIDFT NURSE. AAOX3. NO SIGNS OF IV INFILTRATION. BED LOCKED AND IN LOW POSITION. CALL LIGHT WITHIN REACH.
[2019-09-12 08:09] VITALS: BP 141/82
[2019-09-12] MEDS: THIAMINE HCL INJ 100 MG/ML 2ML VIAL IV SCH (08:52)
[2019-09-12] MEDS ORDERED: FENOFIBRATE 145 MG TAB PO SCH (09:00)
[2019-09-12 09:51] VITALS: BP 141/82
[2019-09-12] MEDS ORDERED: ONDANSETRON HCL 4 MG ORAL DISINTEGRATING TAB PO PRN (10:15)
[2019-09-12 11:58] VITALS: BP 129/82
--- NOTE | 2019-09-12 14:23 | NUR ---
patients discharged. IV access removed, bleeding controlled and dressing applied. discharge instructions reviewed with patient and at bedside. instructed on follow ups needed. denied questions about new prescriptions. patient ambulated off unit in stable condition with all belongings.
--- NOTE | 2019-09-12 17:03 | NUR ---
Nutrition Screen Note RD Recommendation for Physician: -Recommend to continue low fat diet Plan of Care: RD following, monitoring for tolerance and adequacy Nutrition reason for involvement: diet education high triglycerides Primary Diagnose(s): alcohol induced acute pancreatitis without necrosis PMH: type 2 diabetes, hypertriglyceridemia, chronic alcohol abuse Ht: 71 in Wt:204 lb BMI: 28.5 kg/m2 IBW:[address] Assessment: (09/12/19) Chart reviewed. Labs and meds reviewed. Pt is a 39 year old male admitted with alcohol induced acute pancreatitis without necrosis. A staff member who speaks Togolese translated information for pt. Pt stated he is tolerating his diet and usually weighs 200 lbs. No N/V. RD provided pt with low fat diet education materials in Togolese. Will continue to monitor. Current Diet: low fat Malnutrition Evaluation (09/12/19) The patient does not meet criteria for a specified degree of malnutrition at this time. Will re-evaluate at follow-up as appropriate. Diet Education Needs Assessment: Diet education indicated. Diet education was provided on 09/12/19 Learner(s): pt Barriers: no barriers identified Cultural/Language Modifications: written materials were provided in Togolese and a staff member interpreted information to pt Readiness: eager/acceptance Method: explanation/discussion/handout Topics: low fat diet - high triglyceride nutrition therapy and pancreatitis nutrition therapy Understanding/Compliance: pt verbalized understanding Nutrition Care Level: low Signed: Lisa Charles, RD, LD
--- NOTE | 2019-09-13 02:41 | Discharge Summary ---
FINAL DISCHARGE DIAGNOSES: 1. Acute alcoholic pancreatitis. 2. Chronic alcohol abuse. 3. Mild hyponatremia. 4. Thrombocytopenia secondary to alcoholic liver cirrhosis. 5. Hypertriglyceridemia. 6. Mild elevation of transaminases. CONSULTANTS: GI. VITAL SIGNS: Temperature is 98.5, pulse 50, respiratory rate is 18, blood pressure 129/82, pulse ox 100% on room air. LABORATORY DATA: Labs show white count 5.6, hemoglobin 14, hematocrit 43, and platelets of 85. Chemistry; sodium 138, potassium 4.5, chloride 102, bicarb 27, anion gap of 13, BUN is 5, creatinine is 0.79, glucose 121, total bilirubin is 2.3, AST 98, ALT 86, alkaline phosphatase 164, total protein 7.7, albumin is 3.2. Triglycerides were found to be 1575, then down trended to 698, started on Tricor. LDL was not measurable. Lipase was 173. SEROLOGY: Coronavirus PCR was pending. MICROBIOLOGY: Blood cultures were found to be negative. IMAGING: CT abdomen and pelvis consistent with acute interstitial pancreatitis. Hepatic steatosis. Chest x-ray, no acute cardiopulmonary process identified. HOSPITAL COURSE: A 39-year-old male with known history of alcoholic pancreatitis, comes into the ED with complaints of abdominal pain at the [facility] room. CT imaging was consistent with acute pancreatitis. The patient is a known alcohol drinker. GI has been consulted. He was initially started on n.p.o., clear liquid. Diet advance to regular diet. He was on IV fluids and pain controlled. The patient's pain improved throughout the hospital course. There was no evidence of any DTs, visual or auditory hallucinations. The patient was stable prior to being discharged to home. The patient had no other complaints. He was cleared for discharge by GI. On the day of discharge, vital signs were stable. Labs reviewed and stable. The patient is seen and evaluated, examined thoroughly on the day of discharge with no other complaints. The patient verbalized understanding and agrees to plan of care to follow up accordingly as an outpatient with primary care physician in 1 week and GI specialist in 2 weeks' time. MEDICATIONS: See med reconciliation form. DISPOSITION: Home. CONDITION: Stable. DIET: Heart healthy. In the event of worsening symptoms, the patient was advised to come back to the ED for further evaluation. Discharge summary took greater than 35 minutes. The patient was educated about alcohol abstinence. MD RAVINDER Ortiz/FATOUMATA /[id number]
[2019-09-13] MEDS ORDERED: THIAMINE HCL 100 MG TAB PO SCH (09:00)
== END 2019-09-12 14:36 | disposition home or self-care (01) | DRG 439 ==
LOC: FSED 14:19 → ERHOLD 21:02 → MED/SURG 22:32
PROVIDERS: ADMIT Internal Medicine; ATTEND Internal Medicine
DX: K85.20 Alcohol induced acute pancreatitis without necrosis or infection (principal); E87.2 Acidosis; E87.1 Hypo-osmolality and hyponatremia; E86.0 Dehydration; Z82.49 Family history of ischemic heart disease and other diseases of the circulatory system; E11.9 Type 2 diabetes mellitus without complications; E78.1 Pure hyperglyceridemia; D69.6 Thrombocytopenia, unspecified; F10.20 Alcohol dependence, uncomplicated; K70.30 Alcoholic cirrhosis of liver without ascites; Z11.59 Encounter for screening for other viral diseases
CPT/HCPCS: 36415; 71046; 74177; 80053; 80061; 80076; 81003; 82948; 83605; 83690; 83735; 84478; 85025; 87040; 87635; 96374; 99284; J1885; J2270; J2405; J2543; J3411; J7030; J7121; Q9967

== ENCOUNTER 2019-11-18 12:50 | Inpatient (IN) | payer OTHER, SELFPAY ==
[~2019-11-18] VITALS: Ht 177.8 cm; Wt 91.9 kg
[~2019-11-18 12:50] MED LIST changes: +METFORMIN HCL500 MG PO; +[UNRECOGNIZED DRUG - OTHER] PO
[2019-11-18] MEDS ORDERED: SODIUM CHLORIDE 0.9% 1000ML 1,000 ML IV STA (13:12)
[2019-11-18] MEDS ORDERED: PROMETHAZINE 25MG/ NS 50ML (IV) IV ONE (13:15)
[2019-11-18] MEDS ORDERED: FAMOTIDINE 20 MG/2 ML VIAL IV ONE (13:15)
--- NOTE | 2019-11-18 13:18 | Emergency Department Note ---
History of Present Illnes History of Present Illness Chief Complaint: Abdominal Complaints History of Present Illness This is a 39 year old male c/o mid abd pain few days, been drinking as well . Historian: Patient Arrival Mode: Car Onset (how long ago): hour(s) (4-5 hours) Radiation: Reports abdomen Severity: severe Onset quality: gradual Timing of current episode: constant Progression: worsening Relieving factors: none Exacerbating factors: none Associated symptoms: Reports denies other symptoms Treatments prior to arrival: none Past Medical/Family History Physician Review I have reviewed the patient's past medical and family history. Any updates have been documented here. Past Medical History Recent Fever: No Clinical Suspicion of Infectio: No New/Unexplained Change in Ment: No Past Medical History: Diabetes Other Medical History: DIABETES , etoh pancreatitis Past Surgical History: None Social History Smoking Cessation: Unknown if ever smoked Physically hurt or threatened: No Other Last Tetanus: unknown Review of Systems Review of Systems Constitutional: Reports no symptoms EENTM: Reports no symptoms Cardiovascular: Reports no symptoms Respiratory: Reports no symptoms Gastrointestinal: Reports as per HPI, Reports abdominal pain, Reports nausea Genitourinary: Reports no symptoms Musculoskeletal: Reports no symptoms Integumentary: Reports no symptoms Neurological: Reports no symptoms Psychological: Reports no symptoms Endocrine: Reports no symptoms Hematological/Lymphatic: Reports no symptoms Physical Exam Related Data Allergies: Coded Allergies: No Known Allergies (Unverified , 05/18/19) Vital signs reviewed: Yes Physical Exam CONSTITUTIONAL Constitutional: Present well-developed, Present well-nourished HENT HENT: Present normocephalic, Present atraumatic, Present oropharynx clear/moist, Present nose normal HENT L/R: Present left ext ear normal, Present right ext ear normal EYES Eyes: Reports PERRL, Reports conjunctivae normal NECK Neck: Present ROM normal PULMONARY Pulmonary: Present effort normal, Present breath sounds normal CARDIOVASCULAR Cardiovascular: Present regular rhythm, Present heart sounds normal, Present capillary refill normal, Present normal rate GASTROINTESTINAL Abdominal: Present soft, Present bowel sounds normal, Present tender (RLQ) GENITOURINARY Genitourinary: Present exam deferred SKIN Skin: Present warm, Present dry MUSCULOSKELETAL Musculoskeletal: Present ROM normal NEUROLOGICAL Neurological: Present alert, Present oriented x 3, Present no gross motor or sensory deficits PSYCHOLOGICAL Psychological: Present mood/affect normal, Present judgement normal Results Laboratory Lab results reviewed: Yes Imaging Imaging results reviewed: Yes Imaging Comments c/w pancreatitis Assessment & Plan Medical Decision Making MDM appendicitis, pancreatitis, colitis, DKA Reassessment Reassessment doing better Assessment & Plan Final Impression: (1) ACUTE PANCREATITIS WITHOUT NECROSIS OR INFECTION, UNSP (2) DEHYDRATION (3) Hypertriglyceridemia Depart Disposition: ADMITTED Home Meds Reported Medications [Triglycerides ] No Conflict Check, PO DAILY 09/11/19 Metformin Hcl (METFORMIN HCL) 500 Mg Tablet, 500 MG PO BID, #60 TAB 09/10/19 Medications in the ED IV pepcid, IV phenergan Physician Attestation Provider Attestation case discussed with MINDI Ferris MD Nov 18, 2019 13:18
--- OUTSIDE RECORDS SUMMARY | 2019-11-18 13:24 | XMS REPORT | Continuity of Care Document ---
Author Author [facility] t Organization [facility] Address [address] [place] [address] Phone Unavailable Care Team Providers Care Rn Emergency Room Name Role Phone MD Maxim RDZ MD PCP Skye STOVER Attphys Unavailable Paige RINALDI Attphys Unavailable Payers Payer Name Policy Type Policy Number Effective Date Expiration Date S ource Problems This patient has no known problems. Allergies, Adverse Reactions, Alerts Allergy Name Allergy Type Status Severity Reaction(s) Onset Date Inacti ve Date Treating Clinician Comments Source No Known Allergies DA Active U 2019-02-05 00:00:00 [facility] No Known Allergies DA Active U 2018-05-07 00:00:00 [facility] No Known Allergies DA Active U 2018-04-12 00:00:00 [facility] Social History Social Habit Start Date Stop Date Quantity Comments Source Sex Assigned At 1980 00:00:00 1980 00:00:00 Male [facility] Medications Ordered Medication Name Filled Medication Name Start Date Stop Da te Current Medication? Ordering Clinician Indication Dosage Frequency Signature (SIG) Comments Components Source Omeprazole Omeprazole 2019-05-18 02:14:00 2019-09-10 00:00:00 No 20 Daily [facility] Ondansetron (Ondansetron Odt) 8 [facility] Ondanset rachna (Ondansetron Odt) 8 Mg TAB.RAPDIS 2019-05-18 02:12:00 2019-09-10 00:00:00 No 4 Every 8 Hours as needed for Nausea [facility] Metformin Hcl Metformin Hcl Yes 500 Twice A Day [facility] Triglycerides Triglycerides Yes Daily [facility] Vital Signs Vital Name Observation Time Observation Value Comments Source Body Temperature 2019-09-12 11:58:00 98.5 [degF] [facility] Weight 2019-09-10 14:24:00 204 [lb_av] [facility] BMI (Body Mass Index) 2019-09-10 14:24:00 28.5 kg/m2 [facility] Procedures This patient has no known procedures. Plan of Care Planned Activity Planned Date Details Comments Source Instructions Pancreatitis [facility] Encounters Start Date/Time End Date/Time [facility]counter Type [facility] ID Source 2019-09-10 21:02:00 2019-09-12 14:36:00 Discharged Inpatient [address] [facility] [id number] [facility] 2019-05-18 00:40:00 2019-05-18 02:51:00 Departed Emergency Room [address] [facility] [id number] [facility] Results Test Description Test Time Test Comments Results Result Comments Source Blood leukocytes automated count (number/volume) 2019-09-12 05:30:00 Test Item White Blood Count (test code = 6690-2) 5.64 4.8-10.8 [facility] automated count (number/volume)2019-09-12 05:30:00* Test Item Value Reference Range Interpretation Comments Red Blood Count (test code = 789-8) 4.70 4.3-5.7 [facility] hemoglobin measurement (moles/volume)2019-09-12 05:30:00* Test Item Value Reference Range Interpretation Comments Hemoglobin (test code = 48216-0) 14.8 14.0-18.0 [facility]ville[facility] blood hematocrit (volume fraction)2019-09-12 05:30:00* Test Item Value Reference Range Interpretation Comments Hematocrit (test code = 4544-3) 43.1 38.2-49.6 [facility]ville[facility] erythrocyte mean corpuscular bshzkg0556-97-25 05:30:00* Test Item Value Reference Range Interpretation Comments Mean Corpuscular Volume (test code = 787-2) 91.7 81-99 [facility]ville[facility] erythrocyte mean corpuscular hemoglobin (mass per erythrocyte)2019-09-12 05:30:00* Test Item Value Reference Range Interpretation Comments Mean Corpuscular Hemoglobin (test code = 785-6) 31.5 28-32 [facility]ville[facility] erythrocyte mean corpuscular hemoglobin concentration measurement (mass/volume)2019-09-12 05:30:00* Test Item Value Reference Range Interpretation Comments Mean Corpuscular Hemoglobin Concent (test code = 786-4) 34.3 31-35 [facility]villeRDW JwkUz-Tnk2985-68-03 05:30:00* Test Item Value Reference Range Interpretation Comments Red Cell Distribution Width (test code = 46828-9) 12.5 11.7 -14.4 [facility]ville[facility] blood platelet count (count/volume)2019-09-12 05:30:00* Test Item Value Reference Range Interpretation Comments Platelet Count (test code = 777-3) 85 140-360 [facility] neutrophil count as percentage of total txecvpqkmc0372-95-61 05:30:00* Test Item Value Reference Range Interpretation Comments Neutrophils (%) (Auto) (test code = 73917-6) 63.8 38.7-80.0 [facility]ville[facility] blood lymphocyte count as percentage ot total reyxigfblo6304-97-42 05:30:00* Test Item Value Reference Range Interpretation Comments Lymphocytes (%) (Auto) (test code = 736-9) 21.5 18.0-39.1 [facility]ville[facility] blood monocyte count as percentage of total tywvtxocuw0820-61-75 05:30:00* Test Item Value Reference Range Interpretation Comments Monocytes (%) (Auto) (test code = 5905-5) 5.5 4.4-11.3 [facility] blood eosinophil count as percentage of total ulmjdbrzae0968-32-83 05:30:00* Test Item Value Reference Range Interpretation Comments Eosinophils (%) (Auto) (test code = 713-8) 7.3 0.0-6.0 [facility]ville[facility] blood basophil count as percentage of total llyjpqmkfh0026-56-01 05:30:00* Test Item Value Reference Range Interpretation Comments Basophils (%) (Auto) (test code = 706-2) 1.4 0.0-1.0 [facility]villeFluoroscopic procedure less than one hour mbrgbzks5848-67-40 05:30:00* Test Item Value Reference Range Interpretation Comments IM GRANULOCYTES % (test code = IM GRANULOCYTES %) 0.5 0.0- 1.0 [facility]ville[facility] blood neutrophil count 2019-09-12 05:30:00* Test Item Value Reference Range Interpretation Comments Neutrophils # (Auto) (test code = 751-8) 3.6 2.1-6.9 [facility] lymphocytes count (number/volume) 2019-09-12 05:30:00* Test Item Value Reference Range Interpretation Comments Lymphocytes # (Auto) (test code = 73935-4) 1.2 1.0-3.2 [facility] monocytes automated count (number/volume)2019-09-12 05:30:00* Test Item Value Reference Range Interpretation Comments Monocytes # (Auto) (test code = 742-7) 0.3 0.2-0.8 [facility]ville[facility] blood eosinophil count 2019-09-12 05:30:00* Test Item Value Reference Range Interpretation Comments Eosinophils # (Auto) (test code = 711-2) 0.4 0.0-0.4 [facility]villeAutom[facility] blood basophil count (count/volume)2019-09-12 05:30:00* Test Item Value Reference Range Interpretation Comments Basophils # (Auto) (test code = 704-7) 0.1 0.0-0.1 [facility]villeFluoroscopic procedure less than one hour lzqnzraf8202-62-46 05:30:00* Test Item Value Reference Range Interpretation Comments Absolute Immature Granulocyte (auto (john t code = Absolute Immature Granulocyte (auto) 0.03 0-0.1 [facility] or plasma sodium measurement (moles/volume)2019-09-12 05:30:00* Test Item Value Reference Range Interpretation Comments Sodium Level (test code = 2951-2) 138 136-145 [facility] or plasma potassium measurement (moles/volume)2019-09-12 05:30:00* Test Item Value Reference Range Interpretation Comments Potassium Level (test code = 2823-3) 4.5 3.5-5.1 [facility] Camp[facility]um or plasma chloride measurement (moles/volume)2019-09-12 05:30:00* Test Item Value Reference Range Interpretation Comments Chloride Level (test code = 2075-0) 102 98-107 [facility]um or plasma carbon dioxide, total measurement (moles/volume)2019-09-12 05:30:00* Test Item Value Reference Range Interpretation Comments Carbon Dioxide Level (test code = 2028-9) 27 22-29 [facility] Camp[facility]um or plasma anion yjz6936-45-38 05:30:00* Test Item Value Reference Range Interpretation Comments Anion Gap (test code = 39740-9) 13.5 8-16 [facility]um or plasma urea nitrogen measurement (mass/volume)2019-09-12 05:30:00* Test Item Value Reference Range Interpretation Comments Blood Urea Nitrogen (test code = 3094-0) 5 7-26 [facility]um or plasma creatinine measurement (mass/volume)2019-09-12 05:30:00* Test Item Value Reference Range Interpretation Comments Creatinine (test code = 2160-0) 0.79 0.72-1.25 [facility] or plasma urea nitrogen/creatinine mass rmnlo9620-92-19 05:30:00* Test Item Value Reference Range Interpretation Comments BUN/Creatinine Ratio (test code = 3097-3) 6 6-25 [facility]villeEstimated glomerular filtration rate (GFR) suhsadryiosqe7428-29-98 05:30:00* Test Item Value Reference Range Interpretation Comments Estimat Glomerular Filtration Rate (test code = 007912948) > 60 >60 Ranges were taken from the National Kidney Disease Education Program and the [facility] Kid[facility] Foundation literature.Reference ranges:60 or greater: Msrwpn92-49 ( for 3 consecutive months): Chronic kidney disease 15 or less: Kidney failureVal[facility] Medical Center – BrownsvilleGlucose civoqstyula4419-02-87 05:30:00* Test Item Value Reference Range Interpretation Comments Glucose Level (test code = FIU5725) 121 74-118 [facility]um or plasma calcium measurement (mass/volume)2019-09-12 05:30:00* Test Item Value Reference Range Interpretation Comments Calcium Level (test code = 04120-5) 9.4 8.4-10.2 [facility] Camp[facility]um or plasma total bilirubin measurement (mass/volume)2019-09-12 05:30:00* Test Item Value Reference Range Interpretation Comments Total Bilirubin (test code = 1975-2) 2.2 0.2-1.2 [facility]villeFluoroscopic procedure less than one hour talsccie7940-00-58 05:30:00* Test Item Value Reference Range Interpretation Comments Aspartate Amino Transf (AST/SGOT) (test code = Aspartate Amino Transf (AST/SGOT)) 98 5-34 [facility]um or plasma alanine aminotransferase measurement (enzymatic activity/volume)2019-09-12 05:30:00* Test Item Value Reference Range Interpretation Comments Alanine Aminotransferase (ALT/SGPT) (test code = 1742-6) 86 0-55 [facility]um or plasma protein measurement (mass/volume)2019-09-12 05:30:00* Test Item Value Reference Range Interpretation Comments Total Protein (test code = 2885-2) 7.7 6.5-8.1 [facility] Campuserum or plasma albumin measurement (mass/volume)2019-09-12 05:30:00* Test Item Value Reference Range Interpretation Comments Albumin (test code = 1751-7) 3.2 3.5-5.0 [facility]villePlasma globulin measurement (mass/volume) 2019-09-12 05:30:00* Test Item Value Reference Range Interpretation Comments Globulin (test code = 86898-5) 4.5 2.3-3.5 [facility]um or plasma albumin/globulin mass grhlf9943-93-18 05:30:00* Test Item Value Reference Range Interpretation Comments Albumin/Globulin Ratio (test code = 1759-0) 0.7 0.8-2.0 [facility] Camp[facility]um or plasma alkaline phosphatase measurement (enzymatic activity/volume)2019-09-12 05:30:00* Test Item Value Reference Range Interpretation Comments Alkaline Phosphatase (test code = 6768-6) 164 40-150 [facility]um or plasma triglyceride measurement (mass/volume)2019-09-12 05:30:00* Test Item Value Reference Range Interpretation Comments Triglycerides Level (test code = 2571-8) 698 0-149 [facility]um or plasma lipase measurement (enzymatic activity/volume)2019-09-12 05:30:00* Test Item Value Reference Range Interpretation Comments Lipase (test code = 3040-3) 173 8-78 [facility] BrownsvilleCapillary blood glucose measurement by glucometer (mass/volume)2019-09-11 07:39:00* Test Item Value Reference Range Interpretation Comments Bedside Glucose (test code = 75280-4) 110 70-120 Meter ID: [id number] Baptist Medical Center – BrownsvilleFluoroscopic procedure less than one hour btidhnob3793-06-46 05:44:00* Test Item Value Reference Range Interpretation Comments Lactic Acid Level (test code = Lactic Acid Level) 0.9 0.5- 2.0 [facility]um or plasma magnesium measurement (mass/volume)2019-09-11 05:44:00* Test Item Value Reference Range Interpretation Comments Magnesium Level (test code = 90477-6) 2.0 1.3-2.1 [facility] Camp[facility]um or plasma cholesterol measurement (mass/volume)2019-09-11 05:44:00* Test Item Value Reference Range Interpretation Comments Cholesterol Level (test code = 2093-3) 357 0-199 Less than 200 mg/dL Low Zjua041 - 239 mg/dL Borderline Wnve290 m g/dl and greater High Risk [facility]um or plasma cholesterol in HDL measurement (mass/volume) 2019-09-11 05:44:00* Test Item Value Reference Range Interpretation Comments HDL Cholesterol (test code = 2085-9) 18 40-60 [facility]um or plasma total cholesterol/cholesterol in HDL mass aqdqr5904-98-21 05:44:00* Test Item Value Reference Range Interpretation Comments Cholesterol/HDL Ratio (test code = 9830-1) 19.8 3.9-4.7 [facility]villeCT ABD/PEL WITH [id number]-[id number] 19:19:00 [facility] [address] [place] [address] Patient Name: LUIS NICE MR #: [id number] : 1980 Age/Sex: 39/M Req #: [id number] Adm Physician: Ordered by: UMU STOVER Report #: [id number] Location: [facility] Room/Bed: Procedure: [id number] HOPD/CT ABD/PEL WITH CONTRAST-HOPD Exam Date: 09/10/19 Exam Time: 1845 REPORT STATUS: Signed EXAM: CT Abdomen and Pelvis WITH contrast INDICATION: Abdominal pa in. Pancreatitis. COMPARISON: None. TECHNIQUE: Abdomen and pelvis were scann ed utilizing a multidetector helical scanner from the lung base to the pubic s ymphysis after administration of IV contrast. Coronal and sagittal reformation s were obtained. Routine protocol was performed. Scan was performed when durin g portal venous phase. IV CONTRAST: 100 cc Isovue-300. ORAL CONTRAST: Water RADIATION DOSE: Total DLP: 856.92 mGy*cm Estimated effective dose: (DLP x 0.015 x size factor) mSv COMPLICATIONS: None FINDINGS: LINES and TUBES: None. LOWER THORAX: Calcified granuloma in the right lower lobe. HEPATOBILIARY: The li josé miguel is diffuse hypodense compared to the spleen, consistent with diffuse hepat ic diffuse hepatic steatosis. No focal hepatic lesions. No biliary ductal dil ation. GALLBLADDER: No radio-opaque stones or sludge. No wall thickening. SPLEEN: No splenomegaly. PANCREAS: Diffuse pancreatic edema, particu larly of the pancreatic head, associated with surrounding fat stranding and a small volume of fluid without significant fluid collections. No ductal dilatat ion. ADRENALS: No adrenal nodules KIDNEYS/URETERS: Kidneys enhan ce symmetrically. No hydronephrosis. No cystic or solid mass lesions. No sto nikole. GI TRACT: Diffuse wall thickening of the second portion of the duodenu m with inflammatory changes in the pancreatic groove. No evidence of bowel o bstruction. Appendix is normal. PELVIC ORGANS/BLADDER: Unremarkable. LYMPH NODES: Mildly prominent peripancreatic lymph nodes. VESSELS: Unr emarkable. PERITONEUM / RETROPERITONEUM: No free air or fluid. BONES: Unremarkable. SOFT TISSUES: Unremarkable. IMPRESSION: 1 . Acute interstitial pancreatitis. 2. Hepatic steatosis. Signed by: Dr. Kimmie Virk M.D. on 09/10/2019 8:20 PM Dictated By: WAGNER HANDLEY MD, MD 19 Trans cribed By: SHIRA on 09/10/192019 COPY TO: UMU STOVRE CXR 2 VIEW - [id number] 16:19:00 [facility] [address] [address] Patient Name: LUIS NICE MR #: [id number] : 1980 Age/Sex: 39/M Req #: [id number] Adm Physician: Ordered by: UMU STOVER Report #: [id number] Location: [facility] Room/Bed: Procedure: HOPD/CXR 2 VIEW - HOPD Exam Date: Exam Time: REPORT STATUS: Signed EXAM: CXR 2 V IEW - HOPD DATE: 09/10/2019 3:56 PM INDICATION: Abdominal pain C OMPARISON: None FINDINGS: The trachea is midline. The lungs are symmetric ally expanded without evidence for large focal consolidation, pneumothorax, or significant pleural effusion. The cardiomediastinal silhouette and pulmona ry vasculature are within normal limits. No acute osseous abnormality is ident ified. The surrounding soft tissues are unremarkable. IMPRESSION: No acute cardiopulmonary process identified. Signed by: Dr. Chaitanya López MD on 09/10/2019 4:20 PM Dictated By: CHAITANYA LÓPEZ MD Electronically Pat d By: CHAITANYA LÓPEZ MD on 09/10/191619 Transcribed By: SHIRA on 09/10/19 1620 COPY TO: UMU STOVER Serum or plasma conjugated bilirubin measurement (mass/volume)2019-09-10 15:25:00* Test Item Value Reference Range Interpretation Comments Direct Bilirubin (test code = 94181-1) 0.1 0.0-0.5 [facility] [id number] 15:20:00* Test Item Value Reference Range Interpretation Comments Blood Culture (test code = 67577830) NO GROWTH AFTER 24 HOURS [facility]villeUA RFLX [id number] 14:08:00* Test Item Value Reference Range Interpretation Comments UA COLOR (test code = COLU) STRAW [...] code = UASPEC) Clean Catch COMPREHENSIVE METABOLIC [id number] 13:55:00* Test Item Value Reference Range Interpretation [...] code = ALKP) 126 Units/L 50-136 N [id number] 13:55:00* Test Item Value Reference Range Interpretation Comments ALCOHOL (test code = ALC) 4 MG/DL 0-10 N 0 - 10: Should be interpreted as NEGATIVE. 11 - 50: None to mild euphoria. 51 - 100: Mild influence on vision and dark adaptation. 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 > 400: Fatalities reported. Results are for medical purposes only and not forlegal or employment evaluative purposes. COMPREHENSIVE METABOLIC [id number] 13:49:00* Test Item Value Reference Range Interpretation [...] TOTAL (test code = ALKP) Units/L 50-136 [id number] 13:49:00* Test Item Value Reference Range Interpretation Comments ALCOHOL (test code = ALC) MG/DL 0-10 CBC W/AUTO [id number] 13:38:00* Test Item Value Reference Range Interpretation [...] 0.06 x10 3/uL 0.0-0.[address] BRAIN [id number] 02:56:[address] [address] Patient Name: LUIS NICE MR #: [id number] : 1980 Age/Sex: 38/M Req #: [id number] Adm Physician: Ordered by: ORI RINALDI MD Report #: [id number] Location: [facility] Room/Bed: Procedure: [id number] HOPD/CT BRAIN WO-HOPD Exam Date: 05/18/19 Exam Time: 0235 REPORT STATUS: Sig sofía Examination: CT head without contrast Clinical Indication: Headache. We akness. Technique: Transaxial noncontrast images from the skull base through [facility] vertex were obtained. Sagittal and coronal reformatted images were done. Dose modulation, iterative reconstruction, and/or weight based adjustment of t mA/kV was utilized to reduce the radiation [...] B y: SHIRA on 05/18/19256 COPY TO: ORI RINALDI MD GLUBED 2019-02-07 17:30:00* Test Item Value Reference Range Interpretation Comments GLUBED (test code = GLUBED) 134 mg/dL 74-106 H Performed by certified tandem mill operator at [facility] [id number] 11:16:00* Test Item Value Reference Range Interpretation Comments GLUBED (test code = GLUBED) 76 mg/dL 74-106 N Performed by certified tandem mill operator at [facility] [id number] 07:48:00* Test Item Value Reference Range Interpretation Comments GLUBED (test code = GLUBED) 79 mg/dL 74-106 N Performed by certified tandem mill operator at [facility] CBC W/MANUAL [id number] 04:31:00* Test Item Value Reference Range Interpretation [...] IMMAT) 0 % 0-0 N BASIC METABOLIC [id number] 04:02:00* Test Item Value Reference Range Interpretation [...] CA) 9.2 mg/dL 8.5-10.1 N HEPATIC FUNCTION [id number] 04:02:00* Test Item Value Reference Range Interpretation [...] reference range due to change in reagent. [id number] 04:02:00* Test Item Value Reference Range Interpretation Comments LIPASE (test code = LIP) 300 U/L 73.0-393.0 N BASIC METABOLIC [id number] 03:54:00* Test Item Value Reference Range Interpretation [...] code = CA) mg/dL 8.5-10.1 HEPATIC FUNCTION [id number] 03:54:00* Test Item Value Reference Range Interpretation [...] TOTAL (test code = ALKP) IUnit/L 45-117 [id number] 03:54:00* Test Item Value Reference Range Interpretation Comments LIPASE (test code = LIP) U/L 73.0-393.0 CBC W/MANUAL [id number] 03:43:00* Test Item Value Reference Range Interpretation [...] MORPHOLOGY (test code = PLTMORPH) CBC W/MANUAL [id number] 03:43:00* Test Item Value Reference Range Interpretation [...] MORPHOLOGY (test code = PLTMORPH) CBC W/MANUAL [id number] 03:43:00* Test Item Value Reference Range Interpretation [...] MORPHOLOGY (test code = PLTMORPH) CBC W/MANUAL [id number] 03:42:00* Test Item Value Reference Range Interpretation [...] MORPHOLOGY (test code = PLTMORPH) CBC W/MANUAL [id number] 03:42:00* Test Item Value Reference Range Interpretation [...] PLTEST) PLATELET MORPHOLOGY (test code = PLTMORPH) [id number] 20:28:00* Test Item Value Reference Range Interpretation Comments GLUBED (test code = GLUBED) 80 mg/dL 74-106 N Performed by certified tandem mill operator at [facility] [id number] 16:31:00* Test Item Value Reference Range Interpretation Comments GLUBED (test code = GLUBED) 74 mg/dL 74-106 N Performed by certified tandem mill operator at [facility] [id number] 11:31:00* Test Item Value Reference Range Interpretation Comments GLUBED (test code = GLUBED) 97 mg/dL 74-106 N Performed by certified tandem mill operator at [facility] [id number] 07:54:00* Test Item Value Reference Range Interpretation Comments GLUBED (test code = GLUBED) 88 mg/dL 74-106 N Performed by certified tandem mill operator at [facility] CBC W/MANUAL [id number] 06:32:00* Test Item Value Reference Range Interpretation [...] IMMAT) 0 % 0-0 N BASIC METABOLIC [id number] 05:53:00* Test Item Value Reference Range Interpretation [...] code = CA) 8.3 mg/dL 8.5-10.1 L [id number] 05:53:00* Test Item Value Reference Range Interpretation Comments LIPASE (test code = LIP) 684 U/L 73.0-393.0 H CBC W/MANUAL [id number] 05:22:00* Test Item Value Reference Range Interpretation [...] MORPHOLOGY (test code = PLTMORPH) CBC W/MANUAL [id number] 05:22:00* Test Item Value Reference Range Interpretation [...] MORPHOLOGY (test code = PLTMORPH) CBC W/MANUAL [id number] 05:22:00* Test Item Value Reference Range Interpretation [...] MORPHOLOGY (test code = PLTMORPH) CBC W/MANUAL [id number] 05:22:00* Test Item Value Reference Range Interpretation [...] MORPHOLOGY (test code = PLTMORPH) CBC W/MANUAL [id number] 05:22:00* Test Item Value Reference Range Interpretation [...] PLTEST) PLATELET MORPHOLOGY (test code = PLTMORPH) [id number] 20:21:00* Test Item Value Reference Range Interpretation Comments GLYCOSYLATED HEMOGLOBIN (HA1C) (test code = GLYHGB) 5.6 % HbA1 4. 8-6.0 N ESTIMATED AVERAGE GLUCOSE (test code = EAG) 114 MG/DL [id number] 20:14:00* Test Item Value Reference Range Interpretation Comments GLUBED (test code = GLUBED) 124 mg/dL 74-106 H Performed by certified tandem mill operator at [facility] - US ABDOMEN [id number] 10:44:00 Name: LUIS SNYDER [facility] : 1980 Age/S: 38 / M [address] [facility] Unit #: [id number] Loc: Ch[place]i [place] [address] Phys: Benjamin Aguilar MD Acct: [id number] Dis Date: Status: ADM IN PHONE #: [phone] Exam Date: 02/05/2019 1034 FAX #: [phone] Reason: RUQ pain, pancreatitis EXAMS: CPT CODE: [id number] [place] ABDOMEN LTD [address] REASON FOR EXAM: RUQ pain, pancreatitis EXAM [...] in thickness. No discontinuity. No polyps. No pe richolecystic fluid. No hyperemia. Sonographic Munoz's sign: Negative Portal vein: Portal vein caliber is within normal limits. Portal ve in is patent with hepatopetal flow. Pancreas: Incompletely v isualized. However the visualized portions are grossly within normal limit s. Right kidney: parenchyma echogenicity: Normal echogenicit y size: 12.3 x 4.6 x 6.4 cm stones: none PAGE 1 Signed Report (CONTINUED) Name: LUIS SNYDER [facility] : 1980 Age/S: 38 / M [address] [facility] Unit #: [id number] Loc: Chiqui Freeman [address] Phys: Benjamin Aguilar MD Acct: [id number] Dis Date: Statu s: ADM IN PHONE #: [phone] Exam Date: 02/05/2019 1034 FAX #: [phone] Reason: RUQ pain, pancreatitis EXAMS: CPT CODE: [id number] ABDOMEN [facility] [address] <Continued> cysts/masses: none hydronephrosis: none Ascites/pleural effusions: None IMPRESSION: Hepatomegaly with hepatic steatosis. Location: [facility] at 1044 Reported and signed by: James Zimmerman MD CC: Benjamin Aguilar MD Technologist: Coco Andrade RDMS Trnscb Date/Time: 02/05/2019 (1044) [email or web address] Orig Print D/T: S: 02/05/2019 (1047) Probe: PAGE 2 Signed Report BASIC METABOLIC [id number] 10:26:00* Test Item Value Reference Range Interpretation [...] CA) 7.9 mg/dL 8.4-10.2 L HEPATIC FUNCTION [id number] 10:26:00* Test Item Value Reference Range Interpretation [...] code = ALKP) 237 U/L 38-126 H [id number] 10:26:00* Test Item Value Reference Range Interpretation Comments LIPASE (test code = LIP) 1344 U/L 128-270 H URINALYSIS [id number] 10:06:00* Test Item Value Reference Range Interpretation [...] LPF NONE-FEW Urine Source? Clean CatchBASIC METABOLIC [id number] 10:03:00* Test Item Value Reference Range Interpretation [...] CA) 7.9 mg/dL 8.4-10.2 L HEPATIC FUNCTION [id number] 10:03:00* Test Item Value Reference Range Interpretation [...] code = ALKP) 237 U/L 38-126 H [id number] 10:03:00* Test Item Value Reference Range Interpretation Comments LIPASE (test code = LIP) 1344 U/L 128-270 H BASIC METABOLIC [id number] 09:56:00* Test Item Value Reference Range Interpretation [...] CA) 7.9 mg/dL 8.4-10.2 L HEPATIC FUNCTION [id number] 09:56:00* Test Item Value Reference Range Interpretation [...] TOTAL (test code = ALKP) IUnit/L 45-117 [id number] 09:56:00* Test Item Value Reference Range Interpretation Comments LIPASE (test code = LIP) Unit/L 144-286 CBC W/O [id number] 09:45:00* Test Item Value Reference Range Interpretation [...] = MPV) 10.7 fL 6.7-11.0 N URINALYSIS [id number] 09:45:00* Test Item Value Reference Range Interpretation [...] HPF NONE Urine Source? Clean CatchBASIC METABOLIC [id number] 11:18:00* Test Item Value Reference Range Interpretation [...] CA) 8.6 mg/dL 8.4-10.2 N HEPATIC FUNCTION [id number] 11:18:00* Test Item Value Reference Range Interpretation [...] reference range due to change in reagent. [id number] 11:18:00* Test Item Value Reference Range Interpretation Comments LIPASE (test code = LIP) 998 Unit/L 144-286 H [id number] 11:18:00* Test Item Value Reference Range Interpretation Comments TROPONIN-I (test code = TROPI) <0.015 ng/mL 0-0.045 N BASIC METABOLIC [id number] 11:13:00* Test Item Value Reference Range Interpretation [...] CA) 8.6 mg/dL 8.4-10.2 N HEPATIC FUNCTION [id number] 11:13:00* Test Item Value Reference Range Interpretation [...] TOTAL (test code = ALKP) IUnit/L 45-117 [id number] 11:13:00* Test Item Value Reference Range Interpretation Comments LIPASE (test code = LIP) 998 Unit/L 144-286 H [id number] 11:13:00* Test Item Value Reference Range Interpretation Comments TROPONIN-I (test code = TROPI) <0.015 ng/mL 0-0.045 N BASIC METABOLIC [id number] 11:11:00* Test Item Value Reference Range Interpretation [...] code = CA) mg/dL 8.4-10.2 HEPATIC FUNCTION [id number] 11:11:00* Test Item Value Reference Range Interpretation [...] TOTAL (test code = ALKP) IUnit/L 45-117 [id number] 11:11:00* Test Item Value Reference Range Interpretation Comments LIPASE (test code = LIP) Unit/L 144-286 [id number] 11:11:00* Test Item Value Reference Range Interpretation Comments TROPONIN-I (test code = TROPI) ng/mL 0-0.045 BASIC METABOLIC [id number] 11:11:00* Test Item Value Reference Range Interpretation [...] code = CA) mg/dL 8.4-10.2 HEPATIC FUNCTION [id number] 11:11:00* Test Item Value Reference Range Interpretation [...] TOTAL (test code = ALKP) IUnit/L 45-117 [id number] 11:11:00* Test Item Value Reference Range Interpretation Comments LIPASE (test code = LIP) Unit/L 144-286 [id number] 11:11:00* Test Item Value Reference Range Interpretation Comments TROPONIN-I (test code = TROPI) <0.015 ng/mL 0-0.045 N CBC W/O [id number] 11:05:00* Test Item Value Reference Range Interpretation Comments WHITE BLOOD CELL (test code = WBC) 11.9 K/mm3 4.5-12.5 N RED BLOOD CELL (test code = RBC) 4.47 mill/mm3 4.0-5.8 N Previously reported result: 4.55 mill/yh0Eckdmo by: DAYSI on 02/04/19:806485 1104: RBC previously reported as: 4.55 mill/mm3 [...] reported result: 35.6 picogramEdited by: DAYSI on 02/04/19:1104 MEAN CELL HGB CONCETRATION (test code = MCHC) 33.6 gram/dL 33.0-36. 0 N Previously reported result: 37.0 gram/dLEdited by: DAYSI on 02/04/19:1105 RED CELL DISTRIBUTION WIDTH (test code = [...] = MPV) 11.5 fL 6.7-11.0 H URINALYSIS [id number] 10:56:00* Test Item Value Reference Range Interpretation [...] per LPF NONE-FEW Urine Source? Clean CatchURINALYSIS [id number] 10:44:00* Test Item Value Reference Range Interpretation [...] HPF NONE Urine Source? Clean CatchCBC W/O [id number] 10:42:00* Test Item Value Reference Range Interpretation [...] code = MPV) 11.5 fL 6.7-11.0 H [id number] 11:53:00* Test Item Value Reference Range Interpretation Comments GLUBED (test code = GLUBED) 93 mg/dL 74-106 N Performed by certified tandem mill operator at [facility] CBC W/AUTO [id number] 10:58:00* Test Item Value Reference Range Interpretation [...] = MDIFF) NO, ONLY SCAN NEEDED DIFFERENTIAL [id number] 10:58:00* Test Item Value Reference Range Interpretation Comments STAIN ACCEPTABILITY (test code = STN ACCEPTABLE) STAIN ACCEPTABLE ANISOCYTOSIS (test code = ANISO) 1+ PLATELET ESTIMATE (test code = PLTEST) DECREASED PLATELET MORPHOLOGY (test code = PLTMORPH) NORMAL BASIC METABOLIC [id number] 10:16:00* Test Item Value Reference Range Interpretation [...] code = CA) 8.2 mg/dL 8.5-10.1 L [id number] 10:16:00* Test Item Value Reference Range Interpretation Comments LIPASE (test code = LIP) 307 U/L 73.0-393.0 N [id number] 10:16:00* Test Item Value Reference Range Interpretation Comments MAGNESIUM (test code = MAG) 2.3 mg/dL 1.8-2.4 N THYROID STIMULATING [id number] 10:16:00* Test Item Value Reference Range Interpretation Comments THYROID STIMULATING HORMONE (test code = TSH) 2.200 uIU/mL 0.36-3.7 4 N TSH REFERENCE RANGES: EUTHYROID: 0.35 - 4.3 mIU/mL HYPO : > 5.5 mIU/mL HYPER : < 0.35 mIU/mL [id number] 10:16:00* Test Item Value Reference Range Interpretation Comments GLYCOSYLATED HEMOGLOBIN (HA1C) (test code = GLYHGB) 6.3 % HbA1 4. 8-6.0 H ESTIMATED AVERAGE GLUCOSE (test code = EAG) 134 MG/DL B-TYPE NATRIURETIC [id number] 10:07:00* Test Item Value Reference Range Interpretation Comments B-TYPE NATRIURETIC PEPTIDE (test code = BNP) 72.50 pgram/mL 0-100 N BASIC METABOLIC [id number] 10:01:00* Test Item Value Reference Range Interpretation [...] code = CA) 8.2 mg/dL 8.5-10.1 L [id number] 10:01:00* Test Item Value Reference Range Interpretation Comments LIPASE (test code = LIP) 307 U/L 73.0-393.0 N [id number] 10:01:00* Test Item Value Reference Range Interpretation Comments MAGNESIUM (test code = MAG) 2.3 mg/dL 1.8-2.4 N THYROID STIMULATING [id number] 10:01:00* Test Item Value Reference Range Interpretation Comments THYROID STIMULATING HORMONE (test code = TSH) uIU/mL 0.36-3.7 4 CBC W/AUTO [id number] 09:50:00* Test Item Value Reference Range Interpretation [...] = MDIFF) NO, ONLY SCAN NEEDED DIFFERENTIAL [id number] 09:50:00* Test Item Value Reference Range Interpretation Comments STAIN ACCEPTABILITY (test code = STN ACCEPTABLE) CABOT RINGS (test code = CAB) MORPHOLOGY COMMENT (test code = MOC) PLATELET ESTIMATE (test code = PLTEST) PLATELET MORPHOLOGY (test code = PLTMORPH) CBC W/AUTO [id number] 09:50:00* Test Item Value Reference Range Interpretation [...] = MDIFF) NO, ONLY SCAN NEEDED DIFFERENTIAL [id number] 09:50:00* Test Item Value Reference Range Interpretation Comments STAIN ACCEPTABILITY (test code = STN ACCEPTABLE) MORPHOLOGY COMMENT (test code = MOC) PLATELET ESTIMATE (test code = PLTEST) PLATELET MORPHOLOGY (test code = PLTMORPH) CBC W/AUTO [id number] 09:50:00* Test Item Value Reference Range Interpretation [...] = MDIFF) NO, ONLY SCAN NEEDED DIFFERENTIAL [id number] 09:50:00* Test Item Value Reference Range Interpretation Comments STAIN ACCEPTABILITY (test code = STN ACCEPTABLE) MORPHOLOGY COMMENT (test code = MOC) PLATELET ESTIMATE (test code = PLTEST) PLATELET MORPHOLOGY (test code = PLTMORPH) CBC W/AUTO [id number] 09:50:00* Test Item Value Reference Range Interpretation [...] = MDIFF) NO, ONLY SCAN NEEDED DIFFERENTIAL [id number] 09:50:00* Test Item Value Reference Range Interpretation Comments STAIN ACCEPTABILITY (test code = STN ACCEPTABLE) CABOT RINGS (test code = CAB) MORPHOLOGY COMMENT (test code = MOC) PLATELET ESTIMATE (test code = PLTEST) PLATELET MORPHOLOGY (test code = PLTMORPH) - US ABDOMEN [id number] 15:20:00 [facility] [place] [facility] 1980 Age/S: 38 / M [address] [facility] Unit #: [id number] Loc: Ch[place]i [place] [address] Phys: Morgan Mo MD Acct: [id number] Dis Date: Status: REG ER PHONE #: [phone] Exam Date: 12/16/2018 1405 FAX #: [phone] Reason: RIGHT SIDED ABDOMINAL PAIN, PANCREATITIS EXAMS: CPT CODE: [id number] US ABDOMEN LTD [address] HISTORY: Abdominal pain and pancreatitis. COMPARISON: CT [...] CC: Morgan Ortiz MD Technologist: Coco Andrade Trnrib Date/Time: 12/16/2018 (1520) [email or web address] Orig Print D/T: S: 12/16/2018 (3377) Probe: PAGE 1 Signed Report - CT ABD PELVIS W/O [id number] 14:40:00 Name: LUIS SNYDER Imaging [facility] [place] : 1980 Age/S: 38 / M [address] [facility] Unit #: [id number] Loc: Chiqui Freeman [address] Phys: Morgan Mo MD Acct: [id number] Dis Date: Status: REG ER PHONE #: [phone] Exam Date: 12/16/2018 1220 FAX #: [phone] Reason: RIGHT FLANK PAIN EXAMS: CPT CODE: [id number] CT ABD PELVIS W/O CONT 89074 EXAM: CT of the abdomen and pelvis [...] Reported and signed by: Jovany Bonilla M.D. CC : Morgan Mo MD Technologist:SRINATH PERALES, RT(R),CT CTDI: DLP: Trnscb Date/Time: 12/16/2018 (14 40) [email or web address] Orig Print D/T: S: 12/16/2018 (9533) P AGE 3 Signed Report BASIC METABOLIC [id number] 14:05:00* Test Item Value Reference Range Interpretation [...] CA) 8.0 mg/dL 8.4-10.2 L HEPATIC FUNCTION [id number] 14:05:00* Test Item Value Reference Range Interpretation [...] code = ALKP) 121 U/L 38-126 N [id number] 14:05:00* Test Item Value Reference Range Interpretation Comments LIPASE (test code = LIP) 646 U/L 128-270 H BASIC METABOLIC [id number] 13:05:00* Test Item Value Reference Range Interpretation [...] CA) 8.0 mg/dL 8.4-10.2 L HEPATIC FUNCTION [id number] 13:05:00* Test Item Value Reference Range Interpretation [...] code = ALKP) 121 U/L 38-126 N [id number] 13:05:00* Test Item Value Reference Range Interpretation Comments LIPASE (test code = LIP) 646 U/L 128-270 H URINALYSIS [id number] 12:51:00* Test Item Value Reference Range Interpretation [...] LPF NONE-FEW A Urine Source? Clean CatchURINALYSIS [id number] 12:50:00* Test Item Value Reference Range Interpretation [...] HPF NONE Urine Source? Clean CatchBASIC METABOLIC [id number] 12:43:00* Test Item Value Reference Range Interpretation [...] CA) 8.0 mg/dL 8.4-10.2 L HEPATIC FUNCTION [id number] 12:43:00* Test Item Value Reference Range Interpretation [...] code = ALKP) 121 U/L 38-126 N [id number] 12:43:00* Test Item Value Reference Range Interpretation Comments LIPASE (test code = LIP) 646 U/L 128-270 H BASIC METABOLIC [id number] 12:39:00* Test Item Value Reference Range Interpretation [...] CA) 8.0 mg/dL 8.4-10.2 L HEPATIC FUNCTION [id number] 12:39:00* Test Item Value Reference Range Interpretation [...] TOTAL (test code = ALKP) IUnit/L 45-117 [id number] 12:39:00* Test Item Value Reference Range Interpretation Comments LIPASE (test code = LIP) Unit/L 144-286 CBC W/O [id number] 12:28:00* Test Item Value Reference Range Interpretation [...] MPV) 11.0 fL 6.7-11.0 N CBC W/O [id number] 12:24:00* Test Item Value Reference Range Interpretation [...] MPV) 11.0 fL 6.7-11.0 N COMPREHENSIVE METABOLIC [id number] 20:30:00* Test Item Value Reference Range Interpretation [...] code = ALKP) 89 U/L 38-126 N [id number] 20:30:00* Test Item Value Reference Range Interpretation Comments LIPASE (test code = LIP) 188 U/L 128-270 N COMPREHENSIVE METABOLIC [id number] 19:42:00* Test Item Value Reference Range Interpretation [...] TOTAL (test code = ALKP) IUnit/L 45-117 [id number] 19:42:00* Test Item Value Reference Range Interpretation Comments LIPASE (test code = LIP) Unit/L 144-286 CBC W/AUTO [id number] 19:32:00* Test Item Value Reference Range Interpretation [...] REQUIRED (test code = MDIFF) NO URINALYSIS [id number] 18:54:00* Test Item Value Reference Range Interpretation [...] HPF NONE Urine Source? Clean CatchBASIC METABOLIC [id number] 18:52:00* Test Item Value Reference Range Interpretation [...] = CA) 9.0 mg/dL 8.4-10.2 N URINALYSIS [id number] 18:48:00* Test Item Value Reference Range Interpretation [...] HPF 0-5 Urine Source? Clean CatchCBC W/AUTO [id number] 18:42:00* Test Item Value Reference Range Interpretation [...] DIFF REQUIRED (test code = MDIFF) NO [id number] 11:15:00* Test Item Value Reference Range Interpretation Comments GLUBED (test code = GLUBED) 134 mg/dL 74-106 H Performed by certified tandem mill operator at [facility] [id number] 05:50:00* Test Item Value Reference Range Interpretation Comments GLUBED (test code = GLUBED) 112 mg/dL 74-106 H Performed by certified tandem mill operator at [facility] BASIC METABOLIC [id number] 05:34:00* Test Item Value Reference Range Interpretation [...] result is a direct measurement.========= HEPATIC FUNCTION [id number] 05:34:00* Test Item Value Reference Range Interpretation [...] reference range due to change in reagent. [id number] 05:34:00* Test Item Value Reference Range Interpretation Comments LIPASE (test code = LIP) 186 U/L 73.0-393.0 N BASIC METABOLIC [id number] 05:25:00* Test Item Value Reference Range Interpretation [...] code = LDL) mg/dL 100-129 HEPATIC FUNCTION [id number] 05:25:00* Test Item Value Reference Range Interpretation [...] TOTAL (test code = ALKP) IUnit/L 45-117 [id number] 05:25:00* Test Item Value Reference Range Interpretation Comments LIPASE (test code = LIP) U/L 73.0-393.0 CBC W/AUTO [id number] 04:53:00* Test Item Value Reference Range Interpretation [...] (test code = MDIFF) NO CBC W/AUTO [id number] 04:50:00* Test Item Value Reference Range Interpretation [...] # (test code = BA#) K/mm3 0.0-0.2 [id number] 00:50:00* Test Item Value Reference Range Interpretation Comments GLUBED (test code = GLUBED) 130 mg/dL 74-106 H Performed by certified tandem mill operator at [facility] [id number] 20:39:00* Test Item Value Reference Range Interpretation Comments GLUBED (test code = GLUBED) 147 mg/dL 74-106 H Performed by certified tandem mill operator at [facility] [id number] 16:56:00* Test Item Value Reference Range Interpretation Comments GLUBED (test code = GLUBED) 114 mg/dL 74-106 H Performed by certified tandem mill operator at [facility] [id number] 14:31:00* Test Item Value Reference Range Interpretation Comments GLUBED (test code = GLUBED) 111 mg/dL 74-106 H Performed by certified tandem mill operator at [facility] [id number] 06:24:00* Test Item Value Reference Range Interpretation Comments GLUBED (test code = GLUBED) 100 mg/dL 74-106 N Performed by certified tandem mill operator at [facility] CBC W/MANUAL [id number] 04:57:00* Test Item Value Reference Range Interpretation [...] code = IMMAT) 0 % BASIC METABOLIC [id number] 04:49:00* Test Item Value Reference Range Interpretation [...] CALCIUM (test code = CA) mg/dL 8.5-10.1 [id number] 04:49:00* Test Item Value Reference Range Interpretation Comments LIPASE (test code = LIP) U/L 73.0-393.0 [id number] 04:49:00* Test Item Value Reference Range Interpretation Comments MAGNESIUM (test code = MAG) mg/dL 1.8-2.4 BASIC METABOLIC [id number] 04:49:00* Test Item Value Reference Range Interpretation [...] code = CA) 8.3 mg/dL 8.5-10.1 L [id number] 04:49:00* Test Item Value Reference Range Interpretation Comments LIPASE (test code = LIP) 227 U/L 73.0-393.0 N [id number] 04:49:00* Test Item Value Reference Range Interpretation Comments MAGNESIUM (test code = MAG) 1.9 mg/dL 1.8-2.4 N CBC W/MANUAL [id number] 04:30:00* Test Item Value Reference Range Interpretation [...] MORPHOLOGY (test code = PLTMORPH) CBC W/MANUAL [id number] 04:30:00* Test Item Value Reference Range Interpretation [...] MORPHOLOGY (test code = PLTMORPH) CBC W/MANUAL [id number] 04:30:00* Test Item Value Reference Range Interpretation [...] MORPHOLOGY (test code = PLTMORPH) CBC W/MANUAL [id number] 04:30:00* Test Item Value Reference Range Interpretation [...] MORPHOLOGY (test code = PLTMORPH) CBC W/MANUAL [id number] 04:30:00* Test Item Value Reference Range Interpretation [...] PLTEST) PLATELET MORPHOLOGY (test code = PLTMORPH) [id number] 21:22:00* Test Item Value Reference Range Interpretation Comments GLUBED (test code = GLUBED) 132 mg/dL 74-106 H Performed by certified tandem mill operator at [facility] [id number] 12:17:00* Test Item Value Reference Range Interpretation Comments GLUBED (test code = GLUBED) 127 mg/dL 74-106 H Performed by certified tandem mill operator at [facility] [id number] 06:30:00* Test Item Value Reference Range Interpretation Comments GLUBED (test code = GLUBED) 145 mg/dL 74-106 H [facility] tandem mill [facility]ified [facility]~ COMPREHENSIVE METABOLIC [id number] 04:45:00* Test Item Value Reference Range Interpretation [...] reference range due to change in reagent. [id number] 04:45:00* Test Item Value Reference Range Interpretation Comments LIPASE (test code = LIP) 978 U/L 73.0-393.0 H COMPREHENSIVE METABOLIC [id number] 04:41:00* Test Item Value Reference Range Interpretation [...] TOTAL (test code = ALKP) IUnit/L 45-117 [id number] 04:41:00* Test Item Value Reference Range Interpretation Comments LIPASE (test code = LIP) U/L 73.0-393.0 CBC W/AUTO [id number] 04:20:00* Test Item Value Reference Range Interpretation [...] NRBC#) 0.00 K/mm3 0.0-0.1 N CBC W/AUTO [id number] 04:18:00* Test Item Value Reference Range Interpretation [...] # (test code = BA#) K/mm3 0.0-0.2 [id number] 01:58:00* Test Item Value Reference Range Interpretation Comments GLUBED (test code = GLUBED) 120 mg/dL 74-106 H Performed by certified tandem mill operator at [facility] [id number] 23:01:00* Test Item Value Reference Range Interpretation Comments AMMONIA (test code = AMM) 56 umol/L 11-32 H PROTHROMBIN [id number] 22:32:00* Test Item Value Reference Range Interpretation [...] (2.5-3.5) IS PATIENT ON ANTICOAGULANTS? NTHROMBOPLASTIN TIME [id number] 22:32:00* Test Item Value Reference Range Interpretation Comments THROMBOPLASTIN TIME PARTIAL (test code = PTT) 35.3 seconds 25.0-36. 5 N IS PATIENT ON ANTICOAGULANTS? NDRUGS OF ABUSE SCREEN [id number] 21:58:00* Test Item Value Reference Range Interpretation [...] NEGATIVE <300 ng/mL DRUGS OF ABUSE SCREEN [id number] 21:28:00* Test Item Value Reference Range Interpretation [...] METHADONE (test code = [place]) <300 ng/mL [id number] 21:09:00* Test Item Value Reference Range Interpretation Comments GLUBED (test code = GLUBED) 152 mg/dL 74-106 H Performed by certified tandem mill operator at [facility] LACTIC [id number] 17:36:00* Test Item Value Reference Range Interpretation Comments LACTIC ACID (test code = LACT) 1.7 MMOL/L 0.4-1.9 N BASIC METABOLIC [id number] 16:34:00* Test Item Value Reference Range Interpretation [...] 7.1 mg/dL 8.4-10.2 L - US ABDOMEN [id number] 16:23:00 [facility] [place] [facility] 1980 Age/S: 38 / M [address] [facility] Unit #: [id number] Loc: Chiqui Freeman [address] Phys: Nidhi Falcon MD Acct: [id number] Dis Date: Status: REG ER PHONE #: [phone] Exam Date: 07/02/2018 1557 FAX #: [phone] Reason: AP, h/o pancreatitis, elevated LFTs EXAMS: CPT CODE: [id number] US ABDOMEN LTD [address] REASON FOR EXAM: AP, h/o pancreatitis, elevated [...] was not visualized on the ultrasound at 0767 Reported and signed by: Boogie Cisneros M.D. CC: Nidhi Falcon MD Technologist: Coco Andrade RDMS Trnscb Date/Time: 07/02/2018 (4115) Franca Orig Print D/T: S: 07/02/2018 (0084) Probe: PAGE 1 Signed Report URINALYSIS [id number] 16:22:00* Test Item Value Reference Range Interpretation [...] SEEN per HPF NONE Urine Source? Clean [id number] 15:11:00* Test Item Value Reference Range Interpretation [...] THE PATIENT. ADD ON- CT ABD PELVIS [id number] 15:10:00 Name: LUIS SNYDER [facility] : 1980 Age/S: 38 / M [address] [facility] Unit #: [id number] Loc: Chiqui [place] [address] Phys: Nidhi Falcon MD Acct: [id number] Dis Date: Status: REG ER PHONE #: [phone] Exam Date: 07/02/2018 1503 FAX #: [phone] Reason: abd pain, vomiting, h/o pancreatitis EXAMS: CPT CODE: [id number] CT ABD PELVIS W/CONT 44676 HISTORY: Abdominal pain and vomiting. COMPARISON: None [...] Homogeneous enhancement. Bilateral excretion. No pathologic adenopathy. Well-opaci fied vasculature. No bowel obstruction or colitis or diverticuliti s or enteritis. CT PELVIS: Appendix is normal. Pelv ic bowel loops are unobstructed. Well-distended urinary bladder. Prostate is not enlarged. No pelvic pathologic adenopathy. No pelvic free fluid or free air or abscess either. The subcutaneous tiss ues and the musculature are normal in appearance. No lytic or blastic les ions are noted within the bony skeleton. PAGE 1 Pat d Report (CONTINUED) Name: LUIS SNYDER [facility] : 1980 Age/S: 38 / M [address] [facility] Unit #: [id number] Loc: Ch[place]i [place] [address] Phys: Nidhi Falcon MD Acct: [id number] Dis Date: Status: REG ER PHONE #: [phone] Exam Date: 07/02/2018 1 503 FAX #: [phone] Reason: abd pain, vomiting, h/o pancreatitis EXAMS: CPT CODE: [id number] CT ABD PELVIS W/CONT 13325 <Continued> IMPRESSION: Acute pancreatitis involving the pancreatic [...] Rao CTDI: DLP: Trnscb Date/Time: 07/02/2018 (1509) [email or web address] Orig Print D/T: S: 07/02/2018 (151) CTDI: DLP: PAGE 2 Signed Report LACTIC [id number] 14:09:00* Test Item Value Reference Range Interpretation Comments LACTIC ACID (test code = LACT) 2.1 MMOL/L 0.4-1.9 HH Results called to Manju CEDILLO V.[email or web address].CB1 07/02/18 1409Critical results verified and read back by Nurse? Y BASIC METABOLIC [id number] 14:09:00* Test Item Value Reference Range Interpretation [...] CA) 7.7 mg/dL 8.4-10.2 L HEPATIC FUNCTION [id number] 14:09:00* Test Item Value Reference Range Interpretation [...] code = ALKP) 141 U/L 38-126 H [id number] 14:09:00* Test Item Value Reference Range Interpretation Comments LIPASE (test code = LIP) 679 U/L 128-270 H [id number] 14:09:00* Test Item Value Reference Range Interpretation Comments TROPONIN-I (test code = TROPI) <0.015 ng/mL 0.00-0.056 N BASIC METABOLIC [id number] 14:00:00* Test Item Value Reference Range Interpretation [...] CA) 7.7 mg/dL 8.4-10.2 L HEPATIC FUNCTION [id number] 14:00:00* Test Item Value Reference Range Interpretation [...] TOTAL (test code = ALKP) IUnit/L 45-117 [id number] 14:00:00* Test Item Value Reference Range Interpretation Comments LIPASE (test code = LIP) Unit/L 144-286 [id number] 14:00:00* Test Item Value Reference Range Interpretation Comments TROPONIN-I (test code = TROPI) ng/mL 0-0.045 - XR CHEST 1 [id number] 13:58:00 Name: LUIS SNYDER [facility] : 1980 Age/S:38 /M [address] [facility] Unit#:[id number] Loc: [place] [address] Phys: Nidhi Falcon MD Dis Date: PHONE #: [phone] Status: PRE ER FAX #: [phone] Exam Date: 07/02/2018 Reason: CODE SEPSIS EXAMS: CPT CODE: [id number] XR CHEST 1 V 09217 HISTORY: Sepsis. COMPARISON: None available. No acute infiltrates, effusion or congestion is noted. Cardiomegaly. IMPRESSION: No acute infiltrates, effusion or congestion. at 2696 Reported and signed by: Jose Alberto Kent M.D. CC: Nidhi Falcon MD Technologist: Kathy Rao Trnscrpt Data: 07/02/2018 (5012) [email or web address] Orig Print D/T: S: 07/02/2018 (4188) PAGE 1 Signed Report CBC W/AUTO DIFF [...] DIFF REQUIRED (test code = MDIFF) NO [id number] 15:09:00* Test Item Value Reference Range Interpretation Comments GLUBED (test code = GLUBED) 211 mg/dL 74-106 H Performed by certified tandem mill operator at [facility] [id number] 15:09:00* Test Item Value Reference Range Interpretation Comments GLUBED (test code = GLUBED) 316 mg/dL 74-106 H Performed by certified tandem mill operator at [facility] COMPREHENSIVE METABOLIC [id number] 15:02:00* Test Item Value Reference Range Interpretation [...] ALKP) 95 U/L 38-126 N CBC W/AUTO [id number] 14:53:00* Test Item Value Reference Range Interpretation [...]
[2019-11-18] MEDS ORDERED: PROMETHAZINE HCL (IM) 25 MG/ML VIAL IM ONE (13:31)
[2019-11-18] MEDS ORDERED: SODIUM CHLORIDE 0.9% 50ML 50 ML ONE (13:32)
[2019-11-18] MEDS ORDERED: SODIUM CHLORIDE 0.9% 1000ML 1,000 ML ONE ×2 (13:32→16:10)
--- NOTE | 2019-11-18 13:57 | Diagnostic Imaging Report ---
CT Abdomen and Pelvis without contrast INDICATION: ^mid abd pain, RLQ tender, pancreatitis, colitis, appendicitis ^[id number] ^1320 TECHNIQUE: Thin collimation axial images obtained from the diaphragm to the level of the pubic symphysis without nonionic intravenous contrast. Dose reduction techniques used: Automated exposure control, adjustment of the mAs and/or kVp according to patient size, standardized low-dose protocol, and/or iterative reconstruction technique. RADIATION DOSE: Total DLP: 886.74 mGy*cm Estimated effective dose: (DLP x 0.015 x size factor) mSv CTDIvol has been reviewed. It is below the limits set by the Radiation Protocol Committee (RPC). COMPARISON: CT abdomen/pelvis 09/10/2019. ABDOMEN FINDINGS: Lung Bases: Clear. The visualized portion of the mediastinum is normal. Liver: Significant steatosis. The right lobe measures 26 cm in craniocaudal dimension. No mass Gallbladder: Present and appears normal. No ductal dilatation. Pancreas: Diffuse peripancreatic inflammation particularly in the head and proximal body. No pancreas calcifications or ductal dilatation. Spleen: Normal size without mass. Adrenal Glands: No evidence for mass. Kidneys: Right: No renal calculus. No cortical mass or hydronephrosis Left: No renal calculus. No cortical mass or hydronephrosis Lymph Nodes: No enlarged abdominal or periaortic lymph nodes. Aorta: Normal in diameter. PELVIS FINDINGS: Bowel: Stomach: Normal. Small Bowel: Normal in caliber with normal wall thickness. Large Bowel: Normal in caliber with normal wall thickness. Appendix: Normal. Bladder: Underdistended but grossly normal. Ureters: No ureteral dilatation or calculus. Peritoneum/retroperitoneum: Edema of the small bowel mesentery adjacent to the pancreas. No loculated fluid collection. No free air. Bones: Unremarkable for age. IMPRESSION: 1. Peripancreatic inflammation suggestive of acute interstitial pancreatitis. 2. Steatosis and hepatomegaly. 3. No evidence for bowel obstruction or inflammation. Signed by: Dr. Art David MD on 11/18/2019 1:54 PM
[2019-11-18] MEDS ORDERED: MORPHINE SULFATE 2 MG/ML SYR 1ML IV PRN (14:45)
[2019-11-18] MEDS ORDERED: ONDANSETRON HCL INJ 2MG/ML 2ML 2 MG/ML VIAL IV PRN (14:45)
[2019-11-18] MEDS ORDERED: DIPHENHYDRAMINE HCL INJ 50 MG/ML VIAL IV PRN (14:45)
[2019-11-18] MEDS ORDERED: DEXTROSE 50% SYRINGE 50 ML IV PRN (15:00)
--- NOTE | 2019-11-18 15:03 | NUR ---
H&P cc: abdominal pain HPI: 39yoM, PCP , developed abdominal pain. Pt admits to restarting alcohol use of daily beer consumption. Pancreatitis recently in past also. PMH: DM2, alcoholism, Alcoholic cirrhosis, Thrombocytopenia, hyponatremia, acute alcoholic pancreatitis, HTG, PShx: unknown Allergies; see emr Fh/SH;; 1 beer/day?? meds; see MAR ROS: no cp/sob/skin rash/confusion/VENTURA/vision changes/dizziness/leg pain/focal limb weakness V/s Revd PE nad anicteric ns1s2 mod bs soft; nd; TENDER EPIGASTRIUM no leg edema/tenderness a&ox3; combs skin dry n. affect labs/meds revd A/P: Acute pancreatitis- IVF; NPO; DM2- hab1c/lipids Alcoholic Cirrhosis Thrombocytopenia- avoid heparin products. Hyponatremia- rehydrate; monitor Prop: scd DIspo: VIKY LYNNE MD, PHD.
--- OUTSIDE RECORDS SUMMARY | 2019-11-18 15:05 | XMS REPORT | Continuity of Care Document ---
Author Author [facility] t Organization [facility] Address [address] [place] [address] Phone Unavailable Care Team Providers Care Public Works Technician Name Role Phone KAJAL VELA, MD Maxim MADRID PCP Fariba COX Attphys Unavailable Skye STOVER Attphys Unavailable Paige RINALDI Attphys Unavailable Payers Payer Name Policy Type Policy Number Effective Date Expiration Date S ource Problems This patient has no known problems. Allergies, Adverse Reactions, Alerts Allergy Name Allergy Type Status Severity Reaction(s) Onset Date Inacti ve Date Treating Clinician Comments Source No Known Allergies DA Active U 2019-02-05 00:00:00 [facility] No Known Allergies DA Active U 2018-05-07 00:00:00 [facility] No Known Allergies DA Active U 2018-04-12 00:00:00 [facility] Social History Social Habit Start Date Stop Date Quantity Comments Source Sex Assigned At 1980 00:00:00 1980 00:00:00 Male [facility] Medications Ordered Medication Name Filled Medication Name Start Date Stop Da te Current Medication? Ordering Clinician Indication Dosage Frequency Signature (SIG) Comments Components Source Omeprazole Omeprazole 2019-05-18 02:14:00 2019-09-10 00:00:00 No 20 Daily [facility] Ondansetron (Ondansetron Odt) 8 Mg TAB.RAPDIS Ondanset rachna (Ondansetron Odt) 8 Mg TAB.RAPDIS 2019-05-18 02:12:00 2019-09-10 00:00:00 No 4 Every 8 Hours as needed for Nausea [facility] Metformin Hcl Metformin Hcl Yes 500 Twice A Day [facility] Triglycerides Triglycerides Yes Daily [facility] Vital Signs Vital Name Observation Time Observation Value Comments Source Body Temperature 2019-09-12 11:58:00 98.5 [degF] [facility] Weight 2019-09-10 14:24:00 204 [lb_av] [facility] BMI (Body Mass Index) 2019-09-10 14:24:00 28.5 kg/m2 [facility] Procedures This patient has no known procedures. Plan of Care Planned Activity Planned Date Details Comments Source Instructions Pancreatitis [facility] Encounters Start Date/Time End Date/Time Encounter Type Admission Type [facility] Care Department Encounter ID Source 2019-09-10 21:02:00 2019-09-12 14:36:00 Discharged Inpatient 1 STOVER [facility] [id number] [facility] 2019-05-18 00:40:00 2019-05-18 02:51:00 Departed Emergency Room 1 GENTRY [facility] [id number] [facility] Results Test Description Test Time Test Comments Results Result Comments Source CT ABD/PEL WO CONTRAST-HOPD 2019-11-18 13:51:00 [facility] [address] [place] [address] Patient Name: LUIS NICE MR #: [id number] : 1980 Age/Sex: 39/M Req #: [id number] [facility] Physician: Ordered by: MINDI COX MD Report #: [id number] Location: [facility] Room/Bed: Procedure: HOPD/CT ABD/PEL WO CONTRAST-HOPD Exam Date: 11/18/19 Exam Time: 1320 REPORT STATUS: Signed CT Abdomen and Pelvis without contrast INDICATION: mid abd pain, RLQ tender, pancreatitis, colitis, appendicitis [id number] TECHNIQUE: Thin collimation axial images obtained from the diaphragm to the level of the pubic symphysis without nonionic intravenous contrast. Dose reduction techniques used: Automated exposure control, adjustment of the mAs and/or kVp according to patient size, standardized low-dose protocol, and/or iterative reconstruction technique. RADIATION DOSE: Total DLP: 886.74 mGy*cm Estimated effective dose: (DLP x 0.015 x size factor) mSv CTDIvol has been reviewe d. It is below the limits set by the Radiation Protocol Committee (RPC). COMPARISON: CT abdomen/pelvis 09/10/2019. ABDOMEN FINDINGS: Lung Bases: Clear. The visualized portion of the mediastinum is normal. Liver: Significant steatosis. The right lobe measures 26 cm in craniocaudal dimension. No mass Gallbladder: Present and appears normal. No ductal dilatation. Pancreas: Diffuse peripancreatic inflammation particularly in the head and proximal body. No pancreas calcifications or ductal dilatation. Spleen: Normal size without mass. Adrenal Glands: No evidence for mass. Kidneys: Right: No renal calculus. No cortical mass or hydronephrosis Left: No renal calculus. No cortical mass or hydronephrosis Lymph Nodes: No enlarged abdominal or periaortic lymph nodes. Aorta: Normal in diameter. PELVIS FINDINGS: Bowel: Stomach: Normal. Small Bowel: Normal in caliber with normal wall thickness. Large Bowel: Normal in caliber with normal wall thickness. Appendix: Normal. Bladder: Underdistended but grossly normal. Ureters: No ureteral dilatation or calculus. Peritoneum/retroperitoneum: Edema of the small bowel mesentery adjacent to the pancreas. No loculated fluid collection. No free air. Bones: Unremarkable for age. IMPRESSION: 1. Peripancreatic inflammation suggestive of acute interstitial pancreatitis. 2. Steatosis and hepatomegaly. 3. No evidence for bowel obstruction or inflammation. Signed by: Dr. Quincy Cedillo MD on 11/18/2019 1:54 PM Dictated By: QUINCY CEDILLO MD 135 Transcribed By: SHIRA on 11/18/19 135 COPY TO: MINDI COX MD Blood leukocytes automated count (number/volume) 2019-09-12 05:30:00 Test Item White Blood Count (test code = 6690-2) 5.64 4.8-10.8 [facility] count (number/volume)2019-09-12 05:30:00* Test Item Value Reference Range Interpretation Comments Red Blood Count (test code = 789-8) 4.70 4.3-5.7 [facility] hemoglobin measurement (moles/volume)2019-09-12 05:30:00* Test Item Value Reference Range Interpretation Comments Hemoglobin (test code = 22571-7) 14.8 14.0-18.0 [facility]entonAutomated blood hematocrit (volume fraction)2019-09-12 05:30:00* Test Item Value Reference Range Interpretation Comments Hematocrit (test code = 4544-3) 43.1 38.2-49.6 [facility]entonAutomated erythrocyte mean corpuscular ixiiir1439-24-65 05:30:00* Test Item Value Reference Range Interpretation Comments Mean Corpuscular Volume (test code = 787-2) 91.7 81-99 [facility]entonAutomated erythrocyte mean corpuscular hemoglobin (mass per erythrocyte)2019-09-12 05:30:00* Test Item Value Reference Range Interpretation Comments Mean Corpuscular Hemoglobin (test code = 785-6) 31.5 28-32 [facility]entonAutomated erythrocyte mean corpuscular hemoglobin concentration measurement (mass/volume)2019-09-12 05:30:00* Test Item Value Reference Range Interpretation Comments Mean Corpuscular Hemoglobin Concent (test code = 786-4) 34.3 31-35 [facility]entonRDW GuiDk-Kin8025-32-03 05:30:00* Test Item Value Reference Range Interpretation Comments Red Cell Distribution Width (test code = 11076-8) 12.5 11.7 -14.4 [facility]entonAutomated blood platelet count (count/volume)2019-09-12 05:30:00* Test Item Value Reference Range Interpretation Comments Platelet Count (test code = 777-3) 85 140-360 [facility]entonAutunc health johnstoned blood segmented neutrophil count as percentage of total nmklrbudmb8422-17-89 05:30:00* Test Item Value Reference Range Interpretation Comments Neutrophils (%) (Auto) (test code = 82569-2) 63.8 38.7-80.0 [facility]entonAutomated blood lymphocyte count as percentage ot total gcdtufuoeo6567-34-13 05:30:00* Test Item Value Reference Range Interpretation Comments Lymphocytes (%) (Auto) (test code = 736-9) 21.5 18.0-39.1 [facility]entonAutomated blood monocyte count as percentage of total falgyvhirq1822-80-44 05:30:00* Test Item Value Reference Range Interpretation Comments Monocytes (%) (Auto) (test code = 5905-5) 5.5 4.4-11.3 [facility]entonAutomated blood eosinophil count as percentage of total uwqpzcdxqo2851-83-78 05:30:00* Test Item Value Reference Range Interpretation Comments Eosinophils (%) (Auto) (test code = 713-8) 7.3 0.0-6.0 [facility]entonAutomated blood basophil count as percentage of total tajswbgjzs5255-95-62 05:30:00* Test Item Value Reference Range Interpretation Comments Basophils (%) (Auto) (test code = 706-2) 1.4 0.0-1.0 [facility]entonFluoroscopic procedure less than one hour wtcoebzw3169-19-21 05:30:00* Test Item Value Reference Range Interpretation Comments IM GRANULOCYTES % (test code = IM GRANULOCYTES %) 0.5 0.0- 1.0 [facility]entonAutomated blood neutrophil count 2019-09-12 05:30:00* Test Item Value Reference Range Interpretation Comments Neutrophils # (Auto) (test code = 751-8) 3.6 2.1-6.9 [facility]entonBlood lymphocytes count (number/volume) 2019-09-12 05:30:00* Test Item Value Reference Range Interpretation Comments Lymphocytes # (Auto) (test code = 13178-8) 1.2 1.0-3.2 [facility]entonBlood monocytes automated count (number/volume)2019-09-12 05:30:00* Test Item Value Reference Range Interpretation Comments Monocytes # (Auto) (test code = 742-7) 0.3 0.2-0.8 [facility]entonAutomated blood eosinophil count 2019-09-12 05:30:00* Test Item Value Reference Range Interpretation Comments Eosinophils # (Auto) (test code = 711-2) 0.4 0.0-0.4 [facility]entonAutomated blood basophil count (count/volume)2019-09-12 05:30:00* Test Item Value Reference Range Interpretation Comments Basophils # (Auto) (test code = 704-7) 0.1 0.0-0.1 [facility]entonFluoroscopic procedure less than one hour snmmmrsp7962-73-00 05:30:00* Test Item Value Reference Range Interpretation Comments Absolute Immature Granulocyte (auto (john t code = Absolute Immature Granulocyte (auto) 0.03 0-0.1 [facility] sodium measurement (moles/volume)2019-09-12 05:30:00* Test Item Value Reference Range Interpretation Comments Sodium Level (test code = 2951-2) 138 136-145 [facility]ererum or plasma potassium measurement (moles/volume)2019-09-12 05:30:00* Test Item Value Reference Range Interpretation Comments Potassium Level (test code = 2823-3) 4.5 3.5-5.1 [facility]ererum or plasma chloride measurement (moles/volume)2019-09-12 05:30:00* Test Item Value Reference Range Interpretation Comments Chloride Level (test code = 2075-0) 102 98-107 [facility]ererum or plasma carbon dioxide, total measurement (moles/volume)2019-09-12 05:30:00* Test Item Value Reference Range Interpretation Comments Carbon Dioxide Level (test code = 2028-9) 27 22-29 [facility]ererum or plasma anion eos0979-46-74 05:30:00* Test Item Value Reference Range Interpretation Comments Anion Gap (test code = 46313-6) 13.5 8-16 [facility]ererum or plasma urea nitrogen measurement (mass/volume)2019-09-12 05:30:00* Test Item Value Reference Range Interpretation Comments Blood Urea Nitrogen (test code = 3094-0) 5 7-26 [facility]ererum or plasma creatinine measurement (mass/volume)2019-09-12 05:30:00* Test Item Value Reference Range Interpretation Comments Creatinine (test code = 2160-0) 0.79 0.72-1.25 [facility]ererum or plasma urea nitrogen/creatinine mass tjnll4176-51-21 05:30:00* Test Item Value Reference Range Interpretation Comments BUN/Creatinine Ratio (test code = 3097-3) 6 6-25 [facility]entonEstimated glomerular filtration rate (GFR) zazilqtmoygle6637-95-21 05:30:00* Test Item Value Reference Range Interpretation Comments Estimat Glomerular Filtration Rate (test code = 425904537) > 60 >60 Ranges were taken from the National Kidney Disease Education Program and the [facility] Kid[facility] Foundation literature.Reference ranges:60 or greater: Puxhns02-24 ( for 3 consecutive months): Chronic kidney disease 15 or less: Kidney failureTexas Health DentonGlucose qpzbrkzrdwc5715-44-17 05:30:00* Test Item Value Reference Range Interpretation Comments Glucose Level (test code = ELE3075) 121 74-118 [facility] Centererum or plasma calcium measurement (mass/volume)2019-09-12 05:30:00* Test Item Value Reference Range Interpretation Comments Calcium Level (test code = 29358-6) 9.4 8.4-10.2 [facility] Centererum or plasma total bilirubin measurement (mass/volume)2019-09-12 05:30:00* Test Item Value Reference Range Interpretation Comments Total Bilirubin (test code = 1975-2) 2.2 0.2-1.2 [facility] DentonFluoroscopic procedure less than one hour ddjyqctc3793-13-52 05:30:00* Test Item Value Reference Range Interpretation Comments Aspartate Amino Transf (AST/SGOT) (test code = Aspartate Amino Transf (AST/SGOT)) 98 5-34 [facility] Centererum or plasma alanine aminotransferase measurement (enzymatic activity/volume)2019-09-12 05:30:00* Test Item Value Reference Range Interpretation Comments Alanine Aminotransferase (ALT/SGPT) (test code = 1742-6) 86 0-55 [facility] Centererum or plasma protein measurement (mass/volume)2019-09-12 05:30:00* Test Item Value Reference Range Interpretation Comments Total Protein (test code = 2885-2) 7.7 6.5-8.1 [facility] Centererum or plasma albumin measurement (mass/volume)2019-09-12 05:30:00* Test Item Value Reference Range Interpretation Comments Albumin (test code = 1751-7) 3.2 3.5-5.0 [facility]entonPlasma globulin measurement (mass/volume) 2019-09-12 05:30:00* Test Item Value Reference Range Interpretation Comments Globulin (test code = 47691-1) 4.5 2.3-3.5 [facility] Centererum or plasma albumin/globulin mass nhkdt4991-72-18 05:30:00* Test Item Value Reference Range Interpretation Comments Albumin/Globulin Ratio (test code = 1759-0) 0.7 0.8-2.0 [facility] Centererum or plasma alkaline phosphatase measurement (enzymatic activity/volume)2019-09-12 05:30:00* Test Item Value Reference Range Interpretation Comments Alkaline Phosphatase (test code = 6768-6) 164 40-150 [facility] Centererum or plasma triglyceride measurement (mass/volume)2019-09-12 05:30:00* Test Item Value Reference Range Interpretation Comments Triglycerides Level (test code = 2571-8) 698 0-149 [facility] Centererum or plasma lipase measurement (enzymatic activity/volume)2019-09-12 05:30:00* Test Item Value Reference Range Interpretation Comments Lipase (test code = 3040-3) 173 8-78 [facility] DentonCapillary blood glucose measurement by glucometer (mass/volume)2019-09-11 07:39:00* Test Item Value Reference Range Interpretation Comments Bedside Glucose (test code = 00595-7) 110 70-120 Meter ID: [id number] Health DentonFluoroscopic procedure less than one hour iopctwde2828-63-34 05:44:00* Test Item Value Reference Range Interpretation Comments Lactic Acid Level (test code = Lactic Acid Level) 0.9 0.5- 2.0 [facility] Centererum or plasma magnesium measurement (mass/volume)2019-09-11 05:44:00* Test Item Value Reference Range Interpretation Comments Magnesium Level (test code = 83947-9) 2.0 1.3-2.1 [facility] Centererum or plasma cholesterol measurement (mass/volume)2019-09-11 05:44:00* Test Item Value Reference Range Interpretation Comments Cholesterol Level (test code = 2093-3) 357 0-199 Less than 200 mg/dL Low Fonx535 - 239 mg/dL Borderline Bwme430 m g/dl and greater High Risk [facility] Centererum or plasma cholesterol in HDL measurement (mass/volume) 2019-09-11 05:44:00* Test Item Value Reference Range Interpretation Comments HDL Cholesterol (test code = 2085-9) 18 40-60 [facility] Centererum or plasma total cholesterol/cholesterol in HDL mass paerp1126-93-78 05:44:00* Test Item Value Reference Range Interpretation Comments Cholesterol/HDL Ratio (test code = 9830-1) 19.8 3.9-4.7 [facility] QOWBNGPG-[id number] 19:19:00 [facility] [address] [address] Patient Name: LUIS NICE MR #: [id number] : 1980 Age/Sex: 39/M Req #: [id number] Adm Physician: Ordered by: UMU STOVER Report #: [id number] Location: [facility] Room/Bed: Procedure: [id number] HOPD/CT ABD/PEL WITH CONTRAST-HOPD Exam Date: 09/10/19 [...] 09/10/192019 COPY TO: UMU STOVER CXR 2 VIEW - [id number] 16:19:00 [place] [address] Patient Name: LUIS NICE MR #: [id number] : 1980 Age/Sex: 39/M Req #: [id number] Adm Physician: Ordered by: UMU STOVER Report #: [id number] Location: [facility] Room/Bed: Procedure: HOPD/CXR 2 VIEW - HOPD Exam Date: Exam Time: REPORT STATUS: Signed EXAM: CXR 2 V [facility] DATE: 09/10/2019 3:56 PM INDICATION: Abdominal pain [...] MD on 09/10/191619 Transcribed By: SHIRA on 09/10/191619 COPY TO: UMU STOVER Serum or plasma conjugated bilirubin measurement (mass/volume)2019-09-10 15:25:00* Test Item Value Reference Range Interpretation Comments Direct Bilirubin (test code = 67516-9) 0.1 0.0-0.5 [facility]entonBlood hexsukx0040-49-51 15:20:00* Test Item Value Reference Range Interpretation Comments Blood Culture (test code = 13019326) NO GROWTH AFTER 24 HOURS [facility]entonUA RFLX [id number] 14:08:00* Test Item Value Reference Range Interpretation [...] code = UASPEC) Clean Catch COMPREHENSIVE METABOLIC [id number] 13:55:00* Test Item Value Reference Range Interpretation [...] code = ALKP) 126 Units/L 50-136 N [id number] 13:55:00* Test Item Value Reference Range Interpretation Comments ALCOHOL (test code = ALC) 4 MG/DL 0-10 N 0 - 10: Should be interpreted as NEGATIVE. 11 - 50: None to mild euphoria. 51 - 100: Mild influence on vision and dark adaptation. > 80: Legal intoxication; Depression of DOUGH MOLDER HAND; Increasing degree of poisoning. > 400: Fatalities reported. Results are for medical purposes only and not forlegal or employment evaluative purposes. COMPREHENSIVE METABOLIC [id number] 13:49:00* Test Item Value Reference Range Interpretation [...] TOTAL (test code = ALKP) Units/L 50-136 OMZZZOA8444-27-27 13:49:00* Test Item Value Reference Range Interpretation Comments ALCOHOL (test code = ALC) MG/DL 0-10 CBC W/AUTO [id number] 13:38:00* Test Item Value Reference Range Interpretation [...] 0.06 x10 3/uL 0.0-0.[address] BRAIN [id number] 02:56:00 [place] [address] Patient Name: LUIS NICE MR #: [id number] : 1980 Age/Sex: 38/M Req #: [id number] Adm Physician: Ordered by: ORI RINALDI MD Report #: [id number] Location: [facility] Room/Bed: Procedure: [id number] HOPD/CT BRAIN WO-HOPD Exam Date: 05/18/19 Exam Time: 023 REPORT STATUS: Sig sofía Examination: CT head without contrast Clinical Indication: Headache. We akness. Technique: Transaxial noncontrast images from the skull base through t vertex were obtained. Sagittal and coronal reformatted [...] 134 mg/dL 74-106 H Performed by certified audio/visual operator at [facility] [id number] 11:16:00* Test Item Value Reference Range Interpretation Comments GLUBED (test code = GLUBED) 76 mg/dL 74-106 N Performed by certified audio/visual operator at [facility] [id number] 07:48:00* Test Item Value Reference Range Interpretation Comments GLUBED (test code = GLUBED) 79 mg/dL 74-106 N Performed by certified audio/visual operator at [facility] CBC W/MANUAL [id number] 04:31:00* Test Item Value Reference Range Interpretation [...] IMMAT) 0 % 0-0 N BASIC METABOLIC [id number] 04:02:00* Test Item Value Reference Range Interpretation [...] CA) 9.2 mg/dL 8.5-10.1 N HEPATIC FUNCTION [id number] 04:02:00* Test Item Value Reference Range Interpretation [...] reference range due to change in reagent. [id number] 04:02:00* Test Item Value Reference Range Interpretation Comments LIPASE (test code = LIP) 300 U/L 73.0-393.0 N BASIC METABOLIC [id number] 03:54:00* Test Item Value Reference Range Interpretation [...] code = CA) mg/dL 8.5-10.1 HEPATIC FUNCTION [id number] 03:54:00* Test Item Value Reference Range Interpretation [...] TOTAL (test code = ALKP) IUnit/L 45-117 [id number] 03:54:00* Test Item Value Reference Range Interpretation Comments LIPASE (test code = LIP) U/L 73.0-393.0 CBC W/MANUAL [id number] 03:43:00* Test Item Value Reference Range Interpretation [...] MORPHOLOGY (test code = PLTMORPH) CBC W/MANUAL [id number] 03:43:00* Test Item Value Reference Range Interpretation [...] MORPHOLOGY (test code = PLTMORPH) CBC W/MANUAL [id number] 03:43:00* Test Item Value Reference Range Interpretation [...] MORPHOLOGY (test code = PLTMORPH) CBC W/MANUAL [id number] 03:42:00* Test Item Value Reference Range Interpretation [...] MORPHOLOGY (test code = PLTMORPH) CBC W/MANUAL [id number] 03:42:00* Test Item Value Reference Range Interpretation [...] PLTEST) PLATELET MORPHOLOGY (test code = PLTMORPH) [id number] 20:28:00* Test Item Value Reference Range Interpretation Comments GLUBED (test code = GLUBED) 80 mg/dL 74-106 N Performed by certified audio/visual operator at [facility] [id number] 16:31:00* Test Item Value Reference Range Interpretation Comments GLUBED (test code = GLUBED) 74 mg/dL 74-106 N Performed by certified audio/visual operator at [facility] [id number] 11:31:00* Test Item Value Reference Range Interpretation Comments GLUBED (test code = GLUBED) 97 mg/dL 74-106 N Performed by certified audio/visual operator at [facility] [id number] 07:54:00* Test Item Value Reference Range Interpretation Comments GLUBED (test code = GLUBED) 88 mg/dL 74-106 N Performed by certified audio/visual operator at [facility] CBC W/MANUAL [id number] 06:32:00* Test Item Value Reference Range Interpretation [...] IMMAT) 0 % 0-0 N BASIC METABOLIC [id number] 05:53:00* Test Item Value Reference Range Interpretation [...] code = CA) 8.3 mg/dL 8.5-10.1 L [id number] 05:53:00* Test Item Value Reference Range Interpretation Comments LIPASE (test code = LIP) 684 U/L 73.0-393.0 H CBC W/MANUAL [id number] 05:22:00* Test Item Value Reference Range Interpretation [...] MORPHOLOGY (test code = PLTMORPH) CBC W/MANUAL [id number] 05:22:00* Test Item Value Reference Range Interpretation [...] MORPHOLOGY (test code = PLTMORPH) CBC W/MANUAL [id number] 05:22:00* Test Item Value Reference Range Interpretation [...] MORPHOLOGY (test code = PLTMORPH) CBC W/MANUAL [id number] 05:22:00* Test Item Value Reference Range Interpretation [...] MORPHOLOGY (test code = PLTMORPH) CBC W/MANUAL [id number] 05:22:00* Test Item Value Reference Range Interpretation [...] PLTEST) PLATELET MORPHOLOGY (test code = PLTMORPH) [id number] 20:21:00* Test Item Value Reference Range Interpretation Comments GLYCOSYLATED HEMOGLOBIN (HA1C) (test code = GLYHGB) 5.6 % HbA1 4. 8-6.0 N ESTIMATED AVERAGE GLUCOSE (test code = EAG) 114 MG/DL [id number] 20:14:00* Test Item Value Reference Range Interpretation Comments GLUBED (test code = GLUBED) 124 mg/dL 74-106 H Performed by certified audio/visual operator at [facility] - US ABDOMEN [id number] 10:44:00 Name: ATUL SNYDEROS [facility] : 1980 Age/S: 38 / M [address] [facility] Unit #: [id number] Loc: [place] [address] Phys: Benjamin Aguilar MD Acct: [id number] Dis Date: Status: ADM IN PHONE #: [phone] Exam Date: 02/05/2019 1034 FAX #: [phone] Reason: RUQ pain, pancreatitis EXAMS: CPT CODE: [id number] US ABDOMEN LTD [id number] REASON FOR EXAM: RUQ pain, pancreatitis EXAM ORDER DATE: 02/05/2019 10:06 AM Attending MClareD.: Benjamin Aguilar MD PROCEDURE: - US ABDOMEN [...] Signed Report (CONTINUED) Name: LUIS SNYDER [facility] : 1980 Age/S: 38 / M [address] [facility] Unit #: [id number] Loc: [place] [place] [address] Phys: Benjamin Aguilar MD Acct: [id number] Dis Date: Statu s: ADM IN PHONE #: [phone] Exam Date: 02/05/2019 1034 FAX #: [phone] Reason: RUQ pain, pancreatitis EXAMS: CPT CODE: [id number] US ABDOMEN LTD 60731 <Continued> cysts/masses: none hydronephrosis: none Ascites/pleural effusions: None IMPRESSION: Hepatomegaly with hepatic steatosis. Location: [facility] at 1044 Reported and signed by: James Zimmerman MD CC: Benjamin Aguilar MD Technologist: Coco Andrade RDMS Trnscb Date/Time: 02/05/2019 (6204) [email or web address] Orig Print D/T: S: 02/05/2019 (2116) Probe: PAGE 2 Signed Report BASIC METABOLIC [id number] 10:26:00* Test Item Value Reference Range Interpretation [...] CA) 7.9 mg/dL 8.4-10.2 L HEPATIC FUNCTION [id number] 10:26:00* Test Item Value Reference Range Interpretation [...] code = ALKP) 237 U/L 38-126 H [id number] 10:26:00* Test Item Value Reference Range Interpretation Comments LIPASE (test code = LIP) 1344 U/L 128-270 H URINALYSIS [id number] 10:06:00* Test Item Value Reference Range Interpretation [...] LPF NONE-FEW Urine Source? Clean CatchBASIC METABOLIC [id number] 10:03:00* Test Item Value Reference Range Interpretation [...] CA) 7.9 mg/dL 8.4-10.2 L HEPATIC FUNCTION [id number] 10:03:00* Test Item Value Reference Range Interpretation [...] code = ALKP) 237 U/L 38-126 H [id number] 10:03:00* Test Item Value Reference Range Interpretation Comments LIPASE (test code = LIP) 1344 U/L 128-270 H BASIC METABOLIC [id number] 09:56:00* Test Item Value Reference Range Interpretation [...] CA) 7.9 mg/dL 8.4-10.2 L HEPATIC FUNCTION [id number] 09:56:00* Test Item Value Reference Range Interpretation [...] TOTAL (test code = ALKP) IUnit/L 45-117 [id number] 09:56:00* Test Item Value Reference Range Interpretation Comments LIPASE (test code = LIP) Unit/L 144-286 CBC W/O [id number] 09:45:00* Test Item Value Reference Range Interpretation [...] = MPV) 10.7 fL 6.7-11.0 N URINALYSIS [id number] 09:45:00* Test Item Value Reference Range Interpretation [...] HPF NONE Urine Source? Clean CatchBASIC METABOLIC [id number] 11:18:00* Test Item Value Reference Range Interpretation [...] CA) 8.6 mg/dL 8.4-10.2 N HEPATIC FUNCTION [id number] 11:18:00* Test Item Value Reference Range Interpretation [...] reference range due to change in reagent. [id number] 11:18:00* Test Item Value Reference Range Interpretation Comments LIPASE (test code = LIP) 998 Unit/L 144-286 H [id number] 11:18:00* Test Item Value Reference Range Interpretation Comments TROPONIN-I (test code = TROPI) <0.015 ng/mL 0-0.045 N BASIC METABOLIC [id number] 11:13:00* Test Item Value Reference Range Interpretation [...] CA) 8.6 mg/dL 8.4-10.2 N HEPATIC FUNCTION [id number] 11:13:00* Test Item Value Reference Range Interpretation [...] TOTAL (test code = ALKP) IUnit/L 45-117 [id number] 11:13:00* Test Item Value Reference Range Interpretation Comments LIPASE (test code = LIP) 998 Unit/L 144-286 H [id number] 11:13:00* Test Item Value Reference Range Interpretation Comments TROPONIN-I (test code = TROPI) <0.015 ng/mL 0-0.045 N BASIC METABOLIC [id number] 11:11:00* Test Item Value Reference Range Interpretation [...] code = CA) mg/dL 8.4-10.2 HEPATIC FUNCTION [id number] 11:11:00* Test Item Value Reference Range Interpretation [...] TOTAL (test code = ALKP) IUnit/L 45-117 [id number] 11:11:00* Test Item Value Reference Range Interpretation Comments LIPASE (test code = LIP) Unit/L 144-286 [id number] 11:11:00* Test Item Value Reference Range Interpretation Comments TROPONIN-I (test code = TROPI) ng/mL 0-0.045 BASIC METABOLIC [id number] 11:11:00* Test Item Value Reference Range Interpretation [...] code = CA) mg/dL 8.4-10.2 HEPATIC FUNCTION [id number] 11:11:00* Test Item Value Reference Range Interpretation [...] TOTAL (test code = ALKP) IUnit/L 45-117 [id number] 11:11:00* Test Item Value Reference Range Interpretation Comments LIPASE (test code = LIP) Unit/L 144-286 [id number] 11:11:00* Test Item Value Reference Range Interpretation Comments TROPONIN-I (test code = TROPI) <0.015 ng/mL 0-0.045 N CBC W/O [id number] 11:05:00* Test Item Value Reference Range Interpretation Comments WHITE BLOOD CELL (test code = WBC) 11.9 K/mm3 4.5-12.5 N RED BLOOD CELL (test code = RBC) 4.47 mill/mm3 4.0-5.8 N Previously reported result: 4.55 mill/we2Bmoywh by: DAYSI on 02/04/19:314468 1104: RBC previously reported as: 4.55 mill/mm3 HEMOGLOBIN (test code = HGB) 14.7 gram/dL 13.0-17.5 N Previously reported result: 16.2 gram/dLEdited by: DAYSI on 02/04/19:1103 HEMATOCRIT (test code = HCT) 43.8 % 42.0-52.0 N MEAN CELL VOLUME (test code = MCV) 98.0 fL 80-98 N Previously reported result: 96.3 fLEdited by: DAYSI on 02/04/19:1104 MEAN CELL HGB (test code = MCH) 32.9 picogram 27.0-33.0 N Previously reported result: 35.6 picogramEdited by: DAYSI on 02/04/19:1103 MEAN CELL HGB CONCETRATION (test code = [...] = MPV) 11.5 fL 6.7-11.0 H URINALYSIS [id number] 10:56:00* Test Item Value Reference Range Interpretation [...] per LPF NONE-FEW Urine Source? Clean CatchURINALYSIS [id number] 10:44:00* Test Item Value Reference Range Interpretation [...] HPF NONE Urine Source? Clean CatchCBC W/O [id number] 10:42:00* Test Item Value Reference Range Interpretation [...] code = MPV) 11.5 fL 6.7-11.0 H [id number] 11:53:00* Test Item Value Reference Range Interpretation Comments GLUBED (test code = GLUBED) 93 mg/dL 74-106 N Performed by certified audio/visual operator at [facility]) CBC W/AUTO [id number] 10:58:00* Test Item Value Reference Range Interpretation [...] = MDIFF) NO, ONLY SCAN NEEDED DIFFERENTIAL [id number] 10:58:00* Test Item Value Reference Range Interpretation Comments STAIN ACCEPTABILITY (test code = STN ACCEPTABLE) STAIN ACCEPTABLE ANISOCYTOSIS (test code = ANISO) 1+ PLATELET ESTIMATE (test code = PLTEST) DECREASED PLATELET MORPHOLOGY (test code = PLTMORPH) NORMAL BASIC METABOLIC [id number] 10:16:00* Test Item Value Reference Range Interpretation [...] code = CA) 8.2 mg/dL 8.5-10.1 L [id number] 10:16:00* Test Item Value Reference Range Interpretation Comments LIPASE (test code = LIP) 307 U/L 73.0-393.0 N [id number] 10:16:00* Test Item Value Reference Range Interpretation Comments MAGNESIUM (test code = MAG) 2.3 mg/dL 1.8-2.4 N THYROID STIMULATING [id number] 10:16:00* Test Item Value Reference Range Interpretation Comments THYROID STIMULATING HORMONE (test code = TSH) 2.200 uIU/mL 0.36-3.7 4 N TSH REFERENCE RANGES: EUTHYROID: 0.35 - 4.3 mIU/mL HYPO : > 5.5 mIU/mL HYPER : < 0.35 mIU/mL [id number] 10:16:00* Test Item Value Reference Range Interpretation Comments GLYCOSYLATED HEMOGLOBIN (HA1C) (test code = GLYHGB) 6.3 % HbA1 4. 8-6.0 H ESTIMATED AVERAGE GLUCOSE (test code = EAG) 134 MG/DL B-TYPE NATRIURETIC [id number] 10:07:00* Test Item Value Reference Range Interpretation Comments B-TYPE NATRIURETIC PEPTIDE (test code = BNP) 72.50 pgram/mL 0-100 N BASIC METABOLIC [id number] 10:01:00* Test Item Value Reference Range Interpretation [...] code = CA) 8.2 mg/dL 8.5-10.1 L [id number] 10:01:00* Test Item Value Reference Range Interpretation Comments LIPASE (test code = LIP) 307 U/L 73.0-393.0 N [id number] 10:01:00* Test Item Value Reference Range Interpretation Comments MAGNESIUM (test code = MAG) 2.3 mg/dL 1.8-2.4 N THYROID STIMULATING [id number] 10:01:00* Test Item Value Reference Range Interpretation Comments THYROID STIMULATING HORMONE (test code = TSH) uIU/mL 0.36-3.7 4 CBC W/AUTO [id number] 09:50:00* Test Item Value Reference Range Interpretation [...] = MDIFF) NO, ONLY SCAN NEEDED DIFFERENTIAL [id number] 09:50:00* Test Item Value Reference Range Interpretation Comments STAIN ACCEPTABILITY (test code = STN ACCEPTABLE) CABOT RINGS (test code = CAB) MORPHOLOGY COMMENT (test code = MOC) PLATELET ESTIMATE (test code = PLTEST) PLATELET MORPHOLOGY (test code = PLTMORPH) CBC W/AUTO [id number] 09:50:00* Test Item Value Reference Range Interpretation [...] = MDIFF) NO, ONLY SCAN NEEDED DIFFERENTIAL [id number] 09:50:00* Test Item Value Reference Range Interpretation Comments STAIN ACCEPTABILITY (test code = STN ACCEPTABLE) MORPHOLOGY COMMENT (test code = MOC) PLATELET ESTIMATE (test code = PLTEST) PLATELET MORPHOLOGY (test code = PLTMORPH) CBC W/AUTO [id number] 09:50:00* Test Item Value Reference Range Interpretation [...] = MDIFF) NO, ONLY SCAN NEEDED DIFFERENTIAL [id number] 09:50:00* Test Item Value Reference Range Interpretation Comments STAIN ACCEPTABILITY (test code = STN ACCEPTABLE) MORPHOLOGY COMMENT (test code = MOC) PLATELET ESTIMATE (test code = PLTEST) PLATELET MORPHOLOGY (test code = PLTMORPH) CBC W/AUTO [id number] 09:50:00* Test Item Value Reference Range Interpretation [...] = MDIFF) NO, ONLY SCAN NEEDED DIFFERENTIAL [id number] 09:50:00* Test Item Value Reference Range Interpretation Comments STAIN ACCEPTABILITY (test code = STN ACCEPTABLE) CABOT RINGS (test code = CAB) MORPHOLOGY COMMENT (test code = MOC) PLATELET ESTIMATE (test code = PLTEST) PLATELET MORPHOLOGY (test code = PLTMORPH) - US ABDOMEN [id number] 15:20:00 Name: LUIS SNYDER [facility] : 1980 Age/S: 38 / M [address] [facility] Unit #: [id number] Loc: [place] [address] Phys: Morgan Mo MD Acct: [id number] Dis Date: Status: REG ER PHONE #: [phone] Exam Date: 12/16/2018 1403 FAX #: [phone] Reason: RIGHT SIDED ABDOMINAL PAIN, PANCREATITIS EXAMS: CPT CODE: [id number] US ABDOMEN LTD 48195 HISTORY: Abdominal pain and pancreatitis. COMPARISON: CT [...] CC: Morgan Ortiz MD Technologist: Coco Andrade [facility] Date/Time: 12/16/2018 (1520) t.ROSE R.4 Orig Print D/T: S: 12/16/2018 (1524) Probe: PAGE 1 Signed Report - CT ABD PELVIS W/O [id number] 14:40:00 Name: LUIS SNYDER [facility] : 1980 Age/S: 38 / M [address] [facility] Unit #: [id number] Loc: [place] [address] Phys: Morgan Mo MD Acct: [id number] Dis Date: Status: REG ER PHONE #: [phone] Exam Date: 12/16/2018 1220 FAX #: [phone] Reason: RIGHT FLANK PAIN EXAMS: CPT CODE: [id number] CT ABD PELVIS W/O CONT 97835 EXAM: CT of the abdomen and pelvis [...] CC : Morgan Mo MD Technologist:SRINATH PERALES, (R),CT CTDI: DLP: Trnscb Date/Time: 12/16/2018 (14 40) t.ROSER.GRW Orig Print D/T: S: 12/16/2018 (5993) P AGE 3 Signed Report BASIC METABOLIC [id number] 14:05:00* Test Item Value Reference Range Interpretation [...] CA) 8.0 mg/dL 8.4-10.2 L HEPATIC FUNCTION [id number] 14:05:00* Test Item Value Reference Range Interpretation [...] code = ALKP) 121 U/L 38-126 N [id number] 14:05:00* Test Item Value Reference Range Interpretation Comments LIPASE (test code = LIP) 646 U/L 128-270 H BASIC METABOLIC [id number] 13:05:00* Test Item Value Reference Range Interpretation [...] CA) 8.0 mg/dL 8.4-10.2 L HEPATIC FUNCTION [id number] 13:05:00* Test Item Value Reference Range Interpretation [...] code = ALKP) 121 U/L 38-126 N [id number] 13:05:00* Test Item Value Reference Range Interpretation Comments LIPASE (test code = LIP) 646 U/L 128-270 H URINALYSIS [id number] 12:51:00* Test Item Value Reference Range Interpretation [...] LPF NONE-FEW A Urine Source? Clean CatchURINALYSIS [id number] 12:50:00* Test Item Value Reference Range Interpretation [...] HPF NONE Urine Source? Clean CatchBASIC METABOLIC [id number] 12:43:00* Test Item Value Reference Range Interpretation [...] CA) 8.0 mg/dL 8.4-10.2 L HEPATIC FUNCTION [id number] 12:43:00* Test Item Value Reference Range Interpretation [...] code = ALKP) 121 U/L 38-126 N [id number] 12:43:00* Test Item Value Reference Range Interpretation Comments LIPASE (test code = LIP) 646 U/L 128-270 H BASIC METABOLIC [id number] 12:39:00* Test Item Value Reference Range Interpretation [...] CA) 8.0 mg/dL 8.4-10.2 L HEPATIC FUNCTION [id number] 12:39:00* Test Item Value Reference Range Interpretation [...] TOTAL (test code = ALKP) IUnit/L 45-117 [id number] 12:39:00* Test Item Value Reference Range Interpretation Comments LIPASE (test code = LIP) Unit/L 144-286 CBC W/O [id number] 12:28:00* Test Item Value Reference Range Interpretation [...] MPV) 11.0 fL 6.7-11.0 N CBC W/O [id number] 12:24:00* Test Item Value Reference Range Interpretation [...] MPV) 11.0 fL 6.7-11.0 N COMPREHENSIVE METABOLIC [id number] 20:30:00* Test Item Value Reference Range Interpretation [...] code = ALKP) 89 U/L 38-126 N [id number] 20:30:00* Test Item Value Reference Range Interpretation Comments LIPASE (test code = LIP) 188 U/L 128-270 N COMPREHENSIVE METABOLIC [id number] 19:42:00* Test Item Value Reference Range Interpretation [...] TOTAL (test code = ALKP) IUnit/L 45-117 [id number] 19:42:00* Test Item Value Reference Range Interpretation Comments LIPASE (test code = LIP) Unit/L 144-286 CBC W/AUTO [id number] 19:32:00* Test Item Value Reference Range Interpretation [...] REQUIRED (test code = MDIFF) NO URINALYSIS [id number] 18:54:00* Test Item Value Reference Range Interpretation [...] HPF NONE Urine Source? Clean CatchBASIC METABOLIC [id number] 18:52:00* Test Item Value Reference Range Interpretation [...] = CA) 9.0 mg/dL 8.4-10.2 N URINALYSIS [id number] 18:48:00* Test Item Value Reference Range Interpretation [...] HPF 0-5 Urine Source? Clean CatchCBC W/AUTO [id number] 18:42:00* Test Item Value Reference Range Interpretation [...] DIFF REQUIRED (test code = MDIFF) NO [id number] 11:15:00* Test Item Value Reference Range Interpretation Comments GLUBED (test code = GLUBED) 134 mg/dL 74-106 H Performed by certified audio/visual operator at [facility]) [id number] 05:50:00* Test Item Value Reference Range Interpretation Comments GLUBED (test code = GLUBED) 112 mg/dL 74-106 H Performed by certified audio/visual operator at [facility]) BASIC METABOLIC [id number] 05:34:00* Test Item Value Reference Range Interpretation [...] RELATED TO RISK LEVELS ASRECOMMENDED BY THE GARIM[facility]. HEART, LUNG, AND BLOOD INST. HDL CHOLESTEROL [...] result is a direct measurement.========= HEPATIC FUNCTION [id number] 05:34:00* Test Item Value Reference Range Interpretation [...] reference range due to change in reagent. [id number] 05:34:00* Test Item Value Reference Range Interpretation Comments LIPASE (test code = LIP) 186 U/L 73.0-393.0 N BASIC METABOLIC [id number] 05:25:00* Test Item Value Reference Range Interpretation [...] code = LDL) mg/dL 100-129 HEPATIC FUNCTION [id number] 05:25:00* Test Item Value Reference Range Interpretation [...] TOTAL (test code = ALKP) IUnit/L 45-117 [id number] 05:25:00* Test Item Value Reference Range Interpretation Comments LIPASE (test code = LIP) U/L 73.0-393.0 CBC W/AUTO [id number] 04:53:00* Test Item Value Reference Range Interpretation [...] (test code = MDIFF) NO CBC W/AUTO [id number] 04:50:00* Test Item Value Reference Range Interpretation [...] # (test code = BA#) K/mm3 0.0-0.2 [id number] 00:50:00* Test Item Value Reference Range Interpretation Comments GLUBED (test code = GLUBED) 130 mg/dL 74-106 H Performed by certified audio/visual operator at [facility]) [id number] 20:39:00* Test Item Value Reference Range Interpretation Comments GLUBED (test code = GLUBED) 147 mg/dL 74-106 H Performed by certified audio/visual operator at [facility]) [id number] 16:56:00* Test Item Value Reference Range Interpretation Comments GLUBED (test code = GLUBED) 114 mg/dL 74-106 H Performed by certified audio/visual operator at [facility]) [id number] 14:31:00* Test Item Value Reference Range Interpretation Comments GLUBED (test code = GLUBED) 111 mg/dL 74-106 H Performed by certified audio/visual operator at [facility]) [id number] 06:24:00* Test Item Value Reference Range Interpretation Comments GLUBED (test code = GLUBED) 100 mg/dL 74-106 N Performed by certified audio/visual operator at [facility]) CBC W/MANUAL [id number] 04:57:00* Test Item Value Reference Range Interpretation [...] code = IMMAT) 0 % BASIC METABOLIC [id number] 04:49:00* Test Item Value Reference Range Interpretation [...] CALCIUM (test code = CA) mg/dL 8.5-10.1 [id number] 04:49:00* Test Item Value Reference Range Interpretation Comments LIPASE (test code = LIP) U/L 73.0-393.0 [id number] 04:49:00* Test Item Value Reference Range Interpretation Comments MAGNESIUM (test code = MAG) mg/dL 1.8-2.4 BASIC METABOLIC [id number] 04:49:00* Test Item Value Reference Range Interpretation [...] code = CA) 8.3 mg/dL 8.5-10.1 L [id number] 04:49:00* Test Item Value Reference Range Interpretation Comments LIPASE (test code = LIP) 227 U/L 73.0-393.0 N [id number] 04:49:00* Test Item Value Reference Range Interpretation Comments MAGNESIUM (test code = MAG) 1.9 mg/dL 1.8-2.4 N CBC W/MANUAL [id number] 04:30:00* Test Item Value Reference Range Interpretation [...] MORPHOLOGY (test code = PLTMORPH) CBC W/MANUAL [id number] 04:30:00* Test Item Value Reference Range Interpretation [...] MORPHOLOGY (test code = PLTMORPH) CBC W/MANUAL [id number] 04:30:00* Test Item Value Reference Range Interpretation [...] MORPHOLOGY (test code = PLTMORPH) CBC W/MANUAL [id number] 04:30:00* Test Item Value Reference Range Interpretation [...] MORPHOLOGY (test code = PLTMORPH) CBC W/MANUAL [id number] 04:30:00* Test Item Value Reference Range Interpretation [...] PLTEST) PLATELET MORPHOLOGY (test code = PLTMORPH) [id number] 21:22:00* Test Item Value Reference Range Interpretation Comments GLUBED (test code = GLUBED) 132 mg/dL 74-106 H Performed by certified audio/visual operator at [facility]) [id number] 12:17:00* Test Item Value Reference Range Interpretation Comments GLUBED (test code = GLUBED) 127 mg/dL 74-106 H Performed by certified audio/visual operator at [facility]) [id number] 06:30:00* Test Item Value Reference Range Interpretation Comments GLUBED (test code = GLUBED) 145 mg/dL 74-106 H Performed by certified audio/visual operator at [facility])Notified Nurse~ COMPREHENSIVE METABOLIC [id number] 04:45:00* Test Item Value Reference Range Interpretation [...] reference range due to change in reagent. [id number] 04:45:00* Test Item Value Reference Range Interpretation Comments LIPASE (test code = LIP) 978 U/L 73.0-393.0 H COMPREHENSIVE METABOLIC [id number] 04:41:00* Test Item Value Reference Range Interpretation [...] TOTAL (test code = ALKP) IUnit/L 45-117 [id number] 04:41:00* Test Item Value Reference Range Interpretation Comments LIPASE (test code = LIP) U/L 73.0-393.0 CBC W/AUTO [id number] 04:20:00* Test Item Value Reference Range Interpretation [...] NRBC#) 0.00 K/mm3 0.0-0.1 N CBC W/AUTO [id number] 04:18:00* Test Item Value Reference Range Interpretation [...] # (test code = BA#) K/mm3 0.0-0.2 [id number] 01:58:00* Test Item Value Reference Range Interpretation Comments GLUBED (test code = GLUBED) 120 mg/dL 74-106 H Performed by certified audio/visual operator at [facility]) [id number] 23:01:00* Test Item Value Reference Range Interpretation Comments AMMONIA (test code = AMM) 56 umol/L 11-32 H PROTHROMBIN [id number] 22:32:00* Test Item Value Reference Range Interpretation [...] (2.5-3.5) IS PATIENT ON ANTICOAGULANTS? NTHROMBOPLASTIN TIME [id number] 22:32:00* Test Item Value Reference Range Interpretation Comments THROMBOPLASTIN TIME PARTIAL (test code = PTT) 35.3 seconds 25.0-36. 5 N IS PATIENT ON ANTICOAGULANTS? NDRUGS OF ABUSE SCREEN [id number] 21:58:00* Test Item Value Reference Range Interpretation [...] NEGATIVE <300 ng/mL DRUGS OF ABUSE SCREEN [id number] 21:28:00* Test Item Value Reference Range Interpretation [...] METHADONE (test code = METHAURN) <300 ng/mL [id number] 21:09:00* Test Item Value Reference Range Interpretation Comments GLUBED (test code = GLUBED) 152 mg/dL 74-106 H Performed by certified audio/visual operator at [facility]) LACTIC [id number] 17:36:00* Test Item Value Reference Range Interpretation Comments LACTIC ACID (test code = LACT) 1.7 MMOL/L 0.4-1.9 N BASIC METABOLIC [id number] 16:34:00* Test Item Value Reference Range Interpretation [...] 7.1 mg/dL 8.4-10.2 L - US ABDOMEN [id number] 16:23:00 Name: LUIS SNYDER [facility] : 1980 Age/S: 38 / M [address] [facility] Unit #: [id number] Loc: [place] [address] Phys: Nidhi Falcon MD Acct: [id number] Dis Date: Status: REG ER PHONE #: [phone] Exam Date: 07/02/2018 1558 FAX #: [phone] Reason: AP, h/o pancreatitis, elevated LFTs EXAMS: CPT CODE: [id number] US ABDOMEN LTD 22228 REASON FOR EXAM: AP, h/o pancreatitis, elevated LFTs EXAM ORDER DATE: 07/02/2018 2:21 PM Attending MClareD.: Nidhi Falcon MD PROCEDURE: - US ABDOMEN [...] Technologist: Coco Andrade RDMS Trnscb Date/Time: 07/02/2018 (699) tMAMIE.VTL Orig Print D/T: S: 07/02/2018 (8627) Probe: PAGE 1 Signed Report URINALYSIS [id number] 16:22:00* Test Item Value Reference Range Interpretation [...] SEEN per HPF NONE Urine Source? Clean [id number] 15:11:00* Test Item Value Reference Range Interpretation [...] THE PATIENT. ADD ON- CT ABD PELVIS [id number] 15:10:00 Name: LUIS SNYDER [facility] : 1980 Age/S: 38 / M [address] [facility] Unit #: [id number] Loc: [place] [address] Phys: Nidhi Falcon MD Acct: [id number] Dis Date: Status: REG ER PHONE #: [phone] Exam Date: 07/02/2018 1504 FAX #: [phone] Reason: abd pain, vomiting, h/o pancreatitis EXAMS: CPT CODE: [id number] CT ABD PELVIS W/CONT 44124 HISTORY: Abdominal pain and vomiting. COMPARISON: None [...] Pat d Report (CONTINUED) Name: LUIS SNYDER [facility] : 1980 Age/S: 38 / M [address] [facility] Unit #: [id number] Loc: [place] [address] Phys: Nidhi Falcon MD Acct: [id number] Dis Date: Status: REG ER PHONE #: [phone] Exam Date: 07/02/2018 1 503 FAX #: [phone] Reason: abd pain, vomiting, h/o pancreatitis EXAMS: CPT CODE: [id number] CT ABD PELVIS W/CONT 58877 <Continued> IMPRESSION: Acute pancreatitis involving the pancreatic [...] Technologist:Kathy Rao CTDI: DLP: Trnscb Date/Time: 07/02/2018 (1510) t.SDR.TH4 Orig Print D/T: S: 07/02/2018 (2575) CTDI: DLP: PAGE 2 Signed Report LACTIC [id number] 14:09:00* Test Item Value Reference Range Interpretation Comments LACTIC ACID (test code = LACT) 2.1 MMOL/L 0.4-1.9 HH Results called to Manju CEDILLO V.LAB.CB1 07/02/18 1409Critical results verified and read back by Nurse? Y BASIC METABOLIC [id number] 14:09:00* Test Item Value Reference Range Interpretation [...] CA) 7.7 mg/dL 8.4-10.2 L HEPATIC FUNCTION [id number] 14:09:00* Test Item Value Reference Range Interpretation [...] code = ALKP) 141 U/L 38-126 H [id number] 14:09:00* Test Item Value Reference Range Interpretation Comments LIPASE (test code = LIP) 679 U/L 128-270 H [id number] 14:09:00* Test Item Value Reference Range Interpretation Comments TROPONIN-I (test code = TROPI) <0.015 ng/mL 0.00-0.056 N BASIC METABOLIC [id number] 14:00:00* Test Item Value Reference Range Interpretation [...] CA) 7.7 mg/dL 8.4-10.2 L HEPATIC FUNCTION [id number] 14:00:00* Test Item Value Reference Range Interpretation [...] TOTAL (test code = ALKP) IUnit/L 45-117 [id number] 14:00:00* Test Item Value Reference Range Interpretation Comments LIPASE (test code = LIP) Unit/L 144-286 [id number] 14:00:00* Test Item Value Reference Range Interpretation Comments TROPONIN-I (test code = TROPI) ng/mL 0-0.045 - XR CHEST 1 [id number] 13:58:00 Name: LUIS SNYDER [facility] : 1980 Age/S:38 /M [address] [facility] Unit#:[id number] Loc: [place] [address] Phys: Nidhi Falcon MD Dis Date: PHONE #: [phone] Status: PRE ER FAX #: [phone] Exam Date: 07/02/2018 Reason: CODE SEPSIS EXAMS: CPT CODE: [id number] XR CHEST 1 V 59341 HISTORY: Sepsis. COMPARISON: None available. No acute infiltrates, effusion or congestion is noted. Cardiomegaly. IMPRESSION: No acute infiltrates, effusion or congestion. at 7286 Reported and signed by: Jose Alberto Kent M.D. CC: Nidhi Falcon MD Technologist: Kathy Rao Trnscrpt Data: 07/02/2018 (7197) [email or web address] Orig Print D/T: S: 07/02/2018 (3238) PAGE 1 Signed Report CBC W/AUTO DIFF [...] DIFF REQUIRED (test code = MDIFF) NO [id number] 15:09:00* Test Item Value Reference Range Interpretation Comments GLUBED (test code = GLUBED) 211 mg/dL 74-106 H Performed by certified audio/visual operator at [facility] [id number] 15:09:00* Test Item Value Reference Range Interpretation Comments GLUBED (test code = GLUBED) 316 mg/dL 74-106 H Performed by certified audio/visual operator at [facility] COMPREHENSIVE METABOLIC [id number] 15:02:00* Test Item Value Reference Range Interpretation [...] ALKP) 95 U/L 38-126 N CBC W/AUTO [id number] 14:53:00* Test Item Value Reference Range Interpretation [...]
--- NOTE | 2019-11-18 15:52 | NUR ---
Called [facility] to transport pt to room 205
[2019-11-18] MEDS: MORPHINE SULFATE INJ 4 MG/ML INJ 1ML IV PRN ×3 (16:05→20:35)
[2019-11-18] MEDS: SODIUM CHLORIDE 0.9% 1000ML 1,000 ML IV SCH ×2 (16:05→18:23)
[2019-11-18] MEDS ORDERED: MORPHINE SULFATE INJ 4 MG/ML INJ 1ML ONE (16:10)
[2019-11-18] MEDS: INSULIN REGULAR, HUMAN 100 UNIT/1 ML 3ML VIAL SQ SCH ×2 (16:30→21:00)
--- NOTE | 2019-11-18 16:30 | NUR ---
Report to KEMI Troncoso
--- NOTE | 2019-11-18 18:10 | NUR ---
The pt. arrived from the [facility] via stretcher with c/o abd pain 11/18 and is not eligible for pain med at this time. The pt. is awake and alert and has numerous tasks pending. The lab called to report that they received green top hemolyzed and need a new tube. The pt. was provided pepcid that was due at 1630 and iv fluids were initiated and the pt. is resting quietly at this time.
[2019-11-18 18:11] VITALS: BP 149/89
[2019-11-18] MEDS: FAMOTIDINE 20 MG/2 ML VIAL IV SCH (18:23)
[2019-11-18 19:13] LABS: ALBUMIN 3.2 g/dL (3.5-5.0); ALBUMIN/GLOBULIN RATIO 0.4 (0.8-2.0); AMYLASE 209 U/L (25-125); BLOOD UREA NITROGEN 6 mg/dL (7-26); BUN/CREATININE RATIO 9 (6-25); CALCIUM 7.3 mg/dL (8.4-10.2); CHLORIDE 97 mmol/L (98-107); CREATININE, SERUM 0.66 mg/dL (0.72-1.25); EST GLOMERULAR FILTRATION RATE > 60 ML/MIN (60-); GLUCOSE 129 mg/dL (74-118); POTASSIUM 5.8 mmol/L (3.5-5.1); SODIUM 127 mmol/L (136-145)
[2019-11-18 19:25] VITALS: BP 120/78
[2019-11-18 19:38] LABS: ALANINE AMINOTRANSFERASE 105 IU/L (0-55); ALKALINE PHOSPHATASE 87 IU/L (40-150); ANION GAP 10.8 mmol/L (8-16)
[2019-11-18 19:43] LABS: CARBON DIOXIDE < 25 mmol/L (22-29)
[2019-11-18 20:00] VITALS: BP 143/89
--- NOTE | 2019-11-18 20:26 | NUR ---
Dr. Godoy made aware of C02 levels. will repeat labs am and ordered to increase fluids increased to 200mls an hour
[2019-11-18 21:35] VITALS: BP 143/89
--- NOTE | 2019-11-18 22:00 | NUR ---
Admission questionnaire sheet filled and filed.
[2019-11-19] VITALS: BP 139/89
[2019-11-19] MEDS: MORPHINE SULFATE INJ 4 MG/ML INJ 1ML IV PRN ×2 (01:32→06:26)
[2019-11-19 04:00] VITALS: BP 142/83
[2019-11-19 06:41] LABS: BASOPHILS # (AUTO) 0.1 (0.0-0.1); BASOPHILS % 1.1 % (0.0-1.0); EOSINOPHILS # (AUTO) 0.1 (0.0-0.4); EOSINOPHILS % 1.5 % (0.0-6.0); HEMATOCRIT 42.4 % (38.2-49.6); HEMOGLOBIN 15.2 g/dL (14.0-18.0); LYMPHOCYTES # (AUTO) 1.1 (1.0-3.2); LYMPHOCYTES % 13.4 % (18.0-39.1); MEAN CORPUSCULAR HEMOGLOBIN 33.6 pg (28-32); MEAN CORPUSCULAR HGB CONC 35.8 g/dL (31-35); MEAN CORPUSCULAR VOLUME 93.6 fL (81-99); MONOCYTES # (AUTO) 0.3 (0.2-0.8); MONOCYTES % 3.7 % (4.4-11.3); NEUTROPHILS # (AUTO) 6.8 (2.1-6.9); NEUTROPHILS % 79.9 % (38.7-80.0); PLATELET COUNT 87 x10e3/uL (140-360); RED BLOOD COUNT 4.53 x10e6/uL (4.3-5.7); RED CELL DISTRIBUTION WIDTH 13.2 % (11.7-14.4)
[2019-11-19] MEDS: SODIUM CHLORIDE 0.9% 1000ML 1,000 ML IV SCH ×3 (06:46→21:24)
--- NOTE | 2019-11-19 06:55 | NUR ---
patient endorsed to next shift for continuity of care.
[2019-11-19 07:12] LABS: ALANINE AMINOTRANSFERASE 95 IU/L (0-55); ALBUMIN 3.1 g/dL (3.5-5.0); ALKALINE PHOSPHATASE 110 IU/L (40-150); AMYLASE 183 U/L (25-125); BILIRUBIN,DIRECT 0.5 mg/dL (0.0-0.5); BLOOD UREA NITROGEN < 5 mg/dL (7-26); CARBON DIOXIDE 20 mmol/L (22-29); CHLORIDE 96 mmol/L (98-107); CREATININE, SERUM 0.75 mg/dL (0.72-1.25); EST GLOMERULAR FILTRATION RATE > 60 ML/MIN (60-); GLUCOSE 139 mg/dL (74-118); LIPASE 510 U/L (8-78); SODIUM 127 mmol/L (136-145)
[2019-11-19 07:18] LABS: BUN/CREATININE RATIO 7 (6-25)
[2019-11-19 07:41] LABS: CHOL/HDL RATIO 47.2 (3.9-4.7); CHOLESTEROL 661 MD/DL (0-199); HDL CHOLESTEROL 14 MG/DL (40-60)
[2019-11-19 08:00] VITALS: BP 123/85
[2019-11-19 08:11] LABS: TRIGLYCERIDES 3977 MG/DL (0-149)
[2019-11-19] MEDS: INSULIN REGULAR, HUMAN 100 UNIT/1 ML 3ML VIAL SQ SCH ×4 (09:03→21:00)
[2019-11-19] MEDS: FAMOTIDINE 20 MG/2 ML VIAL IV SCH ×2 (09:17→17:19)
[2019-11-19 11:48] VITALS: BP 144/94
[2019-11-19 15:53] VITALS: BP 129/64
[2019-11-19 20:00] VITALS: BP 148/76
[2019-11-20] VITALS (9 sets, daily range): BP systolic 116–163; BP diastolic 75–97
[2019-11-20] MEDS: ACETAMINOPHEN 325 MG TAB PO PRN ×2 (04:30→21:47)
--- NOTE | 2019-11-20 06:31 | NUR ---
IM- progress note O/N see below ROS: no cp/sob/skin rash/confusion/VENTURA/vision changes/dizziness/leg pain/focal limb weakness V/s Revd PE nad anicteric ns1s2 mod bs soft; nd; TENDER EPIGASTRIUM no leg edema/tenderness a&ox3; combs skin dry n. affect labs/meds revd A/P: Acute pancreatitis- IVF; NPO; DM2- hab1c/lipids Alcoholic Cirrhosis Thrombocytopenia- avoid heparin products. Hyponatremia- rehydrate; monitor Prop: scd DIspo: 8 rehydrate; salt tabs; thiamine/folic acid; recheck labs later; HTG- start fibrate and statin; PreDM- will need retesting outpt in 3 months; VIKY LYNNE MD, PHD.
--- NOTE | 2019-11-20 07:02 | NUR ---
BEDSIDE REPORT RECEIVED FROM ZAIN MCMULLEN. PATIENT FOUND LYING IN BED IN NO ACUTE DISTRESS, HOB ELEVATED 30 DEGREES. PATIENT WAS EDUCATED ON FALL RISK PRECAUTIONS AND CALL THE NURSE WITH NEEDS. PATIENT VERBALIZED UNDERSTANDING. CALL LIGHT AND BELONGINGS PLACED NEARBY. WILL CONTINUE TO MONITOR.
[2019-11-20] MEDS: SODIUM CHLORIDE 0.9% 1000ML 1,000 ML IV SCH ×5 (07:15→21:16)
[2019-11-20] MEDS: INSULIN REGULAR, HUMAN 100 UNIT/1 ML 3ML VIAL SQ SCH ×4 (07:30→21:16)
--- NOTE | 2019-11-20 08:43 | NUR ---
PROVIDED PACKET FOR PT WITH 2 PAGES OF DRUG AND ALCOHOL RESOURCES FOR FOLLOW UP IN COMMUNITY IF HE CHOOSES TO GET HELP.
--- NOTE | 2019-11-20 08:44 | NUR ---
GAVE PACKET OF INFORMATION WITH COMMUNITY RESOURCES FOR ASSISTANCE WITH LOW TO NO INCOME TO PATIENT. RESOURCES THAT PATIENT MAY BE ABLE TO FOLLOW UP UPON DISCHARGE. PT EDUCATED ON EACH RESOURCE AND UNDERSTANDING HOW TO FOLLOW UP TO SEE IF QUALIFIED FOR EACH RESOURCE.
[2019-11-20] MEDS: FOLIC ACID 1 MG TAB PO SCH (10:06)
[2019-11-20] MEDS: FAMOTIDINE 20 MG/2 ML VIAL IV SCH ×2 (10:06→16:38)
[2019-11-20] MEDS: FENOFIBRATE 145 MG TAB PO SCH (10:06)
[2019-11-20] MEDS: MULTIVITAMINS/MINERALS TAB PO SCH (10:06)
[2019-11-20] MEDS: SODIUM CHLORIDE 1 GM TAB PO SCH ×3 (10:47→21:15)
[2019-11-20] MEDS: THIAMINE HCL 100 MG TAB PO SCH ×2 (10:48→10:56)
[2019-11-20 14:35] LABS: ANION GAP 19.6 mmol/L (8-16); BLOOD UREA NITROGEN < 5 mg/dL (7-26); CALCIUM 8.4 mg/dL (8.4-10.2); CARBON DIOXIDE 17 mmol/L (22-29); CHLORIDE 101 mmol/L (98-107); CREATININE, SERUM 0.68 mg/dL (0.72-1.25); EST GLOMERULAR FILTRATION RATE > 60 ML/MIN (60-); GLUCOSE 97 mg/dL (74-118); POTASSIUM 3.6 mmol/L (3.5-5.1); SODIUM 134 mmol/L (136-145)
[2019-11-20 14:38] LABS: BUN/CREATININE RATIO 7 (6-25)
--- NOTE | 2019-11-20 19:15 | NUR ---
Bedside rounds completed with morning nurse. Pt alert and oriented to name, lying in bed HOB 45 degrees, denies pain at this time. Call light within reach. Bed low and locked.
[2019-11-20] MEDS: ATORVASTATIN 40 MG TAB PO SCH (21:15)
[2019-11-21] VITALS (8 sets, daily range): BP systolic 130–138; BP diastolic 70–92
[2019-11-21] MEDS: SODIUM CHLORIDE 0.9% 1000ML 1,000 ML IV SCH ×5 (02:38→22:38)
[2019-11-21 05:45] LABS: ANION GAP 13.6 mmol/L (8-16); BLOOD UREA NITROGEN < 5 mg/dL (7-26); BUN/CREATININE RATIO 7 (6-25); CALCIUM 8.8 mg/dL (8.4-10.2); CARBON DIOXIDE 23 mmol/L (22-29); CHLORIDE 105 mmol/L (98-107); CREATININE, SERUM 0.69 mg/dL (0.72-1.25); EST GLOMERULAR FILTRATION RATE > 60 ML/MIN (60-); GLUCOSE 125 mg/dL (74-118); LIPASE 282 U/L (8-78); POTASSIUM 3.6 mmol/L (3.5-5.1); SODIUM 138 mmol/L (136-145)
--- NOTE | 2019-11-21 07:10 | NUR ---
RCD PT AT BED PT IS ALERT AND ORIENTED IV PATENT BY SALINE FLUSH ,BED LOW AND LOCKED CALL LIGHT IN REACH
[2019-11-21] MEDS: INSULIN REGULAR, HUMAN 100 UNIT/1 ML 3ML VIAL SQ SCH ×4 (07:30→21:00)
[2019-11-21] MEDS: SODIUM CHLORIDE 1 GM TAB PO SCH ×3 (09:00→20:30)
[2019-11-21] MEDS: FOLIC ACID 1 MG TAB PO SCH (09:00)
[2019-11-21] MEDS: MULTIVITAMINS/MINERALS TAB PO SCH (09:00)
[2019-11-21] MEDS: FENOFIBRATE 145 MG TAB PO SCH (09:00)
[2019-11-21] MEDS: FAMOTIDINE 20 MG/2 ML VIAL IV SCH ×2 (09:00→16:36)
--- NOTE | 2019-11-21 14:50 | NUR ---
IM- progress note O/N see below ROS: no cp/sob/skin rash/confusion/VENTURA/vision changes/dizziness/leg pain/focal limb weakness V/s Revd PE nad anicteric ns1s2 mod bs soft; nd; TENDER EPIGASTRIUM no leg edema/tenderness a&ox3; combs skin dry n. affect labs/meds revd A/P: Acute pancreatitis- IVF; NPO; DM2- hab1c/lipids Alcoholic Cirrhosis Thrombocytopenia- avoid heparin products. Hyponatremia- rehydrate; monitor Prop: scd DIspo: 11-19 rehydrate; salt tabs; thiamine/folic acid; recheck labs later; HTG- start fibrate and statin; PreDM- will need retesting outpt in 3 months; 8-12 cont care;improving on CLD; advance to [facility]LD. d/c planning; VIKY LYNNE MD, PHD.
--- NOTE | 2019-11-21 18:44 | NUR ---
PT RESTING ON BED BED SIDE REPORT GIVEN TO ONCOMING NURSE
--- NOTE | 2019-11-21 20:02 | NUR ---
RECEIVED PT IN BED AOX3 .RESPIRATIONS ARE EVEN AND UNLABORED .LEFT FA 20 G NS AT 200CC/HR.CALL LIGHT WITH IN REACH ,CONTINUE TO MONITOR
[2019-11-21] MEDS: ATORVASTATIN 40 MG TAB PO SCH (20:30)
[2019-11-22 00:18] VITALS: BP 136/89
[2019-11-22 04:48] VITALS: BP 141/78
--- NOTE | 2019-11-22 05:53 | NUR ---
PT RESTING DENIES PAIN CALL LIGHT WITHIN REACH ,CONTINUE TO MONITOR
[2019-11-22] MEDS: SODIUM CHLORIDE 0.9% 1000ML 1,000 ML IV SCH ×2 (05:57→08:38)
[2019-11-22] MEDS ORDERED: SODIUM CHLORIDE1 GM PO (06:41)
[2019-11-22] MEDS ORDERED: Multivitamins/Minerals PO (06:41)
[2019-11-22] MEDS ORDERED: Atorvastatin PO (06:41)
[2019-11-22] MEDS ORDERED: Folic Acid PO (06:41)
[2019-11-22] MEDS ORDERED: FENOFIBRATE145 MG PO (06:41)
[2019-11-22] MEDS ORDERED: B-1100 MG PO (06:41)
--- NOTE | 2019-11-22 06:43 | NUR ---
D/C summary Principal dx:A/P: Acute Alcoholic pancreatitis- IVF; NPO; DM2- hab1c/lipids Alcoholic Cirrhosis Thrombocytopenia- avoid heparin products. Hyponatremia- rehydrate; monitor Secondary Dx: Prop: scd DIspo: 8 rehydrate; salt tabs; thiamine/folic acid; recheck labs later; HTG- start fibrate and statin; PreDM- will need retesting outpt in 3 months; 8-12 cont care;improving on CLD; advance to [facility]. d/c planning; d/c home stable d/c>35mins f/u pcp 2 days Avoid all alcohol VIKY LYNNE MD, PHD.
--- NOTE | 2019-11-22 07:00 | NUR ---
RCD PT AT BED PT IS ALERT AND ORIENTED IV PATENT BY SALINE FLUSH , BED LOW AND LOCKED CALL LIGHT IN REACH
--- NOTE | 2019-11-22 07:07 | NUR ---
BEDSIDE REPORT GIVEN TO THE ONCOMING NURSE
[2019-11-22] MEDS: INSULIN REGULAR, HUMAN 100 UNIT/1 ML 3ML VIAL SQ SCH (07:30)
[2019-11-22 07:38] VITALS: BP 118/85
[2019-11-22] MEDS: THIAMINE HCL 100 MG TAB PO SCH (09:00)
[2019-11-22] MEDS: MULTIVITAMINS/MINERALS TAB PO SCH (09:00)
[2019-11-22] MEDS: FAMOTIDINE 20 MG/2 ML VIAL IV SCH (09:00)
[2019-11-22] MEDS: SODIUM CHLORIDE 1 GM TAB PO SCH (09:00)
[2019-11-22] MEDS: FENOFIBRATE 145 MG TAB PO SCH (09:00)
[2019-11-22] MEDS: FOLIC ACID 1 MG TAB PO SCH (09:00)
[2019-11-22 09:14] LABS: ANION GAP 13.3 mmol/L (8-16); BLOOD UREA NITROGEN < 5 mg/dL (7-26); CALCIUM 9.2 mg/dL (8.4-10.2); CARBON DIOXIDE 24 mmol/L (22-29); CHLORIDE 106 mmol/L (98-107); CREATININE, SERUM 0.75 mg/dL (0.72-1.25); EST GLOMERULAR FILTRATION RATE > 60 ML/MIN (60-); GLUCOSE 229 mg/dL (74-118); LIPASE 331 U/L (8-78); POTASSIUM 3.3 mmol/L (3.5-5.1); SODIUM 140 mmol/L (136-145)
[2019-11-22 09:18] LABS: BUN/CREATININE RATIO 7 (6-25)
--- NOTE | 2019-11-22 10:20 | NUR ---
DISCHARGE INSTRUCTIONS GIVE BY THE HELP OF VIRAJ BLISS)
--- NOTE | 2019-11-22 10:47 | NUR ---
PT WENT HOME IN SAFE CONDITION WITH HIS
--- NOTE | 2019-11-22 12:00 | NUR ---
REPORT GIVEN TO ([facility] ) QAMAR
== END 2019-11-22 10:47 | disposition home or self-care (01) | DRG 439 ==
LOC: FSED 12:50 → ERHOLD 14:43 → MED/SURG2 17:54
PROVIDERS: ADMIT Internal Medicine; ATTEND Internal Medicine
DX: K85.20 Alcohol induced acute pancreatitis without necrosis or infection (principal); E87.1 Hypo-osmolality and hyponatremia; E11.9 Type 2 diabetes mellitus without complications; K70.30 Alcoholic cirrhosis of liver without ascites; D69.6 Thrombocytopenia, unspecified; Z11.59 Encounter for screening for other viral diseases
CPT/HCPCS: 36415; 74176; 80048; 80053; 80061; 80076; 80320; 81003; 82150; 82948; 83036; 83690; 85025; 96361; 96372; 96374; 99284; J1200; J1817; J2270; J2405; J2550; J3411; J7030; U0002

== ENCOUNTER 2020-04-20 22:12 | Inpatient (IN) | payer SELFPAY ==
[~2020-04-20] VITALS: Ht 177.8 cm; Wt 91.6 kg
[~2020-04-20 22:12] MED LIST changes: +Atorvastatin PO; +B-1100 MG PO; +FENOFIBRATE145 MG PO; +Folic Acid PO; +Multivitamins/Minerals PO; +SODIUM CHLORIDE1 GM PO
[2020-04-20] MEDS ORDERED: ONDANSETRON HCL INJ 2MG/ML 2ML 2 MG/ML VIAL IV STA ×2 (22:57→23:15)
[2020-04-20] MEDS ORDERED: SODIUM CHLORIDE 0.9% 1000ML 1,000 ML IV SCH (23:00)
[2020-04-20] MEDS ORDERED: MORPHINE SULFATE INJ 4 MG/ML INJ 1ML IV STA (23:15)
[2020-04-20] MEDS ORDERED: FAMOTIDINE 20 MG/2 ML VIAL IV STA (23:17)
[2020-04-20] MEDS ORDERED: MORPHINE SULFATE INJ 4 MG/ML INJ 1ML ONE (23:27)
[2020-04-20] MEDS ORDERED: FAMOTIDINE 20 MG/2 ML VIAL IV ONE (23:27)
[2020-04-20] MEDS ORDERED: ONDANSETRON HCL INJ 2MG/ML 2ML 2 MG/ML VIAL ONE (23:27)
[2020-04-20] MEDS ORDERED: SODIUM CHLORIDE 0.9% 1000ML 1,000 ML ONE (23:27)
[2020-04-20] MEDS ORDERED: SODIUM CHLORIDE 0.9% 50ML 50 ML ONE (23:37)
[2020-04-20] MEDS ORDERED: IOPAMIDOL 370 MG/ML 200 ML INFUS..BTL INJ ONE (23:37)
[2020-04-20 23:54] LABS: BASOPHILS # (AUTO) 0.1 (0.0-0.1); EOSINOPHILS % 0.1 % (0.0-6.0); HEMATOCRIT 42.9 % (38.2-49.6); LYMPHOCYTES # (AUTO) 1.4 (1.0-3.2); LYMPHOCYTES % 10.3 % (18.0-39.1); MEAN CORPUSCULAR HEMOGLOBIN 32.4 pg (28-32); MEAN CORPUSCULAR HGB CONC 37.3 g/dL (31-35); MEAN CORPUSCULAR VOLUME 86.8 fL (81-99); MONOCYTES # (AUTO) 0.6 (0.2-0.8); MONOCYTES % 4.4 % (4.4-11.3); NEUTROPHILS # (AUTO) 11.1 (2.1-6.9); NEUTROPHILS % 83.5 % (38.7-80.0); PLATELET COUNT 210 x10e3/uL (140-360); RED BLOOD COUNT 4.94 x10e6/uL (4.3-5.7); RED CELL DISTRIBUTION WIDTH 12.9 % (11.7-14.4)
[2020-04-21] VITALS (9 sets, daily range): BP systolic 131–158; BP diastolic 78–89
[2020-04-21 00:11] LABS: ANION GAP 15.7 mmol/L (8-16); BLOOD UREA NITROGEN 8 mg/dL (7-26); BUN/CREATININE RATIO 11 (6-25); CARBON DIOXIDE 20 mmol/L (22-29); CHLORIDE 92 mmol/L (98-107); EST GLOMERULAR FILTRATION RATE > 60 ML/MIN (60-); GLUCOSE 275 mg/dL (74-118); POTASSIUM 3.7 mmol/L (3.5-5.1); SODIUM 124 mmol/L (136-145)
[2020-04-21 00:34] LABS: ALBUMIN 3.5 g/dL (3.5-5.0); BILIRUBIN,DIRECT 0.8 mg/dL (0.0-0.5)
[2020-04-21] MEDS ORDERED: HYDROMORPHONE 1MG/1ML INJ IV PRN ×2 (01:00→04:30)
[2020-04-21] MEDS ORDERED: SODIUM CHLORIDE 0.9% 1000ML 1,000 ML IV SCH ×4 (01:00→17:15)
[2020-04-21] MEDS ORDERED: ONDANSETRON HCL INJ 2MG/ML 2ML 2 MG/ML VIAL IV PRN ×2 (01:00→04:30)
[2020-04-21] MEDS ORDERED: MORPHINE SULFATE INJ 4 MG/ML INJ 1ML IV STA (01:06)
[2020-04-21] MEDS ORDERED: ONDANSETRON HCL INJ 2MG/ML 2ML 2 MG/ML VIAL IV STA (01:06)
[2020-04-21] MEDS ORDERED: MORPHINE SULFATE INJ 4 MG/ML INJ 1ML ONE (02:05)
[2020-04-21] MEDS ORDERED: SODIUM CHLORIDE 0.9% 1000ML 1,000 ML ONE (02:05)
[2020-04-21] MEDS ORDERED: ONDANSETRON HCL INJ 2MG/ML 2ML 2 MG/ML VIAL ONE (02:05)
[2020-04-21] MEDS: KCL 20MEQ/.9 SOD CHL 1,000 ML IV SCH ×3 (05:18→22:45)
[2020-04-21 05:41] LABS: BASOPHILS # (AUTO) 0.1 (0.0-0.1); BASOPHILS % 0.7 % (0.0-1.0); EOSINOPHILS # (AUTO) 0.1 (0.0-0.4); EOSINOPHILS % 0.4 % (0.0-6.0); HEMATOCRIT 39.8 % (38.2-49.6); HEMOGLOBIN 14.3 g/dL (14.0-18.0); LYMPHOCYTES # (AUTO) 1.6 (1.0-3.2); LYMPHOCYTES % 11.6 % (18.0-39.1); MEAN CORPUSCULAR HEMOGLOBIN 31.8 pg (28-32); MEAN CORPUSCULAR HGB CONC 35.9 g/dL (31-35); MEAN CORPUSCULAR VOLUME 88.6 fL (81-99); MONOCYTES # (AUTO) 0.7 (0.2-0.8); MONOCYTES % 5.5 % (4.4-11.3); NEUTROPHILS # (AUTO) 10.9 (2.1-6.9); NEUTROPHILS % 81.1 % (38.7-80.0); PLATELET COUNT 141 x10e3/uL (140-360); RED BLOOD COUNT 4.49 x10e6/uL (4.3-5.7)
[2020-04-21 06:10] LABS: ALANINE AMINOTRANSFERASE 159 IU/L (0-55); ALBUMIN 3.1 g/dL (3.5-5.0); ALKALINE PHOSPHATASE 119 IU/L (40-150); BILIRUBIN,DIRECT 1.4 mg/dL (0.0-0.5); CHOL/HDL RATIO 23.1 (3.9-4.7); CHOLESTEROL 323 MD/DL (0-199); HDL CHOLESTEROL 14 MG/DL (40-60)
[2020-04-21 06:53] LABS: TRIGLYCERIDES 1656 MG/DL (0-149)
[2020-04-21 07:11] LABS: ANION GAP 18.5 mmol/L (8-16); BLOOD UREA NITROGEN 6 mg/dL (7-26); BUN/CREATININE RATIO 9 (6-25); CALCIUM 7.6 mg/dL (8.4-10.2); CARBON DIOXIDE 18 mmol/L (22-29); CHLORIDE 97 mmol/L (98-107); CREATININE, SERUM 0.65 mg/dL (0.72-1.25); EST GLOMERULAR FILTRATION RATE > 60 ML/MIN (60-); GLUCOSE 128 mg/dL (74-118); POTASSIUM 3.5 mmol/L (3.5-5.1); SODIUM 130 mmol/L (136-145)
[2020-04-21] MEDS ORDERED: THIAMINE HCL INJ 100 MG/ML 2ML VIAL IV SCH (09:00)
[2020-04-21] MEDS ORDERED: FOLIC ACID 1 MG TAB PO SCH (09:00)
[2020-04-21] MEDS ORDERED: THIAMINE HCL INJ 100 MG in SODIUM CHLORIDE 0.9% 50ML 50 ML IV SCH (09:00)
[2020-04-21] MEDS ORDERED: FOLIC ACID MDV 1 MG in SODIUM CHLORIDE 0.9% 50ML 50 ML IV SCH (09:00)
[2020-04-21] MEDS: FAMOTIDINE 20 MG/2 ML VIAL IV SCH (09:50)
[2020-04-21] MEDS ORDERED: SODIUM CHLORIDE 0.9% 50ML 100 ML ONE (09:56)
[2020-04-21] MEDS: THIAMINE HCL INJ 100 MG in SODIUM CHLORIDE 0.9% 50ML 50 ML IV SCH (11:00)
[2020-04-21] MEDS: FOLIC ACID MDV 1 MG in SODIUM CHLORIDE 0.9% 50ML 50 ML IV SCH (11:09)
[2020-04-21 16:14] LABS: CLARITY,URINE CLEAR (CLEAR); COLOR,URINE YELLOW (YELLOW); KETONES,URINE NEGATIVE (NEGATIVE); LEUKOCYTE ESTERASE ,URINE NEGATIVE (NEGATIVE); NITRITE,URINE NEGATIVE (NEGATIVE); PROTEIN,URINE DIPSTICK NEGATIVE (NEGATIVE); URINE UROBILINOGEN 0.2 mg/dL (0.2 - 1)
[2020-04-21 16:25] LABS: BACTERIA,URINE RARE /HPF; EPITHELIAL CELLS,URINE RARE /LPF; RBC,URINE 0-5 /HPF (0-5); WBC,URINE (MAN) 0-5 /HPF (0-5)
[2020-04-21] MEDS ORDERED: LORAZEPAM INJ 2 MG/ML VIAL IV PRN (17:15)
[2020-04-21] MEDS ORDERED: DEXTROSE 50% SYRINGE 50 ML IV PRN (17:15)
[2020-04-21 17:53] LABS: BASOPHILS # (AUTO) 0.1 (0.0-0.1); BASOPHILS % 0.8 % (0.0-1.0); EOSINOPHILS # (AUTO) 0.2 (0.0-0.4); EOSINOPHILS % 1.8 % (0.0-6.0); HEMATOCRIT 40.8 % (38.2-49.6); HEMOGLOBIN 14.3 g/dL (14.0-18.0); MEAN CORPUSCULAR HEMOGLOBIN 31.6 pg (28-32); MEAN CORPUSCULAR VOLUME 90.1 fL (81-99); MONOCYTES # (AUTO) 0.5 (0.2-0.8); MONOCYTES % 4.9 % (4.4-11.3); NEUTROPHILS # (AUTO) 7.3 (2.1-6.9); NEUTROPHILS % 72.1 % (38.7-80.0); PLATELET COUNT 121 x10e3/uL (140-360); RED BLOOD COUNT 4.53 x10e6/uL (4.3-5.7)
[2020-04-21 18:19] LABS: ANION GAP 14.6 mmol/L (8-16); BLOOD UREA NITROGEN 5 mg/dL (7-26); BUN/CREATININE RATIO 8 (6-25); CALCIUM 8.2 mg/dL (8.4-10.2); CARBON DIOXIDE 21 mmol/L (22-29); CHLORIDE 99 mmol/L (98-107); CREATININE, SERUM 0.65 mg/dL (0.72-1.25); EST GLOMERULAR FILTRATION RATE > 60 ML/MIN (60-); GLUCOSE 132 mg/dL (74-118); POTASSIUM 3.6 mmol/L (3.5-5.1); SODIUM 131 mmol/L (136-145)
[2020-04-21 18:29] LABS: AMYLASE 43 U/L (25-125)
[2020-04-21 18:44] LABS: LIPASE 30 U/L (8-78)
[2020-04-21] MEDS: INSULIN REGULAR, HUMAN 100 UNIT/1 ML 3ML VIAL SQ SCH (21:39)
[2020-04-22] VITALS (8 sets, daily range): BP systolic 123–143; BP diastolic 67–95
[2020-04-22] MEDS: KCL 20MEQ/.9 SOD CHL 1,000 ML IV SCH ×4 (04:30→23:23)
[2020-04-22 06:24] LABS: BASOPHILS # (AUTO) 0.1 (0.0-0.1); EOSINOPHILS # (AUTO) 0.3 (0.0-0.4); EOSINOPHILS % 3.1 % (0.0-6.0); HEMATOCRIT 42.5 % (38.2-49.6); HEMOGLOBIN 14.6 g/dL (14.0-18.0); LYMPHOCYTES # (AUTO) 1.7 (1.0-3.2); LYMPHOCYTES % 18.9 % (18.0-39.1); MEAN CORPUSCULAR HEMOGLOBIN 31.7 pg (28-32); MEAN CORPUSCULAR HGB CONC 34.4 g/dL (31-35); MEAN CORPUSCULAR VOLUME 92.4 fL (81-99); MONOCYTES # (AUTO) 0.5 (0.2-0.8); MONOCYTES % 5.4 % (4.4-11.3); NEUTROPHILS # (AUTO) 6.3 (2.1-6.9); NEUTROPHILS % 71.1 % (38.7-80.0); PLATELET COUNT 127 x10e3/uL (140-360); RED CELL DISTRIBUTION WIDTH 13.2 % (11.7-14.4)
[2020-04-22 07:07] LABS: ALANINE AMINOTRANSFERASE 124 IU/L (0-55); ALBUMIN 3.2 g/dL (3.5-5.0); ALKALINE PHOSPHATASE 134 IU/L (40-150); BILIRUBIN,DIRECT 3.9 mg/dL (0.0-0.5); BLOOD UREA NITROGEN 7 mg/dL (7-26); BUN/CREATININE RATIO 9 (6-25); CALCIUM 8.5 mg/dL (8.4-10.2); CARBON DIOXIDE 22 mmol/L (22-29); CHLORIDE 99 mmol/L (98-107); CREATININE, SERUM 0.77 mg/dL (0.72-1.25); EST GLOMERULAR FILTRATION RATE > 60 ML/MIN (60-); GLUCOSE 145 mg/dL (74-118); LIPASE 35 U/L (8-78); SODIUM 133 mmol/L (136-145); TRIGLYCERIDES 1164 MG/DL (0-149)
[2020-04-22] MEDS: INSULIN REGULAR, HUMAN 100 UNIT/1 ML 3ML VIAL SQ SCH ×4 (07:30→21:04)
[2020-04-22] MEDS: FAMOTIDINE 20 MG/2 ML VIAL IV SCH (09:40)
[2020-04-22] MEDS: THIAMINE HCL INJ 100 MG in SODIUM CHLORIDE 0.9% 50ML 50 ML IV SCH (09:40)
[2020-04-22] MEDS: FOLIC ACID MDV 1 MG in SODIUM CHLORIDE 0.9% 50ML 50 ML IV SCH (09:40)
[2020-04-22 09:43] LABS: PLATELET ESTIMATE MODERATELY DECREASED; PLATELET MORPHOLOGY COMMENT NORMAL
[2020-04-22 14:15] LABS: FREE T4 (FREE THYROXINE) 0.99 ng/dL (0.8-1.8); THYROID STIMULATING HORMONE 3.782 uIU/mL (0.350-4.940)
[2020-04-22] MEDS ORDERED: ATORVASTATIN 20 MG TAB PO SCH (21:00)
[2020-04-23] MEDS: KCL 20MEQ/.9 SOD CHL 1,000 ML IV SCH ×2 (04:18→12:49)
[2020-04-23 05:18] VITALS: BP 130/86
[2020-04-23] MEDS: INSULIN REGULAR, HUMAN 100 UNIT/1 ML 3ML VIAL SQ SCH ×3 (07:30→16:30)
[2020-04-23 07:50] VITALS: BP 136/91
[2020-04-23] MEDS ORDERED: FENOFIBRATE 145 MG TAB PO SCH ×2 (09:00)
[2020-04-23] MEDS: FAMOTIDINE 20 MG/2 ML VIAL IV SCH (09:28)
[2020-04-23] MEDS: THIAMINE HCL INJ 100 MG in SODIUM CHLORIDE 0.9% 50ML 50 ML IV SCH (09:29)
[2020-04-23] MEDS: FOLIC ACID MDV 1 MG in SODIUM CHLORIDE 0.9% 50ML 50 ML IV SCH (09:31)
[2020-04-23 09:40] VITALS: BP 136/91
[2020-04-23] MEDS ORDERED: ONDANSETRON HCL 4 MG ORAL DISINTEGRATING TAB PO PRN (10:15)
[2020-04-23 11:30] VITALS: BP 127/83
[2020-04-23 15:00] VITALS: BP 131/72
[2020-04-23] MEDS ORDERED: FENOFIBRATE145 MG (18:24)
[2020-04-24] MEDS ORDERED: FAMOTIDINE 20 MG TAB PO SCH (07:30)
== END 2020-04-23 17:42 | disposition home or self-care (01) | DRG 440 ==
LOC: FSED 22:34 → UNDOADMOB 04-21 01:46 → ERHOLD 04-21 01:46 → OBSVTOIN 04-21 01:54 → ERHOLD 04-21 01:54 → MED/SURG 04-21 03:19
PROVIDERS: ADMIT Internal Medicine; ATTEND Internal Medicine
DX: K85.20 Alcohol induced acute pancreatitis without necrosis or infection (principal); F10.20 Alcohol dependence, uncomplicated; K70.30 Alcoholic cirrhosis of liver without ascites; E78.1 Pure hyperglyceridemia; R74.01 Elevation of levels of liver transaminase levels; E11.9 Type 2 diabetes mellitus without complications; Z20.822 Contact with and (suspected) exposure to COVID-19; E78.5 Hyperlipidemia, unspecified
CPT/HCPCS: 36415; 74177; 80048; 80061; 80076; 81001; 82150; 82948; 83036; 83690; 84439; 84443; 84478; 85025; 96361; 99284; J1170; J1817; J2270; J2405; J3411; J7030; Q9967; U0002

== ENCOUNTER 2023-12-30 08:07 | Inpatient (IN) | payer SELFPAY ==
[~2023-12-30] VITALS: Ht 177.8 cm; Wt 89.5 kg
[2023-12-30] VITALS (9 sets, daily range): BP systolic 135–163; BP diastolic 80–105; PULSE 71–89; RESP 13–21; TEMP 98.1–99.1; O2SAT 97–100
[~2023-12-30 08:07] MED LIST changes: +FENOFIBRATE145 MG; +GEMFIBROZIL600 MG PO; +OMEPRAZOLE20 M1 PO; +ONDANSETRON ODT4 MG PO
[2023-12-30] MEDS ORDERED: IOPAMIDOL 370 MG/ML 100 ML INFUS..BTL INJ ONE (08:50)
[2023-12-30] MEDS: ONDANSETRON HCL INJ 2MG/ML 2ML 2 MG/ML VIAL IV STA ×2 (09:31→11:17)
[2023-12-30] MEDS: FAMOTIDINE 20 MG/2 ML VIAL IV STA (09:32)
[2023-12-30] MEDS: KETOROLAC TROMETHAMINE 30 MG/ML VIAL IV STA (09:32)
[2023-12-30] MEDS: SODIUM CHLORIDE 0.9% 1000ML 1,000 ML IV STA (09:33)
[2023-12-30 10:25] LABS: BASOPHILS # (AUTO) 0.1 (0.0-0.1); BASOPHILS % 1.6 % (0.0-1.0); EOSINOPHILS % 0.9 % (0.0-6.0); HEMATOCRIT 44.8 % (38.2-49.6); HEMOGLOBIN 15.8 g/dL (14.0-18.0); LYMPHOCYTES # (AUTO) 1.6 (1.0-3.2); LYMPHOCYTES % 34.7 % (18.0-39.1); MEAN CORPUSCULAR HEMOGLOBIN 32.5 pg (28-32); MEAN CORPUSCULAR HGB CONC 35.3 g/dL (31-35); MEAN CORPUSCULAR VOLUME 92.2 fL (81-99); MONOCYTES # (AUTO) 0.2 (0.2-0.8); MONOCYTES % 4.7 % (4.4-11.3); NEUTROPHILS # (AUTO) 2.6 (2.1-6.9); NEUTROPHILS % 57.9 % (38.7-80.0); PLATELET COUNT 145 x10e3/uL (140-360); RED BLOOD COUNT 4.86 x10e6/uL (4.3-5.7); RED CELL DISTRIBUTION WIDTH 11.9 % (11.7-14.4); WHITE BLOOD COUNT 4.49 x10e3/uL (4.8-10.8)
[2023-12-30 10:42] LABS: ANION GAP 31.9 mmol/L (8-16); CALCIUM 8.9 mg/dL (8.4-10.2); CREATININE, SERUM 0.8 mg/dL (0.72-1.25); POTASSIUM 3.9 mmol/L (3.5-5.1)
[2023-12-30 11:00] LABS: ALBUMIN 4.1 g/dL (3.5-5.0); BILIRUBIN,DIRECT 0.1 mg/dL (0.0-0.5); BILIRUBIN,TOTAL 0.5 mg/dL (0.2-1.2); TOTAL PROTEIN 8.2 g/dL (6.5-8.1)
[2023-12-30] MEDS: MAGNESIUM/ALUMINUM/SIMETHICONE 30 ML UDC PO ONE (11:17)
[2023-12-30] MEDS ORDERED: SODIUM CHLORIDE 0.9% 1000ML 1,000 ML IV SCH ×2 (13:00→13:30)
[2023-12-30 13:01] LABS: TROPONIN I 0.01 ng/mL (0-0.300)
[2023-12-30] MEDS ORDERED: Morphine 4mg INJECTION 4 MG/ML INJ IV PRN (13:30)
[2023-12-30] MEDS ORDERED: ONDANSETRON HCL INJ 2MG/ML 2ML 2 MG/ML VIAL IV PRN (13:30)
[2023-12-30] MEDS: MUPIROCIN 2% OINT 22 GM TUBE TOP SCH (13:30)
[2023-12-30] MEDS: INSULIN REGULAR, HUMAN 100 UNIT/1 ML IV ONE (13:43)
[2023-12-30] MEDS ORDERED: BENZONATATE 100 MG CAP PO PRN (15:30)
[2023-12-30] MEDS ORDERED: DOCUSATE SODIUM 100 MG CAP PO PRN (15:30)
[2023-12-30] MEDS ORDERED: HYDRALAZINE HCL 20 MG/ML VIAL IV PRN (15:30)
[2023-12-30] MEDS ORDERED: ALBUTEROL/IPRATROPIUM 3 ML NEB NEB PRN (15:30)
[2023-12-30] MEDS ORDERED: SIMETHICONE 80 MG CHEW PO PRN (15:30)
[2023-12-30] MEDS ORDERED: LIDOCAINE 4% PATCH TP PRN (15:30)
[2023-12-30] MEDS ORDERED: DEXTROSE 50% SYRINGE 50 ML IV PRN (15:30)
[2023-12-30] MEDS ORDERED: MAGNESIUM SULF 1GRAM/DEXTROSE 100 ML IV PRN (16:45)
[2023-12-30] MEDS: SODIUM CHLORIDE 0.9% 1000ML 1,000 ML IV SCH (16:45)
[2023-12-30] MEDS ORDERED: Morphine 2mg Syringe 2 MG/ML SYR IV PRN (17:30)
[2023-12-30] MEDS: DEXTROSE 5%/0.45% SOD CHL 1,000 ML IV SCH (17:51)
[2023-12-30] MEDS: ENOXAPARIN SOD INJ 40 MG/0.4 ML SYR SC SCH (18:50)
[2023-12-30 20:55] LABS: ANION GAP 24.7 mmol/L (8-16); BLOOD UREA NITROGEN < 5 mg/dL (7-26); CALCIUM 8.6 mg/dL (8.4-10.2); CARBON DIOXIDE 15 mmol/L (22-29); CHLORIDE 96 mmol/L (98-107); CREATININE, SERUM 0.75 mg/dL (0.72-1.25); EST GLOMERULAR FILTRATION RATE 116 ML/MIN (>=60); GLUCOSE 156 mg/dL (74-118); MAGNESIUM 1.9 MG/DL (1.3-2.1); SODIUM 133 mmol/L (136-145)
[2023-12-30 20:56] LABS: BUN/CREATININE RATIO 7 (6-25); POTASSIUM 2.7 mmol/L (3.5-5.1)
[2023-12-30] MEDS ORDERED: MELATONIN 5 MG TABLET PO PRN (21:00)
[2023-12-30] MEDS: ACETAMINOPHEN 325 MG TAB PO PRN (21:12)
[2023-12-30] MEDS: POTASSIUM CHLORIDE 20MEQ/100ML 200 ML IV PRN (21:52)
[2023-12-31] VITALS (35 sets, daily range): BP systolic 104–180; BP diastolic 71–99; PULSE 60–119; RESP 12–28; TEMP 98–99; O2SAT 88–100
[2023-12-31] MEDS: LORAZEPAM INJ 2 MG/ML VIAL IV PRN (00:25)
[2023-12-31 01:04] LABS: ANION GAP 23.9 mmol/L (8-16); BLOOD UREA NITROGEN < 5 mg/dL (7-26); CALCIUM 8.5 mg/dL (8.4-10.2); CARBON DIOXIDE 17 mmol/L (22-29); CHLORIDE 98 mmol/L (98-107); EST GLOMERULAR FILTRATION RATE 131 ML/MIN (>=60); GLUCOSE 117 mg/dL (74-118); MAGNESIUM 1.8 MG/DL (1.3-2.1); SODIUM 136 mmol/L (136-145)
[2023-12-31 01:17] LABS: BUN/CREATININE RATIO 10 (6-25)
[2023-12-31 01:20] LABS: POTASSIUM 2.9 mmol/L (3.5-5.1)
[2023-12-31] MEDS: DIPHENHYDRAMINE HCL 25 MG CAP PO PRN (01:40)
[2023-12-31] MEDS: INSULIN REGULAR, HUMAN 3ML VL 100 UNIT in SODIUM CHLORIDE 0.9% 99 ML IV SCH (04:27)
[2023-12-31] MEDS: POTASSIUM CHLORIDE 20 MEQ TAB CR PO PRN (04:28)
[2023-12-31 05:00] LABS: BASOPHILS # (AUTO) 0.1 (0.0-0.1); BASOPHILS % 1.1 % (0.0-1.0); EOSINOPHILS # (AUTO) 0.1 (0.0-0.4); EOSINOPHILS % 1.8 % (0.0-6.0); HEMATOCRIT 39.7 % (38.2-49.6); LYMPHOCYTES # (AUTO) 1.1 (1.0-3.2); MEAN CORPUSCULAR HEMOGLOBIN 32.3 pg (28-32); MEAN CORPUSCULAR HGB CONC 35.3 g/dL (31-35); MEAN CORPUSCULAR VOLUME 91.7 fL (81-99); MONOCYTES # (AUTO) 0.4 (0.2-0.8); MONOCYTES % 6.5 % (4.4-11.3); NEUTROPHILS % 70.2 % (38.7-80.0); PLATELET COUNT 114 x10e3/uL (140-360); RED BLOOD COUNT 4.33 x10e6/uL (4.3-5.7); RED CELL DISTRIBUTION WIDTH 11.9 % (11.7-14.4); WHITE BLOOD COUNT 5.65 x10e3/uL (4.8-10.8)
[2023-12-31 05:13] LABS: BLOOD UREA NITROGEN < 5 mg/dL (7-26); CALCIUM 8.4 mg/dL (8.4-10.2); CARBON DIOXIDE 17 mmol/L (22-29); CHLORIDE 99 mmol/L (98-107); CREATININE, SERUM 0.67 mg/dL (0.72-1.25); EST GLOMERULAR FILTRATION RATE 120 ML/MIN (>=60); GLUCOSE 112 mg/dL (74-118); SODIUM 134 mmol/L (136-145)
[2023-12-31 05:14] LABS: CHOL/HDL RATIO 12.7 (3.9-4.7); CHOLESTEROL 521 MD/DL (0-199); HDL CHOLESTEROL 41 MG/DL (40-60); TRIGLYCERIDES 1051 MG/DL (0-149)
[2023-12-31 05:15] LABS: BUN/CREATININE RATIO 7 (6-25)
[2023-12-31 05:34] LABS: THYROID STIMULATING HORMONE 5.017 uIU/mL (0.350-4.940)
[2023-12-31] MEDS: CHLORDIAZEPOXIDE HCL 25 MG CAP PO SCH (06:34)
[2023-12-31] MEDS ORDERED: PANTOPRAZOLE SOD 40 MG TABEC PO SCH (07:30)
[2023-12-31 09:27] LABS: ANION GAP 19.2 mmol/L (8-16); BLOOD UREA NITROGEN < 5 mg/dL (7-26); CALCIUM 8.5 mg/dL (8.4-10.2); CARBON DIOXIDE 17 mmol/L (22-29); CHLORIDE 99 mmol/L (98-107); CREATININE, SERUM 0.76 mg/dL (0.72-1.25); EST GLOMERULAR FILTRATION RATE 116 ML/MIN (>=60); GLUCOSE 277 mg/dL (74-118); MAGNESIUM 1.9 MG/DL (1.3-2.1); SODIUM 132 mmol/L (136-145)
[2023-12-31 09:43] LABS: BUN/CREATININE RATIO 7 (6-25); POTASSIUM 3.2 mmol/L (3.5-5.1)
[2023-12-31] MEDS ORDERED: INSULIN REGULAR, HUMAN 3ML VL 100 UNIT in SODIUM CHLORIDE 0.9% 99 ML IV PRN (13:00)
[2023-12-31] MEDS ORDERED: INSULIN REGULAR, HUMAN 3ML VL 100 UNIT in SODIUM CHLORIDE 0.9% 99 ML IV SCH (13:00)
[2023-12-31] MEDS ORDERED: DEXTROSE 50% SYRINGE 50 ML IV PRN ×2 (13:00)
[2023-12-31] MEDS: DEXTROSE 5%/0.45% SOD CHL 1,000 ML IV SCH (15:00)
[2023-12-31] MEDS: INSULIN REGULAR, HUMAN 3ML VL 100 UNIT in SODIUM CHLORIDE 0.9% 99 ML IV PRN (16:16)
[2023-12-31 16:42] LABS: ANION GAP 17.2 mmol/L (8-16); BLOOD UREA NITROGEN < 5 mg/dL (7-26); CALCIUM 9.4 mg/dL (8.4-10.2); CARBON DIOXIDE 18 mmol/L (22-29); CHLORIDE 100 mmol/L (98-107); CREATININE, SERUM 0.76 mg/dL (0.72-1.25); EST GLOMERULAR FILTRATION RATE 116 ML/MIN (>=60); GLUCOSE 205 mg/dL (74-118); SODIUM 132 mmol/L (136-145)
[2023-12-31 16:52] LABS: BUN/CREATININE RATIO 7 (6-25); POTASSIUM 3.2 mmol/L (3.5-5.1)
[2023-12-31] MEDS: INSULIN GLARGINE 100 UNITS/ML VIAL SQ ONE (16:53)
[2023-12-31] MEDS ORDERED: ENOXAPARIN SOD INJ 40 MG/0.4 ML SYR SC SCH (17:00)
[2023-12-31] MEDS: ATORVASTATIN 40 MG TAB PO SCH (21:10)
[2023-12-31] MEDS: POTASSIUM CHLORIDE 20MEQ/100ML 100 ML ONE ×2 (23:40→23:41)
[2023-12-31 23:43] LABS: ANION GAP 14.2 mmol/L (8-16); BLOOD UREA NITROGEN < 5 mg/dL (7-26); CARBON DIOXIDE 18 mmol/L (22-29); CHLORIDE 102 mmol/L (98-107); CREATININE, SERUM 0.79 mg/dL (0.72-1.25); EST GLOMERULAR FILTRATION RATE 114 ML/MIN (>=60); GLUCOSE 256 mg/dL (74-118); SODIUM 131 mmol/L (136-145)
[2023-12-31 23:48] LABS: POTASSIUM 3.2 mmol/L (3.5-5.1)
[2023-12-31 23:49] LABS: BUN/CREATININE RATIO 6 (6-25)
[2024-01-01] VITALS (42 sets, daily range): BP systolic 108–137; BP diastolic 73–92; PULSE 56–137; RESP 12–24; TEMP 98–98.6; O2SAT 89–100
[2024-01-01 07:01] LABS: ANION GAP 16.1 mmol/L (8-16); BLOOD UREA NITROGEN < 5 mg/dL (7-26); CALCIUM 8.9 mg/dL (8.4-10.2); CARBON DIOXIDE 19 mmol/L (22-29); CHLORIDE 104 mmol/L (98-107); CREATININE, SERUM 0.76 mg/dL (0.72-1.25); EST GLOMERULAR FILTRATION RATE 116 ML/MIN (>=60); GLUCOSE 160 mg/dL (74-118); SODIUM 136 mmol/L (136-145)
[2024-01-01 07:03] LABS: BUN/CREATININE RATIO 7 (6-25); POTASSIUM 3.1 mmol/L (3.5-5.1)
[2024-01-01 07:33] LABS: INR 0.96; PROTHROMBIN TIME 13.3 seconds (11.9-14.5)
[2024-01-01] MEDS: FENOFIBRATE 145 MG TAB PO SCH (08:28)
[2024-01-01] MEDS: POTASSIUM CHLORIDE 20 MEQ TAB CR PO ONE ×2 (09:42→20:14)
[2024-01-01 16:27] LABS: CALCIUM 9.8 mg/dL (8.4-10.2); CREATININE, SERUM 0.92 mg/dL (0.72-1.25); MAGNESIUM 1.9 MG/DL (1.3-2.1)
[2024-01-01] MEDS: INSULIN GLARGINE 100 UNITS/ML VIAL SQ SCH (20:15)
[2024-01-02] VITALS (24 sets, daily range): BP systolic 97–136; BP diastolic 63–93; PULSE 58–87; RESP 9–20; TEMP 98–98.7; O2SAT 97–100
[2024-01-02 08:03] LABS: ANION GAP 17.5 mmol/L (8-16); BLOOD UREA NITROGEN < 5 mg/dL (7-26); BUN/CREATININE RATIO 6 (6-25); CALCIUM 9.1 mg/dL (8.4-10.2); CARBON DIOXIDE 18 mmol/L (22-29); CHLORIDE 104 mmol/L (98-107); CREATININE, SERUM 0.78 mg/dL (0.72-1.25); EST GLOMERULAR FILTRATION RATE 115 ML/MIN (>=60); GLUCOSE 202 mg/dL (74-118); MAGNESIUM 1.8 MG/DL (1.3-2.1); POTASSIUM 3.5 mmol/L (3.5-5.1); SODIUM 136 mmol/L (136-145)
[2024-01-02] MEDS: POTASSIUM CHLORIDE 20 MEQ TAB CR PO ONE (10:36)
[2024-01-03] VITALS (13 sets, daily range): BP systolic 97–130; BP diastolic 71–89; PULSE 61–74; RESP 13–20; TEMP 97.9–98; O2SAT 97–100
[2024-01-03 06:33] LABS: BASOPHILS # (AUTO) 0.1 (0.0-0.1); BASOPHILS % 1.7 % (0.0-1.0); EOSINOPHILS # (AUTO) 0.2 (0.0-0.4); EOSINOPHILS % 5.9 % (0.0-6.0); HEMATOCRIT 42.3 % (38.2-49.6); HEMOGLOBIN 14.1 g/dL (14.0-18.0); LYMPHOCYTES # (AUTO) 1.2 (1.0-3.2); LYMPHOCYTES % 29.6 % (18.0-39.1); MEAN CORPUSCULAR HEMOGLOBIN 32.1 pg (28-32); MEAN CORPUSCULAR HGB CONC 33.3 g/dL (31-35); MEAN CORPUSCULAR VOLUME 96.4 fL (81-99); MONOCYTES # (AUTO) 0.5 (0.2-0.8); MONOCYTES % 12.7 % (4.4-11.3); NEUTROPHILS % 49.6 % (38.7-80.0); PLATELET COUNT 94 x10e3/uL (140-360); RED BLOOD COUNT 4.39 x10e6/uL (4.3-5.7); RED CELL DISTRIBUTION WIDTH 12.2 % (11.7-14.4); WHITE BLOOD COUNT 4.09 x10e3/uL (4.8-10.8)
[2024-01-03 07:23] LABS: ALANINE AMINOTRANSFERASE 368 IU/L (0-55); ALBUMIN 3.6 g/dL (3.5-5.0); ALBUMIN/GLOBULIN RATIO 1.2 (0.8-2.0); ALKALINE PHOSPHATASE 78 IU/L (40-150); ANION GAP 10.5 mmol/L (8-16); BILIRUBIN,TOTAL 0.6 mg/dL (0.2-1.2); BLOOD UREA NITROGEN < 5 mg/dL (7-26); CALCIUM 8.8 mg/dL (8.4-10.2); CARBON DIOXIDE 26 mmol/L (22-29); CHLORIDE 104 mmol/L (98-107); EST GLOMERULAR FILTRATION RATE 114 ML/MIN (>=60); GLUCOSE 159 mg/dL (74-118); MAGNESIUM 1.7 MG/DL (1.3-2.1); POTASSIUM 3.5 mmol/L (3.5-5.1); SODIUM 137 mmol/L (136-145); TOTAL PROTEIN 6.7 g/dL (6.5-8.1)
[2024-01-03 07:25] LABS: BUN/CREATININE RATIO 6 (6-25)
[2024-01-03] MEDS ORDERED: CHLORDIAZEPOXIDE HCL 25 MG CAP PO PRN (07:30)
[2024-01-03] MEDS ORDERED: DEXTROSE 50% SYRINGE 50 ML IV PRN (07:30)
[2024-01-03] MEDS: INSULIN REGULAR, HUMAN 100 UNIT/1 ML SQ SCH (07:59)
[2024-01-03] MEDS: POTASSIUM CHLORIDE 20 MEQ TAB CR PO ONE (08:37)
== END 2024-01-03 15:55 | disposition left against medical advice (07) | DRG 638 ==
LOC: FSED 08:13 → ERHOLD 13:27 → ICU 20:41
PROVIDERS: ADMIT Internal Medicine; ATTEND Internal Medicine
DX: E11.10 Type 2 diabetes mellitus with ketoacidosis without coma (principal); N17.9 Acute kidney failure, unspecified; E86.0 Dehydration; K70.30 Alcoholic cirrhosis of liver without ascites; F10.220 Alcohol dependence with intoxication, uncomplicated; E03.9 Hypothyroidism, unspecified; E78.5 Hyperlipidemia, unspecified; Z79.84 Long term (current) use of oral hypoglycemic drugs; T38.3X6A Underdosing of insulin and oral hypoglycemic [antidiabetic] drugs, initial encounter; Z91.128 Patient's intentional underdosing of medication regimen for other reason; Z53.29 Procedure and treatment not carried out because of patient's decision for other reasons; F17.200 Nicotine dependence, unspecified, uncomplicated; Z59.6 Low income
CPT/HCPCS: 36415; 74177; 80048; 80053; 80061; 80076; 82550; 82553; 82948; 83036; 83690; 83735; 84443; 84484; 85025; 85610; 93005; 94799; 96365; 96372; 99285; J1650; J1815; J1885; J2060; J2270; J2405; J2470; J3480; J7030; J7050; Q9967